=== PATIENT | female | born 1985 | race Caucasian/White ===

== ENCOUNTER → 2017-06-26 | Outpatient (CLI) | payer BC ==
[~2017-06-26] MED LIST: ALBUAER2 PO; CETI10TA84 PO; FLUT50AE; MONT1TAB3 PO
--- NOTE | 2017-06-26 13:04 | DIAGNOSTIC IMAGING REPORT ---
CHEST 2 VIEWS ROUTINE HISTORY: 31 years-old Female COUGH FEVER FLU LIKE SYMPTOMS acute cough with chills and fever. COMPARISON: None available. TECHNIQUE: Frontal and lateral views of the chest FINDINGS: Cardiomediastinal and hilar silhouettes are within normal limits. No pneumothorax, pleural effusion, focal airspace consolidation or overt pulmonary edema. There is mild convex left curvature of the upper thoracic spine of less than 10 degrees. The bones are grossly intact. Cholecystectomy clips are noted. IMPRESSION: No acute cardiopulmonary process. The above report was generated using voice recognition software. It may contain grammatical, syntax or spelling errors. Electronically signed by: Shahbaz Skinner M.D. 06/26/2017 1:03 PM Dictated Date/Time: 06/26/2017 1:02 PM
== END | disposition home or self-care (01) ==
LOC: C.RAD1850 12:45
PROVIDERS: ATTEND Physician Assistant
DX: R50.9 Fever, unspecified (principal); R05 Cough; R68.89 Other general symptoms and signs

== ENCOUNTER 2021-07-22 22:42 | Inpatient (IN) ==
[2021-07-22] MEDS ORDERED: OXYTOCIN 30 UNITS/500 ML BAG IV PRN (23:38)
[2021-07-22] MEDS ORDERED: LABETALOL HCL IV 5 MG/ML 20ML IV STA (23:50)
[2021-07-22] MEDS ORDERED: MAG SULFATE 4GM BOLUS FROM BAG IV ONE (23:50)
--- NOTE | 2021-07-22 23:55 | History & Physical Report ---
Date of Service July 22, 2021 Assessment & Plan (1) 39 weeks gestation of : Plan: Admit to LD, COVID test pending Routine labs and 3rd trimester labs Cytotec 50 mcg SL q4h for cervical ripening (2) Pre-eclampsia, severe, antepartum: Plan: Two severe range BP >160, IV labetalol 20mg rescue and start Mag sulfate 4 gr bolus, 2gr hour until 24hrs after delivery Stat labs Repeat labs q6h (CBC, CMP, Mag level) (3) Rh negative status during in third trimester: Plan: RhoGAM 01/25 and 05/03 screen after delivery (4) Adjustment disorder with mixed anxiety and depressed mood: Plan: Continue to follow and treat as needed Admission and Anticipated Discharge Date Admission Date: July 22, 2021 History of Present Illness Chief Complaint: Contractions Primary Care Provider: Cb Ayala Giovani Patient is a 35 year old at 39 0/7 weeks dated by LMP c/w 7 week US who presents with contractions since 10 am. Contractions are now every 5 min. Denies LOF, vaginal bleeding. + movements. Denies headache, BV, RUQ or epigastric pain. Otherwise feeling well. Noted elevated BP on Saturday and repeat BP on 07/21 at 38 6/7 148/90. Meet criteria for GHTN prior to admission. She presented with one severe range BP >16 0 SBP. Repeat 150. Last BP 166/96. labs reviewed: Blood type A negative Rubella immune RPR negative Hep B negative HIV neg G/C negative Qnatal negative 1st trimester H/H 13.3/39.5%, plt 246 AFP negative 1hr: 143 3hr: 80/127/120/108 3rd Trimester H/H 11.3/33.9%, plt 218 GBS negative Allergies Allergy/AdvReac Type Severity Reaction Status Date / Time cefaclor Allergy Unknown Hives/Rash Verified 07/19/21 00:27 clarithromycin Allergy Unknown Hives/Rash Verified 07/19/21 00:27 clindamycin Allergy Unknown Hives/Rash Verified 07/19/21 00:27 cyclobenzaprine Allergy Unknown Confussion, Verified 07/19/21 00:27 impaired speech and arm numbness. Penicillins Allergy Unknown HIVES/RASH Verified 07/19/21 00:27 Home Medications Medication Instructions Recorded Confirmed Type albuterol sulfate 90 mcg/actuation 2 puff INHALATION QID PRN 01/25/21 07/19/21 History aerosol inhaler sertraline 50 mg tablet 25 mg PO DAILY 01/25/21 07/19/21 History budesonide 90 mcg/actuation breath 1 inh INHALATION DAILY 07/19/21 07/19/21 History activated powder inhaler (Pulmicort Flexhaler) calcium 500 mg tablet 500 mg PO DAILY 07/19/21 07/19/21 History lactobacillus combination no.4 3 3,000 mmu cells PO DAILY 07/19/21 07/19/21 History billion cell capsule (Probiotic) [id number]-[id number]-[id number]-FA 1 mg 1 tab PO DAILY 07/19/21 07/19/21 History tablet Past Med/Surg History Medical History Anxiety and depression takes zoloft 25mg Migraine Surgical History (Updated 07/19/21 @ 00:25 by Leslie Alarcon RN) History of cholecystectomy Family History (Updated 07/19/21 @ 00:26 by Leslie Alarcon RN) Mother Cancer High cholesterol Grandmother (Maternal) Cancer Father High cholesterol Social History Smoking Status: Never smoker Second Hand Exposure: No; Do You Dip or Chew Tobacco: No; Tobacco Cessation Education Requested by Patient: No Hx Alcohol Use: No Hx Substance Use: No Preferred Language: Algerian Communication Ability: Effective 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 Beliefs That Will Affect Care: None marital status: Current Living Situation: Spouse Other Information That Helps Us Care for You: No Feels Safe at Home: Yes Safety Concerns: Feels Safe At This Time Assistive Devices: Contacts and Glasses Review of Systems Review of Systems: All systems reviewed & are unremarkable except as noted in HPI & below Physical Exam Constitutional: WD/WN, vitals as above Respiratory: normal respiratory effort, lungs clear to auscultation Cardiovascular: RRR, no murmur, no edema Gastrointestinal (Abdomen): normal bowel sounds, soft, nontender, no hepatosplenomegaly gravid Genitourinary: FHT: baseline 130, mod variability, +acceols, no decels, Cat I traging [place]:irregular Cx: 1/50/-3 check by RN Results & Data Results & Data ([facility]) Vital Signs (Past 12 Hours) Vital Signs Temp Pulse Resp BP 07/22/21 23:44 90 166/96 H 07/22/21 23:27 85 151/86 H 07/22/21 23:22 85 150/81 H 07/22/21 23:18 83 160/81 H 07/22/21 23:12 89 159/77 H 07/22/21 23:09 82 185/86 H 07/22/21 23:04 36.8 C 18 07/22/21 23:02 88 168/92 H 07/22/21 22:56 86 168/91 H 07/22/21 22:54 36.8 C 83 18 169/100 H 07/22/21 22:53 86 167/100 H Laboratory Results Pending
[2021-07-22] MEDS: LACTATED RINGER'S 1,000 ML IV PRN (23:59)
[2021-07-23 00:03] LABS: Hematocrit (blood only) 36.9 % (37-47); Hemoglobin 12.6 g/dL (12.0-16.0); Mean Corpuscular Hemoglobin 28.7 pg (25-34); Mean Corpuscular Hgb Conc 34.1 g/dL (32-36); Mean Corpuscular Volume 84.1 fL (80-100); Mean Platelet Volume 10.7 fL (7.4-10.4); Platelet Count 241 K/uL (130-400); RDW Coefficient of Variation 14.2 % (11.5-14.5); RDW Standard Deviation 43.6 fL (36.4-46.3); Red Blood Count 4.39 M/uL (4.2-5.4); White Blood Count 13.24 K/uL (4.8-10.8)
[2021-07-23] MEDS: MAGNESIUM SULFATE / WTR 40 GM/1,000 ML BAG IV SCH ×2 (00:10→17:41)
[2021-07-23] MEDS: miSOPROStoL 50 MCG TAB SL SCH ×5 (00:12→16:33)
[2021-07-23 00:24] LABS: Albumin Level 2.9 gm/dl (3.4-5.0); BUN Creatinine Ratio 11.4 (10-20); Calcium 9.4 mg/dl (8.5-10.1); Creatinine Clr Calc Pharmacy 178.7 ml/min; Est GFR (African American) 146.4 ml/min; Est GFR (Non-African American) 126.3 ml/min; Magnesium 1.9 mg/dl (1.8-2.4); Potassium 2.8 mmol/L (3.5-5.1)
[2021-07-23 00:27] LABS: Albumin Globulin Ratio 0.7 (0.9-2); Bilirubin,Total 0.4 mg/dl (0.2-1); Globulin 4.1 gm/dl (2.5-4.0)
[2021-07-23 01:47] LABS: Protein Creatinine Ratio Urine 0.5 (0-0.2); Total Protein Urine Random 14.5 mg/dl (0-11.9)
[2021-07-23 06:18] LABS: Hematocrit (blood only) 35.5 % (37-47); Mean Corpuscular Hemoglobin 28.3 pg (25-34); Mean Corpuscular Hgb Conc 33.8 g/dL (32-36); Mean Corpuscular Volume 83.7 fL (80-100); Mean Platelet Volume 10.7 fL (7.4-10.4); Platelet Count 217 K/uL (130-400); RDW Coefficient of Variation 14.3 % (11.5-14.5); RDW Standard Deviation 43.7 fL (36.4-46.3); Red Blood Count 4.24 M/uL (4.2-5.4); White Blood Count 14.34 K/uL (4.8-10.8)
[2021-07-23] MEDS: ACETAMINOPHEN 325 MG TAB PO PRN ×2 (06:41→12:30)
[2021-07-23 06:54] LABS: Alanine Aminotransferase 24 U/L (12-78); Albumin Level 2.7 gm/dl (3.4-5.0); Aspartate Aminotransferase 17 U/L (15-37); BUN Creatinine Ratio 8.5 (10-20); Blood Urea Nitrogen 4 mg/dl (7-18); Calcium 8.2 mg/dl (8.5-10.1); Carbon Dioxide 22 mmol/L (21-32); Chloride 108 mmol/L (98-107); Creatinine Clr Calc Pharmacy 198.5 ml/min; Est GFR (African American) > 150.0 ml/min; Est GFR (Non-African American) 130.7 ml/min; Glucose 80 mg/dl (70-99); Magnesium 4.1 mg/dl (1.8-2.4); Potassium 2.6 mmol/L (3.5-5.1); Sodium 139 mmol/L (136-145)
[2021-07-23 06:56] LABS: Albumin Globulin Ratio 0.7 (0.9-2); Alkaline Phosphatase 91 U/L (45-117); Bilirubin,Total 0.4 mg/dl (0.2-1); Globulin 3.7 gm/dl (2.5-4.0); Total Protein 6.4 gm/dl (6.4-8.2)
[2021-07-23] MEDS ORDERED: ALBUTEROL HFA 8 GM INHALER INH PRN (07:03)
[2021-07-23] MEDS: POTASSIUM CHLORIDE / WTR 10 MEQ/100 ML PLCT IV SCH ×10 (07:47→21:51)
[2021-07-23] MEDS: SERTRALINE HCL 50 MG TABLET PO SCH (07:53)
--- NOTE | 2021-07-23 08:42 | Labor Progress Brief Note ---
Date of Service July 23, 2021 Subjective Patient comfortable in bed at this time, denying any complaints. Has been having some complaint of pain, has not received anything for pain yet. Assessment & Plan (1) 39 weeks gestation of : Plan: Continue Cytotec 50 mcg SL q4h for cervical ripening, if no change plan for Cervidil tonight and pit tomorrow Anticipate spontaneous vaginal delivery (2) Pre-eclampsia, severe, antepartum: Plan: Continue Mag sulfate for seizure prophylaxis, no signs or symptoms of mag toxicity Continue repeat labs every 6 hours (3) Rh negative status during in third trimester: Plan: RhoGAM 01/25 and 05/03 screen after delivery (4) Adjustment disorder with mixed anxiety and depressed mood: Plan: Continue to follow and treat as needed (5) Hypokalemia: Plan: Continue IV replacement of potassium Admission and Anticipated Discharge Date Admission Date: July 22, 2021 Physical Exam Constitutional: WD/WN, vitals as above Respiratory: normal respiratory effort, lungs clear to auscultation Cardiovascular: RRR, no murmur, no edema Gastrointestinal (Abdomen): normal bowel sounds, soft, nontender, no hepatosplenomegaly Genitourinary: FHT: baseline 125-130 mod variability, positive accelerations, no decelerations, category 1 tracing Tocometer: Q. 4 to 6 minutes Cervix: 50/-3 check by RN this AM Results & Data ([facility]) Vital Signs (Past 12 Hours) Vital Signs Temp Pulse Resp BP Pulse Ox 07/23/21 08:34 112 H 99 07/23/21 08:32 104 H 135/72 07/23/21 08:30 18 07/23/21 08:29 107 H 100 07/23/21 08:24 107 H 99 07/23/21 08:19 102 H 98 07/23/21 08:14 107 H 100 07/23/21 08:09 106 H 100 07/23/21 08:04 98 H 99 07/23/21 08:00 18 07/23/21 07:59 101 H 100 07/23/21 07:54 102 H 100 07/23/21 07:49 99 H 100 07/23/21 07:44 100 H 100 07/23/21 07:39 103 H 100 07/23/21 07:34 100 H 100 07/23/21 07:32 101 H 143/79 H 07/23/21 07:30 18 07/23/21 07:29 98 H 100 07/23/21 07:25 96 H 145/81 H 07/23/21 07:24 97 H 100 07/23/21 07:19 102 H 100 07/23/21 07:14 98 H 100 07/23/21 07:10 97 H 147/84 H 07/23/21 07:09 99 H 100 07/23/21 07:04 105 H 98 07/23/21 06:59 101 H 99 07/23/21 06:55 90 143/81 H 07/23/21 06:54 99 H 100 07/23/21 06:49 98 H 99 07/23/21 06:44 108 H 100 07/23/21 06:40 101 H 148/73 H 07/23/21 06:39 110 H 97 07/23/21 06:34 111 H 99 07/23/21 06:29 104 H 98 07/23/21 06:25 99 H 143/82 H 07/23/21 06:24 107 H 99 07/23/21 06:19 102 H 100 07/23/21 06:14 101 H 98 07/23/21 06:09 99 H 100 07/23/21 06:04 104 H 100 07/23/21 06:00 20 07/23/21 05:59 112 H 100 07/23/21 05:54 109 H 100 07/23/21 05:49 105 H 100 07/23/21 05:45 93 H 127/63 07/23/21 05:44 96 H 90 07/23/21 05:39 97 H 100 07/23/21 05:34 97 H 100 07/23/21 05:29 101 H 98 07/23/21 05:24 98 H 100 07/23/21 05:19 103 H 99 07/23/21 05:14 97 H 98 07/23/21 05:09 99 H 100 07/23/21 05:04 97 H 99 07/23/21 04:59 98 H 100 07/23/21 04:58 101 H 91 07/23/21 04:54 104 H 100 07/23/21 04:49 93 H 99 07/23/21 04:44 90 120/61 100 07/23/21 04:39 94 H 100 07/23/21 04:34 92 H 100 07/23/21 04:29 88 100 07/23/21 04:24 97 H 100 07/23/21 04:19 99 H 100 07/23/21 04:14 99 H 100 07/23/21 04:09 96 H 100 07/23/21 04:04 92 H 100 07/23/21 03:59 97 H 100 07/23/21 03:54 105 H 100 07/23/21 03:49 97 H 100 07/23/21 03:45 83 139/80 07/23/21 03:44 86 100 07/23/21 03:39 89 100 07/23/21 03:34 109 H 100 07/23/21 03:29 108 H 98 07/23/21 03:24 104 H 100 07/23/21 03:19 94 H 100 07/23/21 03:14 90 99 07/23/21 03:11 97 H 91 07/23/21 03:09 95 H 100 07/23/21 03:04 91 H 100 07/23/21 02:59 93 H 99 07/23/21 02:54 91 H 98 07/23/21 02:49 100 H 99 07/23/21 02:46 91 H 135/72 07/23/21 02:44 98 H 100 07/23/21 02:39 91 H 100 07/23/21 02:34 90 99 07/23/21 02:30 18 07/23/21 02:29 96 H 100 07/23/21 02:24 89 100 07/23/21 02:19 105 H 100 07/23/21 02:14 91 H 100 07/23/21 02:09 91 H 100 07/23/21 02:04 101 H 100 07/23/21 02:00 18 07/23/21 01:59 96 H 100 07/23/21 01:54 98 H 100 07/23/21 01:49 89 100 07/23/21 01:44 101 H 100 07/23/21 01:43 81 124/63 07/23/21 01:39 99 H 100 07/23/21 01:34 86 100 07/23/21 01:30 18 07/23/21 01:29 96 H 100 07/23/21 01:28 88 131/69 07/23/21 01:24 105 H 100 07/23/21 01:22 188 H 87 L 07/23/21 01:17 155 H 83 L 07/23/21 01:13 90 147/83 H 07/23/21 01:12 99 H 100 07/23/21 01:07 98 H 99 07/23/21 01:02 96 H 98 07/23/21 01:00 18 07/23/21 00:58 99 H 152/80 H 07/23/21 00:57 101 H 99 07/23/21 00:52 104 H 98 07/23/21 00:51 106 H 90 07/23/21 00:47 93 H 99 07/23/21 00:43 100 H 153/93 H 07/23/21 00:42 100 H 98 07/23/21 00:41 94 H 93 07/23/21 00:37 104 H 95 07/23/21 00:34 95 H 93 07/23/21 00:32 109 H 89 L 07/23/21 00:29 104 H 93 07/23/21 00:27 97 H 158/84 H 96 07/23/21 00:12 92 H 146/83 H 07/22/21 23:58 88 149/90 H 07/22/21 23:44 90 166/96 H 07/22/21 23:27 85 151/86 H 07/22/21 23:22 85 150/81 H 07/22/21 23:18 83 160/81 H 07/22/21 23:12 89 159/77 H 07/22/21 23:09 82 185/86 H 07/22/21 23:04 36.8 C 18 07/22/21 23:02 88 168/92 H 07/22/21 22:56 86 168/91 H 07/22/21 22:54 36.8 C 83 18 169/100 H 07/22/21 22:53 86 167/100 H
[2021-07-23] MEDS: BUDESONIDE 90 MCG INH INH SCH (08:45)
[2021-07-23] MEDS ORDERED: FLUTICASONE FUROATE 100MCG 14 PUFFS/INHALER INH SCH (09:00)
[2021-07-23] MEDS: PRENATAL VITAMIN 1 TAB PO SCH (11:19)
[2021-07-23 12:15] LABS: Hematocrit (blood only) 36.3 % (37-47); Hemoglobin 12.2 g/dL (12.0-16.0); Mean Corpuscular Hemoglobin 28.2 pg (25-34); Mean Corpuscular Hgb Conc 33.6 g/dL (32-36); Mean Corpuscular Volume 83.8 fL (80-100); Mean Platelet Volume 10.8 fL (7.4-10.4); Platelet Count 226 K/uL (130-400); RDW Coefficient of Variation 14.2 % (11.5-14.5); RDW Standard Deviation 43.2 fL (36.4-46.3); Red Blood Count 4.33 M/uL (4.2-5.4); White Blood Count 16.24 K/uL (4.8-10.8)
[2021-07-23 12:32] LABS: Alanine Aminotransferase 27 U/L (12-78); Albumin Level 2.8 gm/dl (3.4-5.0); Aspartate Aminotransferase 19 U/L (15-37); BUN Creatinine Ratio 7.4 (10-20); Blood Urea Nitrogen 3 mg/dl (7-18); Carbon Dioxide 24 mmol/L (21-32); Chloride 106 mmol/L (98-107); Creatinine Clr Calc Pharmacy 198.5 ml/min; Est GFR (African American) > 150.0 ml/min; Est GFR (Non-African American) 130.7 ml/min; Glucose 76 mg/dl (70-99); Magnesium 4.7 mg/dl (1.8-2.4); Potassium 2.8 mmol/L (3.5-5.1); Sodium 138 mmol/L (136-145)
[2021-07-23 12:35] LABS: Albumin Globulin Ratio 0.7 (0.9-2); Alkaline Phosphatase 97 U/L (45-117); Bilirubin,Total 0.5 mg/dl (0.2-1); Globulin 3.9 gm/dl (2.5-4.0); Total Protein 6.7 gm/dl (6.4-8.2)
--- NOTE | 2021-07-23 14:07 | Labor Progress Brief Note ---
Date of Service July 23, 2021 Subjective Patient getting uncomfortable with contractions, has not had any pain relief yet. Sitting in chair. Denies headache, blurry vision, right upper quadrant epigastric pain. Otherwise feeling well Assessment & Plan (1) 39 weeks gestation of : Plan: Continue Cytotec 50 mcg SL q4h for cervical ripening, if no change plan for Cervidil tonight and pit tomorrow Anticipate spontaneous vaginal delivery (2) Pre-eclampsia, severe, antepartum: Plan: Continue Mag sulfate for seizure prophylaxis, no signs or symptoms of mag toxicity Continue repeat labs every 6 hours (3) Rh negative status during in third trimester: Plan: RhoGAM 01/25 and 05/03 screen after delivery (4) Adjustment disorder with mixed anxiety and depressed mood: Plan: Continue to follow and treat as needed (5) Hypokalemia: Plan: Continue IV replacement of potassium Admission and Anticipated Discharge Date Admission Date: July 22, 2021 Physical Exam Physical Exam: General: Alert, no acute distress, oriented x3 lungs: Clear to auscultation no crackles or wheeze cardiovascular: Tacky, regular rhythm no added sounds abdomen: Soft nontender, gravid Genitourinary: FHT: Baseline 130, moderate variability, positive accelerations, variable deceleration x1, category 1 tracing tocometer: Q. 6 to 8 minutes cervix: 50/-3 checked by RN earlier today Results & Data ([facility]) Vital Signs (Past 12 Hours) Vital Signs Temp Pulse Resp BP Pulse Ox 07/23/21 13:32 110 H 146/83 H 07/23/21 12:33 102 H 155/87 H 07/23/21 12:32 102 H 175/99 H 07/23/21 12:25 36.6 C 18 07/23/21 12:00 18 07/23/21 11:32 101 H 137/75 07/23/21 11:00 18 07/23/21 10:32 103 H 141/83 H 07/23/21 09:34 116 H 144/78 H 07/23/21 09:30 18 07/23/21 09:29 112 H 97 07/23/21 09:24 114 H 98 07/23/21 09:19 115 H 99 07/23/21 09:14 125 H 100 07/23/21 09:09 108 H 98 07/23/21 09:04 105 H 98 07/23/21 09:00 18 07/23/21 08:59 109 H 98 07/23/21 08:54 112 H 100 07/23/21 08:49 115 H 100 07/23/21 08:44 107 H 100 07/23/21 08:39 109 H 98 07/23/21 08:34 112 H 99 07/23/21 08:32 104 H 135/72 07/23/21 08:30 18 07/23/21 08:29 107 H 100 07/23/21 08:24 107 H 99 07/23/21 08:19 102 H 98 07/23/21 08:14 107 H 100 07/23/21 08:09 106 H 100 07/23/21 08:04 98 H 99 07/23/21 08:00 18 07/23/21 07:59 101 H 100 07/23/21 07:54 102 H 100 07/23/21 07:49 99 H 100 07/23/21 07:44 100 H 100 07/23/21 07:39 103 H 100 07/23/21 07:34 100 H 100 07/23/21 07:32 101 H 143/79 H 07/23/21 07:30 18 07/23/21 07:29 98 H 100 07/23/21 07:25 96 H 145/81 H 07/23/21 07:24 97 H 100 07/23/21 07:19 102 H 100 07/23/21 07:14 98 H 100 07/23/21 07:10 97 H 147/84 H 07/23/21 07:09 99 H 100 07/23/21 07:04 105 H 98 07/23/21 06:59 101 H 99 07/23/21 06:55 90 143/81 H 07/23/21 06:54 99 H 100 07/23/21 06:49 98 H 99 07/23/21 06:44 108 H 100 07/23/21 06:40 101 H 148/73 H 07/23/21 06:39 110 H 97 07/23/21 06:34 111 H 99 07/23/21 06:29 104 H 98 07/23/21 06:25 99 H 143/82 H 07/23/21 06:24 107 H 99 07/23/21 06:19 102 H 100 07/23/21 06:14 101 H 98 07/23/21 06:09 99 H 100 07/23/21 06:04 104 H 100 07/23/21 06:00 20 07/23/21 05:59 112 H 100 07/23/21 05:54 109 H 100 07/23/21 05:49 105 H 100 07/23/21 05:45 93 H 127/63 07/23/21 05:44 96 H 90 07/23/21 05:39 97 H 100 07/23/21 05:34 97 H 100 07/23/21 05:29 101 H 98 07/23/21 05:24 98 H 100 07/23/21 05:19 103 H 99 07/23/21 05:14 97 H 98 07/23/21 05:09 99 H 100 07/23/21 05:04 97 H 99 07/23/21 04:59 98 H 100 07/23/21 04:58 101 H 91 07/23/21 04:54 104 H 100 07/23/21 04:49 93 H 99 07/23/21 04:44 90 120/61 100 07/23/21 04:39 94 H 100 07/23/21 04:34 92 H 100 07/23/21 04:29 88 100 07/23/21 04:24 97 H 100 07/23/21 04:19 99 H 100 07/23/21 04:14 99 H 100 07/23/21 04:09 96 H 100 07/23/21 04:04 92 H 100 07/23/21 03:59 97 H 100 07/23/21 03:54 105 H 100 07/23/21 03:49 97 H 100 07/23/21 03:45 83 139/80 07/23/21 03:44 86 100 07/23/21 03:39 89 100 07/23/21 03:34 109 H 100 07/23/21 03:29 108 H 98 07/23/21 03:24 104 H 100 07/23/21 03:19 94 H 100 07/23/21 03:14 90 99 07/23/21 03:11 97 H 91 07/23/21 03:09 95 H 100 07/23/21 03:04 91 H 100 07/23/21 02:59 93 H 99 07/23/21 02:54 91 H 98 07/23/21 02:49 100 H 99 07/23/21 02:46 91 H 135/72 07/23/21 02:44 98 H 100 07/23/21 02:39 91 H 100 07/23/21 02:34 90 99 07/23/21 02:30 18 07/23/21 02:29 96 H 100 07/23/21 02:24 89 100 07/23/21 02:19 105 H 100 07/23/21 02:14 91 H 100 07/23/21 02:09 91 H 100
[2021-07-23] MEDS: BUTORPHANOL TARTRATE 1 MG/ML VIAL IV PRN ×2 (15:12→23:34)
[2021-07-23] MEDS ORDERED: [UNRECOGNIZED DRUG - OTHER] PV ONE (17:29)
[2021-07-23] MEDS ORDERED: DINOPROSTONE 10 MG INSERT PV ONE (17:45)
[2021-07-23 18:02] LABS: Hematocrit (blood only) 37.8 % (37-47); Mean Corpuscular Hemoglobin 28.7 pg (25-34); Mean Corpuscular Hgb Conc 34.4 g/dL (32-36); Mean Corpuscular Volume 83.4 fL (80-100); Mean Platelet Volume 10.8 fL (7.4-10.4); Platelet Count 255 K/uL (130-400); RDW Coefficient of Variation 14.3 % (11.5-14.5); RDW Standard Deviation 44.1 fL (36.4-46.3); Red Blood Count 4.53 M/uL (4.2-5.4); White Blood Count 18.23 K/uL (4.8-10.8)
[2021-07-23 18:23] LABS: Albumin Level 2.8 gm/dl (3.4-5.0); BUN Creatinine Ratio 6.6 (10-20); Calcium 7.4 mg/dl (8.5-10.1); Creatinine Clr Calc Pharmacy 190.1 ml/min; Est GFR (African American) 149.4 ml/min; Est GFR (Non-African American) 128.9 ml/min; Magnesium 4.8 mg/dl (1.8-2.4); Potassium 3.1 mmol/L (3.5-5.1)
[2021-07-23 18:26] LABS: Albumin Globulin Ratio 0.7 (0.9-2); Bilirubin,Total 0.8 mg/dl (0.2-1); Globulin 4.2 gm/dl (2.5-4.0)
--- NOTE | 2021-07-23 18:44 | Labor Progress Brief Note ---
Date of Service July 23, 2021 Subjective Patient comfortable in bed at this time, got 1 dose of Stadol and was able to rest for several hours. He attempted to eat some broth but did throw it up afterwards. No other complaints at this time Assessment & Plan (1) 39 weeks gestation of : Plan: Cervidil was placed, anticipate removal if patient becomes an active labor or 12 hours which is 6:40 AM Anticipate spontaneous vaginal delivery (2) Pre-eclampsia, severe, antepartum: Plan: Continue Mag sulfate for seizure prophylaxis, no signs or symptoms of mag toxicity Continue repeat labs every 6 hours (3) Rh negative status during in third trimester: Plan: RhoGAM 01/25 and 05/03 screen after delivery (4) Adjustment disorder with mixed anxiety and depressed mood: Plan: Continue to follow and treat as needed (5) Hypokalemia: Plan: Improved to 3.1 Continue IV replacement of potassium Admission and Anticipated Discharge Date Admission Date: July 22, 2021 Physical Exam Physical Exam: General: Alert, no acute distress, oriented x3 Lungs: Clear to auscultation bilaterally no crackles or wheeze Cardiovascular: Regular rate rhythm no added sounds Abdomen: Soft nontender, gravid Genitourinary: : Baseline 130, moderate variability, positive accelerations, no decelerations, category 1 tracing Tocometer: Irregular contractions Cervix: 1.5/60/-3 Cervidil placed at 1840, patient tolerated well Results & Data ([facility]) Vital Signs (Past 12 Hours) Vital Signs Temp Pulse Resp BP Pulse Ox 07/23/21 18:33 101 H 144/86 H 07/23/21 18:00 18 07/23/21 17:45 36.7 C 18 07/23/21 17:32 100 H 146/89 H 07/23/21 17:00 16 07/23/21 16:32 90 126/72 07/23/21 16:00 16 07/23/21 15:34 102 H 136/84 07/23/21 15:00 18 07/23/21 14:33 102 H 140/81 07/23/21 14:30 18 07/23/21 13:32 110 H 146/83 H 07/23/21 12:33 102 H 155/87 H 07/23/21 12:32 102 H 175/99 H 07/23/21 12:25 36.6 C 18 07/23/21 12:00 18 07/23/21 11:32 101 H 137/75 07/23/21 11:00 18 07/23/21 10:32 103 H 141/83 H 07/23/21 10:00 18 07/23/21 09:34 116 H 144/78 H 07/23/21 09:30 18 07/23/21 09:29 112 H 97 07/23/21 09:24 114 H 98 07/23/21 09:19 115 H 99 07/23/21 09:14 125 H 100 07/23/21 09:09 108 H 98 07/23/21 09:04 105 H 98 07/23/21 09:00 18 07/23/21 08:59 109 H 98 07/23/21 08:54 112 H 100 07/23/21 08:49 115 H 100 07/23/21 08:44 107 H 100 07/23/21 08:39 109 H 98 07/23/21 08:34 112 H 99 07/23/21 08:32 104 H 135/72 07/23/21 08:30 18 07/23/21 08:29 107 H 100 07/23/21 08:24 107 H 99 07/23/21 08:19 102 H 98 07/23/21 08:14 107 H 100 07/23/21 08:09 106 H 100 07/23/21 08:04 98 H 99 07/23/21 08:00 18 07/23/21 07:59 101 H 100 07/23/21 07:54 102 H 100 07/23/21 07:49 99 H 100 07/23/21 07:44 100 H 100 07/23/21 07:39 103 H 100 07/23/21 07:34 100 H 100 07/23/21 07:32 101 H 143/79 H 07/23/21 07:30 18 07/23/21 07:29 98 H 100 07/23/21 07:25 96 H 145/81 H 07/23/21 07:24 97 H 100 07/23/21 07:19 102 H 100 07/23/21 07:14 98 H 100 07/23/21 07:10 97 H 147/84 H 07/23/21 07:09 99 H 100 07/23/21 07:04 105 H 98 07/23/21 07:00 18 07/23/21 06:59 101 H 99 07/23/21 06:55 90 143/81 H 07/23/21 06:54 99 H 100 07/23/21 06:49 98 H 99 07/23/21 06:44 108 H 100
[2021-07-23] MEDS: LACTATED RINGER'S 1,000 ML IV PRN (20:45)
[2021-07-24 00:12] LABS: Hematocrit (blood only) 35.7 % (37-47); Hemoglobin 12.2 g/dL (12.0-16.0); Mean Corpuscular Hemoglobin 28.5 pg (25-34); Mean Corpuscular Hgb Conc 34.2 g/dL (32-36); Mean Corpuscular Volume 83.4 fL (80-100); Mean Platelet Volume 10.3 fL (7.4-10.4); Platelet Count 247 K/uL (130-400); RDW Coefficient of Variation 14.5 % (11.5-14.5); RDW Standard Deviation 44.2 fL (36.4-46.3); Red Blood Count 4.28 M/uL (4.2-5.4); White Blood Count 20.27 K/uL (4.8-10.8)
[2021-07-24 00:43] LABS: Alanine Aminotransferase 24 U/L (12-78); Albumin Globulin Ratio 0.6 (0.9-2); Albumin Level 2.6 gm/dl (3.4-5.0); Alkaline Phosphatase 102 U/L (45-117); Aspartate Aminotransferase 20 U/L (15-37); BUN Creatinine Ratio 7.6 (10-20); Blood Urea Nitrogen 3 mg/dl (7-18); Calcium 7.3 mg/dl (8.5-10.1); Carbon Dioxide 18 mmol/L (21-32); Chloride 105 mmol/L (98-107); Creatinine Clr Calc Pharmacy 212.7 ml/min; Est GFR (African American) > 150.0 ml/min; Est GFR (Non-African American) 133.7 ml/min; Globulin 4.1 gm/dl (2.5-4.0); Glucose 88 mg/dl (70-99); Potassium 3.2 mmol/L (3.5-5.1); Sodium 137 mmol/L (136-145); Total Protein 6.7 gm/dl (6.4-8.2)
[2021-07-24 05:57] LABS: Hematocrit (blood only) 36.7 % (37-47); Hemoglobin 12.3 g/dL (12.0-16.0); Mean Corpuscular Hemoglobin 28.3 pg (25-34); Mean Corpuscular Hgb Conc 33.5 g/dL (32-36); Mean Corpuscular Volume 84.6 fL (80-100); Mean Platelet Volume 10.8 fL (7.4-10.4); Platelet Count 256 K/uL (130-400); RDW Coefficient of Variation 14.5 % (11.5-14.5); RDW Standard Deviation 44.9 fL (36.4-46.3); Red Blood Count 4.34 M/uL (4.2-5.4); White Blood Count 19.39 K/uL (4.8-10.8)
[2021-07-24 06:39] LABS: Alanine Aminotransferase 27 U/L (12-78); Albumin Globulin Ratio 0.6 (0.9-2); Albumin Level 2.6 gm/dl (3.4-5.0); Alkaline Phosphatase 104 U/L (45-117); Aspartate Aminotransferase 20 U/L (15-37); BUN Creatinine Ratio 5.2 (10-20); Bilirubin,Total 1.1 mg/dl (0.2-1); Blood Urea Nitrogen 2 mg/dl (7-18); Calcium 7.3 mg/dl (8.5-10.1); Carbon Dioxide 20 mmol/L (21-32); Chloride 104 mmol/L (98-107); Creatinine Clr Calc Pharmacy 194.2 ml/min; Est GFR (African American) > 150.0 ml/min; Est GFR (Non-African American) 129.8 ml/min; Globulin 4.1 gm/dl (2.5-4.0); Glucose 85 mg/dl (70-99); Magnesium 5.2 mg/dl (1.8-2.4); Potassium 2.9 mmol/L (3.5-5.1); Sodium 134 mmol/L (136-145); Total Protein 6.7 gm/dl (6.4-8.2)
--- NOTE | 2021-07-24 06:55 | Labor Progress Brief Note ---
Date of Service July 24, 2021 Subjective Patient is comfortable at this time, was able to get some sleep overnight denies any headache, blurry vision or right upper quadrant epigastric pain. Otherwise feeling well Assessment & Plan (1) 39 weeks gestation of : Plan: Cervidil was removed, AROM was offered to patient and starting of oxytocin but patient desires epidural first. Plan for epidural then AROM and Pitocin after Anticipate spontaneous vaginal delivery (2) Pre-eclampsia, severe, antepartum: Plan: Continue Mag sulfate for seizure prophylaxis, no signs or symptoms of mag toxicity Continue repeat labs every 6 hours (3) Rh negative status during in third trimester: Plan: RhoGAM 01/25 and 05/03 screen after delivery (4) Adjustment disorder with mixed anxiety and depressed mood: Plan: Continue to follow and treat as needed (5) Hypokalemia: Plan: Now 2.9 Will restart IV replacement of potassium Admission and Anticipated Discharge Date Admission Date: July 22, 2021 Physical Exam Physical Exam: General: Alert, no acute distress, oriented x3 Lungs: Clear to auscultation bilaterally no crepitus or wheeze Cardiovascular: Regular rate and rhythm no added sounds Abdomen: Soft nontender, gravid Genitourinary: Seeing: Baseline 130, moderate variability, positive accelerations no decelerations, category 1 tracing Tocometer: Irregular contractions Cervix 3/60/-3 Results & Data ([facility]) Vital Signs (Past 12 Hours) Vital Signs Temp Pulse Resp BP Pulse Ox 07/24/21 06:49 116 H 97 07/24/21 06:44 110 H 96 07/24/21 06:39 105 H 95 07/24/21 06:34 117 H 95 07/24/21 06:32 106 H 130/74 07/24/21 06:30 18 07/24/21 06:29 110 H 95 07/24/21 06:24 113 H 94 07/24/21 06:00 18 07/24/21 05:54 110 H 98 07/24/21 05:49 107 H 97 07/24/21 05:44 114 H 97 07/24/21 05:39 114 H 97 07/24/21 05:34 117 H 97 07/24/21 05:32 109 H 130/80 07/24/21 05:30 18 07/24/21 05:29 114 H 96 07/24/21 05:24 98 H 94 07/24/21 05:19 116 H 97 07/24/21 05:14 102 H 93 07/24/21 05:09 99 H 94 07/24/21 05:04 113 H 94 07/24/21 04:59 111 H 96 07/24/21 04:54 109 H 94 07/24/21 04:49 112 H 96 07/24/21 04:44 120 H 95 07/24/21 04:39 125 H 97 07/24/21 04:36 113 H 86 L 07/24/21 04:33 125 H 92 07/24/21 04:28 107 H 93 07/24/21 04:23 106 H 89 L 07/24/21 04:18 105 H 89 L 07/24/21 04:13 104 H 93 07/24/21 04:08 111 H 92 07/24/21 04:03 97 H 89 L 07/24/21 04:00 18 07/24/21 03:58 114 H 92 07/24/21 03:53 122 H 93 07/24/21 03:48 101 H 93 07/24/21 03:43 112 H 95 07/24/21 03:38 104 H 07/24/21 03:33 118 H 96 07/24/21 03:32 100 H 125/73 07/24/21 03:30 18 07/24/21 03:28 114 H 95 07/24/21 03:23 102 H 94 07/24/21 03:18 122 H 93 07/24/21 03:13 123 H 95 07/24/21 03:08 116 H 94 07/24/21 03:03 99 H 92 07/24/21 03:00 18 07/24/21 02:58 115 H 95 07/24/21 02:53 118 H 96 07/24/21 02:48 109 H 95 07/24/21 02:43 104 H 94 07/24/21 02:38 102 H 94 07/24/21 02:33 36.6 C 105 H 133/74 95 07/24/21 02:30 18 07/24/21 02:28 110 H 96 07/24/21 02:23 107 H 96 07/24/21 02:18 104 H 97 07/24/21 02:13 108 H 97 07/24/21 02:08 116 H 97 07/24/21 02:03 108 H 97 07/24/21 02:00 18 07/24/21 01:58 105 H 97 07/24/21 01:53 114 H 96 07/24/21 01:48 97 H 95 07/24/21 01:43 106 H 94 07/24/21 01:38 100 H 95 07/24/21 01:33 97 H 93 07/24/21 01:32 104 H 124/60 07/24/21 01:30 18 07/24/21 01:28 99 H 94 07/24/21 01:23 98 H 94 07/24/21 01:18 113 H 97 07/24/21 01:13 96 H 94 07/24/21 01:08 112 H 96 07/24/21 01:03 97 H 94 07/24/21 01:00 18 07/24/21 00:58 97 H 93 07/24/21 00:53 100 H 93 07/24/21 00:48 105 H 92 07/24/21 00:43 99 H 94 07/24/21 00:38 99 H 92 07/24/21 00:33 105 H 95 07/24/21 00:32 100 H 123/60 07/24/21 00:30 18 07/24/21 00:28 101 H 92 07/24/21 00:23 102 H 92 07/24/21 00:18 110 H 95 07/24/21 00:13 102 H 92 07/24/21 00:08 106 H 93 07/24/21 00:03 111 H 93 07/24/21 00:02 114 H 94 07/24/21 00:00 18 07/23/21 23:58 102 H 91 07/23/21 23:53 101 H 93 07/23/21 23:48 97 H 91 07/23/21 23:47 104 H 94 07/23/21 23:43 100 H 91 07/23/21 23:39 105 H 94 07/23/21 23:38 102 H 95 07/23/21 23:33 105 H 97 07/23/21 23:32 36.8 C 104 H 137/75 07/23/21 23:30 18 07/23/21 23:28 121 H 99 07/23/21 23:23 115 H 97 07/23/21 23:18 111 H 98 07/23/21 23:13 118 H 96 07/23/21 23:08 106 H 93 07/23/21 23:07 107 H 94 07/23/21 23:03 116 H 99 07/23/21 23:00 18 07/23/21 22:58 112 H 97 07/23/21 22:53 97 H 94 07/23/21 22:51 99 H 94 07/23/21 22:48 112 H 96 07/23/21 22:43 101 H 96 07/23/21 22:42 111 H 94 07/23/21 22:38 112 H 97 07/23/21 22:37 102 H 94 07/23/21 22:33 107 H 100 07/23/21 22:32 103 H 132/84 07/23/21 22:30 18 07/23/21 22:28 101 H 93 07/23/21 22:26 100 H 93 07/23/21 22:23 112 H 94 07/23/21 22:21 97 H 94 07/23/21 22:18 104 H 93 07/23/21 22:13 98 H 94 07/23/21 22:08 105 H 95 07/23/21 22:03 106 H 95 07/23/21 22:00 18 07/23/21 21:58 108 H 95 07/23/21 21:57 110 H 94 07/23/21 21:53 112 H 96 07/23/21 21:48 109 H 97 07/23/21 21:34 109 H 97 07/23/21 21:33 100 H 134/74 07/23/21 21:30 18 07/23/21 21:29 101 H 98 07/23/21 21:24 110 H 100 07/23/21 21:23 108 H 89 L 07/23/21 21:19 109 H 100 07/23/21 21:14 103 H 99 07/23/21 21:09 121 H 99 07/23/21 21:04 99 H 98 07/23/21 21:01 106 H 90 07/23/21 21:00 18 07/23/21 20:59 97 H 98 07/23/21 20:54 111 H 99 07/23/21 20:49 111 H 98 07/23/21 20:32 101 H 134/71 07/23/21 20:30 18 07/23/21 20:00 18 07/23/21 19:32 36.6 C 95 H 18 141/87 H 07/23/21 19:00 18
[2021-07-24] MEDS ORDERED: OXYTOCIN 30 UNITS/500 ML BAG IV PRN ×2 (07:34→18:08)
[2021-07-24] MEDS ORDERED: ONDANSETRON INJ 2 MG/ML 2 ML VIAL IV PRN (07:56)
--- NOTE | 2021-07-24 08:02 | Obstetrical Progress Note ---
Date of Service July 24, 2021 Assessment & Plan Admission and Anticipated Discharge Date Admission Date: July 22, 2021 Subjective Patient is seen and examined She feels tired and hungry Has not slept and ate since Saturday night when she came Her initial BP's were elevated but never needed antihypertensives. Started on IV Magnesium for seizure prophylaxis BP's have been WNL O2 sat 98% on RA No HERNANDEZ/ change in vision/ CP/ SOB Desires to eat and have epidural and rest Labs with normal platelets , creatinine and LFT's Magnesium level coming up Low Potassium, has been being replaced UOP adequate DTR 2+/2+ VE: 2-3 cm/ 70%/ -3, bulging bag FHR categ I Plan to decrease Magnesium to 1 gr/ hour, epidural for pain and then start Pitocin Continue to monitor closely Results & Data ([facility]) Vital Signs (Past 12 Hours) Vital Signs Temp Pulse Resp BP Pulse Ox 07/24/21 07:54 107 H 96 07/24/21 07:49 102 H 98 07/24/21 07:44 107 H 96 07/24/21 07:39 102 H 96 07/24/21 07:34 106 H 96 07/24/21 07:32 105 H 139/81 07/24/21 07:29 105 H 97 07/24/21 07:24 110 H 96 07/24/21 07:19 113 H 96 07/24/21 07:14 102 H 95 07/24/21 07:09 110 H 95 07/24/21 07:04 116 H 97 07/24/21 07:00 18 07/24/21 06:59 106 H 95 07/24/21 06:54 111 H 95 07/24/21 06:49 116 H 97 07/24/21 06:44 110 H 96 07/24/21 06:39 105 H 95 07/24/21 06:34 117 H 95 07/24/21 06:32 106 H 130/74 07/24/21 06:30 18 07/24/21 06:29 110 H 95 07/24/21 06:24 113 H 94 07/24/21 06:00 18 07/24/21 05:54 110 H 98 07/24/21 05:49 107 H 97 07/24/21 05:44 114 H 97 07/24/21 05:39 114 H 97 07/24/21 05:34 117 H 97 07/24/21 05:32 109 H 130/80 07/24/21 05:30 18 07/24/21 05:29 114 H 96 07/24/21 05:24 98 H 94 07/24/21 05:19 116 H 97 07/24/21 05:14 102 H 93 07/24/21 05:09 99 H 94 07/24/21 05:04 113 H 94 07/24/21 04:59 111 H 96 07/24/21 04:54 109 H 94 07/24/21 04:49 112 H 96 07/24/21 04:44 120 H 95 07/24/21 04:39 125 H 97 07/24/21 04:36 113 H 86 L 07/24/21 04:33 125 H 92 07/24/21 04:28 107 H 93 07/24/21 04:23 106 H 89 L 07/24/21 04:18 105 H 89 L 07/24/21 04:13 104 H 93 07/24/21 04:08 111 H 92 07/24/21 04:03 97 H 89 L 07/24/21 04:00 18 07/24/21 03:58 114 H 92 07/24/21 03:53 122 H 93 07/24/21 03:48 101 H 93 07/24/21 03:43 112 H 95 07/24/21 03:38 104 H 07/24/21 03:33 118 H 96 07/24/21 03:32 100 H 125/73 07/24/21 03:30 18 07/24/21 03:28 114 H 95 07/24/21 03:23 102 H 94 07/24/21 03:18 122 H 93 07/24/21 03:13 123 H 95 07/24/21 03:08 116 H 94 07/24/21 03:03 99 H 92 07/24/21 03:00 18 07/24/21 02:58 115 H 95 07/24/21 02:53 118 H 96 07/24/21 02:48 109 H 95 07/24/21 02:43 104 H 94 07/24/21 02:38 102 H 94 07/24/21 02:33 36.6 C 105 H 133/74 95 07/24/21 02:30 18 07/24/21 02:28 110 H 96 07/24/21 02:23 107 H 96 07/24/21 02:18 104 H 97 07/24/21 02:13 108 H 97 07/24/21 02:08 116 H 97 07/24/21 02:03 108 H 97 07/24/21 02:00 18 07/24/21 01:58 105 H 97 07/24/21 01:53 114 H 96 07/24/21 01:48 97 H 95 07/24/21 01:43 106 H 94 07/24/21 01:38 100 H 95 07/24/21 01:33 97 H 93 07/24/21 01:32 104 H 124/60 07/24/21 01:30 18 07/24/21 01:28 99 H 94 07/24/21 01:23 98 H 94 07/24/21 01:18 113 H 97 07/24/21 01:13 96 H 94 07/24/21 01:08 112 H 96 07/24/21 01:03 97 H 94 07/24/21 01:00 18 07/24/21 00:58 97 H 93 07/24/21 00:53 100 H 93 07/24/21 00:48 105 H 92 07/24/21 00:43 99 H 94 07/24/21 00:38 99 H 92 07/24/21 00:33 105 H 95 07/24/21 00:32 100 H 123/60 07/24/21 00:30 18 07/24/21 00:28 101 H 92 07/24/21 00:23 102 H 92 07/24/21 00:18 110 H 95 07/24/21 00:13 102 H 92 07/24/21 00:08 106 H 93 07/24/21 00:03 111 H 93 07/24/21 00:02 114 H 94 07/24/21 00:00 18 07/23/21 23:58 102 H 91 07/23/21 23:53 101 H 93 07/23/21 23:48 97 H 91 07/23/21 23:47 104 H 94 07/23/21 23:43 100 H 91 07/23/21 23:39 105 H 94 07/23/21 23:38 102 H 95 07/23/21 23:33 105 H 97 07/23/21 23:32 36.8 C 104 H 137/75 07/23/21 23:30 18 07/23/21 23:28 121 H 99 07/23/21 23:23 115 H 97 07/23/21 23:18 111 H 98 07/23/21 23:13 118 H 96 07/23/21 23:08 106 H 93 07/23/21 23:07 107 H 94 07/23/21 23:03 116 H 99 07/23/21 23:00 18 07/23/21 22:58 112 H 97 07/23/21 22:53 97 H 94 07/23/21 22:51 99 H 94 07/23/21 22:48 112 H 96 07/23/21 22:43 101 H 96 07/23/21 22:42 111 H 94 07/23/21 22:38 112 H 97 07/23/21 22:37 102 H 94 07/23/21 22:33 107 H 100 07/23/21 22:32 103 H 132/84 07/23/21 22:30 18 07/23/21 22:28 101 H 93 07/23/21 22:26 100 H 93 07/23/21 22:23 112 H 94 07/23/21 22:21 97 H 94 07/23/21 22:18 104 H 93 07/23/21 22:13 98 H 94 07/23/21 22:08 105 H 95 07/23/21 22:03 106 H 95 07/23/21 22:00 18 07/23/21 21:58 108 H 95 07/23/21 21:57 110 H 94 07/23/21 21:53 112 H 96 07/23/21 21:48 109 H 97 07/23/21 21:34 109 H 97 07/23/21 21:33 100 H 134/74 07/23/21 21:30 18 07/23/21 21:29 101 H 98 07/23/21 21:24 110 H 100 07/23/21 21:23 108 H 89 L 07/23/21 21:19 109 H 100 07/23/21 21:14 103 H 99 07/23/21 21:09 121 H 99 07/23/21 21:04 99 H 98 07/23/21 21:01 106 H 90 07/23/21 21:00 18 07/23/21 20:59 97 H 98 07/23/21 20:54 111 H 99 07/23/21 20:49 111 H 98 07/23/21 20:32 101 H 134/71 07/23/21 20:30 18 07/23/21 20:00 18
[2021-07-24] MEDS: SERTRALINE HCL 50 MG TABLET PO SCH (08:12)
[2021-07-24] MEDS: POTASSIUM CHLORIDE / WTR 10 MEQ/100 ML PLCT IV SCH ×6 (08:22→15:13)
[2021-07-24] MEDS ORDERED: ePHEDrine sulfate 50 MG/ML AMP ONE (08:32)
[2021-07-24] MEDS ORDERED: SODIUM CHLORIDE 0.9% INJ 10 ML VIAL ONE (08:32)
[2021-07-24] MEDS ORDERED: BUPIVACAINE 0.25% 30 ML VIAL ONE (08:32)
[2021-07-24] MEDS ORDERED: fentaNYL citrate 100 MCG/2 ML VIAL ONE (08:32)
[2021-07-24] MEDS ORDERED: fentaNYL 2MCG/ML ROPIVACAINE 1.25MG/ML 100 ML BAG EPI ONE (08:33)
[2021-07-24] MEDS: PRENATAL VITAMIN 1 TAB PO SCH (08:38)
[2021-07-24] MEDS: BUDESONIDE 90 MCG INH INH SCH (08:45)
[2021-07-24] MEDS: LACTATED RINGER'S 1,000 ML IV PRN (09:03)
[2021-07-24 09:18] LABS: Hepatitis B Surf Ag Rflx Conf Neg (Neg)
[2021-07-24 09:46] LABS: Hepatitis C IgG 13Yrs+Old_Rflx Neg (Neg)
[2021-07-24] MEDS ORDERED: Nursing to Pharmacy Communication SCH (10:45)
--- NOTE | 2021-07-24 13:12 | Obstetrical Progress Note ---
Date of Service July 24, 2021 Assessment & Plan Admission and Anticipated Discharge Date Admission Date: July 22, 2021 Subjective Patient is reevaluated. She feels rectal pressure. Vaginal exam, cervix is 7 cm dilated, 70% effaced, head at 0 station. heart rate category 1 with mild early decelerations, [place] contractions every 2 to 3 minutes, Continue to monitor closely Results & Data ([facility]) Vital Signs (Past 12 Hours) Vital Signs Temp Pulse Resp BP Pulse Ox 07/24/21 13:09 105 H 07/24/21 13:04 95 H 97 07/24/21 12:59 103 H 18 148/81 H 97 07/24/21 12:54 106 H 95 07/24/21 12:49 96 H 94 07/24/21 12:45 20 07/24/21 12:44 101 H 98 07/24/21 12:43 100 H 138/76 07/24/21 12:39 106 H 96 07/24/21 12:34 114 H 94 07/24/21 12:30 112 H 138/78 07/24/21 12:29 103 H 20 95 07/24/21 12:24 103 H 95 07/24/21 12:19 103 H 94 07/24/21 12:15 20 07/24/21 12:14 105 H 141/68 H 94 07/24/21 12:09 98 H 94 07/24/21 12:04 104 H 95 07/24/21 12:02 20 07/24/21 12:00 20 07/24/21 11:59 106 H 97 07/24/21 11:58 96 H 133/70 07/24/21 11:54 101 H 96 07/24/21 11:49 101 H 95 07/24/21 11:46 36.8 C 20 07/24/21 11:44 99 H 95 07/24/21 11:43 96 H 129/72 07/24/21 11:39 130 H 98 07/24/21 11:35 20 07/24/21 11:34 111 H 96 07/24/21 11:29 110 H 95 07/24/21 11:28 99 H 142/83 H 07/24/21 11:24 112 H 96 07/24/21 11:20 20 07/24/21 11:19 106 H 96 07/24/21 11:14 111 H 160/93 H 95 07/24/21 11:09 113 H 96 07/24/21 11:05 20 07/24/21 11:04 97 H 95 07/24/21 10:59 97 H 135/78 94 07/24/21 10:54 96 H 95 07/24/21 10:50 20 07/24/21 10:49 92 H 94 07/24/21 10:44 100 H 137/78 95 07/24/21 10:39 91 H 95 07/24/21 10:35 36.7 C 20 07/24/21 10:34 94 H 96 07/24/21 10:29 113 H 95 07/24/21 10:28 94 H 115/57 L 07/24/21 10:25 18 07/24/21 10:24 84 94 07/24/21 10:19 86 93 07/24/21 10:14 82 94 07/24/21 10:13 87 116/57 L 07/24/21 10:10 18 07/24/21 10:09 84 95 07/24/21 10:04 88 96 07/24/21 09:59 105 H 97 07/24/21 09:58 95 H 118/60 07/24/21 09:56 99 H 114/58 L 07/24/21 09:55 18 07/24/21 09:54 98 H 114/55 L 97 07/24/21 09:52 99 H 114/60 07/24/21 09:50 96 H 116/59 L 07/24/21 09:49 99 H 99 07/24/21 09:48 96 H 118/63 07/24/21 09:46 98 H 115/65 07/24/21 09:44 100 H 114/63 97 07/24/21 09:42 98 H 112/67 07/24/21 09:40 94 H 18 111/57 L 07/24/21 09:39 101 H 98 07/24/21 09:38 99 H 111/57 L 07/24/21 09:36 101 H 109/57 L 07/24/21 09:34 96 H 120/59 L 98 07/24/21 09:32 99 H 120/59 L 07/24/21 09:30 98 H 118/58 L 07/24/21 09:29 104 H 99 07/24/21 09:28 105 H 115/56 L 07/24/21 09:26 100 H 118/56 L 07/24/21 09:25 18 07/24/21 09:24 100 H 123/58 L 99 07/24/21 09:22 102 H 120/56 L 07/24/21 09:20 99 H 113/57 L 07/24/21 09:19 105 H 98 07/24/21 09:18 96 H 117/59 L 07/24/21 09:16 110 H 122/57 L 07/24/21 09:14 95 H 122/58 L 99 07/24/21 09:12 96 H 123/60 07/24/21 09:09 103 H 95 07/24/21 09:05 110 H 160/94 H 07/24/21 09:04 114 H 98 07/24/21 09:00 18 07/24/21 08:59 98 H 96 07/24/21 08:54 92 H 97 07/24/21 08:49 100 H 95 07/24/21 08:44 105 H 97 07/24/21 08:39 105 H 96 07/24/21 08:34 117 H 95 07/24/21 08:33 110 H 137/81 07/24/21 08:29 107 H 95 07/24/21 08:24 111 H 95 07/24/21 08:19 102 H 97 07/24/21 08:14 98 H 95 07/24/21 08:09 103 H 97 07/24/21 08:04 100 H 95 07/24/21 08:00 18 07/24/21 07:59 102 H 97 07/24/21 07:54 107 H 96 07/24/21 07:49 102 H 98 07/24/21 07:44 107 H 96 07/24/21 07:39 102 H 96 07/24/21 07:34 106 H 96 07/24/21 07:32 105 H 139/81 07/24/21 07:29 105 H 97 07/24/21 07:24 110 H 96 07/24/21 07:19 113 H 96 07/24/21 07:15 36.6 C 20 07/24/21 07:14 102 H 95 07/24/21 07:09 110 H 95 07/24/21 07:04 116 H 97 07/24/21 07:01 18 07/24/21 07:00 18 07/24/21 06:59 106 H 95 07/24/21 06:54 111 H 95 07/24/21 06:49 116 H 97 07/24/21 06:44 110 H 96 07/24/21 06:39 105 H 95 07/24/21 06:34 117 H 95 07/24/21 06:32 106 H 130/74 07/24/21 06:30 18 07/24/21 06:29 110 H 95 07/24/21 06:24 113 H 94 07/24/21 06:00 18 07/24/21 05:54 110 H 98 07/24/21 05:49 107 H 97 07/24/21 05:44 114 H 97 07/24/21 05:39 114 H 97 07/24/21 05:34 117 H 97 07/24/21 05:32 109 H 130/80 07/24/21 05:30 18 07/24/21 05:29 114 H 96 07/24/21 05:24 98 H 94 07/24/21 05:19 116 H 97 07/24/21 05:14 102 H 93 07/24/21 05:09 99 H 94 07/24/21 05:04 113 H 94 07/24/21 04:59 111 H 96 07/24/21 04:54 109 H 94 07/24/21 04:49 112 H 96 07/24/21 04:44 120 H 95 07/24/21 04:39 125 H 97 07/24/21 04:36 113 H 86 L 07/24/21 04:33 125 H 92 07/24/21 04:28 107 H 93 07/24/21 04:23 106 H 89 L 07/24/21 04:18 105 H 89 L 07/24/21 04:13 104 H 93 07/24/21 04:08 111 H 92 07/24/21 04:03 97 H 89 L 07/24/21 04:00 18 07/24/21 03:58 114 H 92 07/24/21 03:53 122 H 93 07/24/21 03:48 101 H 93 07/24/21 03:43 112 H 95 07/24/21 03:38 104 H 07/24/21 03:33 118 H 96 07/24/21 03:32 100 H 125/73 07/24/21 03:30 18 07/24/21 03:28 114 H 95 07/24/21 03:23 102 H 94 07/24/21 03:18 122 H 93 07/24/21 03:13 123 H 95 07/24/21 03:08 116 H 94 07/24/21 03:03 99 H 92 07/24/21 03:00 18 07/24/21 02:58 115 H 95 07/24/21 02:53 118 H 96 07/24/21 02:48 109 H 95 07/24/21 02:43 104 H 94 07/24/21 02:38 102 H 94 07/24/21 02:33 36.6 C 105 H 133/74 95 07/24/21 02:30 18 07/24/21 02:28 110 H 96 07/24/21 02:23 107 H 96 07/24/21 02:18 104 H 97 07/24/21 02:13 108 H 97 07/24/21 02:08 116 H 97 07/24/21 02:03 108 H 97 07/24/21 02:00 18 07/24/21 01:58 105 H 97 07/24/21 01:53 114 H 96 07/24/21 01:48 97 H 95 07/24/21 01:43 106 H 94 07/24/21 01:38 100 H 95 07/24/21 01:33 97 H 93 07/24/21 01:32 104 H 124/60 07/24/21 01:30 18 07/24/21 01:28 99 H 94 07/24/21 01:23 98 H 94 07/24/21 01:18 113 H 97 07/24/21 01:13 96 H 94
[2021-07-24] MEDS ORDERED: ePHEDrine sulfate 50 MG/ML AMP IV PRN (13:13)
[2021-07-24] MEDS ORDERED: NALOXONE HCL 0.4 MG/1 ML VIAL/CARP IV PRN (13:13)
[2021-07-24] MEDS ORDERED: NALOXONE HCL 1 MG in SODIUM CHLORIDE 0.9% 1000ML 1,000 ML IV PRN (13:13)
[2021-07-24] MEDS ORDERED: NALBUPHINE HCL INJ 10 MG/ML AMP IV PRN (13:13)
[2021-07-24] MEDS ORDERED: diphenhydrAMINE 50 MG/ML VIAL IV PRN (13:13)
[2021-07-24] MEDS ORDERED: fentaNYL 2MCG/ML ROPIVACAINE 1.25MG/ML 100 ML BAG EPI PRN (13:13)
[2021-07-24] MEDS ORDERED: NURSING L&D Epidural Breakthrough Pain Update ONE (13:18)
[2021-07-24 14:18] LABS: Magnesium 4.9 mg/dl (1.8-2.4)
[2021-07-24 14:53] LABS: Albumin Globulin Ratio 0.7 (0.9-2); Albumin Level 2.7 gm/dl (3.4-5.0); BUN Creatinine Ratio 6.7 (10-20); Bilirubin,Total 0.9 mg/dl (0.2-1); Calcium 7.9 mg/dl (8.5-10.1); Creatinine Clr Calc Pharmacy 159.5 ml/min; Est GFR (Non-African American) 121.7 ml/min; Globulin 4.1 gm/dl (2.5-4.0); Potassium 3.7 mmol/L (3.5-5.1); Total Protein 6.8 gm/dl (6.4-8.2)
--- NOTE | 2021-07-24 15:01 | Anesthesiology Consultation ---
Date of Service July 24, 2021 Assessment & Plan (1) Encounter for pre-operative examination: Chart Review Chart Review: Patient NOT seen in Pre Admission Testing and Acceptable Risk for Labor Epidural Consults Requested none ASA ASA2 Proposed Anesthesia Anesthesia Type: Labor Epidural Risk / Benefits Reviewed With: PT / POA / Parent / Guardian, Accepts Plan and Informed Consent Obtained History Height/Weight Height: 5 ft 5 in Weight: 92.986 kg Allergies Allergy/AdvReac Type Severity Reaction Status Date / Time cefaclor Allergy Intermediate Hives/Rash Verified 07/24/21 10:06 clarithromycin Allergy Intermediate Hives/Rash Verified 07/24/21 10:06 clindamycin Allergy Intermediate Hives/Rash Verified 07/24/21 10:06 cyclobenzaprine Allergy Intermediate Confusion, Verified 07/24/21 10:06 impaired speech and arm numbness. Penicillins Allergy Intermediate HIVES/RASH Verified 07/24/21 10:06 Medications Home Medications Medication Instructions Recorded Confirmed Last Taken albuterol sulfate 90 mcg/actuation 2 puff INHALATION QID PRN 01/25/21 07/23/21 Unknown aerosol inhaler sertraline 50 mg tablet 25 mg PO DAILY 01/25/21 07/23/21 07/18/21 08:00 budesonide 90 mcg/actuation breath 1 inh INHALATION DAILY 07/19/21 07/23/21 07/18/21 activated powder inhaler (Pulmicort Flexhaler) calcium 500 mg tablet 500 mg PO DAILY 07/19/21 07/23/21 07/18/21 lactobacillus combination no.4 3 3,000 mmu cells PO DAILY 07/19/21 07/23/21 07/18/21 billion cell capsule (Probiotic) [id number] 1 mg 1 tab PO DAILY 07/19/21 07/23/21 07/18/21 tablet fluticasone propionate 50 2 spray INTRANASAL DAILY 07/23/21 07/23/21 07/22/21 08:00 mcg/actuation nasal spray,suspension Active Medications Generic Name Dose Route Start Last Admin Trade Name Freq PRN Reason Stop Dose Admin Acetaminophen 650 mg 07/23/21 06:28 07/23/21 12:30 Acetaminophen 325 Mg Tab PO 08/22/21 06:27 650 mg Q4H PRN Administration Headache or Pain Budesonide 1 puffs 07/23/21 09:00 10/25/21 08:45 Budesonide 90 Mcg Inh INH 08/22/21 08:59 1 puffs DAILY ARMEN Administration Butorphanol Tartrate 1 mg 07/23/21 14:43 07/23/21 23:34 Butorphanol Tartrate 1 Mg/Ml Vial IV 08/22/21 14:42 1 mg Q3H PRN Administration Pain Lactated Ringer's 1,000 mls @ 125 mls/hr 07/22/21 23:38 07/24/21 09:26 Lr IV 07/24/21 23:37 0 mls/hr .Q8H PRN Infusion L&D Protocol Protocol Magnesium Sulfate 40 gm in 1,000 mls @ 25 mls/hr 07/22/21 23:45 07/24/21 14:58 Magnesium Sulfate / Wtr IV 08/21/21 23:44 25 mls/hr .Q24H ARMEN Infusion Oxytocin 30 units in 500 mls @ 10 mls/hr 07/24/21 07:34 07/24/21 12:00 Pitocin IV 07/26/21 07:33 0.6 units/hr .Q24H PRN 10 mls/hr Labor Induction/Augmentation Titration Protocol 0.6 UNITS/HR Ondansetron HCl 4 mg 07/24/21 07:56 07/24/21 08:15 Ondansetron Inj 2 Mg/Ml 2 Ml Vial IV 08/23/21 07:55 4 mg Q4H PRN Administration Nausea Prenat Multivit/Wedger And Gluer/Iron/Folic Ac 1 tab 07/23/21 09:00 07/24/21 08:38 Vitamin 1 Tab PO 08/22/21 08:59 Not Given DAILY ARMEN Sertraline HCl 25 mg 07/23/21 09:00 07/24/21 08:12 Sertraline Hcl 50 Mg Tablet PO 08/22/21 08:59 25 mg DAILY ARMEN Administration Past Medical History Medical History Anxiety and depression takes zoloft 25mg Migraine Exercise / Class Metabolic Activity II 4-5 Yardwork/Stairs/Walk up hill Past Family History Family History Mother Cancer High cholesterol Grandmother (Maternal) Cancer Father High cholesterol Past Surgical History Surgical History History of cholecystectomy Past Anesthesia History No Hx of Anesthesia Complications and No Family Hx of Anesthesia Complications History of PONV No Hx of PONV and No Hx of Motion Sickness Social History Smoking Status: Never smoker Do You Dip or Chew Tobacco: No Hx Alcohol Use: No Hx Substance Use: No substance use type: does not use Physical Exam Vital Signs Last Vital Signs Temp 36.8 C 07/24/21 13:31 Pulse 108 H 07/24/21 14:59 Resp 20 07/24/21 14:29 BP 137/80 07/24/21 14:59 Pulse Ox 96 07/24/21 14:59 ENMT Mouth: no dentition abnormality Thyromental Distance: > or= 3.5 Finger Breadths Mallampati Class: II Neck normal visual inspection Respiratory normal respiratory effort Auscultation: lungs clear to auscultation bilaterally Cardiovascular Rate/Rhythm: regular rate and regular rhythm Psychiatric Orientation: alert Testing Laboratory Results 07/24/21 05:40 07/24/21 13:55
[2021-07-24] MEDS ORDERED: MINERAL OIL 30 ML UDC ONE (16:36)
--- NOTE | 2021-07-24 16:47 | Obstetrical Progress Note ---
Date of Service July 24, 2021 Assessment & Plan Admission and Anticipated Discharge Date Admission Date: July 22, 2021 Subjective Patient was found to be fluid dilated and desire to push. Head at +2 station with small caput on it, heart rate category 1. We will continue to push and anticipate . Results & Data ([facility] [place]) Vital Signs (Past 12 Hours) Vital Signs Temp Pulse Resp BP Pulse Ox 07/24/21 16:44 127 H 119/57 L 93 07/24/21 16:39 129 H 92 07/24/21 16:34 129 H 98 07/24/21 16:30 20 07/24/21 16:29 129 H 146/86 H 98 07/24/21 16:24 128 H 97 07/24/21 16:19 129 H 96 07/24/21 16:14 126 H 96 07/24/21 16:13 126 H 131/64 07/24/21 16:09 116 H 94 07/24/21 16:04 112 H 96 07/24/21 16:00 16 07/24/21 15:59 112 H 96 07/24/21 15:58 111 H 117/60 07/24/21 15:54 95 H 93 07/24/21 15:49 93 H 93 07/24/21 15:44 96 H 116/58 L 95 07/24/21 15:39 96 H 93 07/24/21 15:34 97 H 94 07/24/21 15:30 18 07/24/21 15:29 106 H 117/56 L 95 07/24/21 15:24 111 H 95 07/24/21 15:19 118 H 96 07/24/21 15:14 114 H 140/71 95 07/24/21 15:13 107 H 143/73 H 07/24/21 15:09 122 H 97 07/24/21 15:04 95 H 93 07/24/21 15:01 20 07/24/21 15:00 36.8 C 20 07/24/21 14:59 108 H 137/80 96 07/24/21 14:54 112 H 96 07/24/21 14:49 111 H 95 07/24/21 14:44 110 H 132/70 94 07/24/21 14:39 116 H 96 07/24/21 14:34 97 H 93 07/24/21 14:30 95 H 129/65 07/24/21 14:29 106 H 20 91 07/24/21 14:24 99 H 92 07/24/21 14:19 98 H 92 07/24/21 14:15 93 H 126/62 07/24/21 14:14 101 H 94 07/24/21 14:09 92 H 93 07/24/21 14:04 93 H 95 07/24/21 14:00 20 07/24/21 13:59 120 H 125/58 L 96 07/24/21 13:54 89 94 07/24/21 13:49 99 H 94 07/24/21 13:44 88 96 07/24/21 13:43 93 H 129/65 07/24/21 13:39 102 H 98 07/24/21 13:34 94 H 96 07/24/21 13:31 36.8 C 18 07/24/21 13:29 90 97 07/24/21 13:28 97 H 132/73 07/24/21 13:24 98 H 96 07/24/21 13:19 90 96 07/24/21 13:14 102 H 20 135/74 95 07/24/21 13:09 105 H 96 07/24/21 13:04 95 H 97 07/24/21 13:00 18 07/24/21 12:59 103 H 18 148/81 H 97 07/24/21 12:54 106 H 95 07/24/21 12:49 96 H 94 07/24/21 12:45 20 07/24/21 12:44 101 H 98 07/24/21 12:43 100 H 138/76 07/24/21 12:39 106 H 96 07/24/21 12:34 114 H 94 07/24/21 12:30 112 H 138/78 07/24/21 12:29 103 H 20 95 07/24/21 12:24 103 H 95 07/24/21 12:19 103 H 94 07/24/21 12:15 20 07/24/21 12:14 105 H 141/68 H 94 07/24/21 12:09 98 H 94 07/24/21 12:04 104 H 95 07/24/21 12:02 20 07/24/21 12:00 20 07/24/21 11:59 106 H 97 07/24/21 11:58 96 H 133/70 07/24/21 11:54 101 H 96 07/24/21 11:49 101 H 95 07/24/21 11:46 36.8 C 20 07/24/21 11:44 99 H 95 07/24/21 11:43 96 H 129/72 07/24/21 11:39 130 H 98 07/24/21 11:35 20 07/24/21 11:34 111 H 96 07/24/21 11:29 110 H 95 07/24/21 11:28 99 H 142/83 H 07/24/21 11:24 112 H 96 07/24/21 11:20 20 07/24/21 11:19 106 H 96 07/24/21 11:14 111 H 160/93 H 95 07/24/21 11:09 113 H 96 07/24/21 11:05 20 07/24/21 11:04 97 H 95 07/24/21 10:59 97 H 135/78 94 07/24/21 10:54 96 H 95 07/24/21 10:50 20 07/24/21 10:49 92 H 94 07/24/21 10:44 100 H 137/78 95 07/24/21 10:39 91 H 95 07/24/21 10:35 36.7 C 20 07/24/21 10:34 94 H 96 07/24/21 10:29 113 H 95 07/24/21 10:28 94 H 115/57 L 07/24/21 10:25 18 07/24/21 10:24 84 94 07/24/21 10:19 86 93 07/24/21 10:14 82 94 07/24/21 10:13 87 116/57 L 07/24/21 10:10 18 07/24/21 10:09 84 95 07/24/21 10:04 88 96 07/24/21 09:59 105 H 97 07/24/21 09:58 95 H 118/60 07/24/21 09:56 99 H 114/58 L 07/24/21 09:55 18 07/24/21 09:54 98 H 114/55 L 97 07/24/21 09:52 99 H 114/60 07/24/21 09:50 96 H 116/59 L 07/24/21 09:49 99 H 99 07/24/21 09:48 96 H 118/63 07/24/21 09:46 98 H 115/65 07/24/21 09:44 100 H 114/63 97 07/24/21 09:42 98 H 112/67 07/24/21 09:40 94 H 18 111/57 L 07/24/21 09:39 101 H 98 07/24/21 09:38 99 H 111/57 L 07/24/21 09:36 101 H 109/57 L 07/24/21 09:34 96 H 120/59 L 98 07/24/21 09:32 99 H 120/59 L 07/24/21 09:30 98 H 118/58 L 07/24/21 09:29 104 H 99 07/24/21 09:28 105 H 115/56 L 07/24/21 09:26 100 H 118/56 L 07/24/21 09:25 18 07/24/21 09:24 100 H 123/58 L 99 07/24/21 09:22 102 H 120/56 L 07/24/21 09:20 99 H 113/57 L 07/24/21 09:19 105 H 98 07/24/21 09:18 96 H 117/59 L 07/24/21 09:16 110 H 122/57 L 07/24/21 09:14 95 H 122/58 L 99 07/24/21 09:12 96 H 123/60 07/24/21 09:09 103 H 95 07/24/21 09:05 110 H 160/94 H 07/24/21 09:04 114 H 98 07/24/21 09:00 18 07/24/21 08:59 98 H 96 07/24/21 08:54 92 H 97 07/24/21 08:49 100 H 95 07/24/21 08:44 105 H 97 07/24/21 08:39 105 H 96 07/24/21 08:34 117 H 95 07/24/21 08:33 110 H 137/81 07/24/21 08:29 107 H 95 07/24/21 08:24 111 H 95 07/24/21 08:19 102 H 97 07/24/21 08:14 98 H 95 07/24/21 08:09 103 H 97 07/24/21 08:04 100 H 95 07/24/21 08:00 18 07/24/21 07:59 102 H 97 07/24/21 07:54 107 H 96 07/24/21 07:49 102 H 98 07/24/21 07:44 107 H 96 07/24/21 07:39 102 H 96 07/24/21 07:34 106 H 96 07/24/21 07:32 105 H 139/81 07/24/21 07:29 105 H 97 07/24/21 07:24 110 H 96 07/24/21 07:19 113 H 96 07/24/21 07:15 36.6 C 20 07/24/21 07:14 102 H 95 07/24/21 07:09 110 H 95 07/24/21 07:04 116 H 97 07/24/21 07:01 18 07/24/21 07:00 18 07/24/21 06:59 106 H 95 07/24/21 06:54 111 H 95 07/24/21 06:49 116 H 97 07/24/21 06:44 110 H 96 07/24/21 06:39 105 H 95 07/24/21 06:34 117 H 95 07/24/21 06:32 106 H 130/74 07/24/21 06:30 18 07/24/21 06:29 110 H 95 07/24/21 06:24 113 H 94 07/24/21 06:00 18 07/24/21 05:54 110 H 98 07/24/21 05:49 107 H 97 07/24/21 05:44 114 H 97 07/24/21 05:39 114 H 97 07/24/21 05:34 117 H 97 07/24/21 05:32 109 H 130/80 07/24/21 05:30 18 07/24/21 05:29 114 H 96 07/24/21 05:24 98 H 94 07/24/21 05:19 116 H 97 07/24/21 05:14 102 H 93 07/24/21 05:09 99 H 94 07/24/21 05:04 113 H 94 07/24/21 04:59 111 H 96 07/24/21 04:54 109 H 94 07/24/21 04:49 112 H 96
--- NOTE | 2021-07-24 18:05 | Obstetrical Progress Note ---
Date of Service July 24, 2021 Assessment & Plan Admission and Anticipated Discharge Date Admission Date: July 22, 2021 Subjective 07/24/21 07/24/21 07/24/21 Range/Units 13:55 05:40 05:40 WBC 19.39 H (4.8-10.8) K/uL RBC 4.34 (4.2-5.4) M/uL Hgb 12.3 (12.0-16.0) g/dL Hct 36.7 L (37-47) % MCV 84.6 (80-100) fL MCH 28.3 (25-34) pg MCHC 33.5 (32-36) g/dL RDW Std Deviation 44.9 (36.4-46.3) fL RDW Coeff of Ana María 14.5 (11.5-14.5) % Plt Count 256 (130-400) K/uL MPV 10.8 H (7.4-10.4) fL Sodium 137 134 L (136-145) mmol/L Potassium 3.7 D 2.9 L (3.5-5.1) mmol/L Chloride 108 H 104 (98-107) mmol/L Carbon Dioxide 18 L 20 L (21-32) mmol/L Anion Gap 11.0 10.0 (3-11) BUN 4 L 2 L (7-18) mg/dl Creatinine 0.56 L 0.46 L (0.6-1.2) mg/dl Est Cr Clr Drug Dosing 159.5 194.2 ml/min Est GFR ( Amer) 141.0 > 150.0 ml/min Est GFR (Non-Af Amer) 121.7 129.8 ml/min BUN/Creatinine Ratio 6.7 L 5.2 L (10-20) Glucose 85 85 (70-99) mg/dl Calcium 7.9 L 7.3 L (8.5-10.1) mg/dl Magnesium 5.2 H* (1.8-2.4) mg/dl Magnesium (Sulf Ther) 5.0 Total Bilirubin 0.9 1.1 H (0.2-1) mg/dl AST 20 20 (15-37) U/L ALT 28 27 (12-78) U/L Alkaline Phosphatase 112 104 (45-117) U/L Total Protein 6.8 6.7 (6.4-8.2) gm/dl Albumin 2.7 L 2.6 L (3.4-5.0) gm/dl Globulin 4.1 H 4.1 H (2.5-4.0) gm/dl Albumin/Globulin Ratio 0.7 L 0.6 L (0.9-2) Hep Bs Antigen (Neg) Hepatitis C Antibody (Neg) HIV 1&2 Ab/P24 Ag 4thGn (Neg) 07/24/21 07/24/21 07/23/21 Range/Units 00:02 00:02 17:56 WBC 20.27 H (4.8-10.8) K/uL RBC 4.28 (4.2-5.4) M/uL Hgb 12.2 (12.0-16.0) g/dL Hct 35.7 L (37-47) % MCV 83.4 (80-100) fL MCH 28.5 (25-34) pg MCHC 34.2 (32-36) g/dL RDW Std Deviation 44.2 (36.4-46.3) fL RDW Coeff of Ana María 14.5 (11.5-14.5) % Plt Count 247 (130-400) K/uL MPV 10.3 (7.4-10.4) fL Sodium 137 137 (136-145) mmol/L Potassium 3.2 L 3.1 L (3.5-5.1) mmol/L Chloride 105 104 (98-107) mmol/L Carbon Dioxide 18 L 20 L (21-32) mmol/L Anion Gap 13.0 H 13.0 H (3-11) BUN 3 L 3 L (7-18) mg/dl Creatinine 0.42 L 0.47 L (0.6-1.2) mg/dl Est Cr Clr Drug Dosing 212.7 190.1 ml/min Est GFR ( Amer) > 150.0 149.4 ml/min Est GFR (Non-Af Amer) 133.7 128.9 ml/min BUN/Creatinine Ratio 7.6 L 6.6 L (10-20) Glucose 88 84 (70-99) mg/dl Calcium 7.3 L 7.4 L (8.5-10.1) mg/dl Magnesium 4.9 H 4.8 H (1.8-2.4) mg/dl Magnesium (Sulf Ther) Cancelled Total Bilirubin 1.0 0.8 (0.2-1) mg/dl AST 20 19 (15-37) U/L ALT 24 27 (12-78) U/L Alkaline Phosphatase 102 107 (45-117) U/L Total Protein 6.7 7.0 (6.4-8.2) gm/dl Albumin 2.6 L 2.8 L (3.4-5.0) gm/dl Globulin 4.1 H 4.2 H (2.5-4.0) gm/dl Albumin/Globulin Ratio 0.6 L 0.7 L (0.9-2) Hep Bs Antigen (Neg) Hepatitis C Antibody (Neg) HIV 1&2 Ab/P24 Ag 4thGn (Neg) 07/23/21 07/22/21 07/22/21 Range/Units 17:56 23:46 23:46 WBC 18.23 H (4.8-10.8) K/uL RBC 4.53 (4.2-5.4) M/uL Hgb 13.0 (12.0-16.0) g/dL Hct 37.8 (37-47) % MCV 83.4 (80-100) fL MCH 28.7 (25-34) pg MCHC 34.4 (32-36) g/dL RDW Std Deviation 44.1 (36.4-46.3) fL RDW Coeff of Ana María 14.3 (11.5-14.5) % Plt Count 255 (130-400) K/uL MPV 10.8 H (7.4-10.4) fL Sodium (136-145) mmol/L Potassium (3.5-5.1) mmol/L Chloride (98-107) mmol/L Carbon Dioxide (21-32) mmol/L Anion Gap (3-11) BUN (7-18) mg/dl Creatinine (0.6-1.2) mg/dl Est Cr Clr Drug Dosing ml/min Est GFR ( Amer) ml/min Est GFR (Non-Af Amer) ml/min BUN/Creatinine Ratio (10-20) Glucose (70-99) mg/dl Calcium (8.5-10.1) mg/dl Magnesium (1.8-2.4) mg/dl Magnesium (Sulf Ther) Total Bilirubin (0.2-1) mg/dl AST (15-37) U/L ALT (12-78) U/L Alkaline Phosphatase (45-117) U/L Total Protein (6.4-8.2) gm/dl Albumin (3.4-5.0) gm/dl Globulin (2.5-4.0) gm/dl Albumin/Globulin Ratio (0.9-2) Hep Bs Antigen Neg (Neg) Hepatitis C Antibody Neg (Neg) HIV 1&2 Ab/P24 Ag 4thGn Neg (Neg) Results & Data ([facility]) Vital Signs (Past 12 Hours) Vital Signs Temp Pulse Resp BP Pulse Ox 07/24/21 16:44 127 H 119/57 L 93 07/24/21 16:39 129 H 92 07/24/21 16:34 129 H 98 07/24/21 16:30 20 07/24/21 16:29 129 H 146/86 H 98 07/24/21 16:24 128 H 97 07/24/21 16:19 129 H 96 07/24/21 16:14 126 H 96 07/24/21 16:13 126 H 131/64 07/24/21 16:09 116 H 94 07/24/21 16:04 112 H 96 07/24/21 16:00 16 07/24/21 15:59 112 H 96 07/24/21 15:58 111 H 117/60 07/24/21 15:54 95 H 93 07/24/21 15:49 93 H 93 07/24/21 15:44 96 H 116/58 L 95 07/24/21 15:39 96 H 93 07/24/21 15:34 97 H 94 07/24/21 15:30 18 07/24/21 15:29 106 H 117/56 L 95 07/24/21 15:24 111 H 95 07/24/21 15:19 118 H 96 07/24/21 15:14 114 H 140/71 95 07/24/21 15:13 107 H 143/73 H 07/24/21 15:09 122 H 97 07/24/21 15:04 95 H 93 07/24/21 15:01 20 07/24/21 15:00 36.8 C 20 07/24/21 14:59 108 H 137/80 96 07/24/21 14:54 112 H 96 10/25/21 14:49 111 H 95 07/24/21 14:44 110 H 132/70 94 07/24/21 14:39 116 H 96 07/24/21 14:34 97 H 93 07/24/21 14:30 95 H 129/65 07/24/21 14:29 106 H 20 91 07/24/21 14:24 99 H 92 07/24/21 14:19 98 H 92 07/24/21 14:15 93 H 126/62 07/24/21 14:14 101 H 94 07/24/21 14:09 92 H 93 07/24/21 14:04 93 H 95 07/24/21 14:00 20 07/24/21 13:59 120 H 125/58 L 96 07/24/21 13:54 89 94 07/24/21 13:49 99 H 94 07/24/21 13:44 88 96 07/24/21 13:43 93 H 129/65 07/24/21 13:39 102 H 98 07/24/21 13:34 94 H 96 07/24/21 13:31 36.8 C 18 07/24/21 13:29 90 97 07/24/21 13:28 97 H 132/73 07/24/21 13:24 98 H 96 07/24/21 13:19 90 96 07/24/21 13:14 102 H 20 135/74 95 07/24/21 13:09 105 H 96 07/24/21 13:04 95 H 97 07/24/21 13:00 18 07/24/21 12:59 103 H 18 148/81 H 97 07/24/21 12:54 106 H 95 07/24/21 12:49 96 H 94 07/24/21 12:45 20 07/24/21 12:44 101 H 98 07/24/21 12:43 100 H 138/76 07/24/21 12:39 106 H 96 07/24/21 12:34 114 H 94 07/24/21 12:30 112 H 138/78 07/24/21 12:29 103 H 20 95 07/24/21 12:24 103 H 95 07/24/21 12:19 103 H 94 07/24/21 12:15 20 07/24/21 12:14 105 H 141/68 H 94 07/24/21 12:09 98 H 94 07/24/21 12:04 104 H 95 07/24/21 12:02 20 07/24/21 12:00 20 07/24/21 11:59 106 H 97 07/24/21 11:58 96 H 133/70 07/24/21 11:54 101 H 96 07/24/21 11:49 101 H 95 07/24/21 11:46 36.8 C 20 07/24/21 11:44 99 H 95 07/24/21 11:43 96 H 129/72 07/24/21 11:39 130 H 98 07/24/21 11:35 20 07/24/21 11:34 111 H 96 07/24/21 11:29 110 H 95 07/24/21 11:28 99 H 142/83 H 07/24/21 11:24 112 H 96 07/24/21 11:20 20 07/24/21 11:19 106 H 96 07/24/21 11:14 111 H 160/93 H 95 07/24/21 11:09 113 H 96 07/24/21 11:05 20 07/24/21 11:04 97 H 95 07/24/21 10:59 97 H 135/78 94 07/24/21 10:54 96 H 95 07/24/21 10:50 20 07/24/21 10:49 92 H 94 07/24/21 10:44 100 H 137/78 95 07/24/21 10:39 91 H 95 07/24/21 10:35 36.7 C 20 07/24/21 10:34 94 H 96 07/24/21 10:29 113 H 95 07/24/21 10:28 94 H 115/57 L 07/24/21 10:25 18 07/24/21 10:24 84 94 07/24/21 10:19 86 93 07/24/21 10:14 82 94 07/24/21 10:13 87 116/57 L 07/24/21 10:10 18 07/24/21 10:09 84 95 07/24/21 10:04 88 96 07/24/21 09:59 105 H 97 07/24/21 09:58 95 H 118/60 07/24/21 09:56 99 H 114/58 L 07/24/21 09:55 18 10/25/21 09:54 98 H 114/55 L 97 07/24/21 09:52 99 H 114/60 07/24/21 09:50 96 H 116/59 L 07/24/21 09:49 99 H 99 07/24/21 09:48 96 H 118/63 07/24/21 09:46 98 H 115/65 07/24/21 09:44 100 H 114/63 97 07/24/21 09:42 98 H 112/67 07/24/21 09:40 94 H 18 111/57 L 07/24/21 09:39 101 H 98 07/24/21 09:38 99 H 111/57 L 07/24/21 09:36 101 H 109/57 L 07/24/21 09:34 96 H 120/59 L 98 07/24/21 09:32 99 H 120/59 L 07/24/21 09:30 98 H 118/58 L 07/24/21 09:29 104 H 99 07/24/21 09:28 105 H 115/56 L 07/24/21 09:26 100 H 118/56 L 07/24/21 09:25 18 07/24/21 09:24 100 H 123/58 L 99 07/24/21 09:22 102 H 120/56 L 07/24/21 09:20 99 H 113/57 L 07/24/21 09:19 105 H 98 07/24/21 09:18 96 H 117/59 L 07/24/21 09:16 110 H 122/57 L 07/24/21 09:14 95 H 122/58 L 99 07/24/21 09:12 96 H 123/60 07/24/21 09:09 103 H 95 07/24/21 09:05 110 H 160/94 H 07/24/21 09:04 114 H 98 07/24/21 09:00 18 07/24/21 08:59 98 H 96 07/24/21 08:54 92 H 97 07/24/21 08:49 100 H 95 07/24/21 08:44 105 H 97 07/24/21 08:39 105 H 96 07/24/21 08:34 117 H 95 07/24/21 08:33 110 H 137/81 07/24/21 08:29 107 H 95 07/24/21 08:24 111 H 95 07/24/21 08:19 102 H 97 07/24/21 08:14 98 H 95 07/24/21 08:09 103 H 97 07/24/21 08:04 100 H 95 07/24/21 08:00 18 07/24/21 07:59 102 H 97 07/24/21 07:54 107 H 96 07/24/21 07:49 102 H 98 07/24/21 07:44 107 H 96 07/24/21 07:39 102 H 96 07/24/21 07:34 106 H 96 07/24/21 07:32 105 H 139/81 07/24/21 07:29 105 H 97 07/24/21 07:24 110 H 96 07/24/21 07:19 113 H 96 07/24/21 07:15 36.6 C 20 07/24/21 07:14 102 H 95 07/24/21 07:09 110 H 95 07/24/21 07:04 116 H 97 07/24/21 07:01 18 07/24/21 07:00 18 07/24/21 06:59 106 H 95 07/24/21 06:54 111 H 95 07/24/21 06:49 116 H 97 07/24/21 06:44 110 H 96 07/24/21 06:39 105 H 95 07/24/21 06:34 117 H 95 07/24/21 06:32 106 H 130/74 07/24/21 06:30 18 07/24/21 06:29 110 H 95 07/24/21 06:24 113 H 94 07/24/21 06:00 18 07/24/21 05:54 110 H 98 07/24/21 05:49 107 H 97 07/24/21 05:44 114 H 97 07/24/21 05:39 114 H 97 07/24/21 05:34 117 H 97 07/24/21 05:32 109 H 130/80 07/24/21 05:30 18 07/24/21 05:29 114 H 96 07/24/21 05:24 98 H 94 07/24/21 05:19 116 H 97 07/24/21 05:14 102 H 93 07/24/21 05:09 99 H 94 10/25/21 05:04 113 H 94 07/24/21 04:59 111 H 96 07/24/21 04:54 109 H 94 07/24/21 04:49 112 H 96
[2021-07-24] MEDS ORDERED: MEASLES, MUMPS & RUBELLA VIRUS VIAL SQ ONE (18:08)
[2021-07-24] MEDS ORDERED: oxyCODONE/ACETAMINOPHEN 5mg/325mg TAB PO PRN (18:08)
[2021-07-24] MEDS ORDERED: DIPHTHERIA/TETANUS/PERTUSSIS 0.5 ML SYR/VIAL IM ONE (18:08)
[2021-07-24] MEDS ORDERED: SUPERCREAM 0.870% 15 GM JAR EXT PRN (18:08)
[2021-07-24] MEDS ORDERED: BENZOCAINE 20% AER SPR 82.5 GM CAN EXT PRN (18:08)
[2021-07-24] MEDS ORDERED: bisacodyL 10 MG SUPP PR PRN (18:08)
[2021-07-24] MEDS ORDERED: HYDROCORTISONE ACETATE 25 MG SUPP PR PRN (18:08)
[2021-07-24] MEDS: ACETAMINOPHEN 325 MG TAB PO PRN (18:20)
--- NOTE | 2021-07-24 18:21 | Delivery Summary ---
Vaginal Delivery Summary Date of Service July 24, 2021 Vaginal Delivery Summary The patient was found to be fully dilated and desire to push. She pushed for about an hour and delivered the head without difficulty. The shoulders were delivered with a minimal traction and then baby was handed off to the mother. The mouth and nose were suctioned, cord was clamped x2 and cut. There was a terminal meconium noted. The baby was handed off to the waiting pediatric team. The vagina and perineum were checked for lacerations, there was a second degree perineal laceration at the posterior fourchette, which was confirmed to be second-degree with excellent sphincter tone with rectal exam. The gloves were changed, it was repaired with 2-0 Vicryl in a running locked fashion. Good hemostasis was achieved. The rest of the vagina and labia were intact. The placenta was found to be in the vagina, delivered spontaneously as intact and complete. The uterus was explored and found to be empty, the lower segment was cleared of all clots and debris's. EBL was 200 mL. The mom and baby tolerated the procedure well, baby was a viable female infant, Apgars were 7/8 and weight is pending. The needle, sponge, instrument count was correct x2. No complications happened and I was present during whole procedure.
--- NOTE | 2021-07-24 18:41 | Anesthesiology Progress Note ---
Date of Service July 24, 2021 Anesthesia Post Procedure Vital Signs Vital Signs: Temp Pulse Resp BP Pulse Ox 07/24/21 18:28 120 H 139/70 07/24/21 18:23 126 H 145/82 H 07/24/21 18:19 125 H 95 07/24/21 18:14 125 H 92 07/24/21 18:13 129 H 141/69 H 07/24/21 18:09 134 H 93 07/24/21 18:04 136 H 93 07/24/21 18:00 20 07/24/21 17:59 118 H 96 07/24/21 17:58 125 H 131/77 07/24/21 17:54 112 H 96 07/24/21 17:49 112 H 96 07/24/21 17:44 120 H 96 07/24/21 17:43 116 H 136/77 07/24/21 17:39 163 H 95 07/24/21 17:34 147 H 93 07/24/21 17:30 24 07/24/21 17:29 143 H 134/62 93 07/24/21 17:24 139 H 93 07/24/21 17:19 131 H 92 07/24/21 17:15 24 07/24/21 17:14 150 H 93 07/24/21 17:13 133 H 147/87 H 07/24/21 17:09 128 H 93 07/24/21 17:04 128 H 92 07/24/21 17:00 127 H 142/84 H 07/24/21 16:59 130 H 92 07/24/21 16:56 22 07/24/21 16:55 36.7 C 22 07/24/21 16:54 146 H 94 07/24/21 16:49 127 H 95 07/24/21 16:44 127 H 119/57 L 93 07/24/21 16:39 129 H 92 07/24/21 16:34 129 H 98 07/24/21 16:30 20 07/24/21 16:29 129 H 146/86 H 98 07/24/21 16:24 128 H 97 07/24/21 16:19 129 H 96 07/24/21 16:14 126 H 96 07/24/21 16:13 126 H 131/64 07/24/21 16:09 116 H 94 07/24/21 16:04 112 H 96 07/24/21 16:00 16 07/24/21 15:59 112 H 96 07/24/21 15:58 111 H 117/60 07/24/21 15:54 95 H 93 07/24/21 15:49 93 H 93 07/24/21 15:44 96 H 116/58 L 95 07/24/21 15:39 96 H 93 07/24/21 15:34 97 H 94 07/24/21 15:30 18 07/24/21 15:29 106 H 117/56 L 95 07/24/21 15:24 111 H 95 07/24/21 15:19 118 H 96 07/24/21 15:14 114 H 140/71 95 07/24/21 15:13 107 H 143/73 H 07/24/21 15:09 122 H 97 07/24/21 15:04 95 H 93 07/24/21 15:01 20 07/24/21 15:00 36.8 C 20 07/24/21 14:59 108 H 137/80 96 07/24/21 14:54 112 H 96 07/24/21 14:49 111 H 95 07/24/21 14:44 110 H 132/70 94 07/24/21 14:39 116 H 96 07/24/21 14:34 97 H 93 07/24/21 14:30 95 H 129/65 07/24/21 14:29 106 H 20 91 07/24/21 14:24 99 H 92 07/24/21 14:19 98 H 92 07/24/21 14:15 93 H 126/62 07/24/21 14:14 101 H 94 07/24/21 14:09 92 H 93 07/24/21 14:04 93 H 95 07/24/21 14:00 20 07/24/21 13:59 120 H 125/58 L 96 07/24/21 13:54 89 94 07/24/21 13:49 99 H 94 07/24/21 13:44 88 96 07/24/21 13:43 93 H 129/65 07/24/21 13:39 102 H 98 07/24/21 13:34 94 H 96 07/24/21 13:31 36.8 C 18 07/24/21 13:29 90 97 07/24/21 13:28 97 H 132/73 10/25/21 13:24 98 H 96 07/24/21 13:19 90 96 07/24/21 13:14 102 H 20 135/74 95 07/24/21 13:09 105 H 96 07/24/21 13:04 95 H 97 07/24/21 13:00 18 07/24/21 12:59 103 H 18 148/81 H 97 07/24/21 12:54 106 H 95 07/24/21 12:49 96 H 94 07/24/21 12:45 20 07/24/21 12:44 101 H 98 07/24/21 12:43 100 H 138/76 07/24/21 12:39 106 H 96 07/24/21 12:34 114 H 94 07/24/21 12:30 112 H 138/78 07/24/21 12:29 103 H 20 95 07/24/21 12:24 103 H 95 07/24/21 12:19 103 H 94 07/24/21 12:15 20 07/24/21 12:14 105 H 141/68 H 94 07/24/21 12:09 98 H 94 07/24/21 12:04 104 H 95 07/24/21 12:02 20 07/24/21 12:00 20 07/24/21 11:59 106 H 97 07/24/21 11:58 96 H 133/70 07/24/21 11:54 101 H 96 07/24/21 11:49 101 H 95 07/24/21 11:46 36.8 C 20 07/24/21 11:44 99 H 95 07/24/21 11:43 96 H 129/72 07/24/21 11:39 130 H 98 07/24/21 11:35 20 07/24/21 11:34 111 H 96 07/24/21 11:29 110 H 95 07/24/21 11:28 99 H 142/83 H 07/24/21 11:24 112 H 96 07/24/21 11:20 20 07/24/21 11:19 106 H 96 07/24/21 11:14 111 H 160/93 H 95 07/24/21 11:09 113 H 96 07/24/21 11:05 20 07/24/21 11:04 97 H 95 07/24/21 10:59 97 H 135/78 94 07/24/21 10:54 96 H 95 07/24/21 10:50 20 07/24/21 10:49 92 H 94 07/24/21 10:44 100 H 137/78 95 07/24/21 10:39 91 H 95 07/24/21 10:35 36.7 C 20 07/24/21 10:34 94 H 96 07/24/21 10:29 113 H 95 07/24/21 10:28 94 H 115/57 L 07/24/21 10:25 18 07/24/21 10:24 84 94 07/24/21 10:19 86 93 07/24/21 10:14 82 94 07/24/21 10:13 87 116/57 L 07/24/21 10:10 18 07/24/21 10:09 84 95 07/24/21 10:04 88 96 07/24/21 09:59 105 H 97 07/24/21 09:58 95 H 118/60 07/24/21 09:56 99 H 114/58 L 07/24/21 09:55 18 07/24/21 09:54 98 H 114/55 L 97 07/24/21 09:52 99 H 114/60 07/24/21 09:50 96 H 116/59 L 07/24/21 09:49 99 H 99 07/24/21 09:48 96 H 118/63 07/24/21 09:46 98 H 115/65 07/24/21 09:44 100 H 114/63 97 07/24/21 09:42 98 H 112/67 07/24/21 09:40 94 H 18 111/57 L 07/24/21 09:39 101 H 98 07/24/21 09:38 99 H 111/57 L 07/24/21 09:36 101 H 109/57 L 07/24/21 09:34 96 H 120/59 L 98 07/24/21 09:32 99 H 120/59 L 07/24/21 09:30 98 H 118/58 L 07/24/21 09:29 104 H 99 07/24/21 09:28 105 H 115/56 L 07/24/21 09:26 100 H 118/56 L 07/24/21 09:25 18 07/24/21 09:24 100 H 123/58 L 99 07/24/21 09:22 102 H 120/56 L 07/24/21 09:20 99 H 113/57 L 07/24/21 09:19 105 H 98 07/24/21 09:18 96 H 117/59 L 07/24/21 09:16 110 H 122/57 L 07/24/21 09:14 95 H 122/58 L 99 07/24/21 09:12 96 H 123/60 07/24/21 09:09 103 H 95 07/24/21 09:05 110 H 160/94 H 07/24/21 09:04 114 H 98 07/24/21 09:00 18 07/24/21 08:59 98 H 96 07/24/21 08:54 92 H 97 07/24/21 08:49 100 H 95 07/24/21 08:44 105 H 97 07/24/21 08:39 105 H 96 07/24/21 08:34 117 H 95 07/24/21 08:33 110 H 137/81 07/24/21 08:29 107 H 95 07/24/21 08:24 111 H 95 07/24/21 08:19 102 H 97 07/24/21 08:14 98 H 95 07/24/21 08:09 103 H 97 07/24/21 08:04 100 H 95 07/24/21 08:00 18 07/24/21 07:59 102 H 97 07/24/21 07:54 107 H 96 07/24/21 07:49 102 H 98 07/24/21 07:44 107 H 96 07/24/21 07:39 102 H 96 07/24/21 07:34 106 H 96 07/24/21 07:32 105 H 139/81 07/24/21 07:29 105 H 97 07/24/21 07:24 110 H 96 07/24/21 07:19 113 H 96 07/24/21 07:15 36.6 C 20 07/24/21 07:14 102 H 95 07/24/21 07:09 110 H 95 07/24/21 07:04 116 H 97 07/24/21 07:01 18 07/24/21 07:00 18 07/24/21 06:59 106 H 95 07/24/21 06:54 111 H 95 07/24/21 06:49 116 H 97 07/24/21 06:44 110 H 96 07/24/21 06:39 105 H 95 07/24/21 06:34 117 H 95 07/24/21 06:32 106 H 130/74 07/24/21 06:30 18 07/24/21 06:29 110 H 95 07/24/21 06:24 113 H 94 07/24/21 06:00 18 07/24/21 05:54 110 H 98 07/24/21 05:49 107 H 97 07/24/21 05:44 114 H 97 07/24/21 05:39 114 H 97 07/24/21 05:34 117 H 97 07/24/21 05:32 109 H 130/80 07/24/21 05:30 18 07/24/21 05:29 114 H 96 07/24/21 05:24 98 H 94 07/24/21 05:19 116 H 97 07/24/21 05:14 102 H 93 07/24/21 05:09 99 H 94 07/24/21 05:04 113 H 94 07/24/21 04:59 111 H 96 07/24/21 04:54 109 H 94 07/24/21 04:49 112 H 96 07/24/21 04:44 120 H 95 07/24/21 04:39 125 H 97 07/24/21 04:36 113 H 86 L 07/24/21 04:33 125 H 92 07/24/21 04:28 107 H 93 07/24/21 04:23 106 H 89 L 07/24/21 04:18 105 H 89 L 07/24/21 04:13 104 H 93 07/24/21 04:08 111 H 92 07/24/21 04:03 97 H 89 L 07/24/21 04:00 18 07/24/21 03:58 114 H 92 07/24/21 03:53 122 H 93 07/24/21 03:48 101 H 93 07/24/21 03:43 112 H 95 07/24/21 03:38 104 H 07/24/21 03:33 118 H 96 07/24/21 03:32 100 H 125/73 07/24/21 03:30 18 07/24/21 03:28 114 H 95 07/24/21 03:23 102 H 94 07/24/21 03:18 122 H 93 07/24/21 03:13 123 H 95 07/24/21 03:08 116 H 94 07/24/21 03:03 99 H 92 07/24/21 03:00 18 07/24/21 02:58 115 H 95 07/24/21 02:53 118 H 96 07/24/21 02:48 109 H 95 07/24/21 02:43 104 H 94 07/24/21 02:38 102 H 94 07/24/21 02:33 36.6 C 105 H 133/74 95 07/24/21 02:30 18 07/24/21 02:28 110 H 96 07/24/21 02:23 107 H 96 07/24/21 02:18 104 H 97 07/24/21 02:13 108 H 97 07/24/21 02:08 116 H 97 07/24/21 02:03 108 H 97 07/24/21 02:00 18 07/24/21 01:58 105 H 97 07/24/21 01:53 114 H 96 07/24/21 01:48 97 H 95 07/24/21 01:43 106 H 94 07/24/21 01:38 100 H 95 07/24/21 01:33 97 H 93 07/24/21 01:32 104 H 124/60 07/24/21 01:30 18 07/24/21 01:28 99 H 94 07/24/21 01:23 98 H 94 07/24/21 01:18 113 H 97 07/24/21 01:13 96 H 94 07/24/21 01:08 112 H 96 07/24/21 01:03 97 H 94 07/24/21 01:00 18 07/24/21 00:58 97 H 93 07/24/21 00:53 100 H 93 07/24/21 00:48 105 H 92 07/24/21 00:43 99 H 94 07/24/21 00:38 99 H 92 07/24/21 00:33 105 H 95 07/24/21 00:32 100 H 123/60 07/24/21 00:30 18 07/24/21 00:28 101 H 92 07/24/21 00:23 102 H 92 07/24/21 00:18 110 H 95 07/24/21 00:13 102 H 92 07/24/21 00:08 106 H 93 07/24/21 00:03 111 H 93 07/24/21 00:02 114 H 94 07/24/21 00:00 18 07/23/21 23:58 102 H 91 07/23/21 23:53 101 H 93 07/23/21 23:48 97 H 91 07/23/21 23:47 104 H 94 07/23/21 23:43 100 H 91 07/23/21 23:39 105 H 94 07/23/21 23:38 102 H 95 07/23/21 23:33 105 H 97 07/23/21 23:32 36.8 C 104 H 137/75 07/23/21 23:30 18 07/23/21 23:28 121 H 99 07/23/21 23:23 115 H 97 07/23/21 23:18 111 H 98 07/23/21 23:13 118 H 96 07/23/21 23:08 106 H 93 07/23/21 23:07 107 H 94 07/23/21 23:03 116 H 99 07/23/21 23:00 18 07/23/21 22:58 112 H 97 07/23/21 22:53 97 H 94 07/23/21 22:51 99 H 94 07/23/21 22:48 112 H 96 07/23/21 22:43 101 H 96 07/23/21 22:42 111 H 94 07/23/21 22:38 112 H 97 07/23/21 22:37 102 H 94 07/23/21 22:33 107 H 100 07/23/21 22:32 103 H 132/84 07/23/21 22:30 18 07/23/21 22:28 101 H 93 07/23/21 22:26 100 H 93 07/23/21 22:23 112 H 94 07/23/21 22:21 97 H 94 07/23/21 22:18 104 H 93 07/23/21 22:13 98 H 94 07/23/21 22:08 105 H 95 07/23/21 22:03 106 H 95 07/23/21 22:00 18 07/23/21 21:58 108 H 95 07/23/21 21:57 110 H 94 07/23/21 21:53 112 H 96 07/23/21 21:48 109 H 97 07/23/21 21:34 109 H 97 07/23/21 21:33 100 H 134/74 07/23/21 21:30 18 07/23/21 21:29 101 H 98 07/23/21 21:24 110 H 100 07/23/21 21:23 108 H 89 L 07/23/21 21:19 109 H 100 07/23/21 21:14 103 H 99 07/23/21 21:09 121 H 99 07/23/21 21:04 99 H 98 07/23/21 21:01 106 H 90 07/23/21 21:00 18 07/23/21 20:59 97 H 98 07/23/21 20:54 111 H 99 07/23/21 20:49 111 H 98 07/23/21 20:32 101 H 134/71 07/23/21 20:30 18 07/23/21 20:00 18 07/23/21 19:32 36.6 C 95 H 18 141/87 H 07/23/21 19:00 18 Pain Intensity Back: Pain Intensity: 5 Notes Mental Status: alert / awake / arousable Nausea / Vomiting: adequately controlled Pain: adequately controlled Airway Patency, RR, SpO2: stable & adequate BP & HR: stable & adequate Hydration State: stable & adequate Neuraxial Anesthesia: was administered and sensory block is resolving Anesthetic Complications: no major complications apparent and Pt Satisfied with anesthetic care
[2021-07-24 19:38] LABS: Albumin Level 2.8 gm/dl (3.4-5.0); BUN Creatinine Ratio 6.2 (10-20); Creatinine Clr Calc Pharmacy 99.3 ml/min; Est GFR (African American) 96.7 ml/min; Est GFR (Non-African American) 83.4 ml/min; Magnesium 5.1 mg/dl (1.8-2.4); Potassium 3.3 mmol/L (3.5-5.1)
[2021-07-24 19:42] LABS: Albumin Globulin Ratio 0.7 (0.9-2); Globulin 4.2 gm/dl (2.5-4.0)
[2021-07-24] MEDS: IBUPROFEN 600 MG TAB PO PRN (20:57)
[2021-07-24] MEDS: MAGNESIUM SULFATE / WTR 40 GM/1,000 ML BAG IV SCH (21:04)
[2021-07-24] MEDS: DOCUSATE SODIUM 100 MG CAP PO SCH (21:58)
[2021-07-24] MEDS: miSOPROStoL 50 MCG TAB SL SCH ×2 (22:17→22:18)
[2021-07-24 23:57] LABS: Albumin Level 2.8 gm/dl (3.4-5.0); BUN Creatinine Ratio 7.3 (10-20); Calcium 8.1 mg/dl (8.5-10.1); Creatinine Clr Calc Pharmacy 96.1 ml/min; Est GFR (African American) 92.9 ml/min; Est GFR (Non-African American) 80.2 ml/min; Magnesium 3.7 mg/dl (1.8-2.4); Potassium 3.1 mmol/L (3.5-5.1)
[2021-07-25] LABS: Albumin Globulin Ratio 0.7 (0.9-2); Total Protein 6.8 gm/dl (6.4-8.2)
[2021-07-25 06:27] LABS: Hematocrit (blood only) 36.1 % (37-47); Mean Corpuscular Hemoglobin 28.4 pg (25-34); Mean Corpuscular Hgb Conc 33.2 g/dL (32-36); Mean Corpuscular Volume 85.3 fL (80-100); Mean Platelet Volume 10.6 fL (7.4-10.4); Platelet Count 231 K/uL (130-400); RDW Coefficient of Variation 14.8 % (11.5-14.5); RDW Standard Deviation 46.2 fL (36.4-46.3); Red Blood Count 4.23 M/uL (4.2-5.4); White Blood Count 22.52 K/uL (4.8-10.8)
[2021-07-25 07:03] LABS: Albumin Level 2.7 gm/dl (3.4-5.0); BUN Creatinine Ratio 12.4 (10-20); Est GFR (African American) 116.8 ml/min; Est GFR (Non-African American) 100.7 ml/min; Magnesium 2.8 mg/dl (1.8-2.4); Potassium 3.2 mmol/L (3.5-5.1)
[2021-07-25 07:06] LABS: Albumin Globulin Ratio 0.7 (0.9-2); Bilirubin,Total 0.8 mg/dl (0.2-1); Globulin 3.9 gm/dl (2.5-4.0); Total Protein 6.6 gm/dl (6.4-8.2)
[2021-07-25] MEDS: BUDESONIDE 90 MCG INH INH SCH (07:50)
[2021-07-25] MEDS: SERTRALINE HCL 50 MG TABLET PO SCH (07:51)
[2021-07-25] MEDS: FERROUS SULFATE 325 MG TAB PO SCH (07:52)
[2021-07-25] MEDS: DOCUSATE SODIUM 100 MG CAP PO SCH ×2 (07:52→19:52)
[2021-07-25] MEDS: PRENATAL VITAMIN 1 TAB PO SCH (07:52)
[2021-07-25] MEDS ORDERED: PRENATAL VITAMIN 1 TAB PO SCH (08:00)
--- NOTE | 2021-07-25 09:22 | Obstetrical Progress Note ---
Date of Service July 25, 2021 Assessment & Plan (1) Normal course: PPD #1 Pt doing well No complaints Subjective Ambulation: ambulating normally Voiding: no voiding problems Passing Gas:: Yes Diet Tolerance:: regular diet Lochia:: Small Feeding Type:: breast feeding Review of Systems All systems reviewed & are unremarkable except as noted in HPI & below Physical Exam Constitutional WD/WN, vitals as above well developed and well nourished Eyes PERRL, conjunctivae normal, anicteric sclerae Neck trachea midline, no thyromegaly Respiratory normal respiratory effort, lungs clear to auscultation Auscultation: no crackles, no rales and no wheezes Cardiovascular RRR, no murmur, no edema Gastrointestinal (Abdomen) normal bowel sounds, soft, nontender, no hepatosplenomegaly Uterus is below umbilicus Musculoskeletal no cyanosis or clubbing, extremities motor strength 5/5 Skin no rashes, warm and dry Neurologic patellar DTR's 2+ bilat, sensation intact Psychiatric A+Ox3, euthymic affect Genitourinary normal external appearance Results & Data ([facility]) Vital Signs (Past 12 Hours) Vital Signs Temp Pulse Resp BP Pulse Ox 07/25/21 04:45 36.8 C 88 20 127/86 96 07/24/21 23:20 36.8 C 111 H 20 137/91 95
[2021-07-25] MEDS: ACETAMINOPHEN 325 MG TAB PO PRN ×2 (09:30→23:19)
[2021-07-25] MEDS: IBUPROFEN 600 MG TAB PO PRN ×2 (12:00→19:56)
[2021-07-25] MEDS ORDERED: bisacodyL 5 MG TABEC PO SCH (20:00)
[2021-07-26 06:13] LABS: Hematocrit (blood only) 37.2 % (37-47); Hemoglobin 12.1 g/dL (12.0-16.0)
[2021-07-26] MEDS: DOCUSATE SODIUM 100 MG CAP PO SCH (08:42)
[2021-07-26] MEDS: FERROUS SULFATE 325 MG TAB PO SCH (08:42)
[2021-07-26] MEDS: IBUPROFEN 600 MG TAB PO PRN (08:43)
[2021-07-26] MEDS: PRENATAL VITAMIN 1 TAB PO SCH (08:43)
[2021-07-26] MEDS: BUDESONIDE 90 MCG INH INH SCH (08:46)
[2021-07-26] MEDS: SERTRALINE HCL 50 MG TABLET PO SCH (08:46)
[2021-07-26 09:03] LABS: Basophils # (auto) 0.06 K/uL (0-0.2); Basophils % (auto) 0.3 %; Eosinophils % (auto) 1.1 %; Immature Granulocytes % (auto) 0.5 %; Lymphocytes # (auto) 2.85 K/uL (1.2-3.4); Lymphocytes % (auto) 15.4 %; Mean Corpuscular Hemoglobin 28.3 pg (25-34); Mean Platelet Volume 11.3 fL (7.4-10.4); Monocytes # (auto) 1.27 K/uL (0.11-0.59); Monocytes % (auto) 6.9 %; Neutrophils # (auto) 14.05 K/uL (1.4-6.5); Neutrophils % (auto) 75.8 %; Platelet Count 265 K/uL (130-400); RDW Coefficient of Variation 14.8 % (11.5-14.5); RDW Standard Deviation 46.9 fL (36.4-46.3); Red Blood Count 4.28 M/uL (4.2-5.4); White Blood Count 18.53 K/uL (4.8-10.8)
[2021-07-26 09:23] LABS: Mean Corpuscular Hgb Conc 32.5 g/dL (32-36); Mean Corpuscular Volume 86.3 fL (80-100)
--- NOTE | 2021-07-26 09:32 | Obstetrical Progress Note ---
Date of Service July 26, 2021 Assessment & Plan Admission and Anticipated Discharge Date Admission Date: July 22, 2021 Subjective Patient is seen and examined. She feels well, no complaints. Ambulating without dizziness Voiding without difficulty Dysuria+ Tolerating regular diet with out N&V Bleeding is minimal No fever/ chills/ CP/ SOB/ N&V/ Leg pain Breast feeding without problems Vital Signs Temp Pulse Resp BP Pulse Ox 07/26/21 08:45 36.9 C 75 130/83 96 07/26/21 00:26 36.4 C L 86 16 138/89 98 07/25/21 19:40 36.7 C 80 17 135/89 97 07/25/21 16:11 36.8 C 91 H 18 144/85 H 07/25/21 12:30 36.5 C 85 18 145/86 H Abnormal lab results 07/26/21 07/26/21 Range/Units 05:43 05:43 WBC 18.53 H (4.8-10.8) K/uL RDW Std Deviation 46.9 H (36.4-46.3) fL RDW Coeff of Ana María 14.8 H (11.5-14.5) % MPV 11.3 H (7.4-10.4) fL Neut # (Auto) 14.05 H (1.4-6.5) K/uL Garrett # (Auto) 1.27 H (0.11-0.59) K/uL Immature Gran # (Auto) 0.10 H (0.00-0.02) K/uL Magnesium 1.7 L (1.8-2.4) mg/dl PE: General: Alert, orientedx3, NAD Abd: soft, NT, fundus firm, below Umbilicus Perineum intact, Lochia rubra minimal Ext; NT, no edema AP: 35 yo s/p , ppd# 2, s/p IV magnesium, pascal VSS Afebrile doing well Dysuria with elevated WBCC: U/A and culture Continue routine care All questions were answered Discussed when to call D/C home , f/u in office Results & Data ([place]) Vital Signs (Past 12 Hours) Vital Signs Temp Pulse Resp BP Pulse Ox 07/26/21 08:45 36.9 C 75 130/83 96 07/26/21 00:26 36.4 C L 86 16 138/89 98
[2021-07-26 10:13] LABS: Appearance Urine Clear (Clear); Bacteria Urine Automated Negative (Negative); Bilirubin Urine Negative (Negative); Blood Urine 3+ (Negative); Color Urine Yellow; Epithelial Cell Urine Auto >30 /lpf (0-5); Glucose Urine UA Negative (Negative); Ketones Urine Negative (Negative); Leukocyte Esterase Urine 1+ (Negative); Nitrite Urine Negative (Negative); Protein Urine Trace (Negative); RBC Urine Automated >30 /hpf (0-4); Specific Gravity Urine 1.018 (1.000-1.030); Urobilinogen Urine Negative (Negative); pH Urine 6.5 (4.5-7.5)
[2021-07-26] MEDS ORDERED: NITROFURANTOIN MONOHYDRATE 100 MG CAP PO STA (10:22)
== END 2021-07-26 13:40 | disposition home or self-care (01) | DRG 807 ==
LOC: OPB 22:42 → 4S1 22:43 → 4S2 07-24 21:09

== ENCOUNTER 2023-10-17 06:01 | Inpatient (IN) ==
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
--- OUTSIDE RECORDS SUMMARY | 2023-10-17 06:07 | External Medical Summary | Summary of Care ---
Author Name Unknown Organization [facility] Address [address] [place] [address] Phone [phone] Care Team Providers Care Ferris Wheel Operator Name Role Phone Celso Mayen MD Primary Care Provider [phone] Reason for Visit * Reason Onset Date Comments Return To Work 10/10/2023 Encounter Details Date Type Department Care Team (Late st Contact Info) Description 10/10/2023 Telephone Access Center, [place] [address] [facility] *DO NOT REMOVE THIS DEPARTMENT* [place] [address] Services, Scheduling [address] [place] [address] Return To Work Allergies Active Allergy Reactions Criticality Noted Date Comments Clarithromycin 11/18/2019 Cefaclor 11/18/2019 Clindamycin 11/18/2019 Cyclobenzaprine 11/18/2019 Numbness left side, confusion, stroke like symptoms Penicillins 11/18/2019 documented as of this encounter (statuses as of 10/10/2023) Medications Medication Sig Dispensed Refills Start Date End Date Status Probiotic Product (PROBIOTIC ACIDOPHILUS BIOBEADS) Capsule Take 1 Cap by mouth three times a day with meals. 0 Active Calcium 500-100 MG-UNIT Oral Tablet Chewable Take by mouth. 0 Activ e Saline Nasal [place] 0.65 % Nasal Solution Administer 1 [place] into nostril as needed for Congestion. 0 Active Fluticasone Propionate 50 MCG/ACT Nasal Suspension Administer 1 [place] into nostril in the morning. 0 Active Docusate Sodium 100 MG Oral Capsule Take 1 Capsule by mouth in the morning and 1 Capsule before bedtime. 0 Active Escitalopram Oxalate 20 MG Oral Tablet (Lexapro) Take 1 Tablet by mouth every evening. 90 Tablet 3 03/07/2023 Active busPIRone HCl 10 MG Oral Tablet (Buspar) Take 2 Tablets by mouth in the morning and 2 Tablets in the evening. 360 Tablet 3 03/07/2023 Active Fluticasone-Sal[place] jay 250-50 MCG/ACT Inhalation Aerosol Powder Breath Activated (Advair Diskus) Inhale 1 Puff by mouth in the morning and 1 Puff before bedtime. 60 Each 11 06/20/2023 Active Albuterol Sulfate HFA 108 (90 Base) MCG/ACT Inhalation Aerosol Solution Inhale 2 Puffs by mouth every 6 hours as needed (sob cough). 18 g 5 07/04/2023 Active Azithromycin 250 MG Oral Tablet (Zithromax)Indicat ions:Acute sinusitis, recurrence not specified, unspecified location Take 2 tabs by mouth on the first day, then 1 tab daily on days two through five 6 Tablet 0 10/09/2023 10/14/2023 Active documented as of this encounter (statuses as of 10/10/2023) Active Problems Problem Noted Date Diagnosed Date KAYLEE (generalized anxiety disorder) 09/03/2023 Mild episode of recurrent major depressive disor isela 09/03/2023 Mild persistent asthma without complication 01/2023 Irregular periods 09/03/2023 documented as of this encounter (statuses as of 10/10/2023) Resolved Problems Problem Noted Date Diagnosed Date Resolved Date Rh negative status during 12/15/2020 08/08/2021 Overview: ER on 01/25 for bleeding in 1st trimester, received RhoGAM there rhoGAM 05/03/21 , normal first 12/14/202005/2021 Adjustment disorder with mix ed anxiety and depressed mood 12/14/2020 08/08/2021 Overview: On zoloft documented as of this encounter (statuses as of 10/10/2023) Immunizations Name Administration Dates Next Due TDAP [...] money to get more. Never true 03/07/2023 [place] Depression Scale Answer Date Recorded [place] Depression Scale Total 8 11/22/2021 The thought [...] on file documented as of this encounter Miscellaneous Notes * Telephone Encounter - Susana Lion OSA - 10/10/2023 8:29 AM EST See call details documented in this encounter Plan of Treatment Upcoming Encounters Date Type Department Care Team (Late st Contact Info) Description 03/24/2024 9:00 AM EDT Office Visit [facility] [address] [place] [address] Celso Mayen MD [address] [place] [address] Health Maintenance Due Date Last Done Comments Hepatitis B (1 of 3 - 3-dose series) 1986 Pneumococcal Vaccine: Pediatrics (0 to 5 Years) and At-Risk Patients (6 to 64 Years) (1 - PCV) 1992 Hepatitis C Screening 2004 HPV/Co-Test 2016 COVID-19 Vaccine (3 - 2022- season) 2023 06/13/2021, 05/16/2021, 05/16/2021 *SPIROMETRY ONCE [...] Not on filedocumented as of this encounter Care Teams Ferris Wheel Operator Relationship Specialty Start Date End Date Celso Mayen MD [address] [place] [facility] [place] [address] PCP - General Internal Medicine 07/03/23 documented as of this encounter
--- OUTSIDE RECORDS SUMMARY | 2023-10-17 06:07 | External Medical Summary | Summary of Care ---
Author Name Unknown Organization [facility] Address [address] [place] [address] Phone [phone] Care Team Providers Care Campus Security Director Name Role Phone Celso Mayen MD Primary Care Provider [phone] Reason for Visit * Reason Onset Date Comments Return To Work 10/10/2023 Encounter Details Date Type Department Care Team (Late st Contact Info) Description 10/10/2023 Telephone Access Center, [place] [address] [facility] *DO NOT REMOVE THIS DEPARTMENT* [place] [address] Services, Scheduling [address] [place] [address] Return To Work Allergies Active Allergy Reactions Criticality Noted Date Comments Clarithromycin 11/18/2019 Cefaclor 11/18/2019 Clindamycin 11/18/2019 Cyclobenzaprine 11/18/2019 Numbness left side, confusion, stroke like symptoms Penicillins 11/18/2019 documented as of this encounter (statuses as of 10/11/2023) Medications Medication Sig Dispensed Refills Start Date End Date Status Probiotic Product (PROBIOTIC ACIDOPHILUS BIOBEADS) Capsule Take 1 Cap by mouth three times a day with meals. 0 Active Calcium 500-100 MG-UNIT Oral Tablet Chewable Take by mouth. 0 Activ e Saline Nasal [place] 0.65 % Nasal Solution Administer 1 [place] into nostril as needed for Congestion. 0 Active Fluticasone Propionate 50 MCG/ACT Nasal Suspension Administer 1 [place] into nostril in the morning. 0 Active [...] as of this encounter (statuses as of 10/11/2023) Active Problems Problem Noted Date Diagnosed Date KAYLEE (generalized anxiety disorder) 09/03/2023 Mild episode of recurrent major depressive disor isela 09/03/2023 Mild persistent asthma without complication 01/2023 Irregular periods 09/03/2023 documented as of this encounter (statuses as of 10/11/2023) Resolved Problems Problem Noted Date Diagnosed Date Resolved Date Rh negative status during 12/15/2020 08/08/2021 Overview: ER on 01/25 for bleeding in 1st trimester, received RhoGAM there rhoGAM 05/03/21 , normal first 12/14/202005/2021 Adjustment disorder with mix ed anxiety and depressed mood 12/14/2020 08/08/2021 Overview: On zoloft documented as of this encounter (statuses as of 10/11/2023) Immunizations Name Administration Dates Next Due TDAP [...] money to get more. Never true 03/07/2023 [place] Depression Scale Answer Date Recorded [place] Depression Scale Total 8 11/22/2021 The thought [...] Description 03/24/2024 9:00 AM EDT Office Visit [facility] [address] [place] [address] Celso Mayen MD [address] [place] [address] Health Maintenance Due Date Last Done Comments [...] filedocumented as of this encounter Care Teams Campus Security Director Relationship Specialty Start Date End Date Celso Mayen MD [address] [place] [address] PCP - General Internal Medicine 07/03/23 documented as of this encounter
--- OUTSIDE RECORDS SUMMARY | 2023-10-17 06:07 | External Medical Summary | Summary of Care ---
Author Name Unknown Organization [facility] Address [address] [facility] [place] [address] Phone [phone] Care Team Providers Care Foot Worker Name Role Phone Celso Mayen MD Primary Care Provider [phone] Encounter Details Date Type Department Care Team (Late st Contact Info) Description 10/10/2023 6:00 PM EST [facility] [address] [place] [address] Celso Mayen MD [address], [place] [id number] Viral respiratory illness*; Rash and nonspecific skin eruption; Nausea without vomiting; Diarrhea, unspecified type; Mild persistent asthma without complication Allergies Active Allergy Reactions Criticality Noted Date [...] by mouth. 0 Activ e Saline Nasal [place] 0.65 % Nasal Solution Administer 1 [place] into nostril as needed for Congestion. 0 Active Fluticasone Propionate 50 MCG/ACT Nasal Suspension Administer 1 [place] into nostril in the morning. 0 Active [...] 07/04/2023 Active Azithromycin 250 MG Oral Tablet (Zithromax)Indica tions:Acute sinusitis, recurrence not specified, unspecified location Take 2 tabs by mouth on the first day, then 1 tab daily on days two through five 6 Tablet 0 10/09/2023 4 Active 27-0.8 MG Oral Tablet Take by mouth. 0 4 Discontinued Ibuprofen 600 MG Oral Tablet (Motrin) Take 1 Tablet by mouth every 6 hours as needed (mild pain). With food. 30 Tablet 1 08/08/2021 4 Discontinued documented as of this encounter (statuses as [...] money to get more. Never true 03/07/2023 [place] Depression Scale Answer Date Recorded [place] Depression Scale Total 8 11/22/2021 The thought [...] on file documented as of this encounter Progress Notes * Celso Mayen MD - 10/10/2023 6:01 PM EST Subjective Loida Whtiehead is a 37 year old female. No chief complaint on file. HPI: Patient location: HOME. I was in a hospital or clinic location. After connecting through televideo,patient was verified with two unique identifiers. Patient (or authorized legal parts sales representative) was then informed that this was a Telemedicine visit and being conducted confidentially over secure lines. Methods to assure confidentiality were taken. Patient acknowledged consent and understanding of pr ivacy and security of the Telemedicine visit. The patient agreed to participate. Here for acute viral illness , started on last Sat , rash at arms and abd chest, neck Saturday night , body aches, chills, sweat , very sick feeling Saw Dr Martinez yesterday through video for sinus infection sign, chest congestion, cough , tightness Given zpak but didn't start it yet Still gets some sweating, but no fever Mild nausea, twice diarrhea but not getting worse Known asthma , allergy , on inhaler , allergy med prn ,spray PMH: Patient Active Problem List Diagnosis Code KAYLEE (generalized anxiety disorder) F41.1 Mild episode of recurrent major depressive disorder (HCC) F33.0 Mild persistent asthma without complication J45.30 Irregular periods N92.6 Current Outpatient Medications Medication Sig Dispense Refill Probiotic Product (PROBIOTIC ACIDOPHILUS BIOBEADS) Capsule Take 1 Cap by mouth three times a day with meals. Calcium 500-100 MG-UNIT Oral Tablet Chewable Take by mouth. Saline Nasal [place] 0.65 % Nasal Solution Administer 1 [place] into nostril as needed for Congestion. Fluticasone Propionate 50 MCG/ACT Nasal Suspension Administer 1 [place] into nostril in the morning. Docusate Sodium 100 MG Oral Capsule Take 1 Capsule by mouth in the morning and 1 Capsule before bedtime. Escitalopram Oxalate 20 MG Oral Tablet (Lexapro) Take 1 Tablet by mouth every evening. 90 Tablet 3 busPIRone HCl 10 MG Oral Tablet (Buspar) Take 2 Tablets by mouth in the morning and 2 Tablets in the evening. 360 Tablet 3 Fluticasone-Salmeterol 250-50 MCG/ACT Inhalation Aerosol Powder Breath Activated (Advair Diskus) Inhale 1 Puff by mouth in the morning and 1 Puff before bedtime. 60 Each 11 Albuterol Sulfate HFA 108 (90 Base) MCG/ACT Inhalation Aerosol Solution Inhale 2 Puffs by mouth every 6 hours as needed (sob cough). 18 g 5 Azithromycin 250 MG Oral Tablet (Zithromax) Take 2 tabs by mouth on the first day, then 1 tab dailyon days two through five 6 Tablet 0 No current facility-administered medications for this visit. Past Medical History: Diagnosis Date Allergy seasonal Anxiety Asthma Depression Past Surgical History: Procedure Laterality Date CHOLECYSTOTOMY OR CHOLECYSTOSTOMY, PERC 2012 DENTAL SURGERY PROCEDURE NEC 2004 MISCELLANEOUS ORDER ([facility] ONLY) 2010 Uterine Polyp removed Review of patient's allergies indicates: Allergen Reactions Biaxin [Clarithromycin] Ceclor [Cefaclor] Clindamycin Flexeril [Cyclobenzaprine] Numbness left side, confusion, stroke like symptoms Penicillins Family History Problem Relation Age of Onset Breast Cancer Mother age 70 Breast Cancer Grandmother (Paternal) 70s Osteoporosis Grandmother (Maternal) Glaucoma Grandmother (Maternal) Family Status Relation Status Mo (Not Specified) PGMA MGMA (Not Specified) Social History Socioeconomic History Marital status: Spouse name: Not on file Number of children: Not on file Years of education: Not on file Highest education level: Not on file Occupational History Not on file Tobacco Use Smoking status: Never Passive exposure: Never Smokeless tobacco: Never Substance and Sexual Activity Alcohol use: Not Currently Comment: rare Drug use: Never Sexual activity: Yes Partners: Male Other Topics Concern Not on file Social History Narrative Not on file Social Determinants of Health Financial Resource Strain: Not on file Food Insecurity: No Food Insecurity (03/07/2023) Hunger Vital Sign Worried About Running Out of Food in the Last Year: Never true Ran Out of Food in the Last Year: Never true Transportation Needs: Not on file Physical Activity: Not on file Stress: Not on file Social Connections: Not on file Intimate Partner Violence: Not on file Housing Stability: Not on file Review of Systems Constitutional: Positive for activity change, appetite change, chills, diaphoresis and fatigue. Negative for fever and unexpected weight change. HENT: Positive for congestion, postnasal drip and sore throat. Negative for ear pain, hearing loss,rhinorrhea, sinus pressure, sinus pain, sneezing and tinnitus. Eyes: Negative for visual disturbance. Respiratory: Positive for cough. Negative for chest tightness, shortness of breath and wheezing. Cardiovascular: Negative for chest pain, palpitations and leg swelling. Gastrointestinal: Negative for abdominal distention and abdominal pain. Skin: Positive for rash. Allergic/Immunologic: Positive for environmental allergies. Neurological: Negative for dizziness and light-headedness. Psychiatric/Behavioral: Negative for agitation, behavioral problems and sleep disturbance. The patient is nervous/anxious. Objective There were no vitals taken for this visit. Physical Exam Constitutional: General: She is not in acute distress. Appearance: Normal appearance. She is not ill-appearing, toxic-appearing or diaphoretic. HENT: Head: Normocephalic and atraumatic. Nose: Congestion present. Eyes: Extraocular Movements: Extraocular movements intact. Neurological: Mental Status: She is alert and oriented to person, place, and time. Psychiatric: Behavior: Behavior normal. ASSESSMENT/PLAN: Viral respiratory illness (Primary) - RETURN TO WORK OR SCHOOL Rash and nonspecific skin eruption - RETURN TO WORK OR SCHOOL Nausea without vomiting - RETURN TO WORK OR SCHOOL Diarrhea, unspecified type - RETURN TO WORK OR SCHOOL Mild persistent asthma without complication Ok to take zpak Not really need to PCR test at this time OTC too Cont current inhaler And work excuse note Celso Mayen MD documented in this encounter Plan of Treatment Upcoming Encounters Date Type Department Care Team (Late st Contact Info) Description 03/24/2024 9:00 AM EDT Office Visit [facility] [address] [place] [address] Celso Mayen MD [address] [place] [address] Health Maintenance Due Date Last Done Comments [...] Not on filedocumented as of this encounter Visit Diagnoses Diagnosis Viral respiratory illness- Primary Unspecified viral infection, in conditions classified elsewhere and of unspecified site Rash and nonspecific skin eruption Rash and other nonspecific skin eruption Nausea without vomiting Diarrhea, unspecified type Mild persistent asthma without complication Unspecified asthma documented in this encounter Care Teams Foot Worker Relationship Specialty Start Date End Date Celso Mayen MD [address] [place] [address] PCP - General Internal Medicine 07/03/23 documented as of this encounter
--- OUTSIDE RECORDS SUMMARY | 2023-10-17 06:07 | External Medical Summary | Summary of Care ---
Author Name Unknown Organization [facility] Address [address] [place] [address] Phone [phone] Care Team Providers Care Animal Physiologist Name Role Phone Celso Mayen MD Primary Care Provider [phone] Reason for Visit * Reason Comments Acute Encounter Details Date Type Department Care Team ([facility] st Contact Info) Description 10/09/2023 1:40 PM [facility] [address] [place] [address] Rajinder Martinez MD [address] [facility] [address] [place] [address] Acute sinusitis, recurrence not specified, unspecified location*; Mild episode of recurrent major depressive disorder (HCC) Allergies Active Allergy Reactions Criticality Noted Date Comments Clarithromycin 11/18/2019 Cefaclor 11/18/2019 Clindamycin 11/18/2019 Cyclobenzaprine 11/18/2019 Numbness left side, confusion, stroke like symptoms Penicillins 11/18/2019 documented as of this encounter (statuses as of 10/09/2023) Medications Medication Sig Dispensed Refills Start Date End Date Status Probiotic Product (PROBIOTIC ACIDOPHILUS BIOBEADS) Capsule Take 1 Cap by mouth three times a day with meals. 0 Active 27-0.8 MG Oral Tablet Take by mouth. 0 Active Calcium 500-100 MG-UNIT Oral Tablet Chewable Take by mouth. 0 Activ e Saline Nasal [place] 0.65 % Nasal Solution Administer 1 [place] into nostril as needed for Congestion. 0 Active Fluticasone Propionate 50 MCG/ACT Nasal Suspension Administer 1 [place] into nostril in the morning. 0 Active Docusate Sodium 100 MG Oral Capsule Take 1 Capsule by mouth in the morning and 1 Capsule before bedtime. 0 Active Ibuprofen 600 MG Oral Tablet (Motrin) Take 1 Tablet by mouth every 6 hours as needed (mild pain). With food. 30 Tablet 1 08/08/2021 Active Escitalopram Oxalate 20 MG Oral Tablet [...] as of this encounter (statuses as of 10/09/2023) Active Problems Problem Noted Date Diagnosed Date KAYLEE (generalized anxiety disorder) 09/03/2023 Mild episode of recurrent major depressive disor isela 09/03/2023 Mild persistent asthma without complication 01/2023 Irregular periods 09/03/2023 documented as of this encounter (statuses as of 10/09/2023) Resolved Problems Problem Noted Date Diagnosed Date Resolved Date Rh negative status during 12/15/2020 08/08/2021 Overview: ER on 01/25 for bleeding in 1st trimester, received RhoGAM there rhoGAM 05/03/21 , normal first 12/14/202005/2021 Adjustment disorder with mix ed anxiety and depressed mood 12/14/2020 08/08/2021 Overview: On zoloft documented as of this encounter (statuses as of 10/09/2023) Immunizations Name Administration Dates Next Due TDAP [...] money to get more. Never true 03/07/2023 [place] Depression Scale Answer Date Recorded [place] Depression Scale Total 8 11/22/2021 The thought [...] as of this encounter Progress Notes * Rajinder Martinez MD - 10/09/2023 1:50 PM EST Subjective Loida Whitehead is a 37 year old female. No chief complaint on file. Patient location: HOME. I was in a hospital or clinic location. After connecting through televideo,patient was verified with two unique identifiers. Patient (or authorized legal hvac sales representative) was then informed that this was a Telemedicine visit and being conducted confidentially over secure lines. Methods to assure confidentiality were taken. Patient acknowledged consent and understanding of pr ivacy and security of the Telemedicine visit. The patient agreed to participate. HPI: 37 y/o female presenting for an acute visit. This all started with a rash that started on Saturday evening about 6 days ago. Over the past day or so she has developed bodyaches, chills/sweats, headaches that have been intermittent in nature. She also complains of a mild chest associated with chest tightness. She took a home COVID test on 2 occasions and it was negative. She has been dosing flonase but despite that has worsening nasal congestion. Mild persistent asthma; she was prescribed Advair in the past but stopped the medication when her symptoms were under better control. PMH: Patient Active Problem List Diagnosis Code KAYLEE (generalized anxiety disorder) F41.1 Mild episode of recurrent major depressive disorder (HCC) F33.0 Mild persistent asthma without complication J45.30 Irregular periods N92.6 Current Outpatient Medications Medication Sig Dispense Refill Azithromycin 250 MG Oral Tablet (Zithromax) Take 2 tabs by mouth on the first day, then 1 tab dailyon days two through five 6 Tablet 0 Probiotic Product (PROBIOTIC ACIDOPHILUS BIOBEADS) Capsule Take 1 Cap by mouth three times a day with meals. 27-0.8 MG Oral Tablet Take by mouth. Calcium 500-100 MG-UNIT Oral Tablet Chewable Take by mouth. Saline Nasal [place] 0.65 % Nasal Solution Administer 1 [place] into nostril as needed for Congestion. Fluticasone Propionate 50 MCG/ACT Nasal Suspension Administer 1 [place] into nostril in the morning. Docusate Sodium 100 MG Oral Capsule Take 1 Capsule by mouth in the morning and 1 Capsule before bedtime. Ibuprofen 600 MG Oral Tablet (Motrin) Take 1 Tablet by mouth every 6 hours as needed (mild pain). With food. 30 Tablet 1 Escitalopram Oxalate 20 MG Oral Tablet (Lexapro) [...] as needed (sob cough). 18 g 5 No current facility-administered medications for this visit. Past Medical History: Diagnosis Date Allergy seasonal Anxiety Asthma Depression Past Surgical History: Procedure Laterality Date CHOLECYSTOTOMY OR CHOLECYSTOSTOMY, PERC 2011 DENTAL SURGERY PROCEDURE NEC 2004 MISCELLANEOUS ORDER ([facility] ONLY) 2010 Uterine Polyp removed [...] Not on file Review of Systems Constitutional: Negative for chills and fever. HENT: Positive for congestion, postnasal drip and rhinorrhea. Negative for sore throat. Eyes: Negative for discharge. Respiratory: Negative for cough, shortness of breath and wheezing. Cardiovascular: Negative for chest pain. Gastrointestinal: Negative for diarrhea, nausea and vomiting. Endocrine: Negative for cold intolerance and heat intolerance. Genitourinary: Negative for dysuria. Skin: Negative for rash. Neurological: Negative for headaches. Psychiatric/Behavioral: Negative for dysphoric mood. Objective There were no vitals taken for this visit. Physical Exam Constitutional: General: She is not in acute distress. Appearance: She is not ill-appearing, toxic-appearing or diaphoretic. HENT: Head: Normocephalic and atraumatic. Eyes: General: No scleral icterus. Right eye: No discharge. Left eye: No discharge. Extraocular Movements: Extraocular movements intact. Pulmonary: Effort: No respiratory distress (breathing is non-labored). Breath sounds: No wheezing (no auditory wheezing). Skin: Findings: No rash. Psychiatric: Mood and Affect: Mood normal. ASSESSMENT/PLAN: 1. Acute sinusitis, recurrence not specified, unspecified location New; recommend OTC cold/flu remedies. Patient may contact her PCPs office to see if she can come infor an RVP. She was given a delayed script for Azithromycin to take if her symptoms worsen despite conservative management. - Azithromycin 250 MG Oral Tablet (Zithromax); Take 2 tabs by mouth on the first day, then 1 tab daily on days two through five Dispense: 6 Tablet; Refill: 0 2. Mild episode of recurrent major depressive disorder (HCC) Stable; continue Lexapro and buspirone as prescribed. Rajinder Martinez MD documented in this encounter Plan of Treatment Upcoming Encounters Date Type Department Care Team (Late st Contact Info) Description 03/24/2024 9:00 AM EDT Office Visit [facility] [address] [place] [address] Celso Mayen MD [address] [place], [place] [id number] Health Maintenance Due Date Last Done Comments [...] as of this encounter Visit Diagnoses Diagnosis Acute sinusitis, recurrence not specified, unspecified location- Primary Mild episode of recurrent major depressive disorder (HCC) documented in this encounter Care Teams Animal Physiologist Relationship Specialty Start Date End Date Celso Mayen MD [address] [place] [address] PCP - General Internal Medicine 07/03/23 documented as of this encounter
--- NOTE | 2023-10-17 06:58 | Emergency Department Note ---
Impression & Plan Psychosis Admission ED Provider Note HPI: History obtained from patient. The patient is a 37-year-old female with history of PTSD, presents emergency department after being discharged several hours ago over concern for paranoia and psychosis. Patient's is at the bedside and states that since they were discharged the patient was having increasing paranoia at home, she was unplugging computers and phones because she believed that she was being spied on by "the Internet". Patient also states that there is a "spiritual presence" that is also following her. Patient denies any thoughts of wanting to harm herself. Patient's states that they were offered inpatient admission prior to discharge and thought that they might be able to manage the patient's symptoms as an outpatient however shortly after discharge he felt that it would be better for her to be admitted as an inpatient. Patient arrives voluntarily, she is calm and cooperative on my assessment. Patient is hemodynamically stable on arrival. ROS: - Per HPI Differential Diagnosis: Acute psychosis, PTSD, anxiety/depression, bipolar disorder with emmanuel, amongst other potential pathologies. *Outpatient medications and allergy history reviewed. PE: General: Alert HEENT: Normocephalic, trachea midline Eyes: Extraocular eye movement is intact, no scleral erythema Pulmonary: Clear to auscultation bilaterally, no wheezing Cardio: Regular rate and rhythm GI: Abdomen is soft to palpation : No suprapubic tenderness MSK: No evidence of trauma or malformation of the extremities, no edema Skin: No evidence of rash Neuro: Alert, no focal deficits Psychiatric: Cooperative Medical Decision Making: Patient was medically cleared here in the ED following my discussion. Patient was assessed by case management. Given the patient's paranoia and delusions, she is determined appropriate for voluntary inpatient care. Patient was assessed by 3 S. for inpatient admission and was determined appropriate. Patient was transferred to [facility]. for inpatient psychiatric care and further management. Consultants/Discussions held with other healthcare providers: -Case management Disposition discussion held by myself with: -Patient and at the bedside Diagnosis: 1. Psychosis with paranoia, acute Disposition: Admission to psychiatry ([address] [place] [address]) Cesar Conley DO Emergency Medicine Past Med/Surg History Medical History Asthma Rare use of PRN inhaler Ventral hernia without obstruction or gangrene Normal course Encounter for pre-operative examination Adjustment disorder with mixed anxiety and depressed mood Rh negative status during in third trimester Pre-eclampsia, severe, antepartum 39 weeks gestation of Anxiety and depression Migraine Surgical History H/O ventral hernia repair (05/02/22) Open Ventral Hernia Repair, primary - Georgi Lorenzana, DO, FACS History of hysteroscopy w/ polypectomy History of esophagogastroduodenoscopy (EGD) [place] teeth extracted History of cholecystectomy Family History Mother High cholesterol Breast cancer Cancer Grandmother (Maternal) Cancer Father High cholesterol Hypertension Other No family history of adverse response to anesthesia Social History Smoking Status: Never smoker Second Hand Exposure: No; Do You Dip or Chew Tobacco: No; Hx Alcohol Use: Yes Alcohol type: wine Alcohol Intake Frequency: Monthly or Less Hx Substance Use: No Preferred Language: Citizen [place] Communication Ability: Effective Visual Impairment: No Limitations Restaurant Floor Manager Required: No Beliefs That Will Affect Care: None marital status: Current Living Situation: Spouse current occupational status: employed current occupation: [employer] How many Children do You have: 1 Feels Safe at Home: Yes Diet: regular during the past year weight has: other Gender Identity: Female Assistive Devices: Contacts and Glasses Allergies Allergies Allergy/AdvReac Type Severity Reaction Status Date / Time cefaclor Allergy Intermediate Hives/Rash Verified 10/03/23 14:04 clarithromycin Allergy Intermediate Hives/Rash Verified 10/03/23 14:04 clindamycin Allergy Intermediate Hives/Rash Verified 10/03/23 14:04 cyclobenzaprine Allergy Intermediate Confusion, Verified 10/03/23 14:04 impaired speech and arm numbness. Penicillins Allergy Hives Verified 10/17/23 01:44 Home Meds Home Medications Medication Instructions Recorded Confirmed lactobacillus combination no.4 3 3,000 mmu cells PO QAM 07/19/21 10/17/23 billion cell capsule (Probiotic) escitalopram oxalate 20 mg tablet 20 mg PO QAM 04/24/22 10/17/23 (Lexapro) multivitamin 1 tab PO QPM 04/24/22 10/17/23 buspirone 10 mg tablet 20 mg PO BID 10/17/23 10/17/23 Results & Data (ED) Vital Signs Vital Signs - 24 hr 10/17/23 06:09 Temperature 36.7 C Temperature Source Temporal Artery Scan Pulse Rate 103 H Respiratory Rate 18 Respiratory Effort / Characteristics Non-Labored Spontaneous Respiratory Depth Normal Respiratory Pattern Regular Blood Pressure 124/78 Blood Pressure Mean 93 Blood Pressure Position Sitting Pulse Oximetry 94 Oxygen Delivery Method Room Air Sepsis Recent Fever Within 48 Hours No Sepsis New/Unexplained Change in Mental Status N/A Sepsis Action Taken by Nursing No Action Required Laboratory Data Lab Results 10/17/23 Range/Units 06:30 Urine Test Negative (Negative) Urine Opiates Screen Neg (Neg) Ur Methadone, Qual Neg (Neg) Urine Barbiturates Neg (Neg) Ur Phencyclidine (PCP) Neg (Neg) U Amphetamin/Meth Scrn Neg (Neg) MDMA (Ecstasy) Screen Neg (Neg) U Benzodiazepines Scrn Neg (Neg) Ur Cocaine Metabolite Neg (Neg) U Marijuana (THC) Screen Neg (Neg) Administered Medications Discontinued Medications Potassium Chloride (Potassium Chloride Pwd 20 Meq Pack) 40 meq PO ONCE ONE Stop: 10/17/23 07:46 Last Admin: 10/17/23 08:51 Dose: 40 meq Documented By: FELICIANO Discharge Plan Visit Data Chief Complaint: Mental Health Evaluation Stated Complaint: MENTAL HEALTH EVAL, WANTS INPATIENT CARE ED Provider: Cesar Conley Discharge Problem: Psychosis Discharge Instructions Interventions: ED Discharge Assessment Last Done: 10/17/23 10:23 Discharge Problem: Psychosis Qualifiers: Psychosis type: unspecified psychosis type Qualified Code(s): F29 - Unspecified psychosis not due to a substance or known physiological condition
[2023-10-17 07:09] LABS: Amphetamines+Metham, Urine Neg (Neg); Barbiturates, Urine Neg (Neg); Benzodiazepine, Urine Neg (Neg); Cocaine, Urine Neg (Neg); MDMA (Ecstacy), Urine Neg (Neg); Marijuana, Urine Neg (Neg); Methadone, Urine Neg (Neg); Opiate, Urine Neg (Neg); Phencyclidine, Urine Neg (Neg)
[2023-10-17 07:44] LABS: Pregnancy Test, Urine Negative (Negative)
[2023-10-17] MEDS ORDERED: POTASSIUM CHLORIDE PWD 20 MEQ PACK PO ONE (07:45)
[2023-10-17] MEDS ORDERED: MAGNESIUM HYDROXIDE SUSP 30 ML UDC PO PRN (08:16)
[2023-10-17] MEDS ORDERED: ACETAMINOPHEN 325 MG TAB PO PRN (08:16)
[2023-10-17] MEDS ORDERED: hydrOXYzine HCl 25 MG TAB PO PRN ×2 (08:16)
[2023-10-17] MEDS ORDERED: ALUMINUM/MAGNESIUM SUSP 30 ML UDC PO PRN (08:16)
[2023-10-17] MEDS ORDERED: SODIUM CHLORIDE 0.65% NA SOLN 45 ML (OCEAN) PRN (08:16)
[2023-10-17 10:02] LABS: Adenovirus PCR Not Detected (NotDetected); Bordetella parapertussis PCR Not Detected (NotDetected); Bordetella pertussis PCR Not Detected (NotDetected); Chlamydia pneumoniae PCR Not Detected (NotDetected); Coronavirus 229E PCR Not Detected (NotDetected); Coronavirus CoV-2 (COVID19)PCR Not Detected (NotDetected); Coronavirus HKU1 PCR Not Detected (NotDetected); Coronavirus NL63 PCR Not Detected (NotDetected); Coronavirus OC43PCR Not Detected (NotDetected); Human Metapneumovirus PCR Not Detected (NotDetected); Influenza A PCR Not Detected (NotDetected); Influenza B PCR Not Detected (NotDetected); Mycoplasma pneumoniae PCR Not Detected (NotDetected); Parainfluenza Virus 1 PCR Not Detected (NotDetected); Parainfluenza Virus 2 PCR Not Detected (NotDetected); Parainfluenza Virus 3 PCR Not Detected (NotDetected); Parainfluenza Virus 4 PCR Not Detected (NotDetected); Respiratory Syncytial VirusPCR Not Detected (NotDetected); Rhinovirus/Enterovirus PCR Not Detected (NotDetected)
[2023-10-17] MEDS ORDERED: LORazepam 1 MG TAB PO STA (12:43)
[2023-10-17] MEDS ORDERED: OLANZapine 5 MG TABLET PO STA (12:43)
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
[2023-10-17] MEDS ORDERED: BENZTROPINE MESYLATE 1 MG TAB PO PRN (13:08)
[2023-10-17] MEDS ORDERED: OLANZapine 5 MG TABLET PO SCH (22:00)
[2023-10-17] MEDS: LORazepam 1 MG TAB PO PRN (22:31)
[2023-10-18 08:44] LABS: Chol HDL Ratio 2.5 (0-5)
[2023-10-18] MEDS: OLANZapine 5 MG TABLET PO PRN (09:39)
[2023-10-18] MEDS: LORazepam 1 MG TAB PO PRN ×3 (09:39→23:54)
[2023-10-18] MEDS: BISMUTH SUBSALICYLATE LIQD 236 ML PO PRN (09:40)
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
[2023-10-18] MEDS: LORazepam 1 MG TAB PO SCH (18:07)
[2023-10-18] MEDS: OLANZapine 10 MG TAB PO SCH (20:49)
[2023-10-19] MEDS: BISMUTH SUBSALICYLATE LIQD 236 ML PO PRN (06:35)
[2023-10-19 08:34] LABS: Estimated Average Glucose 105 mg/dl; Hemoglobin A1C 5.3 % (4.5-5.6)
[2023-10-19] MEDS: LORazepam 1 MG TAB PO SCH ×2 (08:45→17:05)
[2023-10-19] MEDS: OLANZapine 5 MG TABLET PO PRN (08:45)
[2023-10-19] MEDS: OLANZapine 10 MG TAB PO SCH (21:27)
[2023-10-19] MEDS ORDERED: traZODone HCL 50 MG TAB PO SCH (22:00)
--- NOTE | 2023-10-19 23:16 | Psychiatric Progress Note ---
Date of Service October 19, 2023 Impression / Recommendations Impression 10/19/2023: Pt slept "some" last night with some middle awakenings. She tells me she's not , but about an hour ago was asking for a test (despite knowing a test in the ED was negative). Says she continues to "lack clarity of thought" but feels as if that's improving. She's hesitant to attribute any of this to the olanzapine and is not willing to consider an increase to address the middle awakenings but was willing to consider a trial of trazodone. She's not interested in discussing other mood stabilizers such as oxcarbazepine. 10/18/2023: 37 yo female with a hx of nonspecific anxiety, depression, PTSD (though initial reports that her memories were newly recovered and could be part of her psychotic episode), taking SSRI + buspar presents with paranoia, delusions, hyperreligiosity, and poor sleep following a URI. Presentation most consistent with bipolar I manic episode but additional collateral is needed and differential include primary psychotic disorder, depression with psychotic features, or PTSD dissociative episode. MNPR due to disrupted sleep, poor boundaries on unit, paranoia. (1) Psychotic episode: Plan 10/19/2023: * continue olanzapine 10 mg QHS * trial of trazodone 50 mg at HS for sleep * continue to discuss mood stabilizers other than olanzapine that might be better long-term options. 10/18/23: will increase Zyprexa to 10 mg this hs, some sedation from day time doses. Will provide Ativan 1 mg BID meals for daytime restlessness. No evidence of akathisia. Patient had fasting glucose of 145, now that she has been here another day appears to have significant hirsuitism. PCOS can be associated with hyperinsulinemia. Certainly Zyprexa can contribute to hyperglycemia. Will draw A1C in am and insulin level. Zyprexa was for short term stabilization and can discuss additional options with patient when more stable. 10/17/23: The patient was admitted to the [facility] ([facility] mental health unit) on q15 min checks (behavioral with suicide precautions) for safety. The patient will participate in group, recreational, and milieu therapies and will be offered additional individual and family sessions as clinically appropriate. Given presentation, will hold serotonergic agents in favor of acute stabilization with Zyprexa 5 mg and Ativan 1 mg prn with plan for scheduled dose at hs and discussion around best options for ongoing treatment as condition improves. Fasting metabolic labs in am. No abnormal motor movements at baseline. 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 Chief Complaint "My mind is better today". Review of Systems Sleep Information Total Hours of Sleep: 6 Meal Information Percent Meal Consumed - Breakfast: 100 Percent Meal Consumed - Lunch: 75 Percent Meal Consumed - Dinner: 75 Nutrition Comment: Pt is soundly asleep and tray was safed Subjective Subjective The patient was seen and assessed and interval progress reviewed in a multidisc iplinary team meeting with the treatment team. For details, see the "Impression" section. Overall I spent a total of 40 minutes for this inpatient follow-up including review of chart records, review of test results, direct evaluation of the patient [id number], reconciling and ordering medication, medication education with the patient, risk assessment, discussion during interdisciplinary treatment rounds, and documentation in the electronic health record. Physical Exam Psychiatric Orientation: alert Apperance: appropriately dressed and appropriately groomed Eye Contact: good eye contact Motor Behavior: no abnormal motor movements Speech: normal rate/rhythm/volume of speech Affect: + anxious affect Mood: + anxious mood Thought Process: + thought blocking (? derails but more driven by paranoia) Thought Content: + paranoid and + delusions () Suicidal Thoughts: denies suicidal thoughts Homicidal Thoughts: denies homicidal thoughts Hallucinations: no auditory hallucinations and no visual hallucinations Cognition: language grossly intact; + attention not intact Estimated Intelligence: consistent with education level Insight: + limited insight and + poor insight Judgment: + limited judgement and + poor judgement Vital Signs (Past 24 Hours) Last Vital Signs Temp 36.5 C 10/19/23 06:00 Pulse 90 10/19/23 06:00 Resp 16 10/19/23 06:00 BP 121/79 10/19/23 06:00 Pulse Ox 98 10/19/23 06:00 O2 Del Method Room Air 10/19/23 06:00 Results & Data ([facility]) Laboratory Results Laboratory Results - last 24 hr 10/19/23 07:59 Estimat Average Glucose 105 Hemoglobin A1c 5.3 Fasting Insulin Pending Current Inpatient Medications Current Inpatient Medications: Current Inpatient Medications Acetaminophen (Acetaminophen 325 Mg Tab) 650 mg PO Q4H PRN PRN Reason: Headache or Minor Fever Stop: 11/16/23 08:15 Al Hydrox/Mg Hydrox/Simethicone (Aluminum/Magnesium Susp 30 Ml Udc) 30 ml PO Q4H PRN PRN Reason: GI Upset Stop: 11/16/23 08:15 Benztropine Mesylate (Benztropine Mesylate 1 Mg Tab) 1 mg PO Q6 PRN PRN Reason: Muscle Spasm Stop: 11/16/23 13:07 Bismuth Subsalicylate (Bismuth Subsalicylate Liqd 236 Ml) 15 ml PO PRN PRN PRN Reason: Loose Stool Stop: 11/16/23 08:15 Last Admin: 10/19/23 06:35 Dose: 15 ml Lorazepam (Lorazepam 1 Mg Tab) 1 mg PO Q4 PRN PRN Reason: Anxiety/Agitation Stop: 11/16/23 12:43 Last Admin: 10/18/23 23:54 Dose: 1 mg Lorazepam (Lorazepam 1 Mg Tab) 1 mg PO BIDM ARMEN Stop: 11/17/23 17:44 Last Admin: 10/19/23 17:05 Dose: 1 mg Magnesium Hydroxide (Magnesium Hydroxide Susp 30 Ml Udc) 30 ml PO DAILY PRN PRN Reason: Constipation Stop: 11/16/23 08:15 Olanzapine (Olanzapine 5 Mg Tablet) 5 mg PO Q6 PRN PRN Reason: Anxiety/Agitation Stop: 11/16/23 17:59 Last Admin: 10/19/23 08:45 Dose: 5 mg Olanzapine (Olanzapine 10 Mg Tab) 10 mg PO HS ARMEN Stop: 11/17/23 21:59 Last Admin: 10/19/23 21:27 Dose: 10 mg Sodium Chloride (Sodium Chloride 0.65% Na Soln 45 Ml ([place])) 1 - 2 sprays NA PRN PRN PRN Reason: Nasal Dryness/Congestion Stop: 11/16/23 08:15 Last Admin: 10/17/23 20:57 Dose: 2 sprays Trazodone HCl (Trazodone Hcl 50 Mg Tab) 50 mg PO HS ARMEN Stop: 11/18/23 21:59 Last Admin: 10/19/23 21:27 Dose: 50 mg Mental Health & Subst Abuse Tx Therapist Name of Therapist: Mariama Zazueta Date of Therapist Appointment: 10/17/2023 Post Discharge Appointments Primary Care Physician Name Of Family Doctor/PCP: Dr. Mayen at [facility] Date of Future Appointment with PCP: 10/17/2023
[2023-10-20] MEDS: OLANZapine 5 MG TABLET PO PRN (07:20)
[2023-10-20] MEDS: LORazepam 1 MG TAB PO SCH ×2 (07:22→17:20)
[2023-10-20] MEDS ORDERED: OLANZapine 5 MG TABLET PO SCH (12:15)
[2023-10-20] MEDS: haloperidoL 5 MG TAB PO PRN ×2 (13:10→17:58)
[2023-10-20] MEDS: LORazepam 1 MG TAB PO PRN (13:11)
--- NOTE | 2023-10-20 13:28 | Psychiatric Progress Note ---
Date of Service October 20, 2023 Impression / Recommendations Impression 10/20/2023: On rounds this morning, pt was packed to leave, with all her belongings in paper bags on her bed. When I asked about this, she told me "Dr. Lambert said" she could leave this morning.When I pointed out that I was Dr. Lambert and that we had not discussed discharge, she said "it was probably the other doctor". She's calmly but adamantly unshakeable on this. Had a poor night last night. She slept only a couple of hours and was again speaking of a belief that she's , talking of "dimensions" and how they somehow applied to her life, and sharing that she is now Paul. She had a chart of names of various family members showing which of them has recently been Paul and how their identities migrate among them. It seems clear that olanzapine has been of very limited benefit. I talked with h er about switching to haloperidol, which is likely to be more effective. She was completely open to this but persistently bargained to make this an outpatient plan rather than something done here. She did agree to take the dose ordered this morning and said she'd talk with her during his planned visit about his support for her immediate discharge (which seems very unlikely). Pt's willingness to remain for treatment remains, like her insight, very limited. At this point, if she does insist on discharge she does in my opinion meet criteria for involuntary emergency psychiatric hospitalization based her high degree of disorganized thinking and her lack of insight that makes her unable to make appropriate assessments of safety risks and therefore unable to meet her own care needs. 10/19/2023: Pt slept "some" last night with some middle awakenings. She tells me she's not , but about an hour ago was asking for a test (despite knowing a test in the ED was negative). Says she continues to "lack clarity of thought" but feels as if that's improving. She's hesitant to attribute any of this to the olanzapine and is not willing to consider an increase to address the middle awakenings but was willing to consider a trial of trazodone. She's not interested in discussing other mood stabilizers such as oxcarbazepine. 10/18/2023: 37 yo female with a hx of nonspecific anxiety, depression, PTSD (though initial reports that her memories were newly recovered and could be part of her psychotic episode), taking SSRI + buspar presents with paranoia, delusions, hyperreligiosity, and poor sleep following a URI. Presentation most consistent with bipolar I manic episode but additional collateral is needed and differential include primary psychotic disorder, depression with psychotic features, or PTSD dissociative episode. MNPR due to disrupted sleep, poor boundaries on unit, paranoia. (1) Psychotic episode: Plan 10/20/2023: * start haloperidol 5 mg BID * start haloperidol 5 mg Q6H PRN psychosis or emmanuel * discontinue olanzapine, both scheduled and PRN * increase trazodone to 100 mg at HS for sleep * continue to discuss mood stabilizers other than olanzapine that might be better long-term options 10/19/2023: * continue olanzapine 10 mg QHS * trial of trazodone 50 mg at HS for sleep * continue to discuss mood stabilizers other than olanzapine that might be better long-term options 10/18/23: will increase Zyprexa to 10 mg this hs, some sedation from day time doses. Will provide Ativan 1 mg BID meals for daytime restlessness. No evidence of akathisia. Patient had fasting glucose of 145, now that she has been here another day appears to have significant hirsuitism. PCOS can be associated with hyperinsulinemia. Certainly Zyprexa can contribute to hyperglycemia. Will draw A1C in am and insulin level. Zyprexa was for short term stabilization and can discuss additional options with patient when more stable. 10/17/23: The patient was admitted to the [facility] ([facility] mental health unit) on q15 min checks (behavioral with suicide precautions) for safety. The patient will participate in group, recreational, and milieu therapies and will be offered additional individual and family sessions as clinically appropriate. Given presentation, will hold serotonergic agents in favor of acute stabilizati on with Zyprexa 5 mg and Ativan 1 mg prn with plan for scheduled dose at hs and discussion around best options for ongoing treatment as condition improves. Fasting metabolic labs in am. No abnormal motor movements at baseline. 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 Chief Complaint "Dr. Lambert told me I could leave". Review of Systems Sleep Information Total Hours of Sleep: 2.75 Meal Information Percent Meal Consumed - Breakfast: 75 Percent Meal Consumed - Lunch: 100 Percent Meal Consumed - Dinner: 75 Nutrition Comment: Pt is soundly asleep and tray was safed Subjective Subjective The patient was seen and assessed and interval progress reviewed in a multidisciplinary team meeting with the treatment team. For details, see the "Impression" section. Overall I spent a total of 53 minutes for this inpatient follow-up including review of chart records, review of test results, direct evaluation of the patient [id number], counseling the patient, reconciling and ordering medication, medication education with the patient, risk assessment, discussion during interdisciplinary treatment rounds, and documentation in the electronic health record. Physical Exam Psychiatric Orientation: alert Apperance: appropriately dressed and appropriately groomed Eye Contact: good eye contact Motor Behavior: no abnormal motor movements Speech: normal rate/rhythm/volume of speech Affect: + constricted affect Mood: + anxious mood Thought Process: + concrete thought process; + thought process not linear or logical Thought Content: + paranoid and + persecution Suicidal Thoughts: denies suicidal thoughts Homicidal Thoughts: denies homicidal thoughts Hallucinations: no auditory hallucinations and no visual hallucinations Cognition: language grossly intact; + attention not intact Estimated Intelligence: consistent with education level Insight: + poor insight Judgment: + poor judgement Vital Signs (Past 24 Hours) Last Vital Signs Temp 36.6 C 10/20/23 00:33 Pulse 125 H 10/20/23 06:48 Resp 18 10/20/23 06:48 BP 143/79 H 10/20/23 06:49 Pulse Ox 100 10/20/23 06:48 O2 Del Method Room Air 10/20/23 06:48 Results & Data ([facility]) Laboratory Results Laboratory Results - last 24 hr 10/19/23 07:59 Fasting Insulin 17.3 Current Inpatient Medications Current Inpatient Medications: Current Inpatient Medications Acetaminophen (Acetaminophen 325 Mg Tab) 650 mg PO Q4H PRN PRN Reason: Headache or Minor Fever Stop: 11/16/23 08:15 Al Hydrox/Mg Hydrox/Simethicone (Aluminum/Magnesium Susp 30 Ml Udc) 30 ml PO Q4H PRN PRN Reason: GI Upset Stop: 11/16/23 08:15 Benztropine Mesylate (Benztropine Mesylate 1 Mg Tab) 1 mg PO Q6 PRN PRN Reason: Muscle Spasm Stop: 11/16/23 13:07 Bismuth Subsalicylate (Bismuth Subsalicylate Liqd 236 Ml) 15 ml PO PRN PRN PRN Reason: Loose Stool Stop: 11/16/23 08:15 Last Admin: 10/19/23 06:35 Dose: 15 ml Haloperidol (Haloperidol 5 Mg Tab) 5 mg PO Q6H PRN PRN Reason: psychosis or emmanuel Stop: 11/19/23 12:14 Last Admin: 10/20/23 13:10 Dose: 5 mg Haloperidol (Haloperidol 5 Mg Tab) 5 mg PO BID ARMEN Stop: 11/19/23 20:59 Lorazepam (Lorazepam 1 Mg Tab) 1 mg PO Q4 PRN PRN Reason: Anxiety/Agitation Stop: 11/16/23 12:43 Last Admin: 10/20/23 13:11 Dose: 1 mg Lorazepam (Lorazepam 1 Mg Tab) 1 mg PO BIDM ARMEN Stop: 11/17/23 17:44 Last Admin: 10/20/23 07:22 Dose: 1 mg Magnesium Hydroxide (Magnesium Hydroxide Susp 30 Ml Udc) 30 ml PO DAILY PRN PRN Reason: Constipation Stop: 11/16/23 08:15 Sodium Chloride (Sodium Chloride 0.65% Na Soln 45 Ml ([place])) 1 - 2 sprays NA PRN PRN PRN Reason: Nasal Dryness/Congestion Stop: 11/16/23 08:15 Last Admin: 10/17/23 20:57 Dose: 2 sprays Trazodone HCl (Trazodone Hcl 100 Mg Tab) 100 mg PO HS ARMEN Stop: 11/19/23 21:59 Mental Health & Subst Abuse Tx Therapist Name of Therapist: Mariama Zazueta Date of Therapist Appointment: 10/17/2023 Post Discharge Appointments Primary Care Physician Name Of Family Doctor/PCP: Dr. Mayen at [facility] Date of Future Appointment with PCP: 10/17/2023
[2023-10-20] MEDS ORDERED: haloperidoL 5 MG TAB PO SCH (21:00)
[2023-10-20] MEDS: traZODone HCL 100 MG TAB PO SCH (21:40)
[2023-10-20] MEDS: haloperidoL 5 MG TAB PO SCH (21:40)
[2023-10-21] MEDS: LORazepam 1 MG TAB PO SCH ×2 (08:37→16:50)
[2023-10-21] MEDS: haloperidoL 5 MG TAB PO SCH ×3 (08:37→21:52)
--- NOTE | 2023-10-21 09:05 | Psychiatric Progress Note ---
Date of Service October 21, 2023 Impression / Recommendations Impression 10/21/2023: Tripped over her feet yesterday evening, fell slowly to the floor with no evidence of subsequent injury. She attributes this to being "so off- balance because of the ". She slept considerably better last night after increase of trazodone. Has been tolerating switch from olanzapine to haloperidol well (had had no haloperidol prior to the fall). 10/20/2023: On rounds this morning, pt was packed to leave, with all her belongings in paper bags on her bed. When I asked about this, she told me "Dr. Lambert said" she could leave this morning.When I pointed out that I was Dr. Lambert and that we had not discussed discharge, she said "it was probably the other doctor". She's calmly but adamantly unshakeable on this. Had a poor night last night. She slept only a couple of hours and was again speaking of a belief that she's , talking of "dimensions" and how they somehow applied to her life, and sharing that she is now Paul. She had a chart of names of various family members showing which of them has recently been Paul and how their identities migrate among them. It seems clear that olanzapine has been of very limited benefit. I talked with her about switching to haloperidol, which is likely to be more effective. She was completely open to this but persistently bargained to make this an outpatient plan rather than something done here. She did agree to take the dose ordered this morning and said she'd talk with her during his planned visit about his support for her immediate discharge (which seems very unlikely). Pt's willingness to remain for treatment remains, like her insight, very limited. At this point, if she does insist on discharge she does in my opinion meet criteria for involuntary emergency psychiatric hospitalization based her high degree of disorganized thinking and her lack of insight that makes her unable to make appropriate assessments of safety risks and therefore unable to meet her own care needs. 10/19/2023: Pt slept "some" last night with some middle awakenings. She tells me she's not , but about an hour ago was asking for a test (despite knowing a test in the ED was negative). Says she continues to "lack c larity of thought" but feels as if that's improving. She's hesitant to attribute any of this to the olanzapine and is not willing to consider an increase to address the middle awakenings but was willing to consider a trial of trazodone. She's not interested in discussing other mood stabilizers such as oxcarbazepine. 10/18/2023: 37 yo female with a hx of nonspecific anxiety, depression, PTSD (though initial reports that her memories were newly recovered and could be part of her psychotic episode), taking SSRI + buspar presents with paranoia, delusions, hyperreligiosity, and poor sleep following a URI. Presentation most consistent with bipolar I manic episode but additional collateral is needed and differential include primary psychotic disorder, depression with psychotic features, or PTSD dissociative episode. MNPR due to disrupted sleep, poor boundaries on unit, paranoia. (1) Psychotic episode: Plan 10/21/2023: * continue haloperidol 5 mg BID * continue haloperidol 5 mg Q6H PRN psychosis or emmanuel * continue trazodone 100 mg at HS for sleep * continue to discuss mood stabilizers other than olanzapine that might be better long-term options 10/20/2023: * start haloperidol 5 mg BID * start haloperidol 5 mg Q6H PRN psychosis or emmanuel * discontinue olanzapine, both scheduled and PRN * increase trazodone to 100 mg at HS for sleep * continue to discuss mood stabilizers other than olanzapine that might be better long-term options 10/19/2023: * continue olanzapine 10 mg QHS * trial of trazodone 50 mg at HS for sleep * continue to discuss mood stabilizers other than olanzapine that might be better long-term options 10/18/23: will increase Zyprexa to 10 mg this hs, some sedation from day time doses. Will provide Ativan 1 mg BID meals for daytime restlessness. No evidence of akathisia. Patient had fasting glucose of 145, now that she has been here another day appears to have significant hirsuitism. PCOS can be associated with hyperinsulinemia. Certainly Zyprexa can contribute to hyperglycemia. Will draw A1C in am and insulin level. Zyprexa was for short term stabilization and can discuss additional options with patient when more stable. 10/17/23: The patient was admitted to the [facility] ([facility] mental health unit) on q15 min checks (behavioral with suicide precautions) for safety. The patient will participate in group, recreational, and milieu therapies and will be offered additional individual and family sessions as clinically appropriate. Given presentation, will hold serotonergic agents in favor of acute sta bilization with Zyprexa 5 mg and Ativan 1 mg prn with plan for scheduled dose at hs and discussion around best options for ongoing treatment as condition improves. Fasting metabolic labs in am. No abnormal motor movements at baseline. Inventory Assets Strengths: help seeking, utilizing supports Needs: improve insight into condition, resume psychiatry Suicide Risk Level Suicide Risk Level: Low (q15 min observation checks) Risk Factors Assessment : Yes Do You Have Access To A Gun?: No (but unreliable certifier) Mental Health Diagnoses: Yes Substance Use Disorders: No Previous Attempt: No Family History of Suicide: No Previous Psychiatric Hospitalization: No Protective Factors Assessment : Yes Responsible for Young Children: Yes Employed: Yes ([employer]) Supportive Family: Yes Interval History Identifying Information OTIS QUIROS is a 37-year-old F who currently lives in [place], presented to ED twice since last pm, and was admitted on 10/17/23 08:16 on a 201 voluntary commitment for bizarre behavior. Chief Complaint "I need to leave; I can't stay here while I'm ". Review of Systems Sleep Information Total Hours of Sleep: 9.5 Sleep Comments: Merritt pang remains at bedside. Tolerated increase of Trazadone 100mg at HS Meal Information Percent Meal Consumed - Breakfast: 75 Percent Meal Consumed - Lunch: 100 Percent Meal Consumed - Dinner: 50 Nutrition Comment: Pt is soundly asleep and tray was safed Subjective Subjective The patient was seen and assessed and interval progress reviewed in a multidisciplinary team meeting with the treatment team. For details, see the "Impression" section. Overall I spent a total of 32 minutes for this inpatient follow-up including review of chart records, direct evaluation of the patient [id number], counseling the patient, reconciling and ordering medication, risk assessment, discussion during interdisciplinary treatment rounds, and documentation in the electronic health record. Physical Exam Psychiatric Orientation: alert Apperance: appropriately dressed and appropriately groomed Eye Contact: good eye contact Motor Behavior: no abnormal motor movements Speech: normal rate/rhythm/volume of speech Affect: + anxious affect and + constricted affect Mood: + anxious mood Thought Process: + thought blocking (? derails but more driven by paranoia) and + concrete thought process; + thought process not linear or logical Thought Content: + paranoid, + delusions () and + persecution Suicidal Thoughts: denies suicidal thoughts Homicidal Thoughts: denies homicidal thoughts Hallucinations: no auditory hallucinations and no visual hallucinations Cognition: language grossly intact; + attention not intact Estimated Intelligence: consistent with education level Insight: + poor insight Judgment: + poor judgement Vital Signs (Past 24 Hours) Last Vital Signs Temp 36.6 C 10/21/23 06:36 Pulse 123 H 10/21/23 06:42 Resp 16 10/21/23 06:36 BP 111/74 10/21/23 06:42 Pulse Ox 100 10/20/23 21:25 O2 Del Method Room Air 10/20/23 21:25 Results & Data ([facility]) Current Inpatient Medications Current Inpatient Medications: Current Inpatient Medications Acetaminophen (Acetaminophen 325 Mg Tab) 650 mg PO Q4H PRN PRN Reason: Headache or Minor Fever Stop: 11/16/23 08:15 Al Hydrox/Mg Hydrox/Simethicone (Aluminum/Magnesium Susp 30 Ml Udc) 30 ml PO Q4H PRN PRN Reason: GI Upset Stop: 11/16/23 08:15 Benztropine Mesylate (Benztropine Mesylate 1 Mg Tab) 1 mg PO Q6 PRN PRN Reason: Muscle Spasm Stop: 11/16/23 13:07 Bismuth Subsalicylate (Bismuth Subsalicylate Liqd 236 Ml) 15 ml PO PRN PRN PRN Reason: Loose Stool Stop: 11/16/23 08:15 Last Admin: 10/19/23 06:35 Dose: 15 ml Haloperidol (Haloperidol 5 Mg Tab) 5 mg PO Q6H PRN PRN Reason: psychosis or emmanuel Stop: 11/19/23 12:14 Last Admin: 10/20/23 17:58 Dose: 5 mg Haloperidol (Haloperidol 5 Mg Tab) 5 mg PO TID ARMEN Stop: 11/19/23 20:59 Last Admin: 10/21/23 08:37 Dose: 5 mg Lorazepam (Lorazepam 1 Mg Tab) 1 mg PO Q4 PRN PRN Reason: Anxiety/Agitation Stop: 11/16/23 12:43 Last Admin: 10/20/23 13:11 Dose: 1 mg Lorazepam (Lorazepam 1 Mg Tab) 1 mg PO BIDM ARMEN Stop: 11/17/23 17:44 Last Admin: 10/21/23 08:37 Dose: 1 mg Magnesium Hydroxide (Magnesium Hydroxide Susp 30 Ml Udc) 30 ml PO DAILY PRN PRN Reason: Constipation Stop: 11/16/23 08:15 Sodium Chloride (Sodium Chloride 0.65% Na Soln 45 Ml ([place])) 1 - 2 sprays NA PRN PRN PRN Reason: Nasal Dryness/Congestion Stop: 11/16/23 08:15 Last Admin: 10/17/23 20:57 Dose: 2 sprays Trazodone HCl (Trazodone Hcl 100 Mg Tab) 100 mg PO HS ARMEN Stop: 11/19/23 21:59 Last Admin: 10/20/23 21:40 Dose: 100 mg Mental Health & Subst Abuse Tx Therapist Name of Therapist: Mariama Zazueta Date of Therapist Appointment: 10/17/2023 Post Discharge Appointments Primary Care Physician Name Of Family Doctor/PCP: Dr. Mayen at [facility] Date of Future Appointment with PCP: 10/17/2023
[2023-10-21] MEDS: haloperidoL 5 MG TAB PO PRN (16:49)
[2023-10-21] MEDS: traZODone HCL 100 MG TAB PO SCH (21:52)
--- NOTE | 2023-10-22 09:21 | Psychiatric Progress Note ---
Date of Service October 22, 2023 Impression / Recommendations Impression 10/22/2023: Pt has slept better with trazodone, but no evidence is seen of reduction in symptoms. Provided staff with neatly-written notes written to herself that refer several times to her being Paul to[place] (including "even if I am Paul, so what?") and several references to her no longer needing to eat. Continues to voice feeling confused, "foggy". She submitted written notice of request for discharge within 72 hours saying "I figured out that I'm Schizophrenic and no longer need the treatment here because I have no past." I spokewith her about this and recommended she rescind it because I believe she do es need treatment and that we're still working on finding what works best for her. Following increase of haloperidol yesterday to 5 mg TID pt still required 2 PRN doses for a total of 25 mg yesterday with no evidence of reduction of her delusions. Presents calmly with bland affect, slow speech, and no psychomotor agitation. While her belief that she's Paul to[place]o is certainly grandiose, she doesn't say that therefore she can perform miracles, heal herself, or really anything else one might expect of someone with this belief. Pt does not present as manic. 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 Will obtain brain MRI, especially in light of the low likelihood of a primary thought disorder presenting first at pt's age. 10/21/2023: Tripped over her feet yesterday evening, fell slowly to the floor with no evidence of subsequent injury. She attributes this to being "so off- balance because of the ". She slept considerably better last night after increase of trazodone. Has been tolerating switch from olanzapine to haloperidol well (had had no haloperidol prior to the fall). 10/20/2023: On rounds this morning, pt was packed to leave, with all her belongings in paper bags on her bed. When I asked about this, she told me "Dr. Lambert said" she could leave this morning.When I pointed out that I was Dr. Lambert and that we had not discussed discharge, she said "it was probably the other doctor". She's calmly but adamantly unshakeable on this. Had a poor night last night. She slept only a couple of hours and was again speaking of a belief that she's , talking of "dimensions" and how they somehow applied to her life, and sharing that she is now Paul. She had a chart of names of various family members showing which of them has recently been Paul and how their identities migrate among them. It seems clear that olanzapine has been of very limited benefit. I talked with her about switching to haloperidol, which is likely to be more effective. She was completely open to this but persistently bargained to make this an outpatient plan rather than something done here. She did agree to take the dose ordered this morning and said she'd talk with her during his planned visit about his support for her immediate discharge (which seems very unlikely). Pt's willingness to remain for treatment remains, like her insight, very limited. At this point, if she does insist on discharge she does in my opinion meet criteria for involuntary emergency psychiatric hospitalization based her high degree of disorganized thinking and her lack of insight that makes her unable to make appropriate assessments of safety risks and therefore unable to meet her own care needs. 10/19/2023: Pt slept "some" last night with some middle awakenings. She tells me she's not , but about an hour ago was asking for a test (despite knowing a test in the ED was negative). Says she continues to "lack clarity of thought" but feels as if that's improving. She's hesitant to attribute any of this to the olanzapine and is not willing to consider an increase to address the middle awakenings but was willing to consider a trial of trazodone. She's not interested in discussing other mood stabilizers such as oxcarbazepine. 10/18/2023: 37 yo female with a hx of nonspecific anxiety, depression, PTSD (though initial reports that her memories were newly recovered and could be part of her psychotic episode), taking SSRI + buspar presents with paranoia, delusions, hyperreligiosity, and poor sleep following a URI. Presentation most consistent with bipolar I manic episode but additional collateral is needed and differential include primary psychotic disorder, depression with psychotic features, or PTSD dissociative episode. MNPR due to disrupted sleep, poor boundaries on unit, paranoia. (1) Psychotic episode: Plan 10/22/2023: * increase haloperidol to 10 mg TID * continue haloperidol 5 mg Q6H PRN psychosis or emmanuel * continue trazodone 100 mg at HS for sleep * brain MRI with and without contrast 10/21/2023: * increase haloperidol to 5 mg TID * continue haloperidol 5 mg Q6H PRN psychosis or emmanuel * continue trazodone 100 mg at HS for sleep * continue to discuss mood stabilizers other than olanzapine that might be better long-term options 10/20/2023: * start haloperidol 5 mg BID * start haloperidol 5 mg Q6H PRN psychosis or emmanuel * discontinue olanzapine, both scheduled and PRN * increase trazodone to 100 mg at HS for sleep * continue to discuss mood stabilizers other than olanzapine that might be better long-term options 10/19/2023: * continue olanzapine 10 mg QHS * trial of trazodone 50 mg at HS for sleep * continue to discuss mood stabilizers other than olanzapine that might be better long-term options 10/18/23: will increase Zyprexa to 10 mg this hs, some sedation from day time doses. Will provide Ativan 1 mg BID meals for daytime restlessness. No evidence of akathisia. Patient had fasting glucose of 145, now that she has been here another day appears to have significant hirsuitism. PCOS can be associated with hyperinsulinemia. Certainly Zyprexa can contribute to hyperglycemia. Will draw A1C in am and insulin level. Zyprexa was for short term stabilization and can discuss additional options with patient when more stable. 10/17/23: The patient was admitted to the [facility] ([facility] mental health unit) on q15 min checks (behavioral with suicide precautions) for safety. The patient will participate in group, recreational, and milieu therapies and will be offered additional individual and family sessions as clinically appropriate. Given presentation, will hold serotonergic agents in favor of acute stabilization with Zyprexa 5 mg and Ativan 1 mg prn with plan for scheduled dose at hs and discussion around best options for ongoing treatment as condition improves. Fasting metabolic labs in am. No abnormal motor movements at baseline. 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 Chief Complaint "I think I'm schizophrenic". Review of Systems Sleep Information Total Hours of Sleep: 11.5 Sleep Comments: Pt given scheduled Trazadone 100mg at HS Meal Information Percent Meal Consumed - Breakfast: 75 Percent Meal Consumed - Lunch: 60 Percent Meal Consumed - Dinner: 0 Nutrition Comment: Pt is soundly asleep and tray was safed Subjective Subjective The patient was seen and assessed and interval progress reviewed in a multidisciplinary team meeting with the treatment team. For details, see the "Impression" section. Overall I spent a total of 42 minutes for this inpatient follow-up including review of chart records, direct evaluation of the patient [id number], counseling the patient, reconciling and ordering medication, risk assessment, discussion during interdisciplinary treatment rounds, and documentation in the electronic health record. Physical Exam Psychiatric Orientation: alert Apperance: appropriately dressed and appropriately groomed Eye Contact: good eye contact Motor Behavior: no abnormal motor movements Speech: normal rate/rhythm/volume of speech Affect: + anxious affect, + tearful affect (though also inappropriate to content at times) and + constricted affect Mood: + anxious mood Thought Process: + thought blocking (? derails but more driven by paranoia) and + concrete thought process; + thought process not linear or logical Thought Content: + paranoid, + delusions () and + persecution Suicidal Thoughts: denies suicidal thoughts Homicidal Thoughts: denies homicidal thoughts Hallucinations: no auditory hallucinations and no visual hallucinations Cognition: language grossly intact; + attention not intact Estimated Intelligence: consistent with education level Insight: + limited insight and + poor insight Judgment: + limited judgement and + poor judgement Vital Signs (Past 24 Hours) Last Vital Signs Temp 36.6 C 10/22/23 06:30 Pulse 85 10/22/23 06:30 Resp 16 10/22/23 06:30 BP 113/76 10/22/23 06:30 Pulse Ox 100 10/20/23 21:25 O2 Del Method Room Air 10/20/23 21:25 Results & Data ([facility]) Current Inpatient Medications Current Inpatient Medications: Current Inpatient Medications Acetaminophen (Acetaminophen 325 Mg Tab) 650 mg PO Q4H PRN PRN Reason: Headache or Minor Fever Stop: 11/16/23 08:15 Al Hydrox/Mg Hydrox/Simethicone (Aluminum/Magnesium Susp 30 Ml Udc) 30 ml PO Q4H PRN PRN Reason: GI Upset Stop: 11/16/23 08:15 Benztropine Mesylate (Benztropine Mesylate 1 Mg Tab) 1 mg PO Q6 PRN PRN Reason: Muscle Spasm Stop: 11/16/23 13:07 Bismuth Subsalicylate (Bismuth Subsalicylate Liqd 236 Ml) 15 ml PO PRN PRN PRN Reason: Loose Stool Stop: 11/16/23 08:15 Last Admin: 10/19/23 06:35 Dose: 15 ml Haloperidol (Haloperidol 5 Mg Tab) 5 mg PO Q6H PRN PRN Reason: psychosis or emmanuel Stop: 11/19/23 12:14 Last Admin: 10/21/23 16:49 Dose: 5 mg Haloperidol (Haloperidol 5 Mg Tab) 5 mg PO TID [facility] Stop: 11/19/23 20:59 Last Admin: 10/21/23 21:52 Dose: 5 mg Lorazepam (Lorazepam 1 Mg Tab) 1 mg PO Q4 PRN PRN Reason: Anxiety/Agitation Stop: 11/16/23 12:43 Last Admin: 10/20/23 13:11 Dose: 1 mg Lorazepam (Lorazepam 1 Mg Tab) 1 mg PO BIDM [facility] Stop: 11/17/23 17:44 Last Admin: 10/21/23 16:50 Dose: 1 mg Magnesium Hydroxide (Magnesium Hydroxide Susp 30 Ml Udc) 30 ml PO DAILY PRN PRN Reason: Constipation Stop: 11/16/23 08:15 Sodium Chloride (Sodium Chloride 0.65% Na Soln 45 Ml ([place])) 1 - 2 sprays NA PRN PRN PRN Reason: Nasal Dryness/Congestion Stop: 11/16/23 08:15 Last Admin: 10/17/23 20:57 Dose: 2 sprays Trazodone HCl (Trazodone Hcl 100 Mg Tab) 100 mg PO HS ARMEN Stop: 11/19/23 21:59 Last Admin: 10/21/23 21:52 Dose: 100 mg Mental Health & Subst Abuse Tx Therapist Name of Therapist: Mariama Zazueta Date of Therapist Appointment: 10/17/2023 Post Discharge Appointments Primary Care Physician Name Of Family Doctor/PCP: Dr. Mayen at [facility] Date of Future Appointment with PCP: 10/17/2023
[2023-10-22] MEDS: LORazepam 1 MG TAB PO SCH ×2 (09:37→18:11)
[2023-10-22] MEDS: haloperidoL 5 MG TAB PO SCH ×3 (09:37→20:06)
[2023-10-22] MEDS ORDERED: haloperidoL 5 MG TAB PO PRN (10:21)
[2023-10-22] MEDS ORDERED: diazePAM 5 MG TABLET PO ONE (13:37)
[2023-10-22] MEDS ORDERED: GADOBUTROL 65ML VIAL IV ONE (15:17)
--- NOTE | 2023-10-22 15:31 | Magnetic Resonance Report ---
MR brain wo/w con CLINICAL HISTORY: recent-onset psychosis in 37 y/o TECHNIQUE: Multiplanar and multisequence MR images of the brain were obtained prior to and following administration of gadolinium contrast. Comparison: None available at the time of this dictation. FINDINGS: No abnormal restricted diffusion is identified. The white matter is unremarkable. The ventricular sys tem is normal in appearance. No mass or abnormal enhancement is seen. There is no mass effect or midl ine shift. There is no evidence of acute intraparenchymal hemorrhage. No extra axial fluid collection s are seen. The corpus callosum, pituitary gland, and cerebellar tonsils appear grossly unremarkable. Flow voids of the major intracranial arterial vessels are identified. Mucous retention cyst is in the left maxillary sinus. IMPRESSION: No acute abnormalities. ACT 112: Negative or not required by law. Electronically signed by: Bartolome Woodward M.D. 10/22/2023 3:29 PM
[2023-10-22] MEDS: traZODone HCL 100 MG TAB PO SCH (20:05)
[2023-10-22] MEDS: LORazepam 1 MG TAB PO PRN (20:24)
[2023-10-23] MEDS: LORazepam 1 MG TAB PO SCH ×2 (08:32→17:29)
[2023-10-23] MEDS: haloperidoL 5 MG TAB PO SCH ×3 (08:32→20:12)
--- NOTE | 2023-10-23 11:55 | Psychiatric Progress Note ---
Date of Service October 23, 2023 Impression / Recommendations Impression 10/23/2023: Brain MRI with & without contrast was unremarkable apart from a mucous retention cyst in the left maxillary sinus. Pt continues to voice the belief that she's Paul. Knows little enough about Hinduism doctrine that she's asked staff to go through the Bible with her to figure out what she's "supposed to do next". Continues intermittently to voice the belief that she's . Has been eating very little, saying she doesn't need to eat. I spoke with pt about further testing to screen for conditions that could be associated with psychosis, including HIV, syphilis, autoimmune conditions, Lyme borreliosis and she agreed to this testing. Most of the tests ordered will take some time to result and the likelihood of an explanatory finding is low, but pt's unusual presentation, with what would seem to be grandiose moravian delusions but in the absence of manic behaviors and seemingly very consistent with schizophreniform disorder apart from a very unusual age of onset, warrants detailed investigation. Does not evidence any adverse effects from haloperidol, including bradykinesia or hypertonia, despite increasing dose, nor has there been much evidence of benefit (which was the case with olanzapine as well). 10/22/2023: Pt has slept better with trazodone, but no evidence is seen of reduction in symptoms. Provided staff with neatly-written notes written to hers elf that refer several times to her being Paul reborn (including "even if I am Paul, so what?") and several references to her no longer needing to eat. Continues to voice feeling confused, "foggy". She submitted written notice of request for discharge within 72 hours saying "I figured out that I'm Schizophrenic and no longer need the treatment here because I have no past." I spoke with her about this and recommended she rescind it because I believe she does need treatment and that we're still working on finding what works best for her. Following increase of haloperidol yesterday to 5 mg TID pt still required 2 PRN doses for a total of 25 mg yesterday with no evidence of reduction of her delusions. Presents calmly with bland affect, slow speech, and no psychomotor agitation. While her belief that she's Paul reborn is certainly grandiose, she doesn't say that therefore she can perform miracles, heal herself, or really anything else one might expect of someone with this belief. Pt does not present as manic. 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 Will obtain brain MRI, especially in light of the low likelihood of a primary thought disorder presenting first at pt's age. 10/21/2023: Tripped over her feet yesterday evening, fell slowly to the floor with no evidence of subsequent injury. She attributes this to being "so off- balance because of the ". She slept considerably better last night after increase of trazodone. Has been tolerating switch from olanzapine to haloperidol well (had had no haloperidol prior to the fall). 10/20/2023: On rounds this morning, pt was packed to leave, with all her belongings in paper bags on her bed. When I asked about this, she told me "Dr. Lambert said" she could leave this morning.When I pointed out that I was Dr. Lambert and that we had not discussed discharge, she said "it was probably the other doctor". She's calmly but adamantly unshakeable on this. Had a poor night last night. She slept only a couple of hours and was again speaking of a belief that she's , talking of "dimensions" and how they somehow applied to her life, and sharing that she is now Paul. She had a chart of names of various family members showing which of them has recently been Paul and how their identities migrate among them. It seems clear that olanzapine has been of very limited benefit. I talked with her about switching to haloperidol, which is likely to be more effective. She was completely open to this but persistently bargained to make this an outpatient plan rather than something done here. She did agree to take the dose ordered this morning and said she'd talk with her during his planned visit about his support for her immediate discharge (which seems very unlikely). Pt's willingness to remain for treatment remains, like her insight, very limited. At this point, if she does insist on discharge she does in my opinion meet criteria for involuntary emergency psychiatric hospitalization based her high degree of disorganized thinking and her lack of insight that makes her unable to make appropriate assessments of safety risks and therefore unable to meet her own care needs. 10/19/2023: Pt slept "some" last night with some middle awakenings. She tells me she's not , but about an hour ago was asking for a test (despite knowing a test in the ED was negative). Says she continues to "lack clarity of thought" but feels as if that's improving. She's hesitant to attrib [place] any of this to the olanzapine and is not willing to consider an increase to address the middle awakenings but was willing to consider a trial of trazodone. She's not interested in discussing other mood stabilizers such as oxcarbazepine. 10/18/2023: 37 yo female with a hx of nonspecific anxiety, depression, PTSD (though initial reports that her memories were newly recovered and could be part of her psychotic episode), taking SSRI + buspar presents with paranoia, delusions, hyperreligiosity, and poor sleep following a URI. Presentation most consistent with bipolar I manic episode but additional collateral is needed and differential include primary psychotic disorder, depression with psychotic features, or PTSD dissociative episode. MNPR due to disrupted sleep, poor boundaries on unit, paranoia. (1) Psychotic episode: Plan 10/23/2023: * increase haloperidol to 15 mg TID * continue haloperidol 5 mg Q6H PRN psychosis or emmanuel * continue trazodone 100 mg at HS for sleep * labs: HERVE, RPR, HIV, Lyme screen with reflex to Western blot, lupus anticoagulant, rheumatoid factor 10/22/2023: * increase haloperidol to 10 mg TID * continue haloperidol 5 mg Q6H PRN psychosis or emmanuel * continue trazodone 100 mg at HS for sleep * brain MRI with and without contrast 10/21/2023: * increase haloperidol to 5 mg TID * continue haloperidol 5 mg Q6H PRN psychosis or emmanuel * continue trazodone 100 mg at HS for sleep * continue to discuss mood stabilizers other than olanzapine that might be better long-term options 10/20/2023: * start haloperidol 5 mg BID * start haloperidol 5 mg Q6H PRN psychosis or emmanuel * discontinue olanzapine, both scheduled and PRN * increase trazodone to 100 mg at HS for sleep * continue to discuss mood stabilizers other than olanzapine that might be better long-term options 10/19/2023: * continue olanzapine 10 mg QHS * trial of trazodone 50 mg at HS for sleep * continue to discuss mood stabilizers other than olanzapine that might be better long-term options 10/18/23: will increase Zyprexa to 10 mg this hs, some sedation from day time doses. Will provide Ativan 1 mg BID meals for daytime restlessness. No evidence of akathisia. Patient had fasting glucose of 145, now that she has been here another day appears to have significant hirsuitism. PCOS can be associated with hyperinsulinemia. Certainly Zyprexa can contribute to hyperglycemia. Will draw A1C in am and insulin level. Zyprexa was for short term stabilization and can discuss additional options with patient when more stable. 10/17/23: The patient was admitted to the [facility] ([facility] unit) on q15 min checks (behavioral with suicide precautions) for safety. The patient will participate in group, recreational, and milieu therapies and will be offered additional individual and family sessions as clinically appropriate. Given presentation, will hold serotonergic agents in favor of acute stabilization with Zyprexa 5 mg and Ativan 1 mg prn with plan for scheduled dose at hs and discussion around best options for ongoing treatment as condition improves. Fasting metabolic labs in am. No abnormal motor movements at baseline. 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) Supportive Family: Yes Interval History Identifying Information OTIS QUIROS is a 37-year-old F who currently lives in [place], presented to ED twice in rapid succession prior to admission, and was admitted on 10/17/23 08:16 on a 201 voluntary commitment for bizarre behavior. Chief Complaint "I don't need to eat anymore". Review of Systems Sleep Information Total Hours of Sleep: 7.75 Sleep Comments: Pt given scheduled Trazodone 100mg at HS Meal Information Percent Meal Consumed - Breakfast: 0 Percent Meal Consumed - Lunch: 25 Percent Meal Consumed - Dinner: 20 Nutrition Comment: Pt is soundly asleep and tray was safed Subjective Subjective The patient was seen and assessed and interval progress reviewed in a multidisciplinary team meeting with the treatment team. For details, see the "Impression" section. Overall I spent a total of 48 minutes for this inpatient follow-up including review of chart records, review of test results, direct evaluation of the patient [id number], counseling the patient, reconciling and ordering medication, medication education with the patient, risk assessment, discussion during interdisciplinary treatment rounds, and documentation in the electronic health record. Physical Exam Psychiatric Orientation: alert Apperance: appropriately dressed and appropriately groomed Eye Contact: + fair eye contact Motor Behavior: no abnormal motor movements Speech: normal rate/rhythm/volume of speech Affect: + constricted affect Mood: + anxious mood Thought Process: + thought blocking (? derails but more driven by paranoia) and + concrete thought process; + thought process not linear or logical Thought Content: + paranoid, + delusions (, being Paul) and + persecution Suicidal Thoughts: denies suicidal thoughts Homicidal Thoughts: denies homicidal thoughts Hallucinations: no auditory hallucinations and no visual hallucinations Cognition: language grossly intact; + attention not intact Estimated Intelligence: consistent with education level Insight: + poor insight Judgment: + poor judgement Vital Signs (Past 24 Hours) Last Vital Signs Temp 36.2 C L 10/23/23 06:00 Pulse 101 H 10/23/23 06:15 Resp 16 10/23/23 06:00 BP 119/80 10/23/23 06:15 Pulse Ox 100 10/20/23 21:25 O2 Del Method Room Air 10/20/23 21:25 Results & Data ([facility]) Current Inpatient Medications Current Inpatient Medications: Current Inpatient Medications Acetaminophen (Acetaminophen 325 Mg Tab) 650 mg PO Q4H PRN PRN Reason: Headache or Minor Fever Stop: 11/16/23 08:15 Al Hydrox/Mg Hydrox/Simethicone (Aluminum/Magnesium Susp 30 Ml Udc) 30 ml PO Q4H PRN PRN Reason: GI Upset Stop: 11/16/23 08:15 Benztropine Mesylate (Benztropine Mesylate 1 Mg Tab) 1 mg PO Q6 PRN PRN Reason: Muscle Spasm Stop: 11/16/23 13:07 Bismuth Subsalicylate (Bismuth Subsalicylate Liqd 236 Ml) 15 ml PO PRN PRN PRN Reason: Loose Stool Stop: 11/16/23 08:15 Last Admin: 10/19/23 06:35 Dose: 15 ml Haloperidol (Haloperidol 5 Mg Tab) 10 mg PO Q6H PRN PRN Reason: psychosis or emmanuel Stop: 11/19/23 12:14 Haloperidol (Haloperidol 5 Mg Tab) 10 mg PO TID ARMEN Stop: 11/21/23 13:59 Last Admin: 10/23/23 08:32 Dose: 10 mg Lorazepam (Lorazepam 1 Mg Tab) 1 mg PO Q4 PRN PRN Reason: Anxiety/Agitation Stop: 11/16/23 12:43 Last Admin: 10/22/23 20:24 Dose: 1 mg Lorazepam (Lorazepam 1 Mg Tab) 1 mg PO BIDM ARMEN Stop: 11/17/23 17:44 Last Admin: 10/23/23 08:32 Dose: 1 mg Magnesium Hydroxide (Magnesium Hydroxide Susp 30 Ml Udc) 30 ml PO DAILY PRN PRN Reason: Constipation Stop: 11/16/23 08:15 Sodium Chloride (Sodium Chloride 0.65% Na Soln 45 Ml (Coulter)) 1 - 2 sprays NA PRN PRN PRN Reason: Nasal Dryness/Congestion Stop: 11/16/23 08:15 Last Admin: 10/17/23 20:57 Dose: 2 sprays Trazodone HCl (Trazodone Hcl 100 Mg Tab) 100 mg PO HS ARMEN Stop: 11/19/23 21:59 Last Admin: 10/22/23 20:05 Dose: 100 mg Mental Health & Subst Abuse Tx Therapist Name of Therapist: Mariama Zazueta Date of Therapist Appointment: 10/17/2023 Post Discharge Appointments Primary Care Physician Name Of Family Doctor/PCP: Dr. Mayen at [facility] Date of Future Appointment with PCP: 10/17/2023
[2023-10-23 13:29] LABS: Lyme Ab IgG w/WB Rflx Negative (Negative)
[2023-10-23 13:31] LABS: Lyme Ab IgM w/WB Rflx Negative (Negative)
[2023-10-23] MEDS: traZODone HCL 100 MG TAB PO SCH (20:13)
[2023-10-24 00:07] LABS: Rapid Plasma Reagin Nonreactive (Nonreactive)
[2023-10-24] MEDS: LORazepam 1 MG TAB PO SCH ×2 (09:07→17:45)
[2023-10-24] MEDS: haloperidoL 5 MG TAB PO SCH ×3 (09:07→21:12)
--- NOTE | 2023-10-24 09:11 | Psychiatric Progress Note ---
Date of Service October 24, 2023 Impression / Recommendations Impression 10/24/2023: RPR and HIV were nonreactive. Other labs ordered yesterday (HERVE, Lyme screen with reflex to Western blot, lupus anticoagulant, rheumatoid factor) remain pending. Pt says she feels "less confused" today, doesn't "feel schizophrenic anymore". She has been eating better. Continues to present staff with writings that are quite odd. 10/23/2023: Brain MRI with & without contrast was unremarkable apart from a mucous retention cyst in the left maxillary sinus. Pt continues to voice the belief that she's Paul. Knows little enough about Yazidism doctrine that she's asked staff to go through the Bible with her to figure out what she's "supposed to do next". Continues intermittently to voice the belief that she's . Has been eating very little, saying she doesn't need to eat. I spoke with pt about further testing to screen for conditions that could be associated with psychosis, including HIV, syphilis, autoimmune conditions, Lyme borreliosis and she agreed to this testing. Most of the tests ordered will take some time to result and the likelihood of an explanatory finding is low, but pt's unusual presentation, with what would seem to be grandiose methodist del usions but in the absence of manic behaviors and seemingly very consistent with schizophreniform disorder apart from a very unusual age of onset, warrants detailed investigation. Does not evidence any adverse effects from haloperidol, including bradykinesia or hypertonia, despite increasing dose, nor has there been much evidence of benefit (which was the case with olanzapine as well). 10/22/2023: Pt has slept better with trazodone, but no evidence is seen of reduction in symptoms. Provided staff with neatly-written notes written to herself that refer several times to her being Paul reborn (including "even if I am Paul, so what?") and several references to her no longer needing to eat. Continues to voice feeling confused, "foggy". She submitted written notice of request for discharge within 72 hours saying "I figured out that I'm Schizophrenic and no longer need the treatment here because I have no past." I spoke with her about this and recommended she rescind it because I believe she does need treatment and that we're still working on finding what works best for her. Following increase of haloperidol yesterday to 5 mg TID pt still required 2 PRN doses for a total of 25 mg yesterday with no evidence of reduction of her delusions. Presents calmly with bland affect, slow speech, and no psychomotor agitation. While her belief that she's Paul reborn is certainly grandiose, she doesn't say that therefore she can perform miracles, heal herself, or really anything else one might expect of someone with this belief. Pt does not present as manic. 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 Will obtain brain MRI, especially in light of the low likelihood of a primary thought disorder presenting first at pt's age. 10/21/2023: Tripped over her feet yesterday evening, fell slowly to the floor with no evidence of subsequent injury. She attributes this to being "so off- balance because of the ". She slept considerably better last night after increase of trazodone. Has been tolerating switch from olanzapine to haloperidol well (had had no haloperidol prior to the fall). 10/20/2023: On rounds this morning, pt was packed to leave, with all her belongings in paper bags on her bed. When I asked about this, she told me "Dr. Lambert said" she could leave this morning.When I pointed out that I was Dr. Lambert and that we had not discussed discharge, she said "it was probably the other doctor". She's calmly but adamantly unshakeable on this. Had a poor night last night. She slept only a couple of hours and was again speaking of a belief that she's , talking of "dimensions" and how they somehow applied to her life, and sharing that she is now Paul. She had a chart of names of various family members showing which of them has recently been Paul and how their identities migrate among them. It seems clear that olanzapine has been of very limited benefit. I talked with her about switching to haloperidol, which is likely to be more effective. She was completely open to this but persistently bargained to make this an outpatient plan rather than something done here. She did agree to take the dose ordered this morning and said she'd talk with her during his planned visit about his support for her immediate discharge (which seems very unlikely). Pt's willingness to remain for treatment remains, like her insight, very limited. At this point, if she does insist on discharge she does in my opinion meet criteria for involuntary emergency psychiatric hospitalization based her high degree of disorganized thinking and her lack of insight that makes her unable to make appropriate assessments of safety risks and therefore unable to meet her own care needs. 10/19/2023: Pt slept "some" last night with some middle awakenings. She tells me she's not , but about an hour ago was asking for a test (despite knowing a test in the ED was negative). Says she continues to "lack clarity of thought" but feels as if that's improving. She's hesitant to attribute any of this to the olanzapine and is not willing to consider an increase to address the middle awakenings but was willing to consider a trial of trazodone. She's not interested in discussing other mood stabilizers such as oxcarbazepine. 10/18/2023: 37 yo female with a hx of nonspecific anxiety, depression, PTSD (though initial reports that her memories were newly recovered and could be part of her psychotic episode), taking SSRI + buspar presents with paranoia, delusions, hyperreligiosity, and poor sleep following a URI. Presentation most consistent with bipolar I manic episode but additional collateral is needed and differential include primary psychotic disorder, depression with psychotic features, or PTSD dissociative episode. MNPR due to disrupted sleep, poor boundaries on unit, paranoia. (1) Psychotic episode: Plan 10/24/2023: * continue haloperidol 15 mg TID * continue haloperidol 5 mg Q6H PRN psychosis or emmanuel * continue trazodone 100 mg at HS for sleep 10/23/2023: * increase haloperidol to 15 mg TID * continue haloperidol 5 mg Q6H PRN psychosis or emmanuel * continue trazodone 100 mg at HS for sleep * labs: HERVE, RPR, HIV, Lyme screen with reflex to Western blot, lupus anticoag ulant, rheumatoid factor 10/22/2023: * increase haloperidol to 10 mg TID * continue haloperidol 5 mg Q6H PRN psychosis or emmanuel * continue trazodone 100 mg at HS for sleep * brain MRI with and without contrast 10/21/2023: * increase haloperidol to 5 mg TID * continue haloperidol 5 mg Q6H PRN psychosis or emmanuel * continue trazodone 100 mg at HS for sleep * continue to discuss mood stabilizers other than olanzapine that might be better long-term options 10/20/2023: * start haloperidol 5 mg BID * start haloperidol 5 mg Q6H PRN psychosis or emmanuel * discontinue olanzapine, both scheduled and PRN * increase trazodone to 100 mg at HS for sleep * continue to discuss mood stabilizers other than olanzapine that might be better long-term options 10/19/2023: * continue olanzapine 10 mg QHS * trial of trazodone 50 mg at HS for sleep * continue to discuss mood stabilizers other than olanzapine that might be better long-term options 10/18/23: will increase Zyprexa to 10 mg this hs, some sedation from day time doses. Will provide Ativan 1 mg BID meals for daytime restlessness. No evidence of akathisia. Patient had fasting glucose of 145, now that she has been here another day appears to have significant hirsuitism. PCOS can be associated with hyperinsulinemia. Certainly Zyprexa can contribute to hyperglycemia. Will draw A1C in am and insulin level. Zyprexa was for short term stabilization and can discuss additional options with patient when more stable. 10/17/23: The patient was admitted to the [facility] ([facility] mental [facility] unit) on q15 min checks (behavioral with suicide precautions) for safety. The patient will participate in group, recreational, and milieu therapies and will be offered additional individual and family sessions as clinically appropriate. Given presentation, will hold serotonergic agents in favor of acute stabilization with Zyprexa 5 mg and Ativan 1 mg prn with plan for scheduled dose at hs and discussion around best options for ongoing treatment as condition im proves. Fasting metabolic labs in am. No abnormal motor movements at baseline. 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 Chief Complaint "Less confused". Review of Systems Sleep Information Total Hours of Sleep: 7.25 Sleep Comments: Receives Trazadone HS. Pt was up at approx. 0400 and ate cereal and returned to bed. Meal Information Percent Meal Consumed - Breakfast: 0 Percent Meal Consumed - Lunch: 30 Percent Meal Consumed - Dinner: 75 Nutrition Comment: Pt is soundly asleep and tray was safed Subjective Subjective The patient was seen and assessed and interval progress reviewed in a multidisciplinary team meeting with the treatment team. For details, see the "Impression" section. Overall I spent a total of 42 minutes for this inpatient follow-up including review of chart records, direct evaluation of the patient [id number], counseling the patient, medication education with the patient, risk assessment, discussion during interdisciplinary treatment rounds, and documentation in the electronic health record. Physical Exam Psychiatric Orientation: alert Apperance: appropriately dressed and appropriately groomed Eye Contact: + fair eye contact Motor Behavior: no abnormal motor movements Speech: normal rate/rhythm/volume of speech Affect: + constricted affect Mood: + anxious mood Thought Process: + concrete thought process; + thought process not linear or logical Thought Content: + paranoid, + delusions (, being Paul) and + persecution Suicidal Thoughts: denies suicidal thoughts Homicidal Thoughts: denies homicidal thoughts Hallucinations: no auditory hallucinations and no visual hallucinations Cognition: language grossly intact; + attention not intact Estimated Intelligence: consistent with education level Insight: + poor insight Judgment: + poor judgement Vital Signs (Past 24 Hours) Last Vital Signs Temp 36.3 C L 10/24/23 06:00 Pulse 118 H 10/24/23 06:16 Resp 18 10/24/23 06:00 BP 117/75 10/24/23 06:16 Pulse Ox 100 10/20/23 21:25 O2 Del Method Room Air 10/20/23 21:25 Results & Data ([facility]) Laboratory Results Laboratory Results - last 24 hr 10/23/23 12:10 LA PTT Screen Pending Rheumatoid Factor Pending HERVE Screen Pending RPR Nonreactive Lyme Disease IgG Ab Negative Lyme Disease IgM Ab Negative HIV (1&2) Ag & Ab Conf Pending Current Inpatient Medications Current Inpatient Medications: Current Inpatient Medications Acetaminophen (Acetaminophen 325 Mg Tab) 650 mg PO Q4H PRN PRN Reason: Headache or Minor Fever Stop: 11/16/23 08:15 Al Hydrox/Mg Hydrox/Simethicone (Aluminum/Magnesium Susp 30 Ml Udc) 30 ml PO Q4H PRN PRN Reason: GI Upset Stop: 11/16/23 08:15 Benztropine Mesylate (Benztropine Mesylate 1 Mg Tab) 1 mg PO Q6 PRN PRN Reason: Muscle Spasm Stop: 11/16/23 13:07 Bismuth Subsalicylate (Bismuth Subsalicylate Liqd 236 Ml) 15 ml PO PRN PRN PRN Reason: Loose Stool Stop: 11/16/23 08:15 Last Admin: 10/19/23 06:35 Dose: 15 ml Haloperidol (Haloperidol 5 Mg Tab) 10 mg PO Q6H PRN PRN Reason: psychosis or emmanuel Stop: 11/19/23 12:14 Haloperidol (Haloperidol 5 Mg Tab) 15 mg PO TID ARMEN Stop: 11/22/23 13:59 Last Admin: 10/24/23 09:07 Dose: 15 mg Lorazepam (Lorazepam 1 Mg Tab) 1 mg PO Q4 PRN PRN Reason: Anxiety/Agitation Stop: 11/16/23 12:43 Last Admin: 10/22/23 20:24 Dose: 1 mg Lorazepam (Lorazepam 1 Mg Tab) 1 mg PO BIDM ARMEN Stop: 11/17/23 17:44 Last Admin: 10/24/23 09:07 Dose: 1 mg Magnesium Hydroxide (Magnesium Hydroxide Susp 30 Ml Udc) 30 ml PO DAILY PRN PRN Reason: Constipation Stop: 11/16/23 08:15 Sodium Chloride (Sodium Chloride 0.65% Na Soln 45 Ml ([place])) 1 - 2 sprays NA PRN PRN PRN Reason: Nasal Dryness/Congestion Stop: 11/16/23 08:15 Last Admin: 10/17/23 20:57 Dose: 2 sprays Trazodone HCl (Trazodone Hcl 100 Mg Tab) 100 mg PO HS ARMEN Stop: 11/19/23 21:59 Last Admin: 10/23/23 20:13 Dose: 100 mg Mental Health & Subst Abuse Tx Therapist Name of Therapist: Mariama Zazueta Date of Therapist Appointment: 10/17/2023 Post Discharge Appointments Primary Care Physician Name Of Family Doctor/PCP: Dr. Mayen at [facility] Date of Future Appointment with PCP: 10/17/2023
[2023-10-24] MEDS: traZODone HCL 100 MG TAB PO SCH (21:12)
[2023-10-25] MEDS: haloperidoL 5 MG TAB PO SCH ×3 (09:25→20:57)
[2023-10-25] MEDS: LORazepam 1 MG TAB PO SCH ×2 (09:25→18:29)
[2023-10-25] MEDS: BISMUTH SUBSALICYLATE LIQD 236 ML PO PRN (11:55)
--- NOTE | 2023-10-25 14:45 | Psychiatric Progress Note ---
Date of Service October 25, 2023 Impression / Recommendations Impression : Pt has slept a bit better, though her sleep remains disrupted, and has been eating more. She seems a bit less delusional, but is still submitting notes to staff reflecting her belief that she's Paul (or, occasionally, Masha). She has rescinded her discharge request, but still speaks of feeling as if she needs to be home. We continue to see little in the way of significant mood symptoms, either of depression or of emmanuel, beyond her arguably grandiose hindu delusions. However, her belief that she might be Paul isn't associated with any belief that she has any special da, mission, or aragon. Her other delusions, such as that she's or that various family members have alternate identities, are not grandiose. She continues to evidence no significant depressive symptoms (occasionally tearful when speaking of missing home) or any manic symptoms so I can't characterize this as a mood disorder with psychotic symptoms. 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 Her has asked us to consider whether she might have anti-NMDAR encephalitis based on the marked similarity of her presentation to that of a close friend who diagnosed with it. Anti-NMDAR encephalitis is a "relatively common autoimmune encephalitis" and "probably the most common autoimmune encephalitis" (https://pubmed.ncbi.nlm.nih.gov/73122832/) despite affecting only about 1 in 1.5 million people. Most patients are below the age of 45 and 80% are female. The most typical patient is an adult female in her mid-20s to mid-30s. The most common triggers appear to be ovarian teratomas or herpes encephalitis. Brain MRI is often normal. Prodromal symptoms usually mimic common viral infections followed rapidly by psychiatric symptoms such as delusions. It progresses to dyskinesia and autonomic dysregulation and typically becomes medically urgent. Diagnosis is by anti-NMDAR IgG antibodies in serum or CSF, and serum can be negative with positive CSF findings. Initiation of immunotherapy is considered sufficiently urgent that "the initiation of immunotherapy should not delay while waiting for antibody result" (https://pubmed.ncbi.nlm.nih.gov/24913923/). Her presentation, especially factors such as her age, is significantly more consistent with an autoimmune encephalitis than with schizophrenia, the initial presentation of which is vanishingly rare in patients her age so I think we must consider this possibility seriously. I consulted our neurologist, who unsurprisingly has no direct experience with this condition. He noted that it will be challenging to get the LP needed and that it's unlikely this facility would be able to provide treatment. He reasonably asked why this patient is here rather than in a tertiary center such as [place] and suggested I contact a neurologist there to seek transfer. I've initiated this process. 10/24/2023: RPR and HIV were nonreactive. Other labs ordered yesterday (HERVE, Lyme screen with reflex to Western blot, lupus anticoagulant, rheumatoid factor) remain pending. Pt says she feels "less confused" today, doesn't "feel schizophrenic anymore". She has been eating better. Continues to present staff with writings that are quite odd. 10/23/2023: Brain MRI with & without contrast was unremarkable apart from a mucous retention cyst in the left maxillary sinus. Pt continues to voice the belief that she's Paul. Knows little enough about Chr istian doctrine that she's asked staff to go through the Bible with her to figure out what she's "supposed to do next". Continues intermittently to voice the belief that she's . Has been eating very little, saying she doesn't need to eat. I spoke with pt about further testing to screen for conditions that could be associated with psychosis, including HIV, syphilis, autoimmune conditions, Lyme borreliosis and she agreed to this testing. Most of the tests ordered will take some time to result and the likelihood of an explanatory finding is low, but pt's unusual presentation, with what would seem to be grandiose hindu delusions but in the absence of manic behaviors and seemingly very consistent with schizophreniform disorder apart from a very unusual age of onset, warrants detailed investigation. Does not evidence any adverse effects from haloperidol, including bradykinesia or hypertonia, despite increasing dose, nor has there been much evidence of benefit (which was the case with olanzapine as well). 10/22/2023: Pt has slept better with trazodone, but no evidence is seen of reduction in symptoms. Provided staff with neatly-written notes written to herself that refer several times to her being Paul to[place] (including "even if I am Paul, so what?") and several references to her no longer needing to eat. Continues to voice feeling confused, "foggy". She submitted written notice of request for discharge within 72 hours saying "I figured out that I'm Schizophrenic and no longer need the treatment here because I have no past." I spoke with her about this and recommended she rescind it because I believe she does need treatment and that we're still working on finding what works best for her. Following increase of haloperidol yesterday to 5 mg TID pt still required 2 PRN doses for a total of 25 mg yesterday with no evidence of reduction of her delusions. Presents calmly with bland affect, slow speech, and no psychomotor agitation. While her belief that she's Paul to[place] is certainly grandiose, she doesn't say that therefore she can perform miracles, heal herself, or really anything else one might expect of someone with this belief. Pt does not present as manic. 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 Will obtain brain MRI, especially in light of the low likelihood of a primary thought disorder presenting first at pt's age. 10/21/2023: Tripped over her feet yesterday evening, fell slowly to the floor with no evidence of subsequent injury. She attributes this to being "so off- balance because of the ". She slept considerably better last night after increase of trazodone. Has been tolerating switch from olanzapine to haloperidol well (had had no haloperidol prior to the fall). 10/20/2023: On rounds this morning, pt was packed to leave, with all her belongings in paper bags on her bed. When I asked about this, she told me "Dr. Lambert said" she could leave this morning.When I pointed out that I was Dr. Lambert and that we had not discussed discharge, she said "it was probably the other doctor". She's calmly but adamantly unshakeable on this. Had a poor night last night. She slept only a couple of hours and was again speaking of a belief that she's , talking of "dimensions" and how they somehow applied to her life, and sharing that she is now Paul. She had a chart of names of various family members showing which of them has recently been Paul and how their identities migrate among them. It seems clear that olanzapine has been of very limited benefit. I talked with her about switching to haloperidol, which is likely to be more effective. She was completely open to this but persistently bargained to make this an outpatient plan rather than something done here. She did agree to take the dose ordered this morning and said she'd talk with her during his planned visit about his support for her immediate discharge (which seems very unlikely). Pt's willingness to remain for treatment remains, like her insight, very limited. At this point, if she does insist on discharge she does in my opinion meet criteria for involuntary emergency psychiatric hospitalization based her high degree of disorganized thinking and her lack of insight that makes her unable to make appropriate assessments of safety risks and therefore unable to meet her own care needs. 10/19/2023: Pt slept "some" last night with some middle awakenings. She tells me she's not , but about an hour ago was asking for a test (despite knowing a test in the ED was negative). Says she continues to "lack clarity of thought" but feels as if that's improving. She's hesitant to attribute any of this to the olanzapine and is not willing to consider an increase to address the middle awakenings but was willing to consider a trial of trazodone. She's not interested in discussing other mood stabilizers such as oxcarbazepine. 10/18/2023: 37 yo female with a hx of nonspecific anxiety, depression, PTSD (though initial reports that her memories were newly recovered and could be part of her psychotic episode), taking SSRI + buspar presents with paranoia, delusions, hyperreligiosity, and poor sleep following a URI. Presentation most consistent with bipolar I manic episode but additional collateral is needed and differential include primary psychotic disorder, depression with psychotic features, or PTSD dissociative episode. MNPR due to disrupted sleep, poor boundaries on unit, paranoia. (1) Psychotic episode: Plan 10/25/2023: * consult neurology (discussed with Dr. Perez) * pursue transfer to [place] * consider ovarian ultrasound * continue haloperidol 15 mg TID * continue haloperidol 5 mg Q6H PRN psychosis or emmanuel * continue trazodone 100 mg at HS for sleep 10/24/2023: * continue haloperidol 15 mg TID * continue haloperidol 5 mg Q6H PRN psychosis or emmanuel * continue trazodone 100 mg at HS for sleep 10/23/2023: * increase haloperidol to 15 mg TID * continue haloperidol 5 mg Q6H PRN psychosis or emmanuel * continue trazodone 100 mg at HS for sleep * labs: HERVE, RPR, HIV, Lyme screen with reflex to Western blot, lupus anticoagulant, rheumatoid factor 10/22/2023: * increase haloperidol to 10 mg TID * continue haloperidol 5 mg Q6H PRN psychosis or emmanuel * continue trazodone 100 mg at HS for sleep * brain MRI with and without contrast 10/21/2023: * increase haloperidol to 5 mg TID * continue haloperidol 5 mg Q6H PRN psychosis or emmanuel * continue trazodone 100 mg at HS for sleep * continue to discuss mood stabilizers other than olanzapine that might be better long-term options 10/20/2023: * start haloperidol 5 mg BID * start haloperidol 5 mg Q6H PRN psychosis or emmanuel * discontinue olanzapine, both scheduled and PRN * increase trazodone to 100 mg at HS for sleep * continue to discuss mood stabilizers other than olanzapine that might be bet ter long-term options 10/19/2023: * continue olanzapine 10 mg QHS * trial of trazodone 50 mg at HS for sleep * continue to discuss mood stabilizers other than olanzapine that might be better long-term options 10/18/23: will increase Zyprexa to 10 mg this hs, some sedation from day time doses. Will provide Ativan 1 mg BID meals for daytime restlessness. No evidence of akathisia. Patient had fasting glucose of 145, now that she has been here another day appears to have significant hirsuitism. PCOS can be associated with hyperinsulinemia. Certainly Zyprexa can contribute to hyperglycemia. Will draw A1C in am and insulin level. Zyprexa was for short term stabilization and can discuss additional options with patient when more stable. 10/17/23: The patient was admitted to the [facility] ([facility]) on q15 min checks (behavioral with suicide precautions) for safety. The patient will participate in group, recreational, and milieu therapies and will be offered additional individual and family sessions as clinically appropriate. Given presentation, will hold serotonergic agents in favor of acute stabilization with Zyprexa 5 mg and Ativan 1 mg prn with plan for scheduled dose at hs and discussion around best options for ongoing treatment as condition improves. Fasting metabolic labs in am. No abnormal motor movements at baseline. 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 Chief Complaint "I feel a little better". Review of Systems Sleep Information Total Hours of Sleep: 8.5 Sleep Comments: Receives Trazadone HS. Pt was up at approx. 0400 and ate cereal and returned to bed. Meal Information Percent Meal Consumed - Breakfast: 90 Percent Meal Consumed - Lunch: 100 Percent Meal Consumed - Dinner: 10 Nutrition Comment: Pt is soundly asleep and tray was safed Subjective Subjective The patient was seen and assessed and interval progress reviewed in a multidisciplinary team meeting with the treatment team. For details, see the "Impression" section. Overall I spent a total of 72 minutes for this inpatient follow-up including review of chart records, review of test results, direct evaluation of the patient [id number], counseling the patient, risk assessment, discussion during interdisciplinary treatment rounds, and documentation in the electronic health record. Physical Exam Psychiatric Orientation: alert Apperance: appropriately dressed and appropriately groomed Eye Contact: + fair eye contact Motor Behavior: no abnormal motor movements Speech: normal rate/rhythm/volume of speech Affect: + anxious affect and + constricted affect Mood: + anxious mood Thought Process: + concrete thought process; + thought process not linear or logical Thought Content: + paranoid, + delusions (, being Paul) and + persecution Suicidal Thoughts: denies suicidal thoughts Homicidal Thoughts: denies homicidal thoughts Hallucinations: no auditory hallucinations and no visual hallucinations Cognition: language grossly intact; + attention not intact Estimated Intelligence: consistent with education level Insight: + poor insight Judgment: + poor judgement Vital Signs (Past 24 Hours) Last Vital Signs Temp 36.8 C 10/25/23 06:29 Pulse 94 H 10/25/23 12:43 Resp 18 10/25/23 12:43 BP 100/68 10/25/23 12:43 Pulse Ox 97 10/25/23 12:43 O2 Del Method Room Air 10/25/23 12:43 Results & Data ([facility]) Current Inpatient Medications Current Inpatient Medications: Current Inpatient Medications Acetaminophen (Acetaminophen 325 Mg Tab) 650 mg PO Q4H PRN PRN Reason: Headache or Minor Fever Stop: 11/16/23 08:15 Al Hydrox/Mg Hydrox/Simethicone (Aluminum/Magnesium Susp 30 Ml Udc) 30 ml PO Q4H PRN PRN Reason: GI Upset Stop: 11/16/23 08:15 Last Admin: 10/25/23 10:39 Dose: 30 ml Benztropine Mesylate (Benztropine Mesylate 1 Mg Tab) 1 mg PO Q6 PRN PRN Reason: Muscle Spasm Stop: 11/16/23 13:07 Bismuth Subsalicylate (Bismuth Subsalicylate Liqd 236 Ml) 15 ml PO PRN PRN PRN Reason: Loose Stool Stop: 11/16/23 08:15 Last Admin: 10/25/23 11:55 Dose: 15 ml Haloperidol (Haloperidol 5 Mg Tab) 10 mg PO Q6H PRN PRN Reason: psychosis or emmanuel Stop: 11/19/23 12:14 Haloperidol (Haloperidol 5 Mg Tab) 15 mg PO TID [facility] Stop: 11/22/23 13:59 Last Admin: 10/25/23 09:25 Dose: 15 mg Lorazepam (Lorazepam 1 Mg Tab) 1 mg PO Q4 PRN PRN Reason: Anxiety/Agitation Stop: 11/16/23 12:43 Last Admin: 10/22/23 20:24 Dose: 1 mg Lorazepam (Lorazepam 1 Mg Tab) 1 mg PO BIDM ARMEN Stop: 11/17/23 17:44 Last Admin: 10/25/23 09:25 Dose: 1 mg Magnesium Hydroxide (Magnesium Hydroxide Susp 30 Ml Udc) 30 ml PO DAILY PRN PRN Reason: Constipation Stop: 11/16/23 08:15 Sodium Chloride (Sodium Chloride 0.65% Na Soln 45 Ml ([place])) 1 - 2 sprays NA PRN PRN PRN Reason: Nasal Dryness/Congestion Stop: 11/16/23 08:15 Last Admin: 10/17/23 20:57 Dose: 2 sprays Trazodone HCl (Trazodone Hcl 100 Mg Tab) 100 mg PO HS ARMEN Stop: 11/19/23 21:59 Last Admin: 10/24/23 21:12 Dose: 100 mg Mental Health & Subst Abuse Tx Therapist Name of Therapist: Mariama Zazueta Date of Therapist Appointment: 10/17/2023 Post Discharge Appointments Primary Care Physician Name Of Family Doctor/PCP: Dr. Mayen at [facility] Date of Future Appointment with PCP: 10/17/2023
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
[2023-10-25] MEDS: traZODone HCL 100 MG TAB PO SCH (20:57)
[2023-10-26 08:27] LABS: Anti Nuclear Antibody Screen NEGATIVE (NEGATIVE); PTT LA Screen 32 sec (<=40); Rheumatoid Factor <14 IU/mL (<14)
== END 2023-10-25 22:00 | disposition short-term general hospital (02) | DRG 885 ==
LOC: ED 06:01 → 3S 08:16 → SUATTDRO 08:16 → 3S 10:23

== ENCOUNTER 2023-11-05 13:19 | Inpatient (IN) ==
--- NOTE | 2023-11-05 13:31 | ED Triage Note ---
Date of Service November 05, 2023 Provider in Triage Author: Denny Wooten History of Present Illness This patient was briefly evaluated while in triage. An abbreviated physical exam was performed. This patient is a 37-year-old Female who presents to the ED for evaluation of Here with and mother in law. Here inpatient recently and transferred to [place] [facility] for neuro assessment. Believes now having reaction to medications and spoke to psychiatrist. notes over past few days changing physical symptoms. Tremors, muscle ridigity, trouble talking/eating as well as walking, hard to swallow. Lots of sweating. Family notes both sides. Not unilateral. Currently on haldol (stopped this AM) and was on benzatropine while inpatient here but no longer on benzatropine. notes she mentally is the best she has been in the past few weeks. Physical Exam GENERAL: 37 year old female. In no acute distress. Sitting in wheel chair. SKIN: No lesions or rashes. HEART: Regular rate and rhythm. LUNGS: Clear to auscultation. NEURO: Alert and oriented. No deficits. MUSCULOSKELETAL: No deformities to inspection of the extremities. Arms on legs with tremor noted bilaterally. PSYCH: Patient is pleasant and answers all questions appropriately but slow in response and quiet. Initial orders for labs and / or imaging were placed.
[2023-11-05] MEDS: SODIUM CHLORIDE 0.9% 1,000 ML IV SCH (14:33)
[2023-11-05] MEDS: LORazepam 1 MG/1 ML SYR ED Inj Use ONE (14:38)
[2023-11-05] MEDS: LORazepam 1 MG/1 ML SYR ED Inj Use IV STA ×2 (14:41→14:46)
--- NOTE | 2023-11-05 14:44 | Emergency Department Note ---
Impression & Plan Serotonin syndrome, Leukocytosis, Tachycardia ED Provider Note NAME: OTIS QUIROS AGE: 37 SEX: F : 1985 ARRIVES VIA: Walk-In INFORMANT: Patient ED PROVIDER(S): Bernabe Wylie DO CHIEF COMPLAINT: shaking, weakness HPI: Patient is a 37-year-old female who presents to the ER brought in by and [id number]. They note she was just discharged from [facility] about a week ago after being evaluated for neurological condition. She was initially admitted to [facility] psychiatric unit and then was transferred to [place]. She had extensive workup per family and was discharged with unremarkable workup. She is currently on buspirone, Haldol, trazodone and Lexapro. Family notes that prior to discharge patient was having shaking which has progressed significantly. She has some rigidity and she is having trouble talking. ADDITIONAL HISTORY OBTAINED: Per HPI Chronic Medical/Social Conditions Affecting Care: Per HPI PAST MEDICAL HISTORY:See Below PAST SURGICAL HISTORY:See Below FAMILY HISTORY:See Below SOCIAL HISTORY:See Below HOME MEDICATIONS:See Below ALLERGIES:See Below VITALS:See Below PHYSICAL EXAMINATION: GENERAL: Sitting up in bed, shaking upper and lower extremities, speaking in a soft voice EYE EXAM: normal conjunctiva. PERRL and EOM's grossly intact. OROPHARYNX: no exudate, no erythema, lips, buccal mucosa, and tongue normal and mucous membranes are moist NECK: supple, no nuchal rigidity, no adenopathy, non-tender LUNGS: Clear to auscultation. Normal chest wall mechanics HEART: no murmurs, S1 normal and S2 normal ABDOMEN: abdomen soft, non-tender, normo-active bowel sounds, no masses, no rebound or guarding. UPPER EXTREMITIES: upper extremities are grossly normal. LOWER EXTREMITIES: No pitting edema. NEURO EXAM: Oriented to person place and year, cranial nerves II-XII intact, normal speech, no weakness of arms, no weakness of legs. Rigidity with clonus in the lower extremities. Hyperreflexive MEDICAL DECISION MAKING: Patient is a 37-year-old female who presents ER for above-stated complaint. IV was established blood work was obtained. She is found to be tachycardic in the 140s with rigidity and clonus and hyperreflexia and with new medications appears to be most consistent with serotonin syndrome. She was given 2mg of IV Ativan which was followed by another 2 mg of IV Ativan and her heart rate trended down to the 80s. She did improve significantly. She was also given IV fluids and updated bedside. Labs showed leukocytosis 16,000. No significant anemia. BMP along LFTs bilirubin was unremarkable. Lipase was normal. hCG negative. Tox was negative. Patient was discussed with the hospitalist and patient was admitted for further workup. Consults/Care Managements Discussions: Per [facility] Triage Nursing notes reviewed. Limited review of prior medical records performed Vital Signs: reviewed and remarkable for tachy Differential diagnosis: Cardiac ischemia, aortic dissection, pulmonary embolism, pneumothorax, pneumonia, pericarditis, myocarditis, esophageal rupture, GERD, cholecystitis, pancreatitis, musculoskeletal, as well as other pathologies. ER treatment provided: See below Diagnostics interpreted by me include EKG and cardiac monitoring as listed below: -Cardiac Monitoring: An order was placed for continuous cardiac monitoring. The monitor shows a rate of 130 with sinus rhythm. -ECG: Sinus tachycardia rate 144 Normal axis No PVCs QTc 520 Sinus rhythm rate of 130 Normal axis No PVCs QTc 576 -Laboratory studies:Interpreted by me as stated above in MDM and shown below. Imaging studies: Xrays: As interpreted by me: Portable AP upright 1 view of the chest shows no focal infiltrate CTs show: CT head was negative Procedures:none Critical Care: I have personally spent 31 minutes of critical care time in the direct management of this patient. This includes bedside care, interpretation of diagnostic studies, and testing, discussion with consultants, patient, and family members, and other required patient management activities. This 31 minutes is in excess of all separately billable procedures. Past Med/Surg History Medical History (Updated 11/05/23 @ 20:38 by Bernabe Wylie DO) Elevated liver enzymes Migraine headache Asthma Vaginal odor Urinary tract infection Pelvic pain Abnormal uterine bleeding Encounter for pre-operative examination Hypokalemia Gastroenteritis Dehydration Asthma Rare use of PRN inhaler Ventral hernia without obstruction or gangrene Normal course Encounter for pre-operative examination Adjustment disorder with mixed anxiety and depressed mood Rh negative status during in third trimester Pre-eclampsia, severe, antepartum 39 weeks gestation of Anxiety and depression Migraine Surgical History (Updated 10/25/23 @ 17:09 by Cesar Lambert MD) H/O ventral hernia repair (05/02/22) Open Ventral Hernia Repair, primary - Georgi Lorenzana, , FACS History of hysteroscopy w/ polypectomy History of esophagogastroduodenoscopy (EGD) [place] teeth extracted History of cholecystectomy Family History Mother High cholesterol Breast cancer Cancer Grandmother (Maternal) Cancer Father High cholesterol Hypertension Other No family history of adverse response to anesthesia Social History Smoking Status: Never smoker Second Hand Exposure: No; Do You Dip or Chew Tobacco: No; Hx Alcohol Use: Yes Alcohol type: wine Alcohol Intake Frequency: Monthly or Less Hx Substance Use: No Preferred Language: R[place] Communication Ability: Effective Visual Impairment: No Limitations 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 Required: No Beliefs That Will Affect Care: None marital status: Current Living Situation: Spouse current occupational status: employed current occupation: [employer] How many Children do You have: 1 Feels Safe at Home: Yes Diet: regular during the past year weight has: other Gender Identity: Female Assistive Devices: Contacts and Glasses Allergies Allergies Allergy/AdvReac Type Severity Reaction Status Date / Time cefaclor Allergy Intermediate Hives/Rash Verified 11/05/23 15:52 clarithromycin Allergy Intermediate Hives/Rash Verified 11/05/23 15:52 clindamycin Allergy Intermediate Hives/Rash Verified 11/05/23 15:52 cyclobenzaprine Allergy Intermediate Confusion, Verified 11/05/23 15:52 impaired speech and arm numbness. Penicillins Allergy Hives Verified 11/05/23 15:52 Home Meds Home Medications Medication Instructions Recorded Confirmed buspirone 10 mg tablet 20 mg PO AMPM 11/05/23 11/05/23 escitalopram oxalate 20 mg tablet 20 mg PO QAM 11/05/23 11/05/23 haloperidol 5 mg tablet 10 mg PO AMPM 11/05/23 11/05/23 Previous Rx's Medication Instructions Recorded trazodone 100 mg tablet 100 mg PO HS insomnia #1 tab 10/25/23 Results & Data (ED) Vital Signs Vital Signs - 24 hr 11/05/23 13:26 11/05/23 13:45 11/05/23 14:09 Temperature 36.8 C 37.2 C Temperature Source Temporal Artery Scan Oral Pulse Rate 134 H 133 H Pulse Rate [Apical] 151 H Pulse Rate from SpO2 Sensor 133 H Respiratory Rate 18 36 H 27 H Respiratory Effort / Characteristics Non-Labored Spontaneous Respiratory Depth Normal Blood Pressure 138/84 Blood Pressure [Left Arm] 121/92 Blood Pressure Mean 102 Blood Pressure Mean [Left Arm] 101 Blood Pressure Position Sitting Pulse Oximetry 93 96 94 Oxygen Delivery Method Room Air Room Air Sepsis Recent Fever Within 48 Hours No Sepsis New/Unexplained Change in Mental Status No Sepsis Action Taken by Nursing No Action Required 11/05/23 14:10 11/05/23 14:13 11/05/23 14:20 Temperature Temperature Source Pulse Rate 140 H 138 H 130 H Pulse Rate [Apical] Pulse Rate from SpO2 Sensor 140 H Respiratory Rate 30 H 27 H Respiratory Effort / Characteristics Respiratory Depth Blood Pressure Blood Pressure [Left Arm] Blood Pressure Mean Blood Pressure Mean [Left Arm] Blood Pressure Position Pulse Oximetry 94 Oxygen Delivery Method Sepsis Recent Fever Within 48 Hours Sepsis New/Unexplained Change in Mental Status Sepsis Action Taken by Nursing 11/05/23 14:26 11/05/23 14:30 11/05/23 14:40 Temperature Temperature Source Pulse Rate 136 H 138 H 119 H Pulse Rate [Apical] Pulse Rate from SpO2 Sensor 121 H Respiratory Rate 34 H 33 H 25 H Respiratory Effort / Characteristics Respiratory Depth Blood Pressure Blood Pressure [Left Arm] Blood Pressure Mean Blood Pressure Mean [Left Arm] Blood Pressure Position Pulse Oximetry 94 94 Oxygen Delivery Method Room Air Sepsis Recent Fever Within 48 Hours Sepsis New/Unexplained Change in Mental Status Sepsis Action Taken by Nursing 11/05/23 14:48 11/05/23 14:48 11/05/23 15:00 Temperature Temperature Source Pulse Rate 106 H 96 H Pulse Rate [Apical] Pulse Rate from SpO2 Sensor 101 H 100 H Respiratory Rate 16 12 Respiratory Effort / Characteristics Respiratory Depth Blood Pressure 118/72 Blood Pressure [Left Arm] Blood Pressure Mean 89 Blood Pressure Mean [Left Arm] Blood Pressure Position Pulse Oximetry 92 94 Oxygen Delivery Method Sepsis Recent Fever Within 48 Hours Sepsis New/Unexplained Change in Mental Status Sepsis Action Taken by Nursing 11/05/23 15:30 11/05/23 16:00 11/05/23 16:07 Temperature Temperature Source Pulse Rate 90 89 Pulse Rate [Apical] Pulse Rate from SpO2 Sensor 89 91 H Respiratory Rate 21 23 Respiratory Effort / Characteristics Respiratory Depth Blood Pressure 102/68 Blood Pressure [Left Arm] Blood Pressure Mean 82 Blood Pressure Mean [Left Arm] Blood Pressure Position Pulse Oximetry 99 98 Oxygen Delivery Method Sepsis Recent Fever Within 48 Hours Sepsis New/Unexplained Change in Mental Status Sepsis Action Taken by Nursing 11/05/23 16:07 Temperature Temperature Source Pulse Rate 93 H Pulse Rate [Apical] Pulse Rate from SpO2 Sensor 91 H Respiratory Rate 23 Respiratory Effort / Characteristics Respiratory Depth Blood Pressure Blood Pressure [Left Arm] Blood Pressure Mean Blood Pressure Mean [Left Arm] Blood Pressure Position Pulse Oximetry 97 Oxygen Delivery Method Sepsis Recent Fever Within 48 Hours Sepsis New/Unexplained Change in Mental Status Sepsis Action Taken by Nursing Laboratory Data 11/05/23 14:24 11/05/23 14:24 Lab Results 11/05/23 11/05/23 Range/Units 14:24 15:54 WBC 16.08 H (4.8-10.8) K/ul RBC 5.14 (4.20-5.40) M/uL Hgb 14.2 (12.0-16.0) g/dl Hct 41.7 (37.0-47.0) % MCV 81.1 (80.0-100.0) fL MCH 27.6 (25.0-34.0) pg MCHC 34.1 (32.0-36.0) g/dL RDW Std Deviation 37.3 (36.4-46.3) fL RDW Coeff of Ana María 12.7 (11.5-14.5) % Plt Count 336 (130-400) K/uL MPV 10.6 (9.4-12.4) fL Immature Gran % (Auto) 0.4 % Neut % (Auto) 83.3 % Lymph % (Auto) 9.5 % Bibb % (Auto) 6.2 % Eos % (Auto) 0.0 % Baso % (Auto) 0.6 % Neut # (Auto) 13.40 H (1.40-6.50) K/uL Lymph # (Auto) 1.52 (1.20-3.40) K/uL Bibb # (Auto) 1.00 H (0.11-0.59) K/uL Eos # (Auto) 0.00 (0.00-0.50) K/uL Baso # (Auto) 0.10 (0.00-0.20) K/uL Immature Gran # (Auto) 0.06 (0.01-0.20) K/uL Sodium 142 (136-145) mmol/L Potassium 3.5 (3.5-5.1) mmol/L Chloride 101 (98-107) mmol/L Carbon Dioxide 28 (21-32) mmol/L Anion Gap 13 H (3-11) BUN 12 (6-23) mg/dl Creatinine 0.86 (0.6-1.2) mg/dl Est Cr Clr Drug Dosing Not Reportable Est GFR ( Amer) 100.7 ml/min Est GFR (Non-Af Amer) 86.9 ml/min BUN/Creatinine Ratio 14.0 (10-20) Glucose 105 H (70-99(Fasting)) mg/dl Calcium 9.8 (8.6-10.3) mg/dl Total Bilirubin 0.9 (0.2-1.0) mg/dl AST 41 H (13-39) U/L ALT 39 (7-52) U/L Alkaline Phosphatase 46 (34-104) U/L Troponin I High Sens 7.9 (0-14) pg/ml Total Protein 7.6 (6.0-8.3) gm/dl Albumin 4.6 (3.4-5.0) gm/dl Globulin 3.0 (2.5-4.0) gm/dl Albumin/Globulin Ratio 1.5 (0.9-2) Lipase < 3 L (11-82) U/L TSH 0.788 (0.300-4.500) uIu/ml HCG, Qual Negative (Negative) Salicylates < 3.0 L (3.0-30) mg/dl Acetaminophen < 3 L (10-30) ug/ml Ethyl Alcohol mg/dL Cancelled < 10.0 Administered Medications Lactated Ringer's (Lr) 1,000 mls @ 125 mls/hr IV .Q8H ARMEN Stop: 11/06/23 01:44 Last Admin: 11/05/23 19:52 Dose: 125 mls/hr Documented By: AGATHA Discontinued Medications Sodium Chloride (Nss) 1,000 mls @ 999 mls/hr IV .Q1H1M ARMEN Stop: 11/05/23 16:30 Last Infusion: 11/05/23 16:01 Dose: Infused Documented By: Admin: 11/05/23 14:45 Dose: 999 mls/hr Documented By: Infusion: 11/05/23 14:45 Dose: Infused Documented By: Admin: 11/05/23 14:33 Dose: 999 mls/hr Documented By: SUDHEER Lorazepam (Lorazepam 1 Mg/1 Ml Syr Ed Inj Use) Confirm Administered Dose 2 mg .ROUTE .STK-MED ONE Stop: 11/05/23 14:34 Last Admin: 11/05/23 14:38 Dose: 2 mg Documented By: KV Lorazepam (Lorazepam 1 Mg/1 Ml Syr Ed Inj Use) 2 mg IV ONE STA Stop: 11/05/23 14:39 Last Admin: 11/05/23 14:46 Dose: 2 mg Documented By: KV Lorazepam (Lorazepam 1 Mg/1 Ml Syr Ed Inj Use) 2 mg IV ONE STA Stop: 11/05/23 14:40 Last Admin: 11/05/23 14:41 Dose: Not Given Documented By: KV Imaging Data Radiologist's Impression: Chest X-Ray 11/05/23 14:26 XR chest 1V portable HISTORY: 37 years-old Female Chest pain, nonspecific COMPARISON: 10/16/2023 TECHNIQUE: AP view of the chest FINDINGS: The lungs are mildly hypoinflated with bronchovascular crowding. Mild interstitial coarsening with bibasilar densities. Cholecystectomy. The bones appear intact. IMPRESSION: 1. Hypoinflation with bronchovascular crowding. 2. Mild bibasilar densities are likely atelectatic. ACT 112: Negative or not required by law. The above report was generated using voice recognition software. It may contain grammatical, syntax or spelling errors. Electronically signed by: Lukas Skinner M.D. 11/05/2023 3:58 PM Discharge Plan Visit Data Chief Complaint: Mental Health Evaluation Stated Complaint: HERE FOR AN EVAL ED Provider: Bernabe Wylie Discharge Problem: Serotonin syndrome, Leukocytosis, Tachycardia Patient Disposition: Admitted As Inpatient Discharge Instructions Interventions: ED Discharge Assessment Last Done: 11/05/23 18:46 Discharge Problem: Leukocytosis Qualifiers: Leukocytosis type: unspecified Qualified Code(s): D72.829 - Elevated white blood cell count, unspecified
[2023-11-05 14:46] LABS: Basophils % (auto) 0.6 %; Hematocrit (blood only) 41.7 % (37.0-47.0); Hemoglobin 14.2 g/dl (12.0-16.0); Immature Granulocytes # (auto) 0.06 K/uL (0.01-0.20); Immature Granulocytes % (auto) 0.4 %; Lymphocytes # (auto) 1.52 K/uL (1.20-3.40); Lymphocytes % (auto) 9.5 %; Mean Corpuscular Hemoglobin 27.6 pg (25.0-34.0); Mean Corpuscular Hgb Conc 34.1 g/dL (32.0-36.0); Mean Corpuscular Volume 81.1 fL (80.0-100.0); Mean Platelet Volume 10.6 fL (9.4-12.4); Monocytes % (auto) 6.2 %; Neutrophils % (auto) 83.3 %; Platelet Count 336 K/uL (130-400); RDW Coefficient of Variation 12.7 % (11.5-14.5); RDW Standard Deviation 37.3 fL (36.4-46.3); Red Blood Count 5.14 M/uL (4.20-5.40); White Blood Count 16.08 K/ul (4.8-10.8)
[2023-11-05 15:03] LABS: Anion Gap 13 (3-11); Blood Urea Nitrogen 12 mg/dl (6-23); Calcium 9.8 mg/dl (8.6-10.3); Carbon Dioxide 28 mmol/L (21-32); Chloride 101 mmol/L (98-107); Est GFR (African American) 100.7 ml/min; Est GFR (Non-African American) 86.9 ml/min; Glucose 105 mg/dl (70-99(Fasting)); Potassium 3.5 mmol/L (3.5-5.1); Sodium 142 mmol/L (136-145)
[2023-11-05 15:04] LABS: Alanine Aminotransferase 39 U/L (7-52); Albumin Globulin Ratio 1.5 (0.9-2); Albumin Level 4.6 gm/dl (3.4-5.0); Alkaline Phosphatase 46 U/L (34-104); Aspartate Aminotransferase 41 U/L (13-39); Bilirubin,Total 0.9 mg/dl (0.2-1.0); Lipase < 3 U/L (11-82); Total Protein 7.6 gm/dl (6.0-8.3)
[2023-11-05 15:06] LABS: Acetaminophen < 3 ug/ml (10-30); Salicylate < 3.0 mg/dl (3.0-30)
[2023-11-05 15:09] LABS: Troponin I High Sensitivity 7.9 pg/ml (0-14)
[2023-11-05 15:15] LABS: Pregnancy Test, Serum Negative (Negative)
[2023-11-05 15:18] LABS: Thyroid Stimulating Hormone 0.788 uIu/ml (0.300-4.500)
--- NOTE | 2023-11-05 16:00 | XRay Report ---
XR chest 1V portable HISTORY: 37 years-old Female Chest pain, nonspecific COMPARISON: 10/16/2023 TECHNIQUE: AP view of the chest FINDINGS: The lungs are mildly hypoinflated with bronchovascular crowding. Mild interstitial coarsening with bi basilar densities. Cholecystectomy. The bones appear intact. IMPRESSION: 1. Hypoinflation with bronchovascular crowding. 2. Mild bibasilar densities are likely atelectatic. ACT 112: Negative or not required by law. The above report was generated using voice recognition software. It may contain grammatical, syntax o r spelling errors. Electronically signed by: Lukas Skinner M.D. 11/05/2023 3:58 PM
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
--- NOTE | 2023-11-05 17:29 | CT Scan Report ---
HEAD CT NONCONTRAST CT DOSE: 547.75 mGy.cm HISTORY: Altered mental status TECHNIQUE: Multiaxial CT images of the head were performed without the use of intravenous contrast. A utomated exposure control was utilized for this study. A dose lowering technique was utilized adheri ng to the principles of ALARA. Comparison: Brain MRI 10/22/2023. Head CT 10/16/2023. Findings: The paranasal sinuses and mastoid air cells are clear. The calvarium and skull base are int act. The ventricles and sulci are within normal limits. There is no mass, hematoma, midline shift, or acute infarct. Impression: No acute intracranial abnormality. ACT 112: Negative or not required by law. Electronically signed by: Tiago Hardwick M.D. 11/05/2023 5:26 PM
[2023-11-05] MEDS ORDERED: ONDANSETRON INJ 2 MG/ML 2 ML VIAL IV PRN (18:46)
[2023-11-05] MEDS: LACTATED RINGER'S 1,000 ML IV SCH (19:52)
--- OUTSIDE RECORDS SUMMARY | 2023-11-05 23:41 | External Medical Summary | Summary of Care ---
Author Name Unknown Organization [facility] Address [address] [place] [address] Phone [phone] Care Team Providers Care Rn Social Work Name Role Phone Celso Mayen MD Primary Care Provider [phone] Encounter Details Date Type Department Care Team (Late st Contact Info) Description 10/18/2023 Orders Only [facility] [address] [place] [address] Celso Mayen MD [address], [place] [id number] Allergies Active Allergy Reactions Criticality Noted Date Comments Clarithromycin 11/18/2019 Cefaclor 11/18/2019 Clindamycin 11/18/2019 Cyclobenzaprine 11/18/2019 Numbness left side, confusion, stroke like symptoms Penicillins 11/18/2019 documented as of this encounter (statuses as of 10/18/2023) Medications Medication Sig Dispensed Refills Start Date End Date Status Probiotic Product (PROBIOTIC ACIDOPHILUS BIOBEADS) Capsule Take 1 Cap by mouth three times a day with meals. 0 Active Calcium 500-100 MG-UNIT Oral Tablet Chewable Take by mouth. 0 Active Saline Nasal [place] 0.65 % Nasal Solution Administer 1 [place] into nostril as needed for Congestion. 0 Active Fluticasone Propionate 50 MCG/ACT Nasal Suspension Administer 1 [place] into nostril in the morning. 0 Active Escitalopram Oxalate 20 MG Oral Tablet (Lexapro) Take 1 Tablet by mouth every evening. 90 Tablet 3 03/07/2023 Active busPIRone HCl 10 MG Oral Tablet (Buspar) Take 2 Tablets by mouth in the morning and 2 Tablets in the evening. 360 Tablet 3 03/07/2023 Active Fluticasone-[place] rol 250-50 MCG/ACT Inhalation Aerosol Powder Breath Activated (Advair Diskus) Inhale 1 Puff by mouth in the morning and 1 Puff before bedtime. 60 Each 11 06/20/2023 Active Additional Information Patient not taking.Reported on 10/16/2023 Albuterol Sulfate HFA 108 (90 Base) MCG/ACT Inhalation Aerosol Solution Inhale 2 Puffs by mouth every 6 hours as needed (sob cough). 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 09/03/2023 Mild persistent asthma without complication 01/2023 Irregular periods 09/03/2023 documented as of this encounter (statuses as of 10/18/2023) Resolved Problems Problem Noted Date Diagnosed Date Resolved Date Rh negative status during 12/15/2020 08/08/2021 Overview: ER on 01/25 for bleeding in 1st trimester, received RhoGAM there rhoGAM 05/03/21 , normal first 12/14/202005/2021 Adjustment disorder with mix ed anxiety and depressed mood 12/14/2020 08/08/2021 Overview: On zoloft documented as of this encounter (statuses as of 10/18/2023) Immunizations Name Administration Dates Next Due TDAP [...] money to get more. Never true 03/07/2023 Galt Depression Scale Answer Date Recorded [place] Depression Scale Total 8 11/22/2021 The thought [...] on file documented as of this encounter Plan of Treatment Upcoming Encounters Date Type Department Care Team (Late st Contact Info) Description 03/24/2024 9:00 AM EDT Office Visit [facility] [address] [place] [address] Celso Mayen MD [address], [place] [phone] Pending Results Name Type Priority Associated Diagnoses Date /Time OUTSIDE LAB-CORONAVIRUS (COVID-19) Lab Routine 10/16/2023 Health Maintenance Due Date Last Done Comments [...] filedocumented as of this encounter Care Teams Rn Social Work Relationship Specialty Start Date End Date Celso Mayen MD [address] [place] [address] PCP - General Internal Medicine 07/03/23 documented as of this encounter
--- OUTSIDE RECORDS SUMMARY | 2023-11-05 23:41 | External Medical Summary | Summary of Care ---
Author Name Unknown Organization [facility] Address [address] [place] [place] [address] Phone [phone] Care Team Providers Care Glass Silverer Name Role Phone Celso Mayen MD Primary Care Provider [phone] Encounter Details Date Type Department Care Team (Late st Contact Info) Description 10/29/2023 Result Scan Unspecified Department <No scans attached> Allergies Active Allergy Reactions Criticality Noted Date Comments Clarithromycin 11/18/2019 Cefaclor 11/18/2019 Clindamycin 11/18/2019 Cyclobenzaprine 11/18/2019 Numbness left side, confusion, stroke like symptoms Penicillins 11/18/2019 documented as of this encounter (statuses as of 10/29/2023) Medications Medication Sig Dispensed Refills Start Date End Date Status Probiotic Product (PROBIOTIC ACIDOPHILUS BIOBEADS) Capsule Take 1 Cap by mouth three times a day with meals. 0 Active Calcium 500-100 MG-UNIT Oral Tablet Chewable Take by mouth. 0 Active Saline Nasal [place] 0.65 % Nasal Solution Administer 1 [place] into nostril as needed for Congestion. 0 Active Fluticasone Propionate 50 MCG/ACT Nasal Suspension Administer 1 [place] into nostril in the morning. 0 Active [...] as of this encounter (statuses as of 10/29/2023) Active Problems Problem Noted Date Diagnosed Date KAYLEE (generalized anxiety disorder) 09/03/2023 Mild episode of recurrent major depressive disor isela 09/03/2023 Mild persistent asthma without complication 01/2023 Irregular periods 09/03/2023 documented as of this encounter (statuses as of 10/29/2023) Resolved Problems Problem Noted Date Diagnosed Date Resolved Date Rh negative status during 12/15/2020 08/08/2021 Overview: ER on 01/25 for bleeding in 1st trimester, received RhoGAM there rhoGAM 05/03/21 , normal first 12/14/202005/2021 Adjustment disorder with mix ed anxiety and depressed mood 12/14/2020 08/08/2021 Overview: On zoloft documented as of this encounter (statuses as of 10/29/2023) Immunizations Name Administration Dates Next Due TDAP [...] money to get more. Never true 03/07/2023 [place] Depression Scale Answer Date Recorded [place] Depression Scale Total 8 11/22/2021 The thought [...] 03/24/2024 9:00 AM EDT Office Visit [facility] [address] [place] [address] Celso Mayen MD [address] [place] [address] Health Maintenance Due Date Last Done Comments Hepatitis B (1 of 3 - 3-dose series) 1986 Pneumococcal Vaccine: Pediatrics (0 to 5 Years) and At-Risk Patients (6 to 64 Years) (1 - PCV) 1992 Hepatitis C Screening 2004 HPV/Co-Test 2016 COVID-19 Vaccine ( - 2022- season) 2023 06/13/2021, 05/16/2021, 05/16/2021 [...] Procedure Name Priority Date/Time Associated Diagnosis Comments PROCEDURE SCANNED RESULT 10/29/2023 documented in this encounter Results * PROCEDURE SCANNED RESULT (10/29/2023) 10/29/2023 No Physician Data Unknown SURGERY documented in this encounter Care Teams Glass Silverer Relationship Specialty Start Date End Date Celso Mayen MD [address] [place] [address] PCP - General Internal Medicine 07/03/23 documented as of this encounter
--- OUTSIDE RECORDS SUMMARY | 2023-11-05 23:41 | External Medical Summary | Continuity of Care Document ---
Author Name Unknown Organization [facility] Address [address] [place] [id number] Care Team Providers Care Special Duty Nurse Name Role Phone Tiarra Celso Primary Care Physician [phone] [facility] [id number] Date(s): 10/26/23 - 10/30/[address] [phone] Encounter Diagnosis Encephalitis(Discharge Diagnosis) - 10/26/23 Bipolar disorder, current episode mixed, unspecified(Discharge Diagnosis) - 10/28/23 Delirium(Discharge Diagnosis) - 10/26/23 Psychosis(Discharge Diagnosis) - 10/26/23 Discharge Disposition: Home or Self Care Attending Physician: MD Hylton Gary A Admitting Physician: MD Oskar, Timothy Barraza Referring Physician: MD Lambert Mark Allan Allergies, Adverse Reactions, Alerts Substance Reaction Severity Status clindamycin hives Active penicillins bulls eye hives Active Ceclor hives Active Flexeril confusion lose sensation in body Active Biaxin hives Active Functional Status 10/30/23 Neurological Symptoms None ADLs Minimal assistance Facial Symmetry Symmetric Gait Steady Swallowing Difficulty None Level of Consciousness Neuro Alert Hallucinations Present None Speech Pattern Clear 10/29/23 History of Fall in Last 3 Months Banegas N o Presence of Secondary Diagnosis Banegas Ye s Use of Ambulatory Aid [place] None/bedrest /nurse assist IV/Heparin Lock Fall Risk Banegas Yes Gait/Transferring Fall Risk Banegas Normal /bedrest/immobile Mental Status Fall Risk Banegas Forgets li mitations Banegas Fall Risk Score 50 Banegas Fall Risk High risk Immunizations Given and Recorded Vaccine Date Status Refusal Reason influenza virus vaccine, inactivated 06/26/21 Give n influenza virus vaccine, inactivated 06/21/20 Give n influenza virus vaccine, inactivated 06/14/17 Give n influenza virus vaccine, inactivated 06/14/16 Give n influenza virus vaccine, inactivated 07/12/15 Give n influenza virus vaccine, inactivated 06/15/13 Give n SARS-CoV-2 (COVID-19) mRNA-1273 vaccine 06/13/21 R ecorded SARS-CoV-2 (COVID-19) mRNA-1273 vaccine 05/16/21 R ecorded SARS-CoV-2 (COVID-19) ChAdOx1 vaccine 05/16/21 Rec orded tetanus/diphtheria/pertuss, acel (Tdap) 1 04/02/21 Recorded tetanus/diphtheria/pertuss, acel (Tdap) 07/09/13 Shon mars 1Result Comment: 2022-01-17: Historical information-source unspecified Medications BuSpar 10 mg oral tablet Start: 06/07/22 13:02:00 EDT, 2 tab, PO, bid, Disp# 240 tab, other Start Date: 06/07/22 Stop Date: 08/06/22 Status: Ordered calcium (as calcium citrate) 250 mg oral tablet Start: 01/24/21 15:00:00 EDT Start Date: 01/24/21 Status: Ordered escitalopram 20 mg oral tablet Start: 01/28/23 12:23:00 EDT, See Instructions, Disp# 30 tab, Refills: 1, TAKE 1 TABLET BY MOUTH EVERY DAY, Pharmacy: [id number] Start Date: 01/28/23 Status: Ordered fluticasone 27.5 mcg/inh nasal spray Start: 08/16/22 8:43:00 EST, 1 spray, each nostril, Daily, Disp# 9.9 mL, Refills: 0, PRN: allergy symptoms, Pharmacy: [id number] Start Date: 08/16/22 Status: Ordered haloperidol 5 mg oral tablet Start: 10/30/23 17:04:00 EST, See Instructions, Disp# 90 tab, Refills: 2, 2 tab in the AM 1 tab in the PM, Pharmacy: [facility] Start Date: 10/30/23 Status: Ordered multivitamin Start: 10/12/21 9:15:00 EST, 1 tab, PO, Daily Start Date: 10/12/21 Status: Ordered Probiotic Formula Start: 06/14/17 8:02:00, Daily Start Date: 06/14/17 Status: Ordered Proventil HFA 90 mcg/inh MDI Start: 06/07/22 13:12:00 EDT, 2 puff, inhaled, qid, Disp# 1 each, Refills: 1, PRN: as needed for wheezing, Pharmacy: [id number] Start Date: 06/07/22 Status: Ordered Pulmicort Flexhaler 90 mcg/inh inhalation powder Start: 09/06/22 8:18:00 EST, See Instructions, Disp# 1 insert, Refills: 1, INHALE 1 PUFF BY MOUTH TWICE A DAY FOR 30 DAYS, Pharmacy: [facility] Start Date: 09/06/22 Status: Ordered salt water nasal spray Start: 09/16/16 13:21:00, salt water nasal spray Start Date: 09/16/16 Status: Ordered traZODone 100 mg oral tablet Start: 10/30/23 16:44:00 EST, 1 tab, PO, qhs, Disp# 90 tab, Refills: 2, Pharmacy: [facility] Start Date: 10/30/23 Stop Date: 07/26/24 Status: Ordered Mental Status 10/26/23 Primary Language Montserratian Problem List Condition Confirmation Course Effective Dates Status Health St atus Informant Generalized anxiety disorder Confirmed Active Asthma Confirmed Active Multiple pigmented nevi Confirmed Active Major depressive disorder, single episode, mild Confirmed Active Dysmenorrhea Confirmed Active Elevated liver enzymes level Confirmed Active Fibrous papule of face Confirmed Active Abnormal facial hair Confirmed Active Insomnia Confirmed Active Keratosis pilaris Confirmed Active Menorrhagia Confirmed Active Migraine Confirmed Active Allergic rhinitis Confirmed Active Diagnosis Diagnosis Type Effective Dates Health Status Clinical Service Informant Encephalitis Discharge Diagnosis 10/26/23 Non-Specified Delirium Discharge Diagnosis 10/26/23 Non-Specified Psychosis Discharge Diagnosis 10/26/23 Non-Specified Bipolar disorder, current episode mixed, unspecified Discharge Diagnosis 10/28/23 Non-Specified Procedures Procedure Date Related Diagnosis Body Site Status Ventral hernia 1 05/02/22 Complete d US EXAM ABDOM COMPLETE 2 11/10/18 Completed PAP test date 3 10/08/18 Completed Chest x-ray 4 06/26/17 Completed US - Ultrasound 5 07/07/15 Complet ed PAP test date 6 06/10/15 Completed PAP test date 06/09/14 Completed endoscopy 02/20/13 Completed gallbladder removal 2011 Compl eted EGD 02/20/13 Completed PAP - 06/12 Completed uterine polypectomy Compl eted wisdom teeth removal Comp leted 1Open Ventral Hernia Repair 2Normal liver and spleen. 3NEGATIVE FOR INTRAEPITHELIAL LESION OR MALIGNANCY 4IMPRESSION: No acute cardiopulmonary process 5Impression: There is no acute sonoraphic abnormality identified in the abdomen noting status post cholecystectomy 6Negative for intraepithelial lesion or malignancy Results Laboratory List Name Date CSF on Hold in Laboratory (EXTRA CSF FLU ID) 10/30/23 Urine Volume (measured) (VOLUME, TOTAL) 10/30/23 Cell Count w Differential, CSF 10/30/23 Glucose, CSF 10/30/23 Hold Extra CSF 10/30/23 Protein, CSF 10/30/23 Arsenic Level 10/30/23 Basic Metabolic Panel (BMP) 10/30/23 Complete Blood Count w Differential (CBC w Platelets and Diff) 10/30/23 HIV Screen w Reflex 10/30/23 Hepatitis B Core Antibody, IgG and IgM Lead Capillary Blood 10/30/23 RPR 10/30/23 Vitamin B12 Level 10/30/23 Mercury Level 10/29/23 Basic Metabolic Panel (BMP) 10/29/23 Complete Blood Count w Differential (CBC w Platelets and Diff) 10/29/23 Basic Metabolic Panel (BMP) 10/28/23 Complete Blood Count w Differential (CBC w Platelets and Diff) 10/28/23 Complete Blood Count w Differential (CBC w Platelets and Diff) 10/26/23 Toxicology Screen, Bld 10/26/23 C Reactive Protein, Quantitation (CRP, Q uantitation) 10/26/23 Erythrocyte Sedimentation Rate (ESR) 10/01 04/22 Folic Acid Level (Folate Level) 10/26/23 Hemoglobin A1C (Hgb A1C) 10/26/23 T4, Free (Free T4) 10/26/23 Thyroid Stimulating Hormone (TSH) 4 Vitamin B1 Level Whole Blood 10/26/23 Vitamin B6 Profile 10/26/23 Drugs of Abuse w Confirmation, Urine (Ur ine Drug Screen w Confirmation) 10/26/23 Screen, Urine (Urine Screen) 10/26/23 Most recent to oldest [Reference Range]: 1 2 3 CSF Specimen available f rom 0 to 3 days based on specimen stability. Please use addon order if you wish to order testing. (10/30/23 2:50 PM) CReacProt [<0.50 mg/dL] <0.30 mg/dL (10/26/23 7:33 AM) eGFR CKD-EPI [>60 mL/min/1.73 m2] >90 mL/min/1.73 m2 (10/30/23 8:40 AM) >90 mL/min/1.73 m2 (10/29/23 7:26 AM) 83 mL/min/1.73 m2 (10/28/23 10:17 AM) Estimated Average Glucose 103 mg/dL (10/26/23 7:33 AM) HIV Ag/Ab Screening [NR] NONREACTIVE (10/30/23 8:40 AM) Pyridoxal 5 Phosphate 62.9 1 (10/26/23 7:33 AM) Platelet Morphology NORMAL (10/26/23 7:33 AM) Estimated CrCl 101.46 mL/min (10/30/23 10:33 AM) 122.34 mL/min (10/29/23 8:45 AM) 91.42 mL/min (10/28/23 11:53 AM) Lead Capillary Bld REQUEST CREDITED 2 (10/30/23 8:40 AM) Amphetamine Scr NEGATIVE 3 (10/26/23 7:33 AM) Methamphetamine Scr NEGATIVE 4 (10/26/23 7:33 AM) Barbiturate Scr NEGATIVE 5 (10/26/23 7:33 AM) Benzodiazepine Scr POSITIVE 6 (10/26/23 7:33 AM) Buprenorphine Scr NEGATIVE 7 (10/26/23 7:33 AM) Cocaine Scr NEGATIVE 8 (10/26/23 7:33 AM) Methadone Scr NEGATIVE 9 (10/26/23 7:33 AM) Opiates Scr NEGATIVE 10 (10/26/23 7:33 AM) Oxycodone Scr NEGATIVE 11 (10/26/23 7:33 AM) Phencyclidine Scr NEGATIVE 12 (10/26/23 7:33 AM) Cannabinoids Scr NEGATIVE 13 (10/26/23 7:33 AM) Drug Scr Comment SEE NOTE 14 (10/26/23 7:33 AM) Vitamin B1 WB 111 15 (10/26/23 7:33 AM) MPV [9.0-12.2 fL] 10.8 fL (10/30/23 8:40 AM) 10.8 fL (10/29/23 7:26 AM) 11.0 fL (10/28/23 10:17 AM) Immature Gran% 0.1 % (10/30/23 8:40 AM) 0.2 % (10/29/23 7:26 AM) 0.3 % (10/28/23 10:17 AM) Neut% 58.5 % (10/30/23 8:40 AM) 49.1 % (10/29/23 7:26 AM) 56.8 % (10/28/23 10:17 AM) Lymph% 31.1 % (10/30/23 8:40 AM) 27.2 % (10/29/23 7:26 AM) 32.6 % (10/28/23 10:17 AM) Monroe% 7.7 % (10/30/23 8:40 AM) 8.3 % (10/29/23 7:26 AM) 7.9 % (10/28/23 10:17 AM) Baso% 1.0 % (10/30/23 8:40 AM) 0.7 % (10/29/23 7:26 AM) 0.9 % (10/28/23 10:17 AM) Eos% 1.6 % (10/30/23 8:40 AM) 14.5 % (10/29/23 7:26 AM) 1.5 % (10/28/23 10:17 AM) Immat Gran, Abs [0-0.4 K/uL] 0.01 K/uL (10/30/23 8:40 AM) 0.02 K/uL (10/29/23 7:26 AM) 0.02 K/uL (10/28/23 10:17 AM) Neut, Abs [2.0-7.7 K/uL] 3.99 K/uL (10/30/23 8:40 AM) 4.36 K/uL (10/29/23 7:26 AM) 4.26 K/uL (10/28/23 10:17 AM) Lymph, Abs [1.0-3.4 K/uL] 2.13 K/uL (10/30/23 8:40 AM) 2.42 K/uL (10/29/23 7:26 AM) 2.44 K/uL (10/28/23 10:17 AM) Monroe, Abs [0-1.0 K/uL] 0.53 K/uL (10/30/23 8:40 AM) 0.74 K/uL (10/29/23 7:26 AM) 0.59 K/uL (10/28/23 10:17 AM) Baso, Abs [0-0.1 K/uL] 0.07 K/uL (10/30/23 8:40 AM) 0.06 K/uL (10/29/23 7:26 AM) 0.07 K/uL (10/28/23 10:17 AM) Eos, Abs [0-0.5 K/uL] 0.11 K/uL (10/30/23 8:40 AM) 1.29 K/uL *HI* (10/29/23 7:26 AM) 0.11 K/uL (10/28/23 10:17 AM) Type of Diff: AUTO (10/30/23 8:40 AM) AUTO (10/29/23 7:26 AM) AUTO (10/28/23 10:17 AM) RBC Morphology NORMAL (10/26/23 7:33 AM) RDW [11.5-14.2 %] 12.5 % (10/30/23 8:40 AM) 12.4 % (10/29/23 7:26 AM) 12.4 % (10/28/23 10:17 AM) Mercury. <2.5 16 (10/29/23 12:47 PM) Arsenic (q) <10.0 17 (10/30/23 8:40 AM) Anion Gap [5-14 mmol/L] 10 mmol/L (10/30/23 8:40 AM) 10 mmol/L (10/29/23 7:26 AM) 11 mmol/L (10/28/23 10:17 AM) Amphetamines(u) NONE DETECTED (10/26/23 1:00 AM) B12 [211-946 pg/mL] 871 pg/mL (10/30/23 8:40 AM) Barbiturates(u) NONE DETECTED (10/26/23 1:00 AM) Benzodiazepines(u) NONE DETECTED (10/26/23 1:00 AM) BUN [6-23 mg/dL] 10 mg/dL (10/30/23 8:40 AM) 11 mg/dL (10/29/23 7:26 AM) 10 mg/dL (10/28/23 10:17 AM) Appear, CSF CLEAR (10/30/23 1:52 PM) Color, CSF COLORLESS (10/30/23 1:52 PM) Baso, CSF 0 % (10/30/23 1:52 PM) Eos, CSF 0 % (10/30/23 1:52 PM) Lymph, CSF 77 % (10/30/23 1:52 PM) Nuc Cell,CSF 1 /uL 18 (10/30/23 1:52 PM) Neut, CSF 0 % (10/30/23 1:52 PM) Other Cells 0 % (10/30/23 1:52 PM) RBC, CSF 2 /uL (10/30/23 1:52 PM) #for Dif,CSF 13 (10/30/23 1:52 PM) Ca [8.4-10.2 mg/dL] 9.0 mg/dL (10/30/23 8:40 AM) 9.1 mg/dL (10/29/23 7:26 AM) 9.4 mg/dL (10/28/23 10:17 AM) Glucose, CSF [40-70 mg/dL] 62 mg/dL (10/30/23 1:52 PM) Cl- [98-107 mmol/L] 106 mmol/L (10/30/23 8:40 AM) 104 mmol/L (10/29/23 7:26 AM) 106 mmol/L (10/28/23 10:17 AM) HCO3 [22-29 mmol/L] 25 mmol/L (10/30/23 8:40 AM) 25 mmol/L (10/29/23 7:26 AM) 23 mmol/L (10/28/23 10:17 AM) Cocaine(u) NONE DETECTED (10/26/23 1:00 AM) HBcAb [NR] NONREACTIVE (10/30/23 8:40 AM) Cret [0.60-1.00 mg/dL] 0.82 mg/dL (10/30/23 8:40 AM) 0.68 mg/dL (10/29/23 7:26 AM) 0.91 mg/dL (10/28/23 10:17 AM) Protein, CSF [15-45 mg/dL] 32 mg/dL (10/30/23 1:52 PM) ESR [0-20 mm/hr] 1 mm/hr (10/26/23 7:33 AM) Monroe/Mac,CSF 23 % (10/30/23 1:52 PM) Folate [>7.2 ng/mL] >20.0 ng/mL (10/26/23 7:33 AM) HbA1c [<5.7 %] 5.2 % 19 (10/26/23 7:33 AM) Glu [74-109 mg/dL] 91 mg/dL 20 (10/30/23 8:40 AM) 89 mg/dL 21 (10/29/23 7:26 AM) 84 mg/dL 22 (10/28/23 10:17 AM) HCG Scr (u) [NEG] NEGATIVE (10/26/23 1:00 AM) Hct [35-44 %] 39.1 % (10/30/23 8:40 AM) 37.8 % (10/29/23 7:26 AM) 41.5 % (10/28/23 10:17 AM) Hgb [11.7-15.0 g/dL] 12.8 g/dL (10/30/23 8:40 AM) 12.4 g/dL (10/29/23 7:26 AM) 13.8 g/dL (10/28/23 10:17 AM) K [3.5-5.1 mmol/L] 4.1 mmol/L (10/30/23 8:40 AM) 3.7 mmol/L (10/29/23 7:26 AM) 4.3 mmol/L (10/28/23 10:17 AM) Marijuana(u) NONE DETECTED (10/26/23 1:00 AM) MCH [28-33 pg] 27.4 pg *LOW* (10/30/23 8:40 AM) 27.4 pg *LOW* (10/29/23 7:26 AM) 27.9 pg *LOW* (10/28/23 10:17 AM) MCHC [32-36 g/dL] 32.7 g/dL (10/30/23 8:40 AM) 32.8 g/dL (10/29/23 7:26 AM) 33.3 g/dL (10/28/23 10:17 AM) MCV [81-96 fL] 83.5 fL (10/30/23 8:40 AM) 83.4 fL (10/29/23 7:26 AM) 84.0 fL (10/28/23 10:17 AM) Na [136-145 mmol/L] 141 mmol/L (10/30/23 8:40 AM) 139 mmol/L (10/29/23 7:26 AM) 140 mmol/L (10/28/23 10:17 AM) Opiates(u) NONE DETECTED (10/26/23 1:00 AM) Plts [150-350 K/uL] 222 K/uL (10/30/23 8:40 AM) 230 K/uL (10/29/23 7:26 AM) 241 K/uL (10/28/23 10:17 AM) RBC [3.90-5.00 M/uL] 4.68 M/uL (10/30/23 8:40 AM) 4.53 M/uL (10/29/23 7:26 AM) 4.94 M/uL (10/28/23 10:17 AM) RPR [NR dilutions] NONREACTIVE dilution s (10/30/23 8:40 AM) Free T4 [0.9-1.7 ng/dL] 1.24 ng/dL (10/26/23 7:33 AM) TSH [0.30-4.20 uIU/mL] 3.10 uIU/mL (10/26/23 7:33 AM) Volume (u) 10.5cc BETWEEN 3 TUB ES mL (10/30/23 2:50 PM) WBC [4.0-10.4 K/uL] 6.84 K/uL (10/30/23 8:40 AM) 8.89 K/uL (10/29/23 7:26 AM) 7.49 K/uL (10/28/23 10:17 AM) Hold Extra CSF SPECIMEN HELD IN VIROLOGY. CALL [phone] TO ADD STUDIES. (10/30/23 1:52 PM) 1Result Comment: Reference range: 20.0 to 125.0 Unit: nmol/L INTERPRETIVE INFORMATION: Vitamin B6 (Pyridoxal 5-Phosphate) Pyridoxal 5'-phosphate measured in a specimen collected following an 8-hour or overnight fast accurately indicates vitamin B6 nutritional status. Non-fasting specimen concentration reflects recent vitamin intake. This test was developed and its performance characteristics determined by [facility]. It has not been cleared or approved by the [place] Food and Drug Administration. This test was performed in a CLIA certified laboratory and is intended for clinical purposes. Performed By: [facility] [address] [place] [address] Marketing Producer: Moise Solares MD, PhD CLIA Number: [id number] 2Result Comment: WRONG TUBE/SPECIMEN TYPE CLINICIAN NOTIFIED: JOHNATHON ROUSE 10/30/2023 15:41 3Result Comment: Reference range: Cutoff 20 Unit: ng/mL 4Result Comment: Reference range: Cutoff 20 Unit: ng/mL 5Result Comment: Reference range: Cutoff 50 Unit: ng/mL 6Result Comment: Reference range: Cutoff 50 Unit: ng/mL If the screen is positive, then confirmation by mass spectrometry will be added. Additional charges will apply. Unconfirmed positive may be useful for medical purposes, but does not meet forensic standards. 7Result Comment: Reference range: Cutoff 1 Unit: ng/mL 8Result Comment: Reference range: Cutoff 20 Unit: ng/mL 9Result Comment: Reference range: Cutoff 25 Unit: ng/mL 10Result Comment: Reference range: Cutoff 20 Unit: ng/mL 11Result Comment: Reference range: Cutoff 20 Unit: ng/mL 12Result Comment: Reference range: Cutoff 10 Unit: ng/mL 13Result Comment: Reference range: Cutoff 20 Unit: ng/mL 14Result Comment: INTERPRETIVE INFORMATION: Drug Screen 9 Panel, Serum or Plasma - Immunoassay Screen with Reflex to Mass Spectrometry Confirmation/Quantitation 1. Methodology: Qualitative Immunoassay Screen 2. Drugs/Drug classes reported as "Positive" are automatically reflexed to mass spectrometry confirmation/quantitation testing. An immunoassay unconfirmed positive screen result may be useful for medical purposes but does not meet forensic standards. 3. The absence of expected drug(s) and/or drug metabolite(s) may indicate noncompliance, inappropriate timing of specimen collection relative to drug administration, poor drug absorption, or limitations of testing. The concentration at which the screening test can detect a drug or metabolite varies within a drug class. Specimens for which drugs or drug classes are detected by the screen are automatically reflexed to a second, more specific technology (mass spectrometry). The concentration value must be greater than or equal to the cutoff to be reported as positive. Interpretive questions should be directed to the laboratory. 4. For medical purposes only; not valid for forensic use. This test was developed and its performance characteristics determined by [facility]. It has not been cleared or approved by the [place] Food and Drug Administration. This test was performed in a CLIA certified laboratory and is intended for clinical purposes. Performed By: [facility] [address] [place] [address] Marketing Producer: Moise Solares MD, PhD CLIA Number: [id number] 15Result Comment: Reference range: 70 to 180 Unit: nmol/L INTERPRETIVE INFORMATION: Vitamin B1, Whole Blood This assay measures the concentration of thiamine diphosphate (TDP), the primary active form of vitamin B1. Approximately 90 percent of vitamin B1 present in whole blood is TDP. Thiamine and thiamine monophosphate, which comprise the remaining 10 percent, are not measured. This test was developed and its performance characteristics determined by [facility]. It has not been cleared or approved by the [place] Food and Drug Administration. This test was performed in a CLIA certified laboratory and is intended for clinical purposes. Performed By: [facility] [address] [place] [address] Marketing Producer: Moise Solares MD, PhD CLIA Number: [id number] 16Result Comment: Reference range: <=10.0 Unit: ug/L INTERPRETIVE INFORMATION: Mercury, Blood Elevated results may be due to skin or collection-related contamination, including the use of a noncertified metal-free collection/transport tube. If contamination concerns exist due to elevated levels of blood mercury, confirmation with a second specimen collected in a certified metal-free tube is recommended. Blood mercury levels predominantly reflect recent exposure and are most useful in the diagnosis of acute poisoning as blood mercury concentrations rise sharply and fall quickly over several days after ingestion. Blood concentrations in unexposed individuals rarely exceed 20 ug/L. The provided reference interval relates to inorganic mercury concentrations. Dietary and non-occupational exposure to organic mercury forms may contribute to an elevated total mercury result. Clinical presentation after toxic exposure to organic mercury may include dysarthria, ataxia and constricted vision allred with mercury blood concentrations from 20 to 50 ug/L. This test was developed and its performance characteristics determined by [facility]. It has not been cleared or approved by the [place] Food and Drug Administration. This test was performed in a CLIA certified laboratory and is intended for clinical purposes. Performed By: [facility] [address] [place], [place] [id number] Marketing Producer: Moise Solares MD, PhD CLIA Number: [id number] 17Result Comment: Reference range: <=12.0 Unit: ug/L INTERPRETIVE INFORMATION: Arsenic, Blood Elevated results may be due to skin or collection-related contamination, including the use of a noncertified metal-free collection/transport tube. If contamination concerns exist due to elevated levels of blood arsenic, confirmation with a second specimen collected in a certified metal-free tube is recommended. Potentially toxic ranges for blood arsenic: Greater than or equal to 600 ug/L. Blood arsenic is for the detection of recent exposure poisoning only. Blood arsenic levels in healthy subjects vary considerably with exposure to arsenic in the diet and the environment. A 24-hour urine arsenic is useful for the detection of chronic exposure. This test was developed and its performance characteristics determined by [facility]. It has not been cleared or approved by the [place] Food and Drug Administration. This test was performed in a CLIA certified laboratory and is intended for clinical purposes. Performed By: [facility] [address] [place], [place] [id number] Marketing Producer: Moise Solares MD, PhD CLIA Number: [id number] 18Result Comment: "The reference intervals and other method performance specifications are unavailable for this body fluid. Comparision of the result with concentration in the blood, serum or plasma isrecommended." 19Result Comment: ADA Recommended Chamberlain Reference Range: Normal: <5.7% Prediabetes: 5.7-6.4% Diabetes: >6.4% 20Result Comment: ADA recommendation for FASTING Serum/Plasma Glucose: Normal: 70-100 mg/dL Prediabetes: 100-125 mg/dL Diabetes: 126 mg/dL or higher 21Result Comment: ADA recommendation for FASTING Serum/Plasma Glucose: Normal: 70-100 mg/dL Prediabetes: 100-125 mg/dL Diabetes: 126 mg/dL or higher 22Result Comment: ADA recommendation for FASTING Serum/Plasma Glucose: Normal: 70-100 mg/dL Prediabetes: 100-125 mg/dL Diabetes: 126 mg/dL or higher Orders for Microbiology Reports Name Date HSV by Mol Amp (CSF) 10/30/23 C difficile Toxin Gene PCR Assay. (C dif f) 10/26/23 Microbiology Reports TEST:HSV, by Mol Amplification, CSF STATUS:Auth (Verified) BODY SITE: SOURCE:CSF (Spinal Fluid) COLLECTED DATE/TIME:10/30/23 1:52 PM Status FINAL 10/30/2023 TEST:C.Diff Toxin STATUS:Auth (Verified) BODY SITE: SOURCE:Stool COLLECTED DATE/TIME:10/26/23 3:47 PM Status FINAL 10/26/2023 Radiology Reports * Exam Date Time Procedure Performing Provider Status 10/30/23 2:49 PM XR Lumbar Puncture Amarilis Emanuel Notes: (XR Lumbar Puncture) Reason For Exam: r/o infection XR Lumbar Puncture PROCEDURE: XR Lumbar Puncture CLINICAL HISTORY: patient failed bedside attempt, had too much pain , requested under XR INDICATION: r/o infection FLUOROSCOPIC TIME: 0.40 TECHNIQUE: The risks which include but are not limited to pain, infection, bleeding, headache, nerve injury, benefits, and alternatives of the procedure were explained to the patient and patient's questions were answered. The patient was placed left lateral decubitus on the fluoroscopic table. A routine team timeout wasperformed. The lower back was prepped and draped in the usual sterile fashion. Approximately 5 cc of 1% lidocaine was used for local anesthesia. Under intermittent fluoroscopic guidance, a 5 inch 22-gauge spinal needle was used to access the thecal sac at L2-L3. There was prompt return of clear, colorless CSF. Approximately 20 cc of CSF was collected into 4 test tubes and sent for testing per referring service. The needle was then removed with the stylette in place. The patient tolerated the procedure well without immediate complications. Finally she was taken to the room for recovery in stable condition. IMPRESSION: Fluoroscopic guided lumbar puncture, and collection of cerebrospinal fluid for lab analysis as described above. Dr. Bibi Morrison is the dictating resident. Finalized reports status indicates that the attending has reviewed the images and report, and agrees with the interpretation. Preliminary report status should be regarded as NOT interpreted by the attending radiologist. Supervision Statement:I was physically present in the room and supervised the performance of the procedure. Workstation ID: [id number] Final Dictated by:MD Morrison Aroh Jamanadas Dictated DT/TM:10/30/2023 4:30 Resident:MD Prince, Bibi Mccracken Signed by:MD Hwang Krishnamoorthy Signed (Electronic Signature):10/30/2023 4:28 p * Exam Date Time Procedure Performing Provider Status 10/26/23 11:52 PM MRI Brain w/ + w/o Contrast Darien Hardy; Final Notes: (MRI Brain w/ + w/o Contrast) Reason For Exam: concern for encephalitis MRI Brain w/ + w/o Contrast EXAMINATION: MR OF THE BRAIN WITH AND WITHOUT CONTRAST CLINICAL HISTORY: Concern for encephalitis. COMPARISON: None available TECHNIQUE: Multisequence, multiplanar imaging of the brain was performed with and without intravenous contrast. FINDINGS: Cerebral parenchyma: There is no restricted diffusion to suggest acute or early subacute infarct. There is no hemorrhage. Brain volume is normal for age. Maynard- white matter differentiation is preserved. Extra-axial spaces: Normal Ventricles: Normal as to size, shape and position. Mass effect: None Posterior Fossa: Brainstem and cerebellum are unremarkable. Cerebellar tonsils are normal in position and configuration Vascular system: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 CrCl 101.46 mL/min 10/30/2023 10:33 EST eGFR CKD-EPI >90 mL/min/1.73 m2 10/30/2023 08:40 EST Glu 91 mg/dL 10/30/2023 08:40 EST Ca 9.0 mg/dL 10/30/2023 08:40 EST WBC 6.84 K/uL 10/30/2023 08:40 EST Hgb 12.8 g/dL 10/30/2023 08:40 EST Hct 39.1 % 10/30/2023 08:40 EST RBC 4.68 M/uL 10/30/2023 08:40 EST MCV 83.5 fL 10/30/2023 08:40 EST MCHC 32.7 g/dL 10/30/2023 08:40 EST MCH 27.4 pg 10/30/2023 08:40 EST RDW 12.5 % 10/30/2023 08:40 EST Plts 222 K/uL 10/30/2023 08:40 EST Platelet Morphology NORMAL 10/26/2023 07:33 EST MPV 10.8 fL 10/30/2023 08:40 EST Type of Diff: AUTO 10/30/2023 08:40 EST Immature Gran% 0.1 % 10/30/2023 08:40 EST Neut% 58.5 % 10/30/2023 08:40 EST Lymph% 31.1 % 10/30/2023 08:40 EST Monroe% 7.7 % 10/30/2023 08:40 EST Baso% 1.0 % 10/30/2023 08:40 EST Eos% 1.6 % 10/30/2023 08:40 EST Immat Gran, Abs 0.01 K/uL 10/30/2023 08:40 EST Neut, Abs 3.99 K/uL 10/30/2023 08:40 EST Lymph, Abs 2.13 K/uL 10/30/2023 08:40 EST Monroe, Abs 0.53 K/uL 10/30/2023 08:40 EST Baso, Abs 0.07 K/uL 10/30/2023 08:40 EST Eos, Abs 0.11 K/uL 10/30/2023 08:40 EST RBC Morphology NORMAL 10/26/2023 07:33 EST HBcAb NONREACTIVE 10/30/2023 08:40 EST Vitamin B1 WB 111 10/26/2023 07:33 EST HbA1c 5.2 % 10/26/2023 07:33 EST Estimated Average Glucose 103 mg/dL 10/26/2023 07:33 EST TSH 3.10 uIU/mL 10/26/2023 07:33 EST Free T4 1.24 ng/dL 10/26/2023 07:33 EST CReacProt <0.30 mg/dL 10/26/2023 07:33 EST ESR 1 mm/hr 10/26/2023 07:33 EST B12 871 pg/mL 10/30/2023 08:40 EST Folate >20.0 ng/mL 10/26/2023 07:33 EST HCG Scr (u) NEGATIVE 10/26/2023 01:00 EST RPR NONREACTIVE 10/30/2023 08:40 EST Amphetamines(u) NONE DETECTED 10/26/2023 01:00 EST Barbiturates(u) NONE DETECTED 10/26/2023 01:00 EST Benzodiazepines(u) NONE DETECTED 10/26/2023 01:00 EST Cocaine(u) NONE DETECTED 10/26/2023 01:00 EST Marijuana(u) NONE DETECTED 10/26/2023 01:00 EST Opiates(u) NONE DETECTED 10/26/2023 01:00 EST HIV Ag/Ab Screening NONREACTIVE 10/30/2023 08:40 EST Glucose, CSF 62 mg/dL 10/30/2023 13:52 EST Protein, CSF 32 mg/dL 10/30/2023 13:52 EST (10/26/2023 09:[address] Abdomen and Pelvis w/ Contrast) Lungs are clear. Normal pleura. Normal thyroid, heart and mediastinum. Symmetric breast tissue. Normal axillary lymph nodes. ABDOMEN Liver, Gallbladder \\T\\ bile ducts: Normal liver. Focal fatty infiltration adjacent to falciform ligament. Cholecystectomy. Pancreas: Normal Spleen: Normal Adrenals: Normal Kidneys, collecting system and ureters: Normal Retroperitoneum, lymph nodes, and vessels: Normal caliber aorta. Mesenteric vasculature enhances normally. Bowel \\T\\ Mesentery: Normal PELVIS Bladder: Normal Reproductive organs: Normal Extraperitoneal, lymph nodes, vessels: Normal Osseous and body wall: Normal IMPRESSION: Normal [1] (10/26/2023 07:06 EST US Transvaginal Non-OB) IMPRESSION: No change [2] (10/26/2023 23:52 EST MRI Brain w/ + w/o Contrast) FINDINGS: Cerebral parenchyma: There is no restricted diffusion to suggest acute or early subacute infarct. There is no hemorrhage. Brain volume is normal for age. Maynard- white matter differentiation is preserved. Extra-axial spaces: Normal Ventricles: Normal as to size, shape and position. Mass effect: None Posterior Fossa: Brainstem and cerebellum are unremarkable. Cerebellar tonsils are normal in position and configuration Vascular system: major intracranial flow voids are present. Calvarium: Normal Sella: Unremarkable Visualized paranasal sinuses/mastoids: Mucous retention cyst/polyp in left maxillary sinus. Orbits: Unremarkable. IMPRESSION: Unremarkable MRI brain examination. [3] IMPRESSION: Thisawake and drowsy routine EEG is normal. CLINICAL CORRELATE: No epileptiform activity was captured. No seizures were captured. A normal EEG does not rule out epilepsy. [4] Tests Pending none Procedures Performed XRLP on 10/30 Special Instructions Common Emergency Awareness Tips Call 911 immediately if: experiencing any of the warning signs and symptoms of stroke: B.E. F.A.S.T. Balance: is there trouble with walking or coordination Eyes: is there double vision or visual loss Face: Smile, do both sides of face move equally Arm: Raise arms, do both arms move equally Speech: Is speech slurred or inappropriate Time: Time is critical, call 911 immediately Heart Attack Signs Chest discomfort: Most heart attacks involve discomfort in the center of the chest and lasts more than a few minutes, or goes away and comes back. It can feel like uncomfortable pressure, squeezing, fullness or pain. Discomfort in upper body: Symptoms can include pain or discomfort in one or both arms, back, neck, jaw or stomach. Shortness of breath: With or without discomfort. Other signs: Breaking out in a cold sweat, nausea, or lightheaded. Remember, MINUTES DO MATTER. If you experience any of these heart attack warning signs, call to get immediate medical attention! [1]CT Abdomen and Pelvis w/ Contrast; MD Dawson Seth Millard 10/26/2023 09:16 EST [2]US Transvaginal Non-OB; MD Samir, Chucky Chavez 10/26/2023 07:06 EST [3]MRI Brain w/ + w/o Contrast; MD Conrad Danilo 10/26/2023 23:52 EST [4]Routine EEG; DO Butler Joseph Merritt [facility] 10/28/2023 17:00 EST Anesthesia records * Services, CPDI: PERFORM Event Display: Sedation & Analgesia Record Authored Date: [id number] Patient Care team information Care Team Personnel Name: MD Mayen Juyeon Position: Referring Member Role: Primary Care Provider Address: Address: [address] [address] Name: Marco Antonio Ahumada Ashley Position: Pharmacist Schedule II Member Role: Pharmacy - Lifetime Name: Marco Antonio Meyer Brittani Position: Pharmacist Schedule II Member Role: Pharmacy - Lifetime Care Team Related Persons Name: XIOMARA WHITEHEAD Address: [address] [id number]
--- OUTSIDE RECORDS SUMMARY | 2023-11-05 23:41 | External Medical Summary | Summary of Care ---
Author Name Unknown Organization [facility] Address [address] [facility] [address] Phone [phone] Care Team Providers Care Clerical Adjudicator Name Role Phone Celso Mayen MD Primary Care Provider [phone] Reason for Visit * Reason Onset Date Comments Hospital Follow-Up 10/28/2023 No JOSE needed Encounter Details Date Type Department Care Team (Late st Contact Info) Description 10/28/2023 Telephone Ancillary Department, [place] [address] [place] [address] Franca House RN Hospital Follow-Up (No JOSE needed) Allergies Active Allergy Reactions Criticality Noted Date Comments Clarithromycin 11/18/2019 Cefaclor 11/18/2019 Clindamycin 11/18/2019 Cyclobenzaprine 11/18/2019 Numbness left side, confusion, stroke like symptoms Penicillins 11/18/2019 documented as of this encounter (statuses as of 10/28/2023) Medications Medication Sig Dispensed Refills Start Date End Date Status Probiotic Product (PROBIOTIC ACIDOPHILUS BIOBEADS) Capsule Take 1 Cap by mouth three times a day with meals. 0 Active Calcium 500-100 MG-UNIT Oral Tablet Chewable Take by mouth. 0 Active Saline Nasal Ama 0.65 % Nasal Solution Administer 1 Ama into nostril as needed for Congestion. 0 Active Fluticasone Propionate 50 MCG/ACT Nasal Suspension Administer 1 Ama into nostril in the morning. 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 09/03/2023 Mild persistent asthma without complication 01/2023 Irregular periods 09/03/2023 documented as of this encounter (statuses as of 10/28/2023) Resolved Problems Problem Noted Date Diagnosed Date Resolved Date Rh negative status during 12/15/2020 08/08/2021 Overview: ER on 01/25 for bleeding in 1st trimester, received RhoGAM there rhoGAM 05/03/21 , normal first 12/14/202005/2021 Adjustment disorder with mix ed anxiety and depressed mood 12/14/2020 08/08/2021 Overview: On zoloft documented as of this encounter (statuses as of 10/28/2023) Immunizations Name Administration Dates Next Due TDAP [...] money to get more. Never true 03/07/2023 Pevely Depression Scale Answer Date Recorded Pevely Depression Scale Total 8 11/22/2021 The thought [...] encounter Miscellaneous Notes * Telephone Encounter - Franca House RN - 10/28/2023 8:16 AM EST Transitions of Care Note Reason for Referral: Recent Admission Phone visit for follow up: Inpatient Hospitalization Admitted to: [facility], Date: 10.17.23 Discharged to: [facility], Date: 10.25.23 JOSE call not indicated due to transfer to [facility]. documented in this encounter Plan of Treatment Upcoming Encounters Date Type Department Care Team (Late st Contact Info) Description 03/24/2024 9:00 AM EDT Office Visit [facility] [address] [place] [phone] Celso Mayen MD [address] [place] [address] Health Maintenance Due Date Last Done Comments [...] filedocumented as of this encounter Care Teams Clerical Adjudicator Relationship Specialty Start Date End Date Celso Mayen MD [address] [place] [address] PCP - General Internal Medicine 07/03/23 documented as of this encounter
[2023-11-06] MEDS: SODIUM CHLORIDE 0.9% 1,000 ML IV SCH ×2 (02:39→03:39)
[2023-11-06] MEDS: LORazepam 2 MG in SYRINGE 1 ML IV ONE (03:21)
[2023-11-06 03:57] LABS: Hematocrit (blood only) 36.5 % (37.0-47.0); Hemoglobin 12.4 g/dl (12.0-16.0); Mean Corpuscular Hemoglobin 27.8 pg (25.0-34.0); Mean Corpuscular Volume 81.8 fL (80.0-100.0); Mean Platelet Volume 10.1 fL (9.4-12.4); Platelet Count 273 K/uL (130-400); RDW Standard Deviation 38.5 fL (36.4-46.3); Red Blood Count 4.46 M/uL (4.20-5.40)
[2023-11-06 04:16] LABS: Albumin Globulin Ratio 1.5 (0.9-2); Albumin Level 3.7 gm/dl (3.4-5.0); Bilirubin,Total 0.9 mg/dl (0.2-1.0); Calcium 8.2 mg/dl (8.6-10.3); Creatinine Clr Calc Pharmacy 145.1 ml/min; Est GFR (African American) 138.2 ml/min; Est GFR (Non-African American) 119.3 ml/min; Globulin 2.4 gm/dl (2.5-4.0); Magnesium 1.8 mg/dl (1.7-2.4); Total Protein 6.1 gm/dl (6.0-8.3)
[2023-11-06 04:39] LABS: Appearance Urine Clear (Clear); Bacteria Urine Automated Negative (Negative); Bilirubin Urine Negative (Negative); Blood Urine 2+ (Negative); Cast Urine Automated 0 /lpf (0-5); Color Urine Yellow; Epithelial Cell Urine Auto >30 /lpf (0-5); Glucose Urine UA Negative (Negative); Ketones Urine 3+ (Negative); Leukocyte Esterase Urine Negative (Negative); Nitrite Urine Negative (Negative); Protein Urine Negative (Negative); RBC Urine Automated 0-4 /hpf (0-4); Specific Gravity Urine 1.015 (1.000-1.030); Urobilinogen Urine Negative (Negative); pH Urine 6.5 (4.5-7.5)
[2023-11-06 04:57] LABS: Amphetamines+Metham, Urine Neg (Neg); Barbiturates, Urine Neg (Neg); Benzodiazepine, Urine Neg (Neg); Cocaine, Urine Neg (Neg); MDMA (Ecstacy), Urine Pos (Neg); Marijuana, Urine Neg (Neg); Methadone, Urine Neg (Neg); Opiate, Urine Neg (Neg); Phencyclidine, Urine Neg (Neg)
[2023-11-06] MEDS: POTASSIUM CHLORIDE / WTR 10 MEQ/100 ML PLCT IV SCH (06:33)
[2023-11-06] MEDS: LORazepam 2 MG in SYRINGE 1 ML IV PRN ×2 (06:33→11:10)
[2023-11-06] MEDS: POTASSIUM CHLORIDE 20 MEQ/15 ML UDC PO STA (06:38)
--- NOTE | 2023-11-06 10:50 | Electrocardiogram Report ---
Test Reason : Blood Pressure : / mmHG Vent. Rate : 144 BPM Atrial Rate : 000 BPM P-R Int : 000 ms QRS Dur : 070 ms QT Int : 336 ms P-R-T Axes : 000 050 037 degrees QTc Int : 520 ms Supraventricular tachycardia Incomplete right bundle branch block Nonspecific ST and T wave abnormality Abnormal ECG When compared with ECG of 16-OCT-2023 19:17, HR has increased by 38 bpm Otherwise no significant change Confirmed by Octaviano Monge ([id number]) on 11/06/2023 10:50:43 AM Referred By: REFERRED SELF Confirmed By:Octaviano Monge
--- NOTE | 2023-11-06 10:51 | Electrocardiogram Report ---
Test Reason : Blood Pressure : / mmHG Vent. Rate : 123 BPM Atrial Rate : 123 BPM P-R Int : 164 ms QRS Dur : 076 ms QT Int : 222 ms P-R-T Axes : 094 033 -49 degrees QTc Int : 317 ms Poor data quality, interpretation may be adversely affected Sinus tachycardia Diffuse Nonspecific ST and T wave abnormality Abnormal ECG When compared with ECG of 05-NOV-2023 14:29, Incomplete right bundle branch block no longer present Confirmed by Octaviano Monge ([id number]) on 11/06/2023 10:51:33 AM Referred By: REFERRED SELF Confirmed By:Octaviano Monge
--- NOTE | 2023-11-06 11:24 | Electrocardiogram Report ---
Test Reason : Blood Pressure : / mmHG Vent. Rate : 130 BPM Atrial Rate : 130 BPM P-R Int : 134 ms QRS Dur : 092 ms QT Int : 392 ms P-R-T Axes : 077 050 034 degrees QTc Int : 576 ms Sinus tachycardia Left atrial enlargement Incomplete right bundle branch block Nonspecific ST and T wave abnormality Abnormal ECG When compared with ECG of 05-NOV-2023 14:10, No significant change Confirmed by Octaviano Monge ([id number]) on 11/06/2023 11:23:42 AM Referred By: REFERRED SELF Confirmed By:Octaviano Monge
--- NOTE | 2023-11-06 13:38 | Neurology Consultation ---
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 There is clear entrainment and distractibility on exam suggesting a psychogenic component. Suspect the tremor is driving the tachycardia however, early/mild serotonin syndrome can not be completely ruled out. Agree with psychiatry input, suspect she will need further hospitalization for stabilization of her medication regimen. She does not meet criteria for autoimmune encephalitis. -- Defer to psychiatry for medication management. -- Low suspicion for a neurologic disorder Telehealth Consultation Telehealth Information Telehealth Information: I performed this visit using a real-time telehealth connection between my location and the patients location ([facility]). After connecting through interactive tele-video, patient was identified by name and date of and/or wristband check.Patient (or authorized healthcare financial sales representative) was informed that this was a telemedicine visit and it was being conducted confidentially over secure lines. My office door was closed and no one else was present in the room with me.Patient (or authorized healthcare financial sales representative) provided consent to proceed with the visit, expressed an understanding of privacy and security of the telemedicine visit, and gave per mission to have a hospital financial sales representative in the room in order to assist with the visit and to conduct portions of the visit, as needed. I informed the patient (or authorized healthcare financial sales representative) that I reviewed their record and presented the opportunity for them to ask any questions regarding the visit today. The patient agreed to participate. History of Present Illness Reason for Consultation: tremor Requesting Physician: Dr. Arechiga Attending Physician: Wm Arechiga MD History of Present Illness Loida Whitehead is a 37 yo F presenting back to [facility] after a prolonged psychiatric admission for psychosis thought to be secondary to bipolar disorder. She was discharged on buspirone, escitalopram, haloperidol and trazodone. On arrival back to the ED she was noted to have a significant tremor, hypophonia, tachycardia and sweating. Patient believes her medication caused the tremor as she did not have a tremor prior. The patient feels that the tremor is worsening. Allergies Allergy/AdvReac Type Severity Reaction Status Date / Time cefaclor Allergy Intermediate Hives/Rash Verified 11/05/23 15:52 clarithromycin Allergy Intermediate Hives/Rash Verified 11/05/23 15:52 clindamycin Allergy Intermediate Hives/Rash Verified 11/05/23 15:52 cyclobenzaprine Allergy Intermediate Confusion, Verified 11/05/23 15:52 impaired speech and arm numbness. Penicillins Allergy Hives Verified 11/05/23 15:52 Home Medications Medication Instructions Recorded Confirmed Type trazodone 100 mg tablet 100 mg PO HS insomnia #1 tab 10/25/23 11/05/23 Rx buspirone 10 mg tablet 20 mg PO AMPM 11/05/23 11/05/23 History escitalopram oxalate 20 mg tablet 20 mg PO QAM 11/05/23 11/05/23 History haloperidol 5 mg tablet 10 mg PO AMPM 11/05/23 11/05/23 History Patient History Medical History (Updated 11/06/23 @ 13:50 by Octaviano Tyler MD) Elevated liver enzymes Migraine headache Asthma Vaginal odor Urinary tract infection Pelvic pain Abnormal uterine bleeding Encounter for pre-operative examination Hypokalemia Gastroenteritis Dehydration Asthma Rare use of PRN inhaler Ventral hernia without obstruction or gangrene Normal course Encounter for pre-operative examination Adjustment disorder with mixed anxiety and depressed mood Rh negative status during in third trimester Pre-eclampsia, severe, antepartum 39 weeks gestation of Anxiety and depression Migraine Surgical History (Updated 10/25/23 @ 17:09 by Cesar Lambert MD) H/O ventral hernia repair (05/02/22) Open Ventral Hernia Repair, primary - Georgi Lorenzana DO, FACS History of hysteroscopy w/ polypectomy History of esophagogastroduodenoscopy (EGD) [place] teeth extracted History of cholecystectomy Family History Mother High cholesterol Breast cancer Cancer Grandmother (Maternal) Cancer Father High cholesterol Hypertension Other No family history of adverse response to anesthesia Social History Smoking Status: Never smoker Second Hand Exposure: No; Do You Dip or Chew Tobacco: No; Hx Alcohol Use: Yes Alcohol type: wine Alcohol Intake Frequency: Monthly or Less Hx Substance Use: No Preferred Language: Romansh Communication Ability: Effective Visual Impairment: No Limitations Director Clinical Applications Required: No Beliefs That Will Affect Care: None marital status: Current Living Situation: Spouse current occupational status: employed current occupation: [employer] How many Children do You have: 1 Feels Safe at Home: Yes Safety Concerns: Feels Safe At This Time Diet: regular during the past year weight has: other Gender Identity: Female Assistive Devices: Contacts and Glasses Review of Systems +tremor Physical Exam Awake, alerts to voice, oriented to person. Language normal, mildly dysarthric with hypophonia. Face appears symmetric. Violent arrhythmic tremor of the RUE that is entrainable and distractible. Movements are otherwise bradykinetic but antigravity. Results & Data Vital Signs (Past 12 Hours) Vital Signs Temp Pulse Resp BP Pulse Ox 11/06/23 13:28 138 H 11/06/23 13:00 130/94 11/06/23 13:00 138 H 22 97 11/06/23 12:30 95 H 13 96 11/06/23 12:00 107/67 11/06/23 12:00 93 H 13 96 11/06/23 11:30 89 12 95 11/06/23 11:00 92 H 13 96 11/06/23 11:00 113/72 11/06/23 10:30 139 H 26 H 96 11/06/23 10:00 142/91 H 11/06/23 10:00 139 H 23 97 11/06/23 09:30 132 H 18 95 11/06/23 09:01 135/92 11/06/23 09:01 29 H 96 11/06/23 09:00 25 H 96 11/06/23 08:45 135/81 11/06/23 08:45 116 H 17 96 11/06/23 08:30 143 H 26 H 95 11/06/23 08:15 37.3 C 11/06/23 08:00 153/102 H 11/06/23 08:00 153 H 24 96 11/06/23 07:30 160 H 26 H 96 11/06/23 07:00 160/98 H 11/06/23 07:00 155 H 27 H 96 11/06/23 06:45 138 H 23 96 11/06/23 03:00 36.6 C 138 H 23 144/88 H 95 Laboratory Results Abnormal lab results 11/05/23 11/06/23 11/06/23 Range/Units 14:24 03:38 Unknown WBC 16.08 H 14.80 H (4.8-10.8) K/ul Hct 36.5 L (37.0-47.0) % Neut # (Auto) 13.40 H (1.40-6.50) K/uL [place] # (Auto) 1.00 H (0.11-0.59) K/uL Potassium 3.0 L (3.5-5.1) mmol/L Anion Gap 13 H (3-11) Creatinine 0.57 L (0.6-1.2) mg/dl Glucose 105 H (70-99(Fasting)) mg/dl Calcium 8.2 L (8.6-10.3) mg/dl AST 41 H 41 H (13-39) U/L Total Creatine Kinase 1345 H (26-192) U/L Globulin 2.4 L (2.5-4.0) gm/dl Lipase < 3 L (11-82) U/L Urine Ketones 3+ H (Negative) Urine Blood 2+ H (Negative) U Epithel Cells (Auto) >30 H (0-5) /lpf Salicylates < 3.0 L (3.0-30) mg/dl Acetaminophen < 3 L (10-30) ug/ml MDMA (Ecstasy) Screen Pos H (Neg)
[2023-11-06] MEDS: METOPROLOL TARTRATE 1 MG/ML VIAL IV PRN (14:31)
[2023-11-06] MEDS: BENZTROPINE MESYLATE 1 MG/ML 2 ML AMP IV STA (15:18)
--- NOTE | 2023-11-06 15:37 | Psychiatric Consultation ---
Date of Consultation November 06, 2023 Impression / Recommendations Impression This is an interesting story and I am not sure exactly what is happening here. The more likely event is that she is having some type of dystonia from her Haldol. It is possible she may have taken too much of it either on purpose or accidentally. We are going to give a dose of Cogentin and see if that offer some help. It is possible that this is serotonin syndrome and so we are going to hold off on all medications that might increase serotonin for now. Once she has recovered physically and is doing better, we can take a closer look at her medications and possibly make some new adjustments. While we are not sure that she had taken MDMA, that also would contribute to a serotonin syndrome if she did in fact take it along with her other serotonin medications. (1) Dystonia: (2) Serotonin syndrome: (3) Anxiety and depression: (4) Psychogenic tremor: Plan 1. If we feel that this is a psychogenic event, it would be important to give her an unconscious way "out" of the event by making things more annoying and inconvenient for her. This would allow her to save face and still be able to recover. I told her that if this is truly a serotonin syndrome, she should get better in the next day or so. By leaving it vague like that, it gives her an opportunity to ease herself out of this. 2. We gave a one-time dose of Cogentin 2 mg IV to see if that may offer some relief if this is a dystonia. We will have to see how this turns out. 3. Hold off on all medications that can increase serotonin levels. 4. Once her problems subside, we can reevaluate the situation and possibly decide on some new psychiatric medications to help her that will not cause such problems. 5. We will continue to follow. Psych History Identifying Data Loida is a 37-year-old female who presented with her to our emergency room yesterday with and [id number]-[id number]. She had recently been discharged from [facility] about a week before. She was having rigidity and difficulty talking. I was asked to evaluate her for possible serotonin syndrome or some other psychiatric issue that we could help with. Chief Complaint " Shaking for 5 days." History of Present Illness Patient was very difficult to understand because she was slurring her speech and speaking very softly. She had left [facility] on 4 different medications: These include trazodone 100 mg at bedtime, buspirone 20 mg twice daily, Lexapro 20 mg every afternoon, and Haldol 15 mg daily. She said that over the last 5 days she has been having trouble talking and having a lot of r igidity. Her earlier presentation that resulted in a psychiatric hospitalization was connected to psychosis. There were also some concerns that she may have some type of rare encephalitis which resulted in her transfer to [place]. She is denying any suicidal or homicidal thoughts. She has been able to sleep. She was reportedly scheduled to start some type of psychiatric program in [place] on Saturday. This sounds like it might be a partial hospitalization program. During her time in the emergency room, she was noted to have an elevated heart rate. There was no fever. She was having some tremulousness throughout her entire body. Dr. Tyler, the consult neurologist, met with the patient as well. He felt like the tremor was psychogenic. While it cannot be completely ruled out, he is not terribly suspicious about serotonin syndrome either. Past Psychiatric History Previous Psych History: Patient has a history of depression, anxiety, and PTSD. Her psychosis is a recent phenomenon just in the last month. She has been on Wellbutrin, buspirone, Lexapro, and the current Haldol and Thorazine. She was being seen at some point briefly. She has been involved in some trauma informed therapy. Her hospitalization here in September was her first lifetime psychiatric hospitalization. Allergies Allergy/AdvReac Type Severity Reaction Status Date / Time cefaclor Allergy Intermediate Hives/Rash Verified 11/05/23 15:52 clarithromycin Allergy Intermediate Hives/Rash Verified 11/05/23 15:52 clindamycin Allergy Intermediate Hives/Rash Verified 11/05/23 15:52 cyclobenzaprine Allergy Intermediate Confusion, Verified 11/05/23 15:52 impaired speech and arm numbness. Penicillins Allergy Hives Verified 11/05/23 15:52 Home Medications Medication Instructions Recorded Confirmed Type trazodone 100 mg tablet 100 mg PO HS insomnia #1 tab 10/25/23 11/05/23 Rx buspirone 10 mg tablet 20 mg PO AMPM 11/05/23 11/05/23 History escitalopram oxalate 20 mg tablet 20 mg PO QAM 11/05/23 11/05/23 History haloperidol 5 mg tablet 10 mg PO AMPM 11/05/23 11/05/23 History Patient History Medical History (Updated 11/06/23 @ 15:27 by Emeterio Ma Jr, MD) Elevated liver enzymes Migraine headache Asthma Vaginal odor Urinary tract infection Pelvic pain Abnormal uterine bleeding Encounter for pre-operative examination Hypokalemia Gastroenteritis Dehydration Asthma Rare use of PRN inhaler Ventral hernia without obstruction or gangrene Normal course Encounter for pre-operative examination Adjustment disorder with mixed anxiety and depressed mood Rh negative status during in third trimester Pre-eclampsia, severe, antepartum 39 weeks gestation of Anxiety and depression Migraine Surgical History (Updated 10/25/23 @ 17:09 by Cesar Lambert MD) H/O ventral hernia repair (05/02/22) Open Ventral Hernia Repair, primary - Georgi Lorenzana DO, FACS History of hysteroscopy w/ polypectomy History of esophagogastroduodenoscopy (EGD) [place] teeth extracted History of cholecystectomy Family History Mother High cholesterol Breast cancer Cancer Grandmother (Maternal) Cancer Father High cholesterol Hypertension Other No family history of adverse response to anesthesia Social History Smoking Status: Never smoker Second Hand Exposure: No; Do You Dip or Chew Tobacco: No; Hx Alcohol Use: Yes Alcohol type: wine Alcohol Intake Frequency: Monthly or Less Hx Substance Use: No Preferred Language: Italian Communication Ability: Impaired Visual Impairment: No Limitations Apartment Rental Agent Required: No Beliefs That Will Affect Care: None marital status: Current Living Situation: Spouse current occupational status: employed current occupation: [employer] How many Children do You have: 1 Feels Safe at Home: Yes Safety Concerns: Feels Safe At This Time Diet: regular during the past year weight has: other Gender Identity: Female Assistive Devices: None Physical Exam Mental Examination: Patient was alert but her eyes were closed. Her speech was difficult to understand. She was disheveled in hospital scrubs. She was oriented to date and place. She was cooperative. Affect was very flat. Mood seemed very down. Thought process seems logical although it was difficult to understand her. There is no evidence of any hallucinations or delusions. She denied suicidal ideation. Memory was good she knew her date of and the president's name. She continued to have tremors throughout her body and her muscle seemed very stiff. When we tried to move her feet to try to induce a clonus, her feet were just very stiff. Insight and judgment seem pretty poor. Vital Signs (Past 24 Hours): Last Vital Signs Temp 37.3 C 11/06/23 08:15 Pulse 136 H 11/06/23 15:00 Resp 26 H 11/06/23 15:00 BP 145/101 H 11/06/23 15:00 Pulse Ox 96 11/06/23 15:00 O2 Del Method Room Air 11/06/23 14:30 Results & Data (PSY) Laboratory Results CBC had an elevated white blood cell count on both checks yesterday and today. Hematocrit was slightly low on the November 06 blood draw. The differential last evening had 13.40 neutrophils and 1.00 monocytes, both high. A CMP this morning had a low potassium at 3.0, creatinine low at 0.57. Calcium low at 8.2. AST elevated at 41. Total creatine kinase this morning was 1345. Globulin was low at 2.4. Last evening a lipase was negative. TSH was normal. hCG was negative. Urinalysis showed 3+ ketones and 2+ blood. There were greater than 30 epithelial cells. Salicylates were negative acetaminophen negative. Urine drug screen was positive for MDMA but otherwise completely negative. Alcohol was negative. Diagnostic Findings Head CT yesterday showed no acute intracranial abnormality. Chest x-ray yesterday showed hypoinflation with bronchovascular crowding. It also showed mild bibasilar densities that are likely atelectatic. An EKG early this morning showed sinus tachycardia, diffuse nonspecific ST and T wave abnormality, when compared with the afternoon before, incomplete right bundle branch block was no longer present. QTc 317 ms. Ventricular rate 123 bpm. Medications Administered Sodium Chloride (Nss) 1,000 mls @ 125 mls/hr IV .Q8H ARMEN Stop: 12/06/23 03:44 Last Admin: 11/06/23 11:03 Dose: 125 mls/hr Documented By: Infusion: 11/06/23 11:03 Dose: Infused Documented By: Admin: 11/06/23 03:39 Dose: 125 mls/hr Documented By: FUNMILAYO Lorazepam 2 mg/ Syringe 2 mls @ 2 mls/min IV Q2H PRN PRN Reason: Agitation, Tremors Stop: 12/05/23 18:45 Last Admin: 11/06/23 13:27 Dose: 2 mls/min Documented By: Admin: 11/06/23 11:10 Dose: 2 mls/min Documented By: RIMA Metoprolol Tartrate (Metoprolol Tartrate 1 Mg/Ml Vial) 2.5 mg IV Q6 PRN PRN Reason: HR > 110 Stop: 12/06/23 17:59 Last Admin: 11/06/23 14:31 Dose: 2.5 mg Documented By: ZACHARY Coding Level of Care Code 66262 [facility] Intl Hosp Care Lvl 3 Diagnoses Dystonia G24.9 Serotonin syndrome G25.79 Anxiety and depression F41.9; F32.A Psychogenic tremor F44.4 Time Spent (min) 65
--- NOTE | 2023-11-06 18:28 | Hospitalist Progress Note ---
Date of Service November 06, 2023 Assessment & Plan (1) Serotonin syndrome: (2) Leukocytosis: (3) Anxiety and depression: (4) Tachycardia: Plan: per admitting service notes with addendum: - Admit to PCU - Continue NSS at 125 ml/hr, Ativan 2 mg IV Q4H prn agitation while comes out of this - EKG reviewed showing sinus tach, has improved with fluids since being the ER - Check CT head as no imaging completed yet today for changes in mental status, she is does Ativan 2 mg IV in the ER, sedated but comfortable presently - Psych consultation for possible med wash due to concern for seratonin syndrome - holding all psych meds at this time - Consult neuro - [facility] reviewed did not reveal infectious etiology in LP, EEG, EKG - Pt was on haldol 10 BID from discharge from [facility], and weaned this to 5 mg BID about 3 days ago due to concern for increased symptoms. Not given this morning. - Home meds include: buspirone 20 mg BID (stopped this yesterday), is taking trazodone 100 mg HS and got it last night, and lexapro 20 mg daily. - Prior to any hospital stay was only on buspirone and lexapro for anxiety and depression. - Follow ua/urine culture and drug tox - WBC of 16 k does not appear infectious at this time, negative CXR, awaiting finalized ua, no other symptoms per present at bedside. - Last menstrual cycle was this week, finished yesterday 11/06 Ativan 2mg IV q2-4hr PRN with hold parameters PRN Metoprolol and Tylenol Cogentin IV given by Psych Neurology also consulted continue supportive care no focus of infection identified at this time DVT ppx: teds, scds Lines: 1 PIV Diet: Easy to chew, regular CODE: FULL Dispo: pending lives at home with family Admission and Anticipated Discharge Date Admission Date: November 05, 2023 Subjective ff up for possible serotonin syndrome, etc seen resting in bed, RN at bedside throughout whole encounter drowsy, eyes mostly closed, but answering all questions appropriately states she feels "cruddy" has tremors, aches all over no chest pain, dyspnea, palpitations, dizziness no other new symptoms Review of Systems Review of Systems: all noted and negative except for above Physical Exam Physical Exam: General- oriented x 3, not in distress, speaks in sentences with no effort or accessory muscle use Eyes- anicteric Neck- no JVD Lungs- clear breath sounds bilaterally, no rales/wheezes Heart- tachycardic, regular rhythm; no murmurs Abdomen- normal bowel sounds, nondistended, soft, nontender Extremities- no pretibial edema, no calf tenderness (+) tremors Neuro- alert, oriented x 3; no gross focal neurologic deficits Skin- warm & dry Results & Data Results & Data Vital Signs (Past 12 Hours) Vital Signs Temp Pulse Resp BP Pulse Ox O2 Del Method 11/06/23 17:55 37.2 C 11/06/23 17:36 136 H 24 96 11/06/23 17:36 142/96 H 11/06/23 17:30 145 H 28 H 96 11/06/23 17:00 140/111 H 11/06/23 17:00 151 H 24 97 11/06/23 16:30 21 96 11/06/23 16:00 136/92 11/06/23 16:00 146 H 26 H 96 11/06/23 15:30 142 H 27 H 96 11/06/23 15:00 145/101 H 11/06/23 15:00 136 H 26 H 96 11/06/23 14:48 139/91 11/06/23 14:48 132 H 28 H 96 11/06/23 14:46 130 H 11/06/23 14:30 161 H 25 H 97 Room Air 11/06/23 14:07 146 H 11/06/23 14:00 150/84 H 11/06/23 14:00 160 H 20 96 11/06/23 13:30 153 H 24 96 11/06/23 13:28 138 H 11/06/23 13:00 130/94 11/06/23 13:00 138 H 22 97 11/06/23 12:30 95 H 13 96 11/06/23 12:00 107/67 11/06/23 12:00 93 H 13 96 11/06/23 11:30 89 12 95 11/06/23 11:00 92 H 13 96 11/06/23 11:00 113/72 11/06/23 10:30 139 H 26 H 96 11/06/23 10:00 142/91 H 11/06/23 10:00 139 H 23 97 11/06/23 09:30 132 H 18 95 11/06/23 09:01 135/92 11/06/23 09:01 29 H 96 11/06/23 09:00 25 H 96 11/06/23 08:45 135/81 11/06/23 08:45 116 H 17 96 11/06/23 08:30 143 H 26 H 95 11/06/23 08:15 37.3 C 11/06/23 08:00 153/102 H 11/06/23 08:00 153 H 24 96 11/06/23 07:30 160 H 26 H 96 11/06/23 07:00 160/98 H 11/06/23 07:00 155 H 27 H 96 11/06/23 06:45 138 H 23 96 all noted and reviewed including below (2) Leukocytosis Leukocytosis type: unspecified Qualified Code(s): D72.829 - Elevated white blood cell count, unspecified
[2023-11-07] MEDS: METOPROLOL TARTRATE 1 MG/ML VIAL IV STA (01:11)
[2023-11-07] MEDS: NSS + 20MEQ KCL 20 MEQ/1,000 ML BAG IV ONE (01:11)
[2023-11-07] MEDS: MAGNESIUM SULFATE / D5W 1 GM/100 ML BAG IV SCH (01:23)
[2023-11-07] MEDS: POTASSIUM CHLORIDE CRTAB 20 MEQ TABCR PO STA (01:23)
[2023-11-07 05:19] LABS: Basophils # (auto) 0.13 K/uL (0.00-0.20); Basophils % (auto) 0.8 %; Eosinophils # (auto) 0.06 K/uL (0.00-0.50); Eosinophils % (auto) 0.4 %; Hematocrit (blood only) 42.7 % (37.0-47.0); Hemoglobin 14.1 g/dl (12.0-16.0); Immature Granulocytes # (auto) 0.12 K/uL (0.01-0.20); Immature Granulocytes % (auto) 0.8 %; Lymphocytes # (auto) 2.99 K/uL (1.20-3.40); Lymphocytes % (auto) 18.9 %; Mean Corpuscular Hemoglobin 27.4 pg (25.0-34.0); Mean Corpuscular Volume 82.9 fL (80.0-100.0); Monocytes # (auto) 1.18 K/uL (0.11-0.59); Monocytes % (auto) 7.5 %; Neutrophils # (auto) 11.32 K/uL (1.40-6.50); Neutrophils % (auto) 71.6 %; Platelet Count 336 K/uL (130-400); RDW Coefficient of Variation 13.1 % (11.5-14.5); RDW Standard Deviation 39.2 fL (36.4-46.3); Red Blood Count 5.15 M/uL (4.20-5.40)
[2023-11-07 05:46] LABS: BUN Creatinine Ratio 8.6 (10-20); Calcium 8.8 mg/dl (8.6-10.3); Creatinine Clr Calc Pharmacy 142.6 ml/min; Est GFR (African American) 137.4 ml/min; Est GFR (Non-African American) 118.6 ml/min; Magnesium 2.5 mg/dl (1.7-2.4); Potassium 3.6 mmol/L (3.5-5.1)
[2023-11-07 09:47] LABS: Albumin Level 4.2 gm/dl (3.4-5.0); Bilirubin Direct 0.2 mg/dl (0-0.2); Total Protein 6.7 gm/dl (6.0-8.3)
--- NOTE | 2023-11-07 13:59 | Electrocardiogram Report ---
Test Reason : Blood Pressure : / mmHG Vent. Rate : 128 BPM Atrial Rate : 128 BPM P-R Int : 146 ms QRS Dur : 080 ms QT Int : 296 ms P-R-T Axes : 076 045 000 degrees QTc Int : 432 ms Poor data quality, interpretation may be adversely affected Sinus tachycardia Diffuse Nonspecific T wave abnormality Abnormal ECG When compared with ECG of 06-NOV-2023 03:09, No significant change Confirmed by Octaviano Monge ([id number]) on 11/07/2023 1:59:12 PM Referred By: REFERRED SELF Confirmed By:Octaviano Monge
--- NOTE | 2023-11-07 15:21 | Cardiology Consultation ---
Date of Consultation November 07, 2023 Assessment & Plan (1) Sinus tachycardia: (2) Leukocytosis: (3) Serotonin syndrome: (4) Psychogenic tremor: (5) Anxiety and depression: Plan 37-year-old female with sinus tachycardia likely provoked by agitation, and anxiety. Heart rate within normal limits and trending down to 60 bpm during sleep. TSH within normal limits. Serum catecholamines /metanephrines and urine metanephrines ordered for completeness although pheochromocytoma is unlikely. Currently receiving as needed doses of IV metoprolol as per hospitalist. Occasional elevated blood pressure readings noted, however, I suspect also provoked by agitation. Exclude other secondary causes of sinus tachycardia including infection. Blood culture pending at this time. She does not appear clinically dehydrated with normal electrolytes and renal function per lab studie s. Denies any pain or discomfort at this time. I believe her heart rate will improve with treatment of underlying psychiatric conditions including PTSD, anxiety, and depression. Defer to psychiatry and neurology in that regard. If heart rate does not improve despite optimization of mental health medications, consider addition of oral low-dose beta-mitesh therapy. Bedside 2D transthoracic echocardiogram demonstrates normal left ventricular function without valvular pathology or pericardial effusion. Thank you for allow me to participate in the care of your patient. Please do not hesitate to contact me with any further concerns/questions. History of Present Illness Reason for Consultation: Persistent tachycardia Requesting Physician: Dr. Arechiga Attending Physician: Wm Arechiga MD History of Present Illness 37-year-old female with a past medical history of depression, anxiety, PTSD presented to the emergency department 11/05/2023 due to rigidity, and tremor. Cardiology consultation requested due to tachycardia. Patient unable to offer meaningful history. Chart reviewed. On admission, reports patient not receiving psychiatric medications in the morning of admission due to rigidity, trouble eating and tremor. At that time patient was reporting feeling hot and diaphoretic. She was admitted to the intensive care unit due to possible serotonin syndrome. Evaluated by both neurology and psychiatry. Patient seen and examined at the bedside in the intensive care unit. Currently offers no complaints. Heart rate in the 60s while sleeping. Upon awakening, her heart rate trends upward to 120s without positional change or activity. She remains in sinus rhythm. Denies palpitations, lightheadedness, or dizziness. No chest discomfort or heaviness. Recently hospitalized at [facility] and discharged [birth year]/30/1932 on buspirone, trazodone, Lexapro. Urine drug screen positive for MDMA, however, this may be a false positive due to use of trazodone. No history of fever, chills, or sick contacts. Blood cultures drawn today. Allergies Allergy/AdvReac Type Severity Reaction Status Date / Time cefaclor Allergy Intermediate Hives/Rash Verified 11/05/23 15:52 clarithromycin Allergy Intermediate Hives/Rash Verified 11/05/23 15:52 clindamycin Allergy Intermediate Hives/Rash Verified 11/05/23 15:52 cyclobenzaprine Allergy Intermediate Confusion, Verified 11/05/23 15:52 impaired speech and arm numbness. Penicillins Allergy Hives Verified 11/05/23 15:52 Home Medications Medication Instructions Recorded Confirmed Type trazodone 100 mg tablet 100 mg PO HS insomnia #1 tab 10/25/23 11/05/23 Rx buspirone 10 mg tablet 20 mg PO AMPM 11/05/23 11/05/23 History escitalopram oxalate 20 mg tablet 20 mg PO QAM 11/05/23 11/05/23 History haloperidol 5 mg tablet 10 mg PO AMPM 11/05/23 11/05/23 History Patient History Medical History Elevated liver enzymes Migraine headache Asthma Vaginal odor Urinary tract infection Pelvic pain Abnormal uterine bleeding Encounter for pre-operative examination Hypokalemia Gastroenteritis Dehydration Asthma Rare use of PRN inhaler Ventral hernia without obstruction or gangrene Normal course Encounter for pre-operative examination Adjustment disorder with mixed anxiety and depressed mood Rh negative status during in third trimester Pre-eclampsia, severe, antepartum 39 weeks gestation of Anxiety and depression Migraine Surgical History H/O ventral hernia repair (05/02/22) Open Ventral Hernia Repair, primary - Georgi Lorenzana DO, FACS History of hysteroscopy w/ polypectomy History of esophagogastroduodenoscopy (EGD) [place] teeth extracted History of cholecystectomy Family History Mother High cholesterol Breast cancer Cancer Grandmother (Maternal) Cancer Father High cholesterol Hypertension Other No family history of adverse response to anesthesia Social History Smoking Status: Never smoker Second Hand Exposure: No; Do You Dip or Chew Tobacco: No; Hx Alcohol Use: Yes Alcohol type: wine Alcohol Intake Frequency: Monthly or Less Hx Substance Use: No Preferred Language: Hungarian Communication Ability: Impaired Visual Impairment: No Limitations Hospice Music Therapy Required: No Beliefs That Will Affect Care: None marital status: Current Living Situation: Spouse current occupational status: employed current occupation: [employer] How many Children do You have: 1 Feels Safe at Home: Yes Safety Concerns: Feels Safe At This Time Diet: regular during the past year weight has: other Gender Identity: Female Assistive Devices: None Review of Systems Review of Systems: Unobtainable due to mental health condition Physical Exam Constitutional: + ill appearing and + disheveled Respiratory: normal respiratory effort; no respiratory distress and no retractions Auscultation: no crackles, no rales, no rhonchi and no wheezes Cardiovascular: Rate/Rhythm: regular rate and regular rhythm Heart Sounds: normal S1 and normal S2; no murmur Extremities: no edema Gastrointestinal (Abdomen): Inspection/Auscultation: abdomen normal to inspection and normal bowel sounds; abdomen not distended Percussion/Palpation: abdomen soft; abdomen nontender, no guarding and abdomen not rigid Neurologic: CN's II-XI intact bilaterally and moves all extremities Results & Data Vital Signs (Past 12 Hours) Vital Signs Temp Pulse Resp BP Pulse Ox 11/07/23 14:21 36.9 C 11/07/23 14:01 126 H 27 H 94 11/07/23 14:01 142/96 H 11/07/23 14:00 110 H 19 11/07/23 13:30 121 H 24 96 11/07/23 13:20 110 H 11/07/23 13:12 111 H 23 97 11/07/23 13:12 136/91 11/07/23 13:00 125 H 25 H 97 11/07/23 12:30 146 H 19 97 11/07/23 12:00 142/104 H 11/07/23 12:00 144 H 25 H 98 11/07/23 11:30 141 H 24 96 11/07/23 11:00 111/72 11/07/23 11:00 86 15 98 11/07/23 10:30 92 H 16 97 11/07/23 10:00 126/83 11/07/23 10:00 112 H 13 98 11/07/23 09:30 153 H 26 H 97 11/07/23 09:00 124/89 11/07/23 09:00 98 H 20 96 11/07/23 08:30 132 H 23 97 11/07/23 08:00 109 H 23 97 11/07/23 08:00 118/84 11/07/23 07:30 152 H 17 92 11/07/23 07:10 36.9 C 11/07/23 07:03 110 H 11/07/23 07:00 136/92 11/07/23 07:00 107 H 21 96 11/07/23 06:48 136 H 130/83 11/07/23 06:45 142 H 21 97 Laboratory Results Cardiac Enzymes 11/07/23 Range/Units 08:55 AST 41 H (13-39) U/L CBC 11/07/23 Range/Units 04:56 WBC 15.80 H (4.8-10.8) K/ul RBC 5.15 (4.20-5.40) M/uL Hgb 14.1 (12.0-16.0) g/dl Hct 42.7 (37.0-47.0) % Plt Count 336 (130-400) K/uL Neut # (Auto) 11.32 H (1.40-6.50) K/uL Lymph # (Auto) 2.99 (1.20-3.40) K/uL Labette # (Auto) 1.18 H (0.11-0.59) K/uL Eos # (Auto) 0.06 (0.00-0.50) K/uL Baso # (Auto) 0.13 (0.00-0.20) K/uL Comprehensive Metabolic Panel 11/07/23 11/07/23 Range/Units 04:56 08:55 Sodium 139 (136-145) mmol/L Potassium 3.6 (3.5-5.1) mmol/L Chloride 103 (98-107) mmol/L Carbon Dioxide 23 (21-32) mmol/L BUN 5 L (6-23) mg/dl Creatinine 0.58 L (0.6-1.2) mg/dl Glucose 93 (70-99(Fasting)) mg/dl Calcium 8.8 (8.6-10.3) mg/dl Direct Bilirubin 0.2 (0-0.2) mg/dl AST 41 H (13-39) U/L ALT 34 (7-52) U/L Alkaline Phosphatase 42 (34-104) U/L Total Protein 6.7 (6.0-8.3) gm/dl Albumin 4.2 (3.4-5.0) gm/dl Intake and Output 11/07/23 11/07/23 11/07/23 06:59 14:59 22:59 Intake Total 1129.167 / 3627.500 1750 / 1750 Output Total 350 / 2000 1451 / 1451 Balance 779.167 / 1627.500 299 / 299 Intake: IV 1129.167 / 3277.500 1000 / 1000 Magnesium Sulfate / D5w 1 gm In 200 / 200 100 ml @ 50 mls/hr IV Q2H [facility] Rx#:[id number] Nss + 20Meq KCl 20 meq In 1,000 1000 / 1000 ml @ 100 mls/hr IV .Q10H [facility] Rx#:[id number] Sodium Chloride 0.9% 1,000 ml @ 929.167 / 2704.167 125 mls/hr IV .Q8H [facility] Rx#: [id number] Oral 0 / 350 750 / 750 Output: Urine Amount (Catheter) 350 / 900 1450 / 1450 Aguayo/Indwelling 350 / 900 1450 / 1450 # Bowel Movements Other: Weight 82.9 kg Weight Measurement Method Built in [facility] (2) Leukocytosis Leukocytosis type: unspecified Qualified Code(s): D72.829 - Elevated white blood cell count, unspecified
--- NOTE | 2023-11-07 15:30 | Hospitalist Progress Note ---
Date of Service November 07, 2023 Assessment & Plan (1) Serotonin syndrome: (2) Leukocytosis: (3) Anxiety and depression: (4) Tachycardia: Plan: per admitting service notes with addendum: - Admit to PCU - Continue NSS at 125 ml/hr, Ativan 2 mg IV Q4H prn agitation while comes out of this - EKG reviewed showing sinus tach, has improved with fluids since being the ER - Check CT head as no imaging completed yet today for changes in mental status, she is does Ativan 2 mg IV in the ER, sedated but comfortable presently - Psych consultation for possible med wash due to concern for seratonin syndrome - holding all psych meds at this time - Consult neuro - [facility] reviewed did not reveal infectious etiology in LP, EEG, EKG - Pt was on haldol 10 BID from discharge from [place], and weaned this to 5 mg BID about 3 days ago due to concern for increased symptoms. Not given this morning. - Home meds include: buspirone 20 mg BID (stopped this yesterday), is taking trazodone 100 mg HS and got it last night, and lexapro 20 mg daily. - Prior to any hospital stay was only on buspirone and lexapro for anxiety and depression. - Follow ua/urine culture and drug tox - WBC of 16 k does not appear infectious at this time, negative CXR, awaiting finalized ua, no other symptoms per present at bedside. - Last menstrual cycle was this week, finished yesterday 11/06 Ativan 2mg IV q2-4hr PRN with hold parameters PRN Metoprolol and Tylenol Cogentin IV given by Psych Neurology also consulted continue supportive care no focus of infection identified at this time 2/8 HR still elevated Echo ordered: no valvular abnormalities, pericardial effusion Cardiology service consulted, appreciate recommendations Continue as needed metoprolol for heart rate more than 110 Continue as needed Ativan Cogentin twice daily ordered by psychiatry service, also appreciate recommendations Continue IV fluids Blood cultures ordered, pending, otherwise no signs of acute infection at this point Monitor closely DVT ppx: teds, scds Lines: 1 PIV Diet: Easy to chew, regular CODE: FULL Dispo: pending lives at home with family Admission and Anticipated Discharge Date Admission Date: November 05, 2023 Subjective Follow-up for serotonin syndrome, etc. Seen with SARIKA Lawson at the bedside throughout whole encounter Patient seems to be still sleepy but more awake than yesterday Answering questions appropriately States she still feels jittery, still has some pain all over but somewhat improved compared to yesterday Denies headache, neck pain, chest pain, shortness of breath, abdominal pain, nausea vomiting Denies cough, dysuria, diarrhea, chills No other new symptoms Review of Systems Review of Systems: all noted and negative except for above Results & Data Results & Data Vital Signs (Past 12 Hours) Vital Signs Temp Pulse Resp BP Pulse Ox 11/07/23 14:21 36.9 C 11/07/23 14:01 126 H 27 H 94 11/07/23 14:01 142/96 H 11/07/23 14:00 110 H 19 11/07/23 13:30 121 H 24 96 11/07/23 13:20 110 H 11/07/23 13:12 111 H 23 97 11/07/23 13:12 136/91 11/07/23 13:00 125 H 25 H 97 11/07/23 12:30 146 H 19 97 11/07/23 12:00 142/104 H 11/07/23 12:00 144 H 25 H 98 11/07/23 11:30 141 H 24 96 11/07/23 11:00 111/72 11/07/23 11:00 86 15 98 11/07/23 10:30 92 H 16 97 11/07/23 10:00 126/83 11/07/23 10:00 112 H 13 98 11/07/23 09:30 153 H 26 H 97 11/07/23 09:00 124/89 11/07/23 09:00 98 H 20 96 11/07/23 08:30 132 H 23 97 11/07/23 08:00 109 H 23 97 11/07/23 08:00 118/84 11/07/23 07:30 152 H 17 92 11/07/23 07:10 36.9 C 11/07/23 07:03 110 H 11/07/23 07:00 136/92 11/07/23 07:00 107 H 21 96 11/07/23 06:48 136 H 130/83 11/07/23 06:45 142 H 21 97 all noted and reviewed including below (2) Leukocytosis Leukocytosis type: unspecified Qualified Code(s): D72.829 - Elevated white blood cell count, unspecified
[2023-11-07] MEDS: BENZTROPINE MESYLATE 1 MG/ML 2 ML AMP IV PRN (15:38)
--- NOTE | 2023-11-07 15:58 | Psychiatric Progress Note ---
Date of Service November 07, 2023 Impression / Recommendations Impression This is an interesting story and I am not sure exactly what is happening here. The more likely event is that she is having some type of dystonia from her Haldol. It is possible she may have taken too much of it either on purpose or accidentally. We are going to give a dose of Cogentin and see if that offer some help. It is possible that this is serotonin syndrome and so we are going to hold off on all medications that might increase serotonin for now. Once she has recovered physically and is doing better, we can take a closer look at her medications and possibly make some new adjustments. While we are not sure that she had taken MDMA, that also would contribute to a serotonin syndrome if she did in fact take it along with her other serotonin medications. As I mentioned yesterday, this certainly could be a conversion disorder. When she leaves the hospital, continuing with individual therapy and the [facility] program that she was going to be involved in will be important. (1) Dystonia: (2) Serotonin syndrome: (3) Anxiety and depression: (4) Psychogenic tremor: Plan 11/07/2023: With the improvement by utilizing benztropine, I am leaning more [place] dystonia from her Haldol than anything else. I discussed the case with the attending physician and we are going to have benztropine available every 12 hours as needed. I assured the patient that if her problem is from dystonia that should be pretty much gone by tomorrow as the Haldol and any other medications in her system or decreasing and going away from her system and not causing any more problems. We will continue to monitor, but I am hopeful she will be doing much better tomorrow. 1. If we feel that this is a psychogenic event, it would be important to give her an unconscious way "out" of the event by making things more annoying and inconvenient for her. This would allow her to save face and still be able to recover. I told her that if this is truly a serotonin syndrome, she should get better in the next day or so. By leaving it vague like that, it gives her an opportunity to ease herself out of this. 2. We gave a one-time dose of Cogentin 2 mg IV to see if that may offer some relief if this is a dystonia. We will have to see how this turns out. 3. Hold off on all medications that can increase serotonin levels. 4. Once her problems subside, we can reevaluate the situation and possibly decide on some new psychiatric medications to help her that will not cause such problems. 5. We will continue to follow. Suicide Risk Level Suicide Risk Level Comments: I think her suicide risk is pretty low right now. However, she is on a medical unit and staff are with her pretty much all the time. Interval History Identifying Information Loida is a 37-year-old female who presented with her to our [facility] room yesterday with and [id number]. She had recently been discharged from [facility] about a week before. She was having rigidity and difficulty talking. I was asked to evaluate her for possible serotonin syndrome or some other psychiatric issue that we could help with. Chief Complaint "I'm a bit better." Subjective Subjective Today I met with the patient and discussed the case with the nurses that are working with her today. I also discussed the case with Dr. Arechiga via [place] [employer]. Loida is in our hospital due to concerns of serotonin syndrome versus dystonia and has a history of anxiety and depression. Nursing staff say that s he has been doing better and the dose of benztropine that we gave her yesterday really helped significantly. The patient herself agrees and was able to communicate better today with me. She looks a lot more comfortable than she did yesterday. She was able to sleep. Staff say that she is eating food and they are giving her Ensure as well. Family has been visiting and the patient says that they are her best support. She is denying suicidal thoughts and eager to get better and get back home. Physical Exam Psychiatric Patient was alert and oriented x 3. They were clean but still pretty disheveled in scrubs. Eye contact was still fairly poor. Speech was still somewhat difficult to understand, but definitely better than yesterday. Mood was anxious and a bit frustrated. Affect is restricted but brighter than yesterday. Thought process was logical and goal-directed. There was no evidence of any hallucinations or delusions. Patient denied any suicidal or homicidal thoughts. Memory was good. Occasionally I saw some spontaneous clonus in her right arm but it was brief. Gait was not evaluated. Insight and judgment are impaired. Vital Signs (Past 24 Hours) Last Vital Signs Temp 36.9 C 11/07/23 14:21 Pulse 126 H 11/07/23 14:01 Resp 27 H 11/07/23 14:01 BP 142/96 H 11/07/23 14:01 Pulse Ox 94 11/07/23 14:01 O2 Del Method Room Air 11/06/23 14:30 Results & Data ([facility]) Laboratory Results Laboratory Results - last 24 hr 11/07/23 11/07/23 04:56 08:55 WBC 15.80 H RBC 5.15 Hgb 14.1 Hct 42.7 MCV 82.9 MCH 27.4 MCHC 33.0 RDW Std Deviation 39.2 RDW Coeff of Ana María 13.1 Plt Count 336 MPV 10.0 Immature Gran % (Auto) 0.8 Neut % (Auto) 71.6 Lymph % (Auto) 18.9 [place] % (Auto) 7.5 Eos % (Auto) 0.4 Baso % (Auto) 0.8 Neut # (Auto) 11.32 H Lymph # (Auto) 2.99 [place] # (Auto) 1.18 H Eos # (Auto) 0.06 Baso # (Auto) 0.13 Immature Gran # (Auto) 0.12 Sodium 139 Potassium 3.6 Chloride 103 Carbon Dioxide 23 Anion Gap 13 H BUN 5 L Creatinine 0.58 L Est Cr Clr Drug Dosing 142.6 Est GFR ( Amer) 137.4 Est GFR (Non-Af Amer) 118.6 BUN/Creatinine Ratio 8.6 L Glucose 93 Calcium 8.8 Magnesium 2.5 H Total Bilirubin 1.0 Direct Bilirubin 0.2 AST 41 H ALT 34 Alkaline Phosphatase 42 Total Creatine Kinase 1378 H Total Protein 6.7 Albumin 4.2 Current Inpatient Medications Current Inpatient Medications: Current Inpatient Medications Acetaminophen (Acetaminophen 325 Mg Tab) 650 mg PO Q4H PRN PRN Reason: Moderate Pain (Scale 4, 5, 6) Stop: 12/05/23 18:45 Benztropine Mesylate (Benztropine Mesylate 1 Mg/Ml 2 Ml Amp) 2 mg IV Q12 PRN PRN Reason: Cramping Stop: 12/07/23 15:16 Last Admin: 11/07/23 15:38 Dose: 2 mg Lorazepam 2 mg/ Syringe 2 mls @ 2 mls/min IV Q2H PRN PRN Reason: Agitation, Tremors Stop: 12/05/23 18:45 Last Admin: 11/07/23 13:10 Dose: 2 mls/min Metoprolol Tartrate (Metoprolol Tartrate 1 Mg/Ml Vial) 2.5 mg IV Q6 PRN PRN Reason: HR > 110 Stop: 12/06/23 17:59 Last Admin: 11/07/23 13:05 Dose: 2.5 mg Ondansetron HCl (Ondansetron Inj 2 Mg/Ml 2 Ml Vial) 4 mg IV Q4H PRN PRN Reason: Nausea And Vomiting Stop: 12/05/23 18:45
[2023-11-07] MEDS: SODIUM CHLORIDE 0.9% 1,000 ML IV ONE (23:51)
[2023-11-07] MEDS: POTASSIUM CHLORIDE / WTR 10 MEQ/100 ML PLCT IV SCH (23:52)
[2023-11-08] MEDS: METOPROLOL TARTRATE 1 MG/ML VIAL IV STA (00:17)
--- NOTE | 2023-11-08 09:51 | Psychiatric Progress Note ---
Date of Service November 08, 2023 Impression / Recommendations Impression This is an interesting story and I am not sure exactly what is happening here. The more likely event is that she is having some type of dystonia from her Haldol. It is possible she may have taken too much of it either on purpose or accidentally. We are going to give a dose of Cogentin and see if that offer some help. It is possible that this is serotonin syndrome and so we are going to hold off on all medications that might increase serotonin for now. Once she has recovered physically and is doing better, we can take a closer look at her medications and possibly make some new adjustments. While we are not sure that she had taken MDMA, that also would contribute to a serotonin syndrome if she did in fact take it along with her other serotonin medications. As I mentioned yesterday, this certainly could be a conversion disorder. When she leaves the hospital, continuing with individual therapy and the [facility] program that she was going to be involved in will be important. (1) Dystonia: (2) Serotonin syndrome: (3) Anxiety and depression: (4) Psychogenic tremor: Plan 11/08/23: We will continue with her current level of observation and precautions. Depression does not seem to be the major issue here though. I have lowered her benztropine to 1 mg IV every 12 hours as needed for dystonia. I spoke with the nurse about trying to get her up and walking if she can tolerate it. Day by day, we are seeing improvement which is reassuring and my hope is she will be able to go home soon. Around the day of discharge, psychiatry will need to consider different psychiatric medications to help with her depression. I think would be important to try not to use medications that are going to affect serotonin so much, or at least limit the number of them. We will continue to follow. 11/07/2023: With the improvement by utilizing benztropine, I am leaning more towards dystonia from her Haldol than anything else. I discussed the case with the attending physician and we are going to have benztropine available every 12 hours as needed. I assured the patient that if her problem is from dystonia that should be pretty much gone by tomorrow as the Haldol and any other medications in her system or decreasing and going away from her system and not causing any more problems. We will continue to monitor, but I am hopeful she will be doing much better tomorrow. 1. If we feel that this is a psychogenic event, it would be important to give her an unconscious way "out" of the event by making things more annoying and inconvenient for her. This would allow her to save face and still be able to recover. I told her that if this is truly a serotonin syndrome, she should get better in the next day or so. By leaving it vague like that, it gives her an opportunity to ease herself out of this. 2. We gave a one-time dose of Cogentin 2 mg IV to see if that may offer some relief if this is a dystonia. We will have to see how this turns out. 3. Hold off on all medications that can increase serotonin levels. 4. Once her problems subside, we can reevaluate the situation and possibly decide on some new psychiatric medications to help her that will not cause such problems. 5. We will continue to follow. Suicide Risk Level Suicide Risk Level: Low (q15 min observation checks) Suicide Risk Level Comments: I think her suicide risk is pretty low right now. However, she is on a medical unit and staff are with her pretty much all the time. Interval History Identifying Information Loida is a 37-year-old female who presented with her to our emergency room yesterday with and [id number]. She had recently been discharged from [facility] about a week before. She was having rigidity and difficulty talking. I was asked to evaluate her for possible serotonin syndrome or some other psychiatric issue that we could help with. Chief Complaint "Stiff." Subjective Subjective Today I met with the patient, received nursing report, and reviewed the chart. I also texted with Dr. Andrews about possible medication changes. Loida is in our hospital due to concerns of possible serotonin syndrome as well as other medical issues including tachycardia. We also has some concerns about dystonia. The nurse reported that she is doing a little bit better. She received 2 doses of benztropine after I wrote the as needed order yesterday. She received 1 dose around 3:30 in the afternoon and a second dose around 5:30 AM. She seems to be feeling better. When I met with her, she was just getting ready to have breakfast and I could see her leaning over to open up her breakfast container. Her speech was still little bit slurred but she says that she is doing better and feeling better. She said she wanted to see her , but I do not know if she realized how early in the morning it was. She was able to get some sleep. She does have somewhat of an appetite she says. She denied any suicidal ideation. She says that physically she is feeling better. Physical Exam Psychiatric Patient was alert and oriented x 3. They were clean but disheveled in a hospital gown. Eye contact was still poor. Speech was soft and slightly s lurred. Mood was described as "somewhat better." Affect was still restricted. Thought process was logical and goal-directed. There was no evidence of any hallucinations or delusions. Patient denied any suicidal or homicidal thoughts. Memory was good. She still has an abnormal right arm and hand tremor that looks more like clonus. No other abnormal movements were seen. I did not see any movements in her legs or her left arm. I did not evaluate her gait. Insight and judgment are impaired. Vital Signs (Past 24 Hours) Last Vital Signs Temp 36.3 C L 11/07/23 23:00 Pulse 123 H 11/08/23 05:23 Resp 18 11/08/23 05:16 BP 127/79 11/08/23 05:23 Pulse Ox 100 11/08/23 05:16 O2 Del Method Room Air 11/08/23 05:16 Results & Data ([facility]) Laboratory Results Laboratory Results - last 24 hr 11/07/23 11/07/23 11/08/23 08:55 16:34 00:02 Lactate Total Bilirubin 1.0 Direct Bilirubin 0.2 AST 41 H ALT 34 Alkaline Phosphatase 42 Total Creatine Kinase 1378 H Total Protein 6.7 Albumin 4.2 Procalcitonin < 0.02 Dopamine Epinephrine Norepinephrine Total Catecholamines Plasma Metanephrine Plasma Normetanephrine Plas Total Metaneph Ur Elizabeth Metanephrines Pending U Normetanephrine Pending U Total Metanephrines Pending Urine Creatinine Pending 11/08/23 11/08/23 00:12 03:31 Lactate 1.1 Total Bilirubin Direct Bilirubin AST ALT Alkaline Phosphatase Total Creatine Kinase Total Protein Albumin Procalcitonin Dopamine Pending Epinephrine Pending Norepinephrine Pending Total Catecholamines Pending Plasma Metanephrine Pending Plasma Normetanephrine Pending Plas Total Metaneph Pending Ur [place] Metanephrines U Normetanephrine U Total Metanephrines Urine Creatinine Current Inpatient Medications Current Inpatient Medications: Current Inpatient Medications Acetaminophen (Acetaminophen 325 Mg Tab) 650 mg PO Q4H PRN PRN Reason: Moderate Pain (Scale 4, 5, 6) Stop: 12/05/23 18:45 Benztropine Mesylate (Benztropine Mesylate 1 Mg/Ml 2 Ml Amp) 1 mg IV Q12H PRN PRN Reason: Cramping Stop: 12/08/23 11:59 Lorazepam 2 mg/ Syringe 2 mls @ 2 mls/min IV Q2H PRN PRN Reason: Agitation, Tremors Stop: 12/05/23 18:45 Last Admin: 11/08/23 05:28 Dose: 2 mls/min Metoprolol Tartrate (Metoprolol Tartrate 1 Mg/Ml Vial) 2.5 mg IV Q4H PRN PRN Reason: HR > 110 Stop: 12/06/23 14:26 Ondansetron HCl (Ondansetron Inj 2 Mg/Ml 2 Ml Vial) 4 mg IV Q4H PRN PRN Reason: Nausea And Vomiting Stop: 12/05/23 18:45
[2023-11-08 10:45] LABS: BUN Creatinine Ratio 11.9 (10-20); Calcium 8.9 mg/dl (8.6-10.3); Creatinine Clr Calc Pharmacy 138.7 ml/min; Est GFR (African American) 136.7 ml/min; Est GFR (Non-African American) 117.9 ml/min; Potassium 3.8 mmol/L (3.5-5.1)
[2023-11-08 10:51] LABS: Basophils # (auto) 0.14 K/uL (0.00-0.20); Eosinophils # (auto) 0.05 K/uL (0.00-0.50); Eosinophils % (auto) 0.4 %; Hematocrit (blood only) 42.1 % (37.0-47.0); Hemoglobin 14.4 g/dl (12.0-16.0); Immature Granulocytes # (auto) 0.06 K/uL (0.01-0.20); Immature Granulocytes % (auto) 0.4 %; Lymphocytes # (auto) 2.42 K/uL (1.20-3.40); Lymphocytes % (auto) 18.1 %; Mean Corpuscular Hemoglobin 28.2 pg (25.0-34.0); Mean Corpuscular Hgb Conc 34.2 g/dL (32.0-36.0); Mean Corpuscular Volume 82.5 fL (80.0-100.0); Mean Platelet Volume 11.3 fL (9.4-12.4); Monocytes # (auto) 1.08 K/uL (0.11-0.59); Monocytes % (auto) 8.1 %; Neutrophils # (auto) 9.59 K/uL (1.40-6.50); Platelet Count 366 K/uL (130-400); RDW Coefficient of Variation 13.2 % (11.5-14.5); RDW Standard Deviation 39.6 fL (36.4-46.3); White Blood Count 13.34 K/ul (4.8-10.8)
[2023-11-08] MEDS: METOPROLOL TARTRATE 1 MG/ML VIAL IV PRN (15:04)
--- NOTE | 2023-11-08 15:58 | Hospitalist Progress Note ---
Date of Service November 08, 2023 Assessment & Plan (1) Serotonin syndrome: (2) Leukocytosis: (3) Anxiety and depression: (4) Tachycardia: Plan: per admitting service notes with addendum: - Admit to PCU - Continue NSS at 125 ml/hr, Ativan 2 mg IV Q4H prn agitation while comes out of this - EKG reviewed showing sinus tach, has improved with fluids since being the ER - Check CT head as no imaging completed yet today for changes in mental status, she is does Ativan 2 mg IV in the ER, sedated but comfortable presently - Psych consultation for possible med wash due to concern for seratonin syndrome - holding all psych meds at this time - Consult neuro - [facility] reviewed did not reveal infectious etiology in LP, EEG, EKG - Pt was on haldol 10 BID from discharge from [place], and weaned this to 5 mg BID about 3 days ago due to concern for increased symptoms. Not given this morning. - Home meds include: buspirone 20 mg BID (stopped this yesterday), is taking trazodone 100 mg HS and got it last night, and lexapro 20 mg daily. - Prior to any hospital stay was only on buspirone and lexapro for anxiety and depression. - Follow ua/urine culture and drug tox - WBC of 16 k does not appear infectious at this time, negative CXR, awaiting finalized ua, no other symptoms per present at bedside. - Last menstrual cycle was this week, finished yesterday 11/06 Ativan 2mg IV q2-4hr PRN with hold parameters PRN Metoprolol and Tylenol Cogentin IV given by Psych Neurology also consulted continue supportive care no focus of infection identified at this time 11/07 HR still elevated Echo ordered: no valvular abnormalities, pericardial effusion Cardiology service consulted, appreciate recommendations Continue as needed metoprolol for heart rate more than 110 Continue as needed Ativan Cogentin twice daily ordered by psychiatry service, also appreciate recommendations Continue IV fluids Blood cultures ordered, pending, otherwise no signs of acute infection at this point Monitor closely 11/08 Gradually improving daily Less tremors Sinus tachycardia in the 130s Start metoprolol 12.5 mg p.o. twice daily Continue IV metoprolol as needed Continue IV Ativan as needed Psychiatry service following, appreciate recommendations Continue supportive care Afebrile, blood cultures negative DVT ppx: Start Lovenox subcu daily Lines: 1 PIV Diet: Easy to chew, regular CODE: FULL Dispo: pending lives at home with family Admission and Anticipated Discharge Date Admission Date: November 05, 2023 Subjective Follow-up for serotonin syndrome, etc. Seen with SARIKA Vasquez at the bedside throughout whole encounter Seen sitting up in bed, not in distress, comfortable States she continues to feel improved day by day, still on the weak side Still having some tremors but less Denies palpitations, chest pain, shortness of breath No other new symptoms Review of Systems Review of Systems: all noted and negative except for above Physical Exam Physical Exam: General- oriented x 3, not in distress, speaks in sentences with no effort or accessory muscle use Eyes- anicteric Neck- no JVD Lungs- clear breath sounds bilaterally, no rales/wheezes Heart-tachycardic in the 130s, regular rhythm; no murmurs Abdomen- normal bowel sounds, nondistended, soft, nontender Extremities- no pretibial edema, no calf tenderness Mild bilateral hand tremors Neuro- alert, oriented x 3; no gross focal neurologic deficits Skin- warm & dry Results & Data Results & Data Vital Signs (Past 12 Hours) Vital Signs Temp Pulse Resp BP Pulse Ox O2 Del Method 11/08/23 15:20 114 H 11/08/23 15:04 150 H 154/97 H 11/08/23 14:00 115 H 12 93 11/08/23 13:00 98 H 13 11/08/23 12:00 100 H 23 95 11/08/23 12:00 121/77 11/08/23 11:47 138 H 19 94 11/08/23 11:47 137/85 11/08/23 11:38 36.6 C 11/08/23 11:00 153 H 11/08/23 10:00 130 H 11/08/23 09:00 113 H 21 11/08/23 09:00 147/96 H 11/08/23 08:02 36.7 C 11/08/23 08:00 134/97 11/08/23 08:00 134 H 21 95 11/08/23 07:00 139/95 11/08/23 07:00 119 H 28 H 11/08/23 05:23 123 H 127/79 11/08/23 05:16 120 H 18 100 Room Air 11/08/23 05:16 187/89 H 11/08/23 05:11 108 H 20 98 Room Air 11/08/23 05:11 177/108 H 11/08/23 05:07 130 H 177/133 H 11/08/23 05:01 136 H 23 97 Room Air 11/08/23 05:01 177/133 H 11/08/23 05:00 140 H 20 97 Room Air 11/08/23 04:00 122/66 11/08/23 04:00 84 14 94 Room Air all noted and reviewed including below (2) Leukocytosis Leukocytosis type: unspecified Qualified Code(s): D72.829 - Elevated white blood cell count, unspecified
[2023-11-08] MEDS: METOPROLOL TARTRATE 25 MG TAB PO SCH (16:27)
[2023-11-08] MEDS: ENOXAPARIN INJ 40 MG/0.4 ML SYR SQ SCH (16:27)
[2023-11-08] MEDS: SODIUM CHLORIDE 0.9% 1,000 ML IV SCH (16:29)
[2023-11-08] MEDS: BENZTROPINE MESYLATE 1 MG/ML 2 ML AMP IV PRN (17:29)
[2023-11-08] MEDS: ACETAMINOPHEN 325 MG TAB PO PRN (20:59)
[2023-11-09 04:27] LABS: Basophils # (auto) 0.13 K/uL (0.00-0.20); Basophils % (auto) 0.9 %; Eosinophils # (auto) 0.15 K/uL (0.00-0.50); Hematocrit (blood only) 43.2 % (37.0-47.0); Hemoglobin 14.5 g/dl (12.0-16.0); Immature Granulocytes # (auto) 0.09 K/uL (0.01-0.20); Immature Granulocytes % (auto) 0.6 %; Lymphocytes # (auto) 2.85 K/uL (1.20-3.40); Lymphocytes % (auto) 18.9 %; Mean Corpuscular Hemoglobin 27.6 pg (25.0-34.0); Mean Corpuscular Hgb Conc 33.6 g/dL (32.0-36.0); Mean Corpuscular Volume 82.3 fL (80.0-100.0); Mean Platelet Volume 10.6 fL (9.4-12.4); Monocytes # (auto) 1.18 K/uL (0.11-0.59); Monocytes % (auto) 7.8 %; Neutrophils # (auto) 10.68 K/uL (1.40-6.50); Neutrophils % (auto) 70.8 %; Platelet Count 378 K/uL (130-400); RDW Coefficient of Variation 13.2 % (11.5-14.5); RDW Standard Deviation 38.9 fL (36.4-46.3); Red Blood Count 5.25 M/uL (4.20-5.40); White Blood Count 15.08 K/ul (4.8-10.8)
[2023-11-09 04:30] LABS: BUN Creatinine Ratio 13.1 (10-20); Calcium 9.4 mg/dl (8.6-10.3); Creatinine Clr Calc Pharmacy 134.1 ml/min; Est GFR (African American) 135.2 ml/min; Est GFR (Non-African American) 116.6 ml/min; Magnesium 1.9 mg/dl (1.7-2.4); Potassium 3.7 mmol/L (3.5-5.1)
--- NOTE | 2023-11-09 12:14 | Psychiatric Progress Note ---
Date of Service November 09, 2023 Impression / Recommendations Impression 37 yo female with a recent manic episode, unusual presentation with subsequent development of serotonin syndrome like symptoms and dystonia without clear evidence of NMS. Improving with hold of psych meds, scheduled Cogentin, and prn Ativan. I suspect this patient is a slow metabolizer of cyt p540 meds as would explain dramatic reaction to polypharmacy, since no evidence of ingestion and this is more likely than conversion. Overall, I spent a total of 37 minutes with this case, including review of chart, ordering medication, coordination with nursing,coordination of care with hospitalist service, and documentation. (1) Dystonia: (2) Serotonin syndrome: (3) Anxiety and depression: Plan switch Cogentin to PO 1 mg BID, Ativan from 2 mg IV q 2hr to 1 mg PO TID with plan to taper both medications slowly as condition improves. Interval History Identifying Information Loida is a 37-year-old female who represented to the ED on 11/05 with psychiatric consult by Dr. Ma on 11/06 for possible serotonin syndrome vs. psychogenic tremor. Chief Complaint rigidity resolving Subjective Subjective Patient was seen & assessed and interval progress reviewed with nursing and Dr. Arechiga. Patient is known to me from her recent psychiatric admission for emmanuel. She was subsequently transferred to [facility] for work up of autoimmune encephalitis which was reportedly negative. Case discussed with Dr. Ma on 11/06 with recommendation for a trial of Cogentin for dystonia as neuro otherwise felt tremor was psychogenic and she was not talking much/possibly posturing, etc despite Ativan. Cogentin 2 mg IV q 12 administered with benefit. Steady improvement though still in ICU monitoring for significant tachycardia. Case reviewed with Dr. Arechiga as has been receiving 2mg Ativan IV regularly and now that able to take PO per hospitalist should be switched to PO and tapered. Physical Exam Psychiatric patient sleeping on am rounds, allowed therapeutic rest Vital Signs (Past 24 Hours) Last Vital Signs Temp 36.4 C L 11/09/23 11:24 Pulse 109 H 11/09/23 11:24 Resp 19 11/09/23 11:24 BP 148/92 H 11/09/23 11:24 Pulse Ox 93 11/09/23 11:24 O2 Del Method Room Air 11/09/23 11:24 Results & Data ([facility]) Laboratory Results Laboratory Results - last 24 hr 11/09/23 03:16 WBC 15.08 H RBC 5.25 Hgb 14.5 Hct 43.2 MCV 82.3 MCH 27.6 MCHC 33.6 RDW Std Deviation 38.9 RDW Coeff of Ana María 13.2 Plt Count 378 MPV 10.6 Immature Gran % (Auto) 0.6 Neut % (Auto) 70.8 Lymph % (Auto) 18.9 [place] % (Auto) 7.8 Eos % (Auto) 1.0 Baso % (Auto) 0.9 Neut # (Auto) 10.68 H Lymph # (Auto) 2.85 [place] # (Auto) 1.18 H Eos # (Auto) 0.15 Baso # (Auto) 0.13 Immature Gran # (Auto) 0.09 Sodium 139 Potassium 3.7 Chloride 104 Carbon Dioxide 24 Anion Gap 11 BUN 8 Creatinine 0.61 Est Cr Clr Drug Dosing 134.1 Est GFR ( Amer) 135.2 Est GFR (Non-Af Amer) 116.6 BUN/Creatinine Ratio 13.1 Glucose 98 Calcium 9.4 Magnesium 1.9 Total Creatine Kinase 1208 H Current Inpatient Medications Current Inpatient Medications: Current Inpatient Medications Acetaminophen (Acetaminophen 325 Mg Tab) 650 mg PO Q4H PRN PRN Reason: Moderate Pain (Scale 4, 5, 6) Stop: 12/05/23 18:45 Last Admin: 11/08/23 20:59 Dose: 650 mg Benztropine Mesylate (Benztropine Mesylate 1 Mg Tab) 1 mg PO BID [facility] Stop: 12/09/23 20:59 Enoxaparin Sodium (Enoxaparin Inj 40 Mg/0.4 Ml Syr) 40 mg SQ Q24H [facility] Stop: 12/08/23 15:59 Last Admin: 11/08/23 16:27 Dose: 40 mg Sodium Chloride (Nss) 1,000 mls @ 75 mls/hr IV .[id number] [facility] Stop: 12/08/23 16:14 Last Admin: 11/09/23 06:05 Dose: 75 mls/hr Lorazepam (Lorazepam 1 Mg Tab) 1 mg PO TID [facility] Stop: 12/09/23 13:59 Metoprolol Tartrate (Metoprolol Tartrate 1 Mg/Ml Vial) 2.5 mg IV Q4H PRN PRN Reason: HR > 110 Stop: 12/06/23 14:26 Last Admin: 11/09/23 05:20 Dose: 2.5 mg Metoprolol Tartrate (Metoprolol Tartrate 25 Mg Tab) 12.5 mg PO BID [facility] Stop: 12/08/23 16:04 Last Admin: 11/09/23 08:08 Dose: 12.5 mg Ondansetron HCl (Ondansetron Inj 2 Mg/Ml 2 Ml Vial) 4 mg IV Q4H PRN PRN Reason: Nausea And Vomiting Stop: 12/05/23 18:45
[2023-11-09] MEDS: LORazepam 1 MG TAB PO SCH (13:55)
[2023-11-09] MEDS: LORazepam 2 MG in SYRINGE 1 ML IV STA (16:28)
--- NOTE | 2023-11-09 17:53 | Hospitalist Progress Note ---
Date of Service November 09, 2023 Assessment & Plan (1) Serotonin syndrome: (2) Leukocytosis: (3) Anxiety and depression: (4) Tachycardia: Plan: per admitting service notes with addendum: - Admit to PCU - Continue NSS at 125 ml/hr, Ativan 2 mg IV Q4H prn agitation while comes out of this - EKG reviewed showing sinus tach, has improved with fluids since being the ER - Check CT head as no imaging completed yet today for changes in mental status, she is does Ativan 2 mg IV in the ER, sedated but comfortable presently - Psych consultation for possible med wash due to concern for seratonin syndrome - holding all psych meds at this time - Consult neuro - [facility] reviewed did not reveal infectious etiology in LP, EEG, EKG - Pt was on haldol 10 BID from discharge from [place], and weaned this to 5 mg BID about 3 days ago due to concern for increased symptoms. Not given this morning. - Home meds include: buspirone 20 mg BID (stopped this yesterday), is taking trazodone 100 mg HS and got it last night, and lexapro 20 mg daily. - Prior to any hospital stay was only on buspirone and lexapro for anxiety and depression. - Follow ua/urine culture and drug tox - WBC of 16 k does not appear infectious at this time, negative CXR, awaiting finalized ua, no other symptoms per present at bedside. - Last menstrual cycle was this week, finished yesterday 11/06 Ativan 2mg IV q2-4hr PRN with hold parameters PRN Metoprolol and Tylenol Cogentin IV given by Psych Neurology also consulted continue supportive care no focus of infection identified at this time 2/8 HR still elevated Echo ordered: no valvular abnormalities, pericardial effusion Cardiology service consulted, appreciate recommendations Continue as needed metoprolol for heart rate more than 110 Continue as needed Ativan Cogentin twice daily ordered by psychiatry service, also appreciate recommendations Continue IV fluids Blood cultures ordered, pending, otherwise no signs of acute infection at this point Monitor closely 11/08 Gradually improving daily Less tremors 11/09 transitioned to PO Ativan continue Metoprolol 12.5mg po BID Psychiatry service following, appreciate recommendations Continue supportive care Afebrile, blood cultures negative DVT ppx: Start Lovenox subcu daily Lines: 1 PIV Diet: Easy to chew, regular CODE: FULL Dispo: pending lives at home with family Admission and Anticipated Discharge Date Admission Date: November 05, 2023 Subjective ff up for serotonin syndrome, etc seen resting in bed, comfortable sitting up watching a movie on her Ipad seen with LINDSEY Rios at bedside throughout whole encounter states she feels ok somewhat better than yesterday still has occasional tremors no chest pain, dyspnea, palpitations, dizziness no other symptoms Review of Systems Review of Systems: all noted and negative except for above Physical Exam Physical Exam: General- oriented x 3, not in distress, speaks in sentences with no effort or accessory muscle use Eyes- anicteric Neck- no JVD Lungs- clear breath sounds bilaterally, no crackles/wheezing Heart- tachycardia 120s, regular rhythm; no murmurs Abdomen- normal bowel sounds, nondistended, soft, no tenderness Extremities- no pretibial edema, no calf tenderness Neuro- alert, oriented x 3; no gross focal neurologic deficits Skin- warm & dry Results & Data Results & Data Vital Signs (Past 12 Hours) Vital Signs Temp Pulse Pulse Pulse Resp BP BP 11/09/23 17:48 129/91 11/09/23 17:26 135 H 135/92 11/09/23 17:25 135 H 135/92 11/09/23 15:15 103 H 11/09/23 15:11 36.7 C 112 H 18 124/89 11/09/23 11:24 36.4 C L 109 H 19 148/92 H 11/09/23 09:25 71 27 H 11/09/23 08:00 139 H 11/09/23 08:00 143/85 H 11/09/23 06:19 120 H 19 11/09/23 06:19 142/83 H 11/09/23 06:10 101 H 14 Pulse Ox O2 Del Method 11/09/23 17:48 11/09/23 17:26 11/09/23 17:25 11/09/23 15:15 11/09/23 15:11 98 Room Air 11/09/23 11:24 93 Room Air 11/09/23 09:25 92 11/09/23 08:00 96 11/09/23 08:00 11/09/23 06:19 94 11/09/23 06:19 11/09/23 06:10 96 all noted and reviewed including below (2) Leukocytosis Leukocytosis type: unspecified Qualified Code(s): D72.829 - Elevated white blood cell count, unspecified
[2023-11-09 18:02] LABS: MDA negative; MDEA negative; MDMA (Ecstasy) Urine, Confirm negative
[2023-11-09] MEDS: BENZTROPINE MESYLATE 1 MG TAB PO SCH (20:29)
[2023-11-09] MEDS: cloNIDine HCL 0.1 MG TAB PO ONE (22:32)
[2023-11-09] MEDS: MELATONIN 3 MG TAB PO PRN (22:32)
[2023-11-10 06:59] LABS: Basophils % (auto) 0.9 %; Eosinophils # (auto) 0.27 K/uL (0.00-0.50); Eosinophils % (auto) 2.4 %; Hematocrit (blood only) 38.4 % (37.0-47.0); Hemoglobin 13.3 g/dl (12.0-16.0); Immature Granulocytes # (auto) 0.04 K/uL (0.01-0.20); Immature Granulocytes % (auto) 0.4 %; Lymphocytes # (auto) 2.46 K/uL (1.20-3.40); Lymphocytes % (auto) 21.8 %; Mean Corpuscular Hemoglobin 28.2 pg (25.0-34.0); Mean Corpuscular Hgb Conc 34.6 g/dL (32.0-36.0); Mean Corpuscular Volume 81.4 fL (80.0-100.0); Mean Platelet Volume 10.3 fL (9.4-12.4); Monocytes # (auto) 0.86 K/uL (0.11-0.59); Monocytes % (auto) 7.6 %; Neutrophils # (auto) 7.58 K/uL (1.40-6.50); Neutrophils % (auto) 66.9 %; Platelet Count 332 K/uL (130-400); RDW Coefficient of Variation 13.4 % (11.5-14.5); Red Blood Count 4.72 M/uL (4.20-5.40); White Blood Count 11.31 K/ul (4.8-10.8)
[2023-11-10 07:28] LABS: BUN Creatinine Ratio 7.3 (10-20); Calcium 9.4 mg/dl (8.6-10.3); Creatinine Clr Calc Pharmacy 148.3 ml/min; Est GFR (African American) 139.9 ml/min; Est GFR (Non-African American) 120.7 ml/min; Magnesium 1.8 mg/dl (1.7-2.4); Potassium 3.8 mmol/L (3.5-5.1)
[2023-11-10] MEDS: LORazepam 2 MG in SYRINGE 1 ML IV STA (09:08)
--- NOTE | 2023-11-10 11:36 | Psychiatric Progress Note ---
Date of Service November 10, 2023 Impression / Recommendations Impression 37 yo female with a recent manic episode, unusual presentation with subsequent development of serotonin syndrome like symptoms and dystonia without clear evidence of NMS. Improving with hold of psych meds, scheduled Cogentin, and prn Ativan. I suspect this patient is a slow metabolizer of cyt p540 meds as would explain dramatic reaction to polypharmacy, since no evidence of ingestion and this is more likely than conversion. Overall, I spent a total of 40 minutes with this case, including review of chart, ordering medication, coordination with nursing,coordination of care with hospitalist service, and documentation. (1) Dystonia: (2) Serotonin syndrome: (3) Anxiety and depression: Plan Cogentin and Ativan 1 mg TID (adding pm dose of Cogentin as seems to describe breakthrough) Cogentin typically helps tremor but not akathisia which seems to be at least some of the anxiety she is describing based on exam. Beta blockers are main rx and Dr. Arechiga alerted as may benefit from increase in metoprolol per hospitalist if also continuing to use for BP and pulse. Otherwise would rec propranolol. I don't have a specific recommendation for sleep other than to avoid psych meds such as trazodone, seroquel, tricyclics. Vistaril I don't recall being particularly effective and already getting Cogentin (both are anticholinergic). Consider Ambien per hospitalist. Interval History Identifying Information Loida is a 37-year-old female who represented to the ED on 11/05 with psychiatric consult by Dr. Ma on 11/06 for possible serotonin syndrome vs. psychogenic tremor. Chief Complaint "I feel my thoughts are good but I still notice tremor." Review of Systems Notes see HPI Subjective Subjective Patient was seen & assessed and interval progress reviewed with nursing. In on as fall precaution as otherwise denying SI/HI/savage/del. Patient has "wierd dreams" at night and is still not sleeping well. She feels that her mouth and muscle discomfort worsens as day progresses. She did receive an extra dose of Ativan IV 2 mg this am per Dr. Arechiga for anxiety but on exam has tremor hands and legs. no mouth movements noted. Physical Exam Psychiatric Orientation: alert Apperance: appropriately groomed Eye Contact: good eye contact Motor Behavior: + abnormal motor movements (above) Speech: normal rate/rhythm/volume of speech Affect: + blunted affect Mood: + anxious mood Thought Process: linear/logical thought process Thought Content: reality based without delusions Suicidal Thoughts: denies suicidal thoughts Homicidal Thoughts: denies homicidal thoughts Hallucinations: no auditory hallucinations and no visual hallucinations Cognition: attention grossly intact and language grossly intact Estimated Intelligence: consistent with education level Vital Signs (Past 24 Hours) Last Vital Signs Temp 36.8 C 11/10/23 07:30 Pulse 118 H 11/10/23 07:30 Resp 18 11/10/23 07:30 BP 119/96 11/10/23 07:30 Pulse Ox 97 11/10/23 07:30 O2 Del Method Room Air 11/10/23 07:30 Results & Data ([facility]) Laboratory Results Laboratory Results - last 24 hr 11/06/23 11/10/23 Unknown 06:43 WBC 11.31 H RBC 4.72 Hgb 13.3 Hct 38.4 MCV 81.4 MCH 28.2 MCHC 34.6 RDW Std Deviation 39.0 RDW Coeff of Ana María 13.4 Plt Count 332 MPV 10.3 Immature Gran % (Auto) 0.4 Neut % (Auto) 66.9 Lymph % (Auto) 21.8 [place] % (Auto) 7.6 Eos % (Auto) 2.4 Baso % (Auto) 0.9 Neut # (Auto) 7.58 H Lymph # (Auto) 2.46 [place] # (Auto) 0.86 H Eos # (Auto) 0.27 Baso # (Auto) 0.10 Immature Gran # (Auto) 0.04 Sodium 139 Potassium 3.8 Chloride 105 Carbon Dioxide 27 Anion Gap 7 BUN 4 L Creatinine 0.55 L Est Cr Clr Drug Dosing 148.3 Est GFR ( Amer) 139.9 Est GFR (Non-Af Amer) 120.7 BUN/Creatinine Ratio 7.3 L Glucose 112 H Calcium 9.4 Magnesium 1.8 Total Creatine Kinase 993 H Urine MDEA negative MDMA negative Urine MDMA negative Current Inpatient Medications Current Inpatient Medications: Current Inpatient Medications Acetaminophen (Acetaminophen 325 Mg Tab) 650 mg PO Q4H PRN PRN Reason: Moderate Pain (Scale 4, 5, 6) Stop: 12/05/23 18:45 Last Admin: 11/08/23 20:59 Dose: 650 mg Benztropine Mesylate (Benztropine Mesylate 1 Mg Tab) 1 mg PO TID [facility] Stop: 12/10/23 13:59 Enoxaparin Sodium (Enoxaparin Inj 40 Mg/0.4 Ml Syr) 40 mg SQ Q24H [facility] Stop: 12/08/23 15:59 Last Admin: 11/09/23 16:11 Dose: 40 mg Sodium Chloride (Nss) 1,000 mls @ 75 mls/hr IV .[id number] [facility] Stop: 12/08/23 16:14 Last Admin: 11/10/23 07:36 Dose: 75 mls/hr Lorazepam (Lorazepam 1 Mg Tab) 1 mg PO TID [facility] Stop: 12/09/23 13:59 Last Admin: 11/10/23 08:13 Dose: 1 mg Melatonin (Melatonin 3 Mg Tab) 6 mg PO HS PRN PRN Reason: Sleep Stop: 12/09/23 22:10 Last Admin: 11/09/23 22:32 Dose: 6 mg Metoprolol Tartrate (Metoprolol Tartrate 1 Mg/Ml Vial) 2.5 mg IV Q4H PRN PRN Reason: HR > 110 Stop: 12/06/23 14:26 Last Admin: 11/09/23 20:29 Dose: 2.5 mg Metoprolol Tartrate (Metoprolol Tartrate 25 Mg Tab) 12.5 mg PO BID [facility] Stop: 12/08/23 16:04 Last Admin: 11/10/23 08:13 Dose: 12.5 mg Ondansetron HCl (Ondansetron Inj 2 Mg/Ml 2 Ml Vial) 4 mg IV Q4H PRN PRN Reason: Nausea And Vomiting Stop: 12/05/23 18:45
--- NOTE | 2023-11-10 12:01 | Hospitalist Progress Note ---
Date of Service November 10, 2023 Assessment & Plan (1) Serotonin syndrome: (2) Leukocytosis: (3) Anxiety and depression: (4) Tachycardia: Plan: per admitting service notes with addendum: - Admit to PCU - Continue NSS at 125 ml/hr, Ativan 2 mg IV Q4H prn agitation while comes out of this - EKG reviewed showing sinus tach, has improved with fluids since being the ER - Check CT head as no imaging completed yet today for changes in mental status, she is does Ativan 2 mg IV in the ER, sedated but comfortable presently - Psych consultation for possible med wash due to concern for seratonin syndrome - holding all psych meds at this time - Consult neuro - [facility] reviewed did not reveal infectious etiology in LP, EEG, EKG - Pt was on haldol 10 BID from discharge from [place], and weaned this to 5 mg BID about 3 days ago due to concern for increased symptoms. Not given this morning. - Home meds include: buspirone 20 mg BID (stopped this yesterday), is taking trazodone 100 mg HS and got it last night, and lexapro 20 mg daily. - Prior to any hospital stay was only on buspirone and lexapro for anxiety and depression. - Follow ua/urine culture and drug tox - WBC of 16 k does not appear infectious at this time, negative CXR, awaiting finalized ua, no other symptoms per present at bedside. - Last menstrual cycle was this week, finished yesterday 11/06 Ativan 2mg IV q2-4hr PRN with hold parameters PRN Metoprolol and Tylenol Cogentin IV given by Psych Neurology also consulted continue supportive care no focus of infection identified at this time 2/ HR still elevated Echo ordered: no valvular abnormalities, pericardial effusion Cardiology service consulted, appreciate recommendations Continue as needed metoprolol for heart rate more than 110 Continue as needed Ativan Cogentin twice daily ordered by psychiatry service, also appreciate recommendations Continue IV fluids Blood cultures ordered, pending, otherwise no signs of acute infection at this point Monitor closely 11/08 Gradually improving daily Less tremors 11/09 transitioned to PO Ativan continue Metoprolol 12.5mg po BID Psychiatry service following, appreciate recommendations Continue supportive care Afebrile, blood cultures negative 11/10 Still requiring as needed IV Ativan Continue Ativan p.o. BP and heart rate seems to be improving as of 11 AM, will continue to monitor If still elevated, will increase metoprolol p.o. 25 mg p.o. DVT ppx: Lovenox 40 mg subcu daily Lines: 1 PIV Diet: Easy to chew, regular CODE: FULL Dispo: pending lives at home with family Admission and Anticipated Discharge Date Admission Date: November 05, 2023 Subjective Follow-up for serotonin syndrome, etc. Seen with [employer] at the bedside throughout whole encounter Was having significant tremors, anxiety earlier, given IV Ativan States she feels improved so for now Tremors are better no chest pain, dyspnea, palpitations, dizziness No other new symptoms Review of Systems Review of Systems: all noted and negative except for above Physical Exam Physical Exam: General- oriented x 3, not in distress, speaks in sentences with no effort or accessory muscle use Eyes- anicteric Neck- no JVD Lungs- clear breath sounds bilaterally, no rales/wheezes Heart-mild tachycardia, regular rhythm; no murmurs Abdomen- normal bowel sounds, nondistended, soft, nontender Extremities- no pretibial edema, no calf tenderness Mild hand tremors, bilateral Neuro- alert, oriented x 3; no gross focal neurologic deficits Skin- warm & dry Results & Data Results & Data Vital Signs (Past 12 Hours) Vital Signs Temp Pulse Resp BP Pulse Ox O2 Del Method 11/10/23 11:28 36.8 C 96 H 18 133/82 95 Room Air 11/10/23 07:30 36.8 C 118 H 18 119/96 97 Room Air 11/10/23 02:40 36.5 C 127 H 22 136/111 H 98 Room Air all noted and reviewed including below (2) Leukocytosis Leukocytosis type: unspecified Qualified Code(s): D72.829 - Elevated white blood cell count, unspecified
[2023-11-10] MEDS: BENZTROPINE MESYLATE 1 MG TAB PO SCH (13:06)
[2023-11-10] MEDS: POLYETHYLENE (MIRALAX) 17 GM PACK PO PRN (16:35)
[2023-11-11] MEDS ORDERED: HYDROCORTISONE HC 2.5% CRM 30GM TUBE EXT PRN (04:03)
[2023-11-11 06:39] LABS: Basophils # (auto) 0.09 K/uL (0.00-0.20); Basophils % (auto) 0.8 %; Eosinophils # (auto) 0.29 K/uL (0.00-0.50); Eosinophils % (auto) 2.5 %; Hematocrit (blood only) 37.1 % (37.0-47.0); Hemoglobin 12.6 g/dl (12.0-16.0); Immature Granulocytes # (auto) 0.03 K/uL (0.01-0.20); Immature Granulocytes % (auto) 0.3 %; Lymphocytes # (auto) 2.66 K/uL (1.20-3.40); Lymphocytes % (auto) 22.8 %; Mean Corpuscular Hemoglobin 28.3 pg (25.0-34.0); Mean Corpuscular Volume 83.4 fL (80.0-100.0); Mean Platelet Volume 10.8 fL (9.4-12.4); Monocytes # (auto) 1.03 K/uL (0.11-0.59); Monocytes % (auto) 8.8 %; Neutrophils # (auto) 7.59 K/uL (1.40-6.50); Neutrophils % (auto) 64.8 %; Platelet Count 289 K/uL (130-400); RDW Coefficient of Variation 13.4 % (11.5-14.5); RDW Standard Deviation 40.5 fL (36.4-46.3); Red Blood Count 4.45 M/uL (4.20-5.40); White Blood Count 11.69 K/ul (4.8-10.8)
[2023-11-11 06:56] LABS: BUN Creatinine Ratio 9.5 (10-20); Calcium 9.7 mg/dl (8.6-10.3); Creatinine Clr Calc Pharmacy 129.9 ml/min; Est GFR (African American) 133.7 ml/min; Est GFR (Non-African American) 115.4 ml/min; Potassium 4.2 mmol/L (3.5-5.1)
--- NOTE | 2023-11-11 16:20 | Psychiatric Progress Note ---
Date of Service November 11, 2023 Impression / Recommendations Impression 37 yo female with a recent manic episode, unusual presentation with subsequent development of serotonin syndrome like symptoms and dystonia without clear evidence/progression of NMS. Improving with hold of psych meds, scheduled Cogentin, and prn Ativan. I suspect this patient is a slow metabolizer of cyt p540 meds as would explain dramatic reaction to polypharmacy, since no evidence of ingestion and this is m ore likely than conversion. Overall, I spent a total of 35 minutes with this case, including review of chart, ordering medication, evaluation of patient, counseling patient and , coordination with nursing,coordination of care with hospitalist service, and documentation. (1) Dystonia: (2) Serotonin syndrome: (3) Anxiety and depression: Plan Cogentin and Ativan 1 mg TID, would be discharged on these meds with plan to taper by psychiatrist at the [facility] at [place]. Notified Dr. Arechiga of d/c plans (not yet medically cleared) and that previous psych meds should not be restarted. Any new psychiatric medications would be at discretion of treating psychiatrist at [facility]. Interval History Identifying Information Loida is a 37-year-old female who represented to the ED on 11/05 with psychiatric consult by Dr. Ma on 11/06 for presumed serotonin syndrome. Chief Complaint ongoing improvement Subjective Subjective Patient was seen & assessed and interval progress reviewed with nursing and Dr. Arechiga. The patient is more mobile about her room/steadier gait with pascal d/c. at bedside and was very pleased with her progress. Discussed possibility of cyt P450 testing as an outpatient given her hx of emmanuel on low dose SSRI and more recent presentation. She feels that her dystonia is almost resolved. Thoughts are clear. Physical Exam Psychiatric Orientation: alert Apperance: appropriately groomed Eye Contact: good eye contact Motor Behavior: + tremor (minimal, minimal rocking) Speech: normal rate/rhythm/volume of speech Affect: euthymic affect Thought Process: goal directed thought process Thought Content: reality based without delusions Hallucinations: no auditory hallucinations and no visual hallucinations Cognition: attention grossly intact and language grossly intact Vital Signs (Past 24 Hours) Last Vital Signs Temp 37.2 C 11/11/23 15:20 Pulse 94 H 11/11/23 15:20 Resp 17 11/11/23 15:20 BP 131/72 11/11/23 15:20 Pulse Ox 96 11/11/23 15:20 O2 Del Method Room Air 11/11/23 15:20 Results & Data ([facility]) Laboratory Results Laboratory Results - last 24 hr 11/11/23 05:54 WBC 11.69 H RBC 4.45 Hgb 12.6 Hct 37.1 MCV 83.4 MCH 28.3 MCHC 34.0 RDW Std Deviation 40.5 RDW Coeff of Ana María 13.4 Plt Count 289 MPV 10.8 Immature Gran % (Auto) 0.3 Neut % (Auto) 64.8 Lymph % (Auto) 22.8 E[place] % (Auto) 8.8 Eos % (Auto) 2.5 Baso % (Auto) 0.8 Neut # (Auto) 7.59 H Lymph # (Auto) 2.66 Emanuel # (Auto) 1.03 H Eos # (Auto) 0.29 Baso # (Auto) 0.09 Immature Gran # (Auto) 0.03 Sodium 140 Potassium 4.2 Chloride 103 Carbon Dioxide 31 Anion Gap 6 BUN 6 Creatinine 0.63 Est Cr Clr Drug Dosing 129.9 Est GFR ( Amer) 133.7 Est GFR (Non-Af Amer) 115.4 BUN/Creatinine Ratio 9.5 L Glucose 101 H Calcium 9.7 Magnesium 2.0 Total Creatine Kinase 1438 H Current Inpatient Medications Current Inpatient Medications: Current Inpatient Medications Acetaminophen (Acetaminophen 325 Mg Tab) 650 mg PO Q4H PRN PRN Reason: Moderate Pain (Scale 4, 5, 6) Stop: 12/05/23 18:45 Last Admin: 11/11/23 10:26 Dose: 650 mg Benztropine Mesylate (Benztropine Mesylate 1 Mg Tab) 1 mg PO TID [facility] Stop: 12/10/23 13:59 Last Admin: 11/11/23 14:35 Dose: 1 mg Enoxaparin Sodium (Enoxaparin Inj 40 Mg/0.4 Ml Syr) 40 mg SQ Q24H [facility] Stop: 12/08/23 15:59 Last Admin: 11/10/23 16:36 Dose: 40 mg Hydrocortisone (Hydrocortisone Hc 2.5% Crm 30gm Tube) 1 appln EXT BID PRN PRN Reason: Hemorrhoid pain Stop: 12/11/23 04:02 Lorazepam (Lorazepam 1 Mg Tab) 1 mg PO TID [facility] Stop: 12/09/23 13:59 Last Admin: 11/11/23 14:35 Dose: 1 mg Melatonin (Melatonin 3 Mg Tab) 6 mg PO HS PRN PRN Reason: Sleep Stop: 12/09/23 22:10 Last Admin: 11/10/23 22:00 Dose: 6 mg Metoprolol Tartrate (Metoprolol Tartrate 1 Mg/Ml Vial) 2.5 mg IV Q4H PRN PRN Reason: HR > 110 Stop: 12/06/23 14:26 Last Admin: 11/09/23 20:29 Dose: 2.5 mg Metoprolol Tartrate (Metoprolol Tartrate 25 Mg Tab) 12.5 mg PO BID [facility] Stop: 12/08/23 16:04 Last Admin: 11/11/23 09:21 Dose: 12.5 mg Ondansetron HCl (Ondansetron Inj 2 Mg/Ml 2 Ml Vial) 4 mg IV Q4H PRN PRN Reason: Nausea And Vomiting Stop: 12/05/23 18:45 Polyethylene Glycol (Polyethylene (Miralax) 17 Gm Pack) 17 gm PO DAILY PRN PRN Reason: Constipation Stop: 12/10/23 16:19 Last Admin: 11/11/23 00:05 Dose: 17 gm
--- NOTE | 2023-11-11 17:02 | Hospitalist Progress Note ---
Date of Service November 11, 2023 Assessment & Plan (1) Serotonin syndrome: (2) Leukocytosis: (3) Anxiety and depression: (4) Tachycardia: Plan: per admitting service notes with addendum: - Admit to PCU - Continue NSS at 125 ml/hr, Ativan 2 mg IV Q4H prn agitation while comes out of this - EKG reviewed showing sinus tach, has improved with fluids since being the ER - Check CT head as no imaging completed yet today for changes in mental status, she is does Ativan 2 mg IV in the ER, sedated but comfortable presently - Psych consultation for possible med wash due to concern for seratonin syndrome - holding all psych meds at this time - Consult neuro - [facility] in [facility] reviewed did not reveal infectious etiology in LP, EEG, EKG - Pt was on haldol 10 BID from discharge from [place] [facility], and weaned this to 5 mg BID about 3 days ago due to concern for increased symptoms. Not given this morning. - Home meds include: buspirone 20 mg BID (stopped this yesterday), is taking trazodone 100 mg HS and got it last night, and lexapro 20 mg daily. - Prior to any hospital stay was only on buspirone and lexapro for anxiety and depression. - Follow ua/urine culture and drug tox - WBC of 16 k does not appear infectious at this time, negative CXR, awaiting finalized ua, no other symptoms per present at bedside. - Last menstrual cycle was this week, finished yesterday 11/06 Ativan 2mg IV q2-4hr PRN with hold parameters PRN Metoprolol and Tylenol Cogentin IV given by Psych Neurology also consulted continue supportive care no focus of infection identified at this time 2/ HR still elevated Echo ordered: no valvular abnormalities, pericardial effusion Cardiology service consulted, appreciate recommendations Continue as needed metoprolol for heart rate more than 110 Continue as needed Ativan Cogentin twice daily ordered by psychiatry service, also appreciate recommendations Continue IV fluids Blood cultures ordered, pending, otherwise no signs of acute infection at this point Monitor closely 11/08 Gradually improving daily Less tremors 11/09 transitioned to PO Ativan continue Metoprolol 12.5mg po BID Psychiatry service following, appreciate recommendations Continue supportive care Afebrile, blood cultures negative 11/10 Still requiring as needed IV Ativan Continue Ativan p.o. BP and heart rate seems to be improving as of 11 AM, will continue to monitor If still elevated, will increase metoprolol p.o. 25 mg p.o. 11/11 Improving daily Able to ambulate in the hallways today Continue Cogentin, Ativan p.o. Continue metoprolol 12.5 mg p.o. twice daily DVT ppx: Lovenox 40 mg subcu daily Lines: 1 PIV Diet: Easy to chew, regular CODE: FULL Dispo: pending lives at home with family Admission and Anticipated Discharge Date Admission Date: November 05, 2023 Subjective Follow-up for serotonin syndrome, etc. Seen walking in the room, comfortable, not in distress Patient's at the bedside visiting States she feels improved day by day Less tremors No chest pain, palpitations, dizziness No other new symptoms Review of Systems Review of Systems: all noted and negative except for above Physical Exam Physical Exam: General- oriented x 3, not in distress, speaks in sentences with no effort or accessory muscle use Eyes- anicteric Neck- no JVD Lungs- clear breath sounds bilaterally, no rales/wheezes Heart- normal rate, regular rhythm; no murmurs Abdomen- normal bowel sounds, nondistended, soft, nontender Extremities- no pretibial edema, no calf tenderness Mild bilateral hand tremors Neuro- alert, oriented x 3; no gross focal neurologic deficits Skin- warm & dry Results & Data Results & Data Vital Signs (Past 12 Hours) Vital Signs Temp Pulse Pulse Resp BP Pulse Ox O2 Del Method 11/11/23 15:20 37.2 C 94 H 17 131/72 96 Room Air 11/11/23 11:50 37.0 C 86 18 115/85 98 Room Air 11/11/23 08:00 Room Air 11/11/23 08:00 117 H 11/11/23 08:00 36.9 C 112 H 18 122/95 97 Room Air all noted and reviewed including below (2) Leukocytosis Leukocytosis type: unspecified Qualified Code(s): D72.829 - Elevated white blood cell count, unspecified
[2023-11-11] MEDS ORDERED: PANTOPRAZOLE BOLUS/DRIP IV STA (18:34)
[2023-11-11 19:32] LABS: Basophils % (auto) 0.5 %; Eosinophils # (auto) 0.27 K/uL (0.00-0.50); Eosinophils % (auto) 1.5 %; Hematocrit (blood only) 41.2 % (37.0-47.0); Hemoglobin 13.7 g/dl (12.0-16.0); Immature Granulocytes # (auto) 0.11 K/uL (0.01-0.20); Immature Granulocytes % (auto) 0.6 %; Lymphocytes % (auto) 17.3 %; Mean Corpuscular Hemoglobin 27.7 pg (25.0-34.0); Mean Corpuscular Hgb Conc 33.3 g/dL (32.0-36.0); Mean Corpuscular Volume 83.2 fL (80.0-100.0); Mean Platelet Volume 10.9 fL (9.4-12.4); Monocytes # (auto) 1.41 K/uL (0.11-0.59); Monocytes % (auto) 7.6 %; Neutrophils # (auto) 13.46 K/uL (1.40-6.50); Neutrophils % (auto) 72.5 %; Platelet Count 362 K/uL (130-400); RDW Coefficient of Variation 13.4 % (11.5-14.5); RDW Standard Deviation 40.1 fL (36.4-46.3); Red Blood Count 4.95 M/uL (4.20-5.40); White Blood Count 18.55 K/ul (4.8-10.8)
[2023-11-11] MEDS: PANTOprazole 80 MG in DEXTROSE 5% 100 ML IV ONE (20:57)
[2023-11-11] MEDS: SODIUM CHLORIDE 0.9% 1,000 ML IV SCH (22:12)
[2023-11-11] MEDS: PANTOprazole 40 MG in DEXTROSE 5% MINI-B 100 ML IV SCH (22:13)
--- NOTE | 2023-11-11 22:25 | CT Scan Report ---
Exam(s): CT ABDOMEN + PELVIS Without Contrast EXAM: CT Abdomen and Pelvis Without Intravenous Contrast CLINICAL HISTORY: Reason for exam: hematochezia. TECHNIQUE: Axial computed tomography images of the abdomen and pelvis without intravenous contrast. CTDI is 23.84 mGy and DLP is 1123.16 mGy-cm. Automated exposure control was utilized for the study. A dose lowering technique was utilized adhering to the principles of ALARA. COMPARISON: CT abdomen and pelvis 02/11/2013. FINDINGS: Lung bases: Unremarkable. No mass. No consolidation. Heart: Trace pericardial effusion. ABDOMEN: Liver: Unremarkable. Gallbladder and bile ducts: Cholecystectomy. No ductal dilation. Pancreas: Unremarkable. No ductal dilation. Spleen: Unremarkable. No splenomegaly. Adrenals: Unremarkable. No mass. Kidneys and ureters: Unremarkable. No obstructing stones. No hydronephrosis. Stomach and bowel: Large rectal stool burden with perirectal fat stranding. Moderate colonic stool burden. No mucosal thickening. PELVIS: Appendix: No findings to suggest acute appendicitis. Bladder: Nondependent air within the urinary bladder. No stones. Reproductive: Unremarkable as visualized. ABDOMEN and PELVIS: Intraperitoneal space: Unremarkable. No free air. No significant fluid collection. Bones/joints: Degenerative changes in the spine. No acute fracture. No dislocation. Soft tissues: Subcutaneous emphysema in the left lower quadrant subcutaneous fat. This could be related to medication injection. Vasculature: Unremarkable. No abdominal aortic aneurysm. Lymph nodes: Unremarkable. No enlarged lymph nodes. IMPRESSION: 1. Large rectal stool burden with perirectal fat stranding. This may represent stercoral colitis. Clinical correlation is recommended. 2. Nondependent air within the urinary bladder. Recommend correlation for recent instrumentation. Electronically signed by: Raheem Hernandez MD 11/11/23 22:25 PM
[2023-11-11 23:09] LABS: Hematocrit (blood only) 37.2 % (37.0-47.0); Hemoglobin 12.3 g/dl (12.0-16.0)
[2023-11-12 06:36] LABS: Basophils # (auto) 0.09 K/uL (0.00-0.20); Basophils % (auto) 0.7 %; Eosinophils # (auto) 0.19 K/uL (0.00-0.50); Eosinophils % (auto) 1.5 %; Hematocrit (blood only) 33.9 % (37.0-47.0); Hemoglobin 11.2 g/dl (12.0-16.0); Immature Granulocytes # (auto) 0.04 K/uL (0.01-0.20); Immature Granulocytes % (auto) 0.3 %; Lymphocytes % (auto) 19.5 %; Mean Corpuscular Hemoglobin 28.1 pg (25.0-34.0); Mean Platelet Volume 10.6 fL (9.4-12.4); Monocytes # (auto) 0.94 K/uL (0.11-0.59); Monocytes % (auto) 7.3 %; Neutrophils # (auto) 9.04 K/uL (1.40-6.50); Neutrophils % (auto) 70.7 %; Platelet Count 252 K/uL (130-400); RDW Coefficient of Variation 13.3 % (11.5-14.5); RDW Standard Deviation 41.1 fL (36.4-46.3); Red Blood Count 3.99 M/uL (4.20-5.40)
[2023-11-12 07:08] LABS: BUN Creatinine Ratio 15.8 (10-20); Calcium 9.2 mg/dl (8.6-10.3); Creatinine Clr Calc Pharmacy 143.6 ml/min; Est GFR (African American) 138.2 ml/min; Est GFR (Non-African American) 119.3 ml/min; Magnesium 2.1 mg/dl (1.7-2.4); Potassium 4.4 mmol/L (3.5-5.1)
[2023-11-12 07:59] VITALS: RESP 18
--- NOTE | 2023-11-12 10:00 | Gastrointestinal Consultation ---
Date of Consultation November 12, 2023 Assessment & Plan (1) Constipation: CT and pt's symptoms suggest that she had severe diarrhea, causing a stercoral ulcer which causes bright red blood. She did not had a significant drop in Hb and her bleeding seems to be resolving w use of Miralax. Plan - tap water enema x 1 - Miralax/dulcolax to further decrease the fecal load. - After purge, recommend Miralax daily or at least as needed - if no BM x 24 hrs. Would recheck Hb in a week or so - pt will do as an OP. Would consider OP colonoscopy if chronic intermittent rectal bleeding, though not urgent and would defer to PCP. Supervising Physician Co-Signing Physician Notes I have seen and examined the patient and agree with pe and plan as documented. Admitted with concerns for serotonin syndrome, mild hematochezia while in house. Imaging c/w stercoral colitis, no hemorrhoid on dannie. Agree with further plan of care, outpt colonoscopy in 8-12 weeks can be considered. History of Present Illness Reason for Consultation: Hematochezia Requesting Physician: Dr. Arechiga Attending Physician: Wm Arechiga MD History of Present Illness Ms. Loida Whitehead is a 37 yr old female pt of Dr. Tiarra rush a hx of depression/anxiety who had been [place] [facility] for autoimmune encephalitis vs serotonin syndrome and meds were adjusted. She was brought to [facility] ED on 11/05 for tachycardia, tremor, shaking, rigidity for several days. Psych meds are being adjusted. Today, GI is consulted for hematochezia. Yesterday, she had diarrhea, w small amts of blood on the toilet paper several times, then one witness liquid BM consisting of about 200cc of bright red blood w clots last evening. Early this morning a brown BM w some blood was documented. CT w constipation/fecal impaction. She had taken one dose of Miralax yesterday. This morning, a digit rectal w brown thick stool in the vault, no blood on return. She denies any abd pain, N or vomiting. She has a hx of hemorrhoids though none were seen or palpable on exam. She has never had a colonoscopy. Allergies Allergy/AdvReac Type Severity Reaction Status Date / Time cefaclor Allergy Intermediate Hives/Rash Verified 11/05/23 15:52 clarithromycin Allergy Intermediate Hives/Rash Verified 11/05/23 15:52 clindamycin Allergy Intermediate Hives/Rash Verified 11/05/23 15:52 cyclobenzaprine Allergy Intermediate Confusion, Verified 11/05/23 15:52 impaired speech and arm numbness. Penicillins Allergy Hives Verified 11/05/23 15:52 Home Medications Medication Instructions Recorded Confirmed Type trazodone 100 mg tablet 100 mg PO HS insomnia #1 tab 10/25/23 11/05/23 Rx buspirone 10 mg tablet 20 mg PO AMPM 11/05/23 11/05/23 History escitalopram oxalate 20 mg tablet 20 mg PO QAM 11/05/23 11/05/23 History haloperidol 5 mg tablet 10 mg PO AMPM 11/05/23 11/05/23 History Patient History Medical History Elevated liver enzymes Migraine headache Asthma Vaginal odor Urinary tract infection Pelvic pain Abnormal uterine bleeding Encounter for pre-operative examination Hypokalemia Gastroenteritis Dehydration Asthma Rare use of PRN inhaler Ventral hernia without obstruction or gangrene Normal course Encounter for pre-operative examination Adjustment disorder with mixed anxiety and depressed mood Rh negative status during in third trimester Pre-eclampsia, severe, antepartum 39 weeks gestation of Anxiety and depression Migraine Surgical History H/O ventral hernia repair (05/02/22) Open Ventral Hernia Repair, primary - Georgi Lorenzana, , FACS History of hysteroscopy w/ polypectomy History of esophagogastroduodenoscopy (EGD) [place] teeth extracted History of cholecystectomy Family History Mother High cholesterol Breast cancer Cancer Grandmother (Maternal) Cancer Father High cholesterol Hypertension Other No family history of adverse response to anesthesia Social History Smoking Status: Never smoker Second Hand Exposure: No; Do You Dip or Chew Tobacco: No; Hx Alcohol Use: Yes Alcohol type: wine Alcohol Intake Frequency: Monthly or Less Hx Substance Use: No Preferred Language: Estonian Communication Ability: Impaired Visual Impairment: No Limitations Wall Man Required: No Beliefs That Will Affect Care: None marital status: Current Living Situation: Spouse current occupational status: employed current occupation: [employer] How many Children do You have: 1 Feels Safe at Home: Yes Diet: regular during the past year weight has: other Gender Identity: Female Assistive Devices: None Review of Systems Review of Systems: ROS: Gen: Weakness, tremors - improving. No fevers, or weight loss Eyes: No eye redness, or pain, no recent vision changes Resp: No SOB, no cough Cardio: Had tachycardia, now denies any palpitations/irregular beats; no chest pain GI: No abdominal pain, no nausea/vomiting : Denies pain on urination Skin: No jaundice, itching or new rashes Physical Exam Constitutional: WD/WN, vitals as above (except sl anxious, mild tremor noted) Eyes: PERRL, conjunctivae normal, anicteric sclerae ENMT: external ear and nose normal, oropharynx normal Neck: trachea midline, no thyromegaly Respiratory: normal respiratory effort, lungs clear to auscultation Cardiovascular: RRR, no murmur, no edema Gastrointestinal (Abdomen): normal bowel sounds, soft, nontender, no hepatosplenomegaly Rectal vault w thick brown stool. No blood. Musculoskeletal: no cyanosis or clubbing, extremities motor strength 5/5 Skin: no rashes, warm and dry Neurologic: PERRL, EOMI, accommodation nl, no face palsy, no dysarthria Psychiatric: A+Ox3, euthymic affect Lymphatic: no cervical or axillary lymphadenopathy Results & Data Vital Signs (Past 12 Hours) Vital Signs Temp Pulse Pulse Resp BP Pulse Ox O2 Del Method 11/12/23 07:20 36.7 C 107 H 18 131/87 96 Room Air 11/12/23 03:00 101 H 22 117/78 99 Room Air 11/11/23 23:00 36.4 C L 91 H 20 102/66 98 Room Air 11/11/23 22:09 92 H Laboratory Results WBC 12.8, Hb 11.2 Hct 33, Plts 252, Na 140, K 4.4, Cl 104, CO2 29, BUN 9, Cr 0.5, glucose 105. Diagnostic Findings Non contrast CTAP 11/11/23: 1. Large rectal stool burden with perirectal fat stranding. This may represent stercoral colitis. Clinical correlation is recommended. 2. Nondependent air within the urinary bladder. Recommend correlation for recent instrumentation.
[2023-11-12] MEDS: bisacodyL 5 MG TABEC PO ONE (10:20)
[2023-11-12] MEDS: POLYETHYLENE (MIRALAX) 17 GM PACK PO ONE (10:20)
--- NOTE | 2023-11-12 11:54 | Hospitalist Progress Note ---
Date of Service November 12, 2023 Assessment & Plan (1) Serotonin syndrome: (2) Leukocytosis: (3) Anxiety and depression: (4) Tachycardia: Plan: per admitting service notes with addendum: SEROTONIN SYNDROME HISTORY OF ANXIETY AND DEPRESSION - Psych consultation for possible med wash due to concern for seratonin syndrome - holding all psych meds at this time - Consult neuro - [facility] reviewed did not reveal infectious etiology in LP, EEG, EKG - Pt was on haldol 10 BID from discharge from [facility], and weaned this to 5 mg BID about 3 days ago due to concern for increased symptoms. Not given this morning. - Home meds include: buspirone 20 mg BID (stopped this yesterday), is taking trazodone 100 mg HS and got it last night, and lexapro 20 mg daily. - Prior to any hospital stay was only on buspirone and lexapro for anxiety and depression. 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 Cogentin Patient given IV metoprolol for sinus tachycardia and transition to metoprolol 12.5 mg p.o. twice daily, heart rate currently controlled Will need Cogentin 1 mg p.o. 3 times daily and Ativan 1 mg p.o. 3 times daily upon discharge per psych service Hopefully can be weaned off metoprolol prior to discharge Follow-up with psychiatrist within 1 week after discharge HEMATOCHEZIA, ASSOCIATED WITH CONSTIPATION CT abdomen pelvis: Large rectal stool burden, perirectal fat stranding, stercoral colitis Hemoglobin decreased from 13--11 Hematochezia resolving GI service consulted-recommend tapwater enema and MiraLAX Diet advanced Check CBC tomorrow Disposition Possible discharge home tomorrow if medically stable and cleared by psychiatry service DVT ppx: teds, scds Lines: 1 PIV Diet: Easy to chew, regular CODE: FULL Admission and Anticipated Discharge Date Admission Date: November 05, 2023 Subjective Follow-up for serotonin syndrome, development of hematochezia while inpatient, etc. Seen resting in bed, comfortable, not in distress, in good spirits SARIKA Brunson present at the bedside throughout whole encounter States she feels okay overall Abdominal pain improving, as well as hematochezia No nausea or vomiting Tremors are mild Mood is okay No other new symptoms Review of Systems Review of Systems: all noted and negative except for above Physical Exam Physical Exam: General- oriented x 3, not in distress, speaks in sentences with no effort or accessory muscle use Eyes- anicteric Neck- no JVD Lungs- clear breath sounds bilaterally, no rales/wheezes Heart- normal rate, regular rhythm; no murmurs Abdomen- normal bowel sounds, nondistended, soft, nontender Extremities- no pretibial edema, no calf tenderness Mild bilateral hand tremors Neuro- alert, oriented x 3; no gross focal neurologic deficits Skin- warm & dry Results & Data Results & Data Vital Signs (Past 12 Hours) Vital Signs Temp Pulse Resp BP Pulse Ox O2 Del Method 11/12/23 11:40 36.6 C 83 18 114/78 94 Room Air 11/12/23 07:20 36.7 C 107 H 18 131/87 96 Room Air 11/12/23 03:00 101 H 22 117/78 99 Room Air all noted and reviewed including below (2) Leukocytosis Leukocytosis type: unspecified Qualified Code(s): D72.829 - Elevated white blood cell count, unspecified
[2023-11-12 12:10] LABS: Hemoglobin 12.4 g/dl (12.0-16.0)
[2023-11-12 18:11] LABS: Hematocrit (blood only) 38.4 % (37.0-47.0); Hemoglobin 12.8 g/dl (12.0-16.0)
[2023-11-13 06:28] LABS: Basophils # (auto) 0.08 K/uL (0.00-0.20); Basophils % (auto) 0.9 %; Eosinophils # (auto) 0.22 K/uL (0.00-0.50); Eosinophils % (auto) 2.4 %; Hematocrit (blood only) 35.1 % (37.0-47.0); Hemoglobin 11.4 g/dl (12.0-16.0); Immature Granulocytes # (auto) 0.04 K/uL (0.01-0.20); Immature Granulocytes % (auto) 0.4 %; Lymphocytes # (auto) 2.33 K/uL (1.20-3.40); Lymphocytes % (auto) 25.7 %; Mean Corpuscular Hemoglobin 27.7 pg (25.0-34.0); Mean Corpuscular Hgb Conc 32.5 g/dL (32.0-36.0); Mean Corpuscular Volume 85.2 fL (80.0-100.0); Mean Platelet Volume 10.9 fL (9.4-12.4); Monocytes # (auto) 0.92 K/uL (0.11-0.59); Monocytes % (auto) 10.2 %; Neutrophils # (auto) 5.46 K/uL (1.40-6.50); Neutrophils % (auto) 60.4 %; Platelet Count 262 K/uL (130-400); RDW Coefficient of Variation 13.5 % (11.5-14.5); RDW Standard Deviation 41.5 fL (36.4-46.3); Red Blood Count 4.12 M/uL (4.20-5.40); White Blood Count 9.05 K/ul (4.8-10.8)
[2023-11-13 06:35] LABS: BUN Creatinine Ratio 15.1 (10-20); Calcium 9.1 mg/dl (8.6-10.3); Creatinine Clr Calc Pharmacy 154.3 ml/min; Est GFR (African American) 141.6 ml/min; Est GFR (Non-African American) 122.2 ml/min; Magnesium 2.1 mg/dl (1.7-2.4); Potassium 3.8 mmol/L (3.5-5.1)
[2023-11-13 08:26] VITALS: TEMP 97.5; O2SAT 94
[2023-11-13] MEDS: POLYETHYLENE (MIRALAX) 17 GM PACK PO SCH (08:26)
--- NOTE | 2023-11-13 09:03 | Gastroenterology Progress Note ---
Date of Service November 13, 2023 Assessment & Plan (1) Constipation: Plan: Rectal bleeding likely secondary to stercoral ulcer which should heal now that her constipation is resolved. She also reports hemorrhoids, so may continue to have some light volume rectal bleeding. She has a hx of chronic constipation. Plan OP Regime explained to the pt: Miralax/fiber and increased water to 60 -80oz/day day. Dulcolax if no BM for > 24 hrs. GI will sign off. Pt to discuss arranging OP colonoscopy w her PCP, though yield would likely be low (typically normal colonoscopy when indication is chronic constipation). At any rate, she can work on the adjusting psych meds and when psych issues are optimized, consider OP colonoscopy. She does have some chronic intermittent light volume rectally bleeding which she attributes to hemorrhoids but no other s/s of IBD or colon cancer. Admission and Anticipated Discharge Date Admission Date: November 05, 2023 Supervising Physician Co-Signing Physician Notes I have seen and examined the patient and agree with pe and plan as documented. Subjective 37, female, admitted on 11/05 for tremors, tachycardia and need for psych med adjustments. GI consulted for rectal bleeding 2nd to constipation/stercoral ulcer. Digital rectal yesterday w brown stool, no blood. Hb on arrival 13 -> 11.2 yesterday to 11.4 today. Did not receive blood products. Pt reports 3 large brown BMs each w a small amt of bright red blood on the stool and the toilet paper. No abd pain. Sitting up in a chair at bedside, eating a regular consistency meal. Review of Systems Review of Systems: ROS: Gen: Tremor is resolved. Denies weakness, fevers, weight loss Eyes: No eye redness, or pain, no recent vision changes Resp: No SOB, no cough Cardio: Tachycardia resolved. No palpitations/irregular beats, no chest pain GI: Constipation resolved. No abdominal pain, no nausea/vomiting : Denies pain on urination Skin: No jaundice, itching or new rashes Physical Exam Constitutional: WD/WN, vitals as above ENMT: external ear and nose normal, oropharynx normal Neck: trachea midline, no thyromegaly Respiratory: normal respiratory effort, lungs clear to auscultation Cardiovascular: RRR, no murmur, no edema Gastrointestinal (Abdomen): normal bowel sounds, soft, nontender, no hepatosplenomegaly Musculoskeletal: no cyanosis or clubbing, extremities motor strength 5/5 Skin: no rashes, warm and dry Neurologic: PERRL, EOMI, accommodation nl, no face palsy, no dysarthria Psychiatric: A+Ox3, euthymic affect Lymphatic: no cervical or axillary lymphadenopathy Results & Data Vital Signs (Past 12 Hours) Vital Signs Temp Pulse Pulse Pulse Resp BP Pulse Ox 11/13/23 07:45 36.4 C L 85 18 105/68 94 11/13/23 02:52 36.6 C 70 18 107/70 99 11/13/23 00:00 77 11/12/23 23:07 36.6 C 84 18 100/60 99 O2 Del Method 11/13/23 07:45 Room Air 11/13/23 02:52 Room Air 11/13/23 00:00 11/12/23 23:07 Room Air Laboratory Results WBC 11.2, Hct 35, Na 138, K 3.8, Cl 104, CO2 27, BUN 8, Cr 53. Diagnostic Findings Non contrast CT 11/11: 1. Large rectal stool burden with perirectal fat stranding. This may represent stercoral colitis. Clinical correlation is recommended. 2. Nondependent air within the urinary bladder. Recommend correlation for recent instrumentation.
[2023-11-13 09:31] VITALS: BP 137/82; PULSE 70
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
[2023-11-18 06:28] LABS: Creatinine, Random Urine 100 mg/dL (20-275); Total Metanephrine 700 mcg/g cr (94-445)
== END 2023-11-13 09:53 | disposition home or self-care (01) | DRG 57 ==
LOC: ED 13:19 → EDINP 16:25 → SUATTDRO 16:25 → 1E 18:46 → 2E 11-09 15:09
DX: R41.0 Disorientation, unspecified; F43.23 Adjustment disorder with mixed anxiety and depressed mood; I45.10 Unspecified right bundle-branch block; Z88.0 Allergy status to penicillin; F44.4 Conversion disorder with motor symptom or deficit; G43.909 Migraine, unspecified, not intractable, without status migrainosus; Z79.899 Other long term (current) drug therapy; Z88.1 Allergy status to other antibiotic agents; G25.79 Other drug induced movement disorders; T43.225A Adverse effect of selective serotonin reuptake inhibitors, initial encounter; G24.02 Drug induced acute dystonia; J45.909 Unspecified asthma, uncomplicated; K92.1 Melena; K59.00 Constipation, unspecified; R00.0 Tachycardia, unspecified